=== PATIENT | female | born 1965 | race Caucasian/White ===

== ENCOUNTER 2022-11-11 14:43 | Outpatient (RCR) | payer MEDICAID, SELFPAY | END 2022-12-07 16:26 | disposition home or self-care (01) | LOC: PT 14:43 | PROVIDERS: PCP Family Medicine | DX: M54.2 Cervicalgia (principal) | CPT/HCPCS: 97010; 97012; 97014; 97110; 97140; 97162 ==

== ENCOUNTER 2023-01-03 16:00 | Outpatient (REF) | payer MEDICAID, SELFPAY ==
[2023-01-06 18:08] LABS: Age Gdln ACOG Testing Note (.); HPV Aptima Negative (Negative); IGP, Aptima HPV, rfx 16/18,45 Note (.)
== END 2023-01-03 16:01 | disposition home or self-care (01) ==
LOC: LAB 16:00
PROVIDERS: PCP Family Medicine; Visit Provider Obstetrics & Gynecology
DX: Z12.4 Encounter for screening for malignant neoplasm of cervix (principal)
CPT/HCPCS: G0145

== ENCOUNTER 2023-01-09 12:49 | Outpatient (OUT) | payer MEDICAID, SELFPAY ==
--- NOTE | 2023-01-09 13:02 | XR_ITS ---
[address] [address] Patient Name: EDINSON VILLEDA MRN: [id number] date: 1965 Sex: F Assigned Patient Location: [facility] Current Patient Location: LAB Accession/Order Number: [id number] Exam Date: 01/09/2023 13:06 Report Date: 01/09/2023 17:40 At the request of: ROSITA UMANZOR Procedure: XR DEXA axial skeleton EXAMINATION: XR DEXA axial skeleton, 01/09/2023 1:06 PM EDT HISTORY: Screening For Osteoporosis M81.0 COMPARISON: 2018 TECHNIQUE: Dual-energy X-ray absorptiometry (DEXA) bone density study performed for the axial skeleton. FINDINGS: Bone mineral density AP spine L1-L4 measures 1.153 g/sq cm. 3.4% reduction from the prior exam. T score -0.2. WHO classification: Normal. Lowest bone mineral density right femoral neck measures 0.934 g/sq cm. T score -0.7. WHO classification: Normal XR/XR DEXA axial skeleton IMPRESSION: Normal bone mineral density. Low fracture risk Electronically authenticated by: DAMARIS WOODSON Date: 01/09/2023 17:40
== END 2023-01-09 12:50 | disposition home or self-care (01) ==
LOC: RAD 12:49
PROVIDERS: PCP Family Medicine; Visit Provider Obstetrics & Gynecology
DX: M81.0 Age-related osteoporosis without current pathological fracture (principal)
CPT/HCPCS: 77080

== ENCOUNTER 2023-09-06 10:37 | Outpatient (OUT) | payer MEDICAID, SELFPAY ==
--- NOTE | 2023-09-06 10:43 | MM_ITS ---
Patient Name: EDINSON VILLEDA MR#: [id number] : 1965 Exam Date: 09/06/2023 Ordering Doctor: DR Justin Mcclendon . RADIOLOGY REPORT PROCEDURE: MM TOMOSYNTHESIS SCREENING BI COMPARISON: MG MAMM SCREEN 3D NEIL CAD, 07/13/2021. MG MAMM SCREEN 3D NEIL CAD, 07/20/2022. INDICATIONS: Screening Calculator Name NCI Breast Cancer Risk Assessment Tool 5 Year Breast Cancer Risk 1.10% Lifetime Breast Cancer Risk 7.10% Personal Breast Cancer No Personal Ovarian Cancer No Treatments None Family Cancers Grandmother-paternal with breast cancer at age ~50; Grandmother-paternal with bone cancer at age 80; Father with carcinoma cancer at age 50. LOCATION: [facility] BREAST COMPOSITION: The breasts are heterogeneously dense,which may obscure small masses. FINDINGS: DIAGNOSTIC CATEGORY 2--BENIGN FINDING. NO CHANGE FROM COMPARISON. Scattered benign-appearing nodules are present. Scattered benign-appearing calcifications are present. Scattered benign-appearing lymph nodes are present. RIGHT BREAST: No significant suspicious finding. LEFT BREAST: No significant suspicious finding. RECOMMENDATIONS: ROUTINE MAMMOGRAM AND CLINICAL EVALUATION IN 12 MONTHS. PLEASE NOTE: A NORMAL MAMMOGRAM DOES NOT EXCLUDE THE POSSIBILITY OF BREAST CANCER. A CLINICALLY SUSPICIOUS PALPABLE LUMP SHOULD BE BIOPSIED. Dictated by: Farhan Plummer MD on 09/06/2023 at 13:08 Approved by: Farhan Plummer MD on 09/06/2023 at 13:09
== END 2023-09-06 10:38 | disposition home or self-care (01) ==
LOC: MAMMO 10:38
PROVIDERS: PCP Family Medicine; Visit Provider Obstetrics & Gynecology
DX: Z12.31 Encounter for screening mammogram for malignant neoplasm of breast (principal); Z80.3 Family history of malignant neoplasm of breast; Z80.8 Family history of malignant neoplasm of other organs or systems
CPT/HCPCS: 77063; 77067

== ENCOUNTER 2023-09-25 12:30 | Outpatient (OUT) | payer MEDICAID, SELFPAY | END 2023-09-25 12:31 | disposition home or self-care (01) | LOC: SLEEP 09-26 09:01 | PROVIDERS: PCP Family Medicine; Visit Provider Family Medicine | DX: R40.0 Somnolence (principal); G47.33 Obstructive sleep apnea (adult) (pediatric) | CPT/HCPCS: 95806 ==

== ENCOUNTER 2023-10-09 19:50 | Outpatient (OUT) | payer MEDICAID, SELFPAY ==
--- OUTSIDE RECORDS SUMMARY | 2023-10-09 19:52 | XMS_ITS | CCD ---
Author Organization [facility] Care Team Providers Care Wrapper Layer Name Role Phone NOÉ ., DR BECKER Admitting Unavailable NOÉ ., DR BECKER Attending Unavailable CHARITY, DR BRANCH Primary Care Unavailable NOÉ ., DR BECKER Consulting Unavailable NOÉ ., DR BECKER Admitting Unavailable NOÉ ., DR BECKER Attending Unavailable CHARITY, DR BRANCH Primary Care Unavailable NOÉ ., DR BECKER Consulting Unavailable ZIEBER, DR ERIK Martinez Consulting Unavailable CHARITY, SARINA Ac Attending Unavailable Allergies Allergy Classification Reported Allergen(s) Allergy Type Date of Onset Reaction(s) Facility (1 source) Penicillins Drug allergy (disorder) 02-17-2014 [facility] Repository Problems Active Problems Problem Classification Problem Date Documented Da te Episodic/Chronic Other screening for suspected conditions (not mental disorders or infectious disease) (8 sources) Encounter for screening mammogram for malignant neoplasm of breast; Translations: [Encounter for screening for malignant neoplasm of cervix] Onset: 09-14-2021 Episodic Residual codes; unclassified (1 source) Family history of malignant neoplasm of breast; Translations: [FAMILY HX MALIG NEOPLASM OF BREAST] Onset: 07-25-2022 Episodic Residual codes; unclassified (1 source) Family history of malignant neoplasm of other organs or systems; Translations: [FAM HX MALIG NEOPLASM OTH ORGN/SYS] Onset: 07-25-2022 Episodic Past or Other Problems Problem Classification Problem Date Documented Date Episodic/Chronic Immunizations and screening for infectious disease (1 source) Encounter for screening for human papillomavirus (HPV); Translations: [ENC SCREENING HUMAN PAPILLOMAVIRUS] Onset: 09-17-2021 Episodic Results Test Name Value Interpretation Reference Range Facility MG MAMM SCREEN 3D NEIL CADon 07-20-2022 MG MAMM SCREEN 3D NEIL CAD Patient: EDINSON VILLEDA Exam Date: 07/20/2022 : 1965 Gender:F Ordering : DR ROSITA UMANZOR . Admission #: [id number] Family : Order #: [id number] CLICK HERE TO VIEW EXAM RADIOLOGY REPORT PROCEDURE: MAMMOGRAM SCREENING 3D BILATERAL CAD COMPARISON: MG MAMM SCREEN 3D NEIL CAD, 07/13/2021. MG MAMM SCREEN 3D NEIL CAD, 07/08/2020. MG MAMM SCREEN NEIL W CAD, 10/05/2018. DIGITIZED_MAMMO, 09/18/2006. INDICATIONS: Screening mammography Calculator Name NCI Breast Cancer Risk Assessment Tool 5 Year Breast Cancer Risk 1.10% Lifetime Breast Cancer Risk 7.20% Personal Breast Cancer No Personal Ovarian Cancer No Treatments None Family Cancers Grandmother-paternal with breast cancer at age 50; Grandmother-paternal with bone cancer at age 80; Father with carcinoma cancer at age 50. LOCATION: [facility] BREAST COMPOSITION: Heterogeneously dense,which may obscure small masses. FINDINGS: DIAGNOSTIC CATEGORY 2--BENIGN FINDING: RIGHT BREAST: No significant suspicious finding. Scattered benign-appearing lymph nodes are present. No significant change has occurred. LEFT BREAST: No significant suspicious finding. Scattered benign-appearing lymph nodes are present. No significant change has occurred. RECOMMENDATIONS: ROUTINE MAMMOGRAM AND CLINICAL EVALUATION IN 12 MONTHS. PLEASE NOTE: A NORMAL MAMMOGRAM DOES NOT EXCLUDE THE POSSIBILITY OF BREAST CANCER. A CLINICALLY SUSPICIOUS PALPABLE LUMP SHOULD BE BIOPSIED. Dictated by: Erik Urban M.D. on 07/20/2022 at 12:32 Approved by: Erik Urban M.D. on 07/20/2022 at 13:12 [facility] PAP ACOG PANEL 2: 30 to 65on 09-17-2021 . . Normal [facility] Comment on above: Result Comment: Perf ormed at: WB Performed By: #### [id number] #### [facility] [address] [address] [address] Jose Alejandro Jim Age Gdln ACOG Testing 30-65 Normal [facility] Comment on above: Performed By: #### [id number] #### [facility] [address] [address] [address] Jose Alejandro Jim DIAGNOSIS: Comment Normal [facility] Comment on above: Result Comment: NEGA TIVE FOR INTRAEPITHELIAL LESION OR MALIGNANCY. Performed at: WB Performed By: #### [id number] #### [facility] [address] [place] [address] Dr. Jose Alejandro Jim HPV Aptima Negative Normal Negative [facility] Comment on above: Result Comment: This nucleic acid amplification test detects fourteen high-risk HPV types (16,18,31,33,35,39,45,51,52,56,58,59,66,68) without differentiation. Performed at: =G Performed By: #### [id number] #### [facility] [address] [place] [address] Dr. Jose Alejandro Jim Methodology: Comment Normal [facility] Comment on above: Result Comment: This liquid based ThinPrep(R) pap test was screened with the use of an image guided system. Performed at: WB Performed By: #### [id number] #### [facility] [address] [place] [address] Dr. Jose Alejandro Jim Note: Comment Normal [facility] Comment on above: Result Comment: The Pap smear is a screening test designed to aid in the detection of premalignant and malignant conditions of the uterine cervix. It is not a diagnostic procedure and should not be used as the sole means of detecting cervical cancer. Both false-positive and false-negative reports do occur. . Performed at: WB Performed By: #### [id number] #### [facility] [address] [place] [address] Dr. Jose Alejandro Jim Performed by: Comment Normal [facility] Comment on above: Result Comment: Wen López, Bacteriology Teacher (ASCP) Performed at: WB Performed By: #### [id number] #### [facility] [address] [place] [address] Dr. Jose Alejandro Jim Specimen adequacy: Comment Normal [facility] Comment on above: Result Comment: Sati sfactory for evaluation. Endocervical and/or squamous metaplastic cells (endocervical component) are present. Performed at: WB Performed By: #### [id number] #### [facility] [address] [place] [address] Dr. Jose Alejandro Jim Complete Blood Count with Au to Diffon 03-31-2022 BASOABS 62 cells/uL Normal 0-200 [facility] Specialist Comment on above: Order Comment: [facility] performed at: [facility], [facility], [address] [place] [address], [address] [place] [address], [address] [place] [address], Animation Director: Breezy Kumar MD [facility] Date/Time: [facility] Results Received Date/Time: [facility] Reported Date/Time: Performed By: #### L IPD, TSH reflex FT4, VITD, CBCAD, CMP #### [facility] Default [address] [place] [address] Basophils/100 WBC (Bld) 0.7 % Normal [facility] Specialist Comment on above: Order Comment: [facility] performed at: [facility], [facility], [address] [place] [address], [address] [place] [address], [address] [place] [address], Animation Director: Breezy Kumar MD [facility] Date/Time: [facility] Results Received Date/Time: [facility] Reported Date/Time: Performed By: #### L IPD, TSH reflex FT4, VITD, CBCAD, CMP #### [facility] [address] [place] [address] EOSABS 211 cells/uL Normal 15-500 [facility] Specialist Comment on above: Order Comment: [facility] performed at: [facility], [address] [place] [address], [address] [place] [address], [address] [place] [address], Animation Director: Breezy Kumar MD [facility] Date/Time: [facility] Results Received Date/Time: [facility] Reported Date/Time: Performed By: #### L IPD, TSH reflex FT4, VITD, CBCAD, CMP #### [facility] [address] [place] [address] Eosinophils/100 WBC (Bld) 2.4 % Normal [facility] Specialist Comment on above: Order Comment: [facility] performed at: [facility], [address] [place] [address], [address] [place] [address], [phone], Animation Director: Breezy Kumar MD [facility] Date/Time: [facility] Results Received Date/Time: [facility] Reported Date/Time: Performed By: #### L IPD, TSH reflex FT4, VITD, CBCAD, CMP #### [facility] [address] [place] [address] Erythrocyte distribution width (RBC) [Ratio] 12.4 % Normal 11.0-15.0 [facility] Bo[facility] Off Worker Comment on above: Order Comment: [facility] performed at: [facility], [address] [place] [address], [address] [place] [address], [address] [place] [address], Animation Director: Breezy Kumar MD [facility] Date/Time: [facility] Results Received Date/Time: [facility] Reported Date/Time: Performed By: #### L IPD, TSH reflex FT4, VITD, CBCAD, CMP #### [facility] [address] [place] [address] Hematocrit (Bld) [Volume fraction] 48.8 % High 35.0-45.0 [facility] Bo[employer] Off Worker Comment on above: Order Comment: [facility] performed at: [facility], [address] [place] [address], [address] [place] [address], [phone], Animation Director: Breezy Kumar MD [facility] Date/Time: [facility] Results Received Date/Time: [facility] Reported Date/Time: Performed By: #### L IPD, TSH reflex FT4, VITD, CBCAD, CMP #### [facility] [address] [place] [address] Hemoglobin (Bld) [Mass/Vol] 16.8 g/dL High 11.7-15.5 [place] [facility] Worker Comment on above: Order Comment: [facility] performed at: [facility], [facility], [address] [place] [address], [address] [place] [address], [phone], Animation Director: Breezy Kumar MD [facility] Date/Time: [facility] Results Received Date/Time: [facility] Reported Date/Time: Performed By: #### L IPD, TSH reflex FT4, VITD, CBCAD, CMP #### [facility] [address] [place] [address] Lymphocytes (Bld) [#/Vol] 2.561 10*3/uL Normal 850-3900 [facility] Boil Off Worker Comment on above: Order Comment: [facility] performed at: [facility], [facility], [address] [place] [address], [address] [place] [address], [address] [place] [address], Animation Director: Breezy Kumar MD [facility] Date/Time: [facility] Results Received Date/Time: [facility] Reported Date/Time: Performed By: #### L IPD, TSH reflex FT4, VITD, CBCAD, CMP #### [facility] [address] [place] [address] Lymphocytes/100 WBC (Bld) 29.1 % Normal [facility] Bo[employer] Off Worker Comment on above: Order Comment: [facility] performed at: [facility], [facility], [address] [place] [address], [address] [place] [address], [place], [phone], Animation Director: Breezy Kumar MD [facility] Date/Time: [facility] Results Received Date/Time: [facility] Reported Date/Time: Performed By: #### L IPD, TSH reflex FT4, VITD, CBCAD, CMP #### [facility] [address] [place] [address] MCH (RBC) [Entitic mass] 31.2 pg Normal 27.0-33.0 [facility] Bo[employer] Off Worker Comment on above: Order Comment: [facility] performed at: [facility], [facility], [address] [place] [address], [address] [place] [address], [address] [place] [address], Animation Director: Breezy Kumar MD [facility] Date/Time: [facility] Results Received Date/Time: [facility] Reported Date/Time: Performed By: #### L IPD, TSH reflex FT4, VITD, CBCAD, CMP #### [facility] [address] [place] [address] MCHC (RBC) [Mass/Vol] 34.4 g/dL Normal 32.0-36.0 [facility] Specialist Comment on above: Order Comment: [facility] performed at: [facility], [facility], [address] [place] [address], [address] [place] [address], Animation Director: Breezy Kumar MD [facility] Date/Time: [facility] Results Received Date/Time: [facility] Reported Date/Time: Performed By: #### L IPD, TSH reflex FT4, VITD, CBCAD, CMP #### [facility] [address] [place] [address] MCV (RBC) [Entitic vol] 90.5 fL Normal 80.0-100.0 [facility] Specialist Comment on above: Order Comment: [facility] performed at: [facility], [facility], [address] [place] [address], [address] [place] [address], [address] [place] [address], Animation Director: Breezy Kumar MD [facility] Date/Time: [facility] Results Received Date/Time: [facility] Reported Date/Time: Performed By: #### L IPD, TSH reflex FT4, VITD, CBCAD, CMP #### [facility] [address] [place] [address] MONOABS 616 cells/uL Normal 200-950 [facility] Boil Off Worker Comment on above: Order Comment: [facility] performed at: [facility], [facility], [address] [place] [address], [address] [place] [address], [address] [place] [address], Animation Director: Breezy Kumar MD [facility] Date/Time: [facility] Results Received Date/Time: [facility] Reported Date/Time: Performed By: #### L IPD, TSH reflex FT4, VITD, CBCAD, CMP #### [facility] [address] [place] [address] Monocytes/100 WBC (Bld) 7.0 % Normal [facility] Bo[facility] Worker Comment on above: Order Comment: [facility] performed at: [facility], [facility], [address] [facility], [address] [place] [address], , Animation Director: Breezy Kumar MD [facility] Date/Time: [facility] Results Received Date/Time: [facility] Reported Date/Time: Performed By: #### L IPD, TSH reflex FT4, VITD, CBCAD, CMP #### [facility] [address] [place] [address] Neutrophils (Bld) [#/Vol] 5.35 10*3/uL Normal 9543-4559 [facility] Bo[facility] Worker Comment on above: Order Comment: [facility] performed at: [facility], [facility], [address] [place] [address], [address] [place] [address], [phone], Animation Director: Breezy Kumar MD [facility] Date/Time: [facility] Results Received Date/Time: [facility] Reported Date/Time: Performed By: #### L IPD, TSH reflex FT4, VITD, CBCAD, CMP #### [facility] [address] [place] [address] Neutrophils/100 WBC (Bld) 60.8 % Normal [facility] Bo[employer] Off Worker Comment on above: Order Comment: [facility] performed at: [facility], [facility], [address] [place] , [address] [place] [address], [phone], Animation Director: Breezy Kumar MD [facility] Date/Time: [id number] [facility] Received Date/Time: [facility] Reported Date/Time: Performed By: #### L IPD, TSH reflex FT4, VITD, CBCAD, CMP #### [facility] [address] [place] [address] Platelet mean volume (Bld) [Entitic vol] 10.7 fL Normal 7.5-12.5 [facility] Comment on above: Order Comment: [facility] performed at: [facility], [facility], [address] [place] [address], [address] [place] [address], [address] [place] [address], Animation Director: Breezy Kumar MD [facility] Date/Time: [facility] Results Received Date/Time: [facility] Reported Date/Time: Performed By: #### L IPD, TSH reflex FT4, VITD, CBCAD, CMP #### [facility] Default [address] [place] [address] Platelets (Bld) [#/Vol] 234 10*3/uL Normal 140-400 [facility] Boil Off Worker Comment on above: Order Comment: [facility] performed at: [facility], [facility], [address] [place] [address], [address] [place] [address], [address] [place] [address], Animation Director: Breezy Kumar MD [facility] Date/Time: [facility] Results Received Date/Time: [facility] Reported Date/Time: Performed By: #### L IPD, TSH reflex FT4, VITD, CBCAD, CMP #### [facility] Default [address] [place] [address] RBC (Bld) [#/Vol] 5.39 10*6/uL High 3.80-5.10 [facility] Specialist Comment on above: Order Comment: [facility] performed at: [facility], [facility], [address] [place] [address], [address] [place] [address], [address] [place] [address], Animation Director: Breezy Kumar MD [facility] Date/Time: [facility] Results Received Date/Time: [facility] Reported Date/Time: Performed By: #### L IPD, TSH reflex FT4, VITD, CBCAD, CMP #### [facility] Default [address] [place] [address] WBC (Bld) [#/Vol] 8.8 10*3/uL Normal 3.8-10.8 [facility] [place] [facility] Worker Comment on above: Order Comment: [facility] performed at: [facility], [facility], [address] [facility], [address] [place] [address], [address] [place] [address], Animation Director: Breezy Kumar MD [facility] Date/Time: [facility] Results Received Date/Time: [facility] Reported Date/Time: Performed By: #### L IPD, TSH reflex FT4, VITD, CBCAD, CMP #### [facility] [address] [place] [address] Comprehensive Metabolic Pane [facility] 07-08-2021 Albumin [Mass/Vol] 4.6 g/dL Normal 3.6-5.1 [facility] [place] [facility] Worker Comment on above: Order Comment: [facility] performed at: [facility], [facility], [address] [place] [address], [address] [place] [address], [address] [place] [address], Animation Director: Breezy Kumar MD [facility] Date/Time: [facility] Results Received Date/Time: [facility] Reported Date/Time: Performed By: #### L IPD, TSH reflex FT4, VITD, CBCAD, CMP #### [facility] Default [address] [place] [address] Albumin/Globulin [Mass ratio] 1.6 {ratio} Normal 1.0-2.5 [facility] Bo[facility] Off Worker Comment on above: Order Comment: [facility] performed at: [facility], [facility], [address] [place] [address], [address] [place] [address], [address] [place] [address], Animation Director: Breezy Kumar MD [facility] Date/Time: [facility] Results Received Date/Time: [facility] Reported Date/Time: Performed By: #### L IPD, TSH reflex FT4, VITD, CBCAD, CMP #### [facility] [address] [place] [address] ALP [Catalytic activity/Vol] 92 U/L Normal 37-153 [facility] Specialist Comment on above: Order Comment: [facility] performed at: [facility], [facility], [address] [place] [address], [address] [place] [address], [address] [place] [address], Animation Director: Breezy Kumar MD [facility] Date/Time: [facility] Results Received Date/Time: [facility] Reported Date/Time: Performed By: #### L IPD, TSH reflex FT4, VITD, CBCAD, CMP #### [facility] [address] [place] [address] ALT [Catalytic activity/Vol] 12 U/L Normal 6-29 [facility] Specialist Comment on above: Order Comment: [facility] performed at: [facility], [address] [place] [address], [address] [place] [address], [address] [place] [address], Animation Director: Breezy Kumar MD [facility] Date/Time: [facility] Results Received Date/Time: [facility] Reported Date/Time: Performed By: #### L IPD, TSH reflex FT4, VITD, CBCAD, CMP #### [facility] [address] [place] [address] Anion gap [Moles/Vol] 12 mmol/L Normal 12-20 [facility] Specialist Comment on above: Order Comment: [facility] performed at: [facility], [facility], [address] [place] [address], [address] [place] [address], [address] [place] [address], Animation Director: Breezy Kumar MD [facility] Date/Time: [facility] Results Received Date/Time: [facility] Reported Date/Time: Result Comment: Effe ctive 04/15/2019 reference range changed. Performed By: #### L IPD, TSH reflex FT4, VITD, CBCAD, CMP #### [facility] Default [address] [place] [address] AST [Catalytic activity/Vol] 14 U/L Normal 10-35 [facility] Comment on above: Order Comment: [facility] performed at: [facility], [facility], [address] [place] [address], [address] [place] [address], [address] [place] [address], Animation Director: Breezy Kumar MD [facility] Date/Time: [facility] Results Received Date/Time: [facility] Reported Date/Time: Performed By: #### L IPD, TSH reflex FT4, VITD, CBCAD, CMP #### [facility] Default [address] [place] [address] Bilirubin [Mass/Vol] 0.7 mg/dL Normal 0.2-1.2 [facility] Comment on above: Order Comment: [facility] performed at: [facility], [facility], [address] [place] [address], [address] [place] [address], [address] [place] [address], Animation Director: Breezy Kumar MD [facility] Date/Time: [facility] Results Received Date/Time: [facility] Reported Date/Time: Performed By: #### L IPD, TSH reflex FT4, VITD, CBCAD, CMP #### [facility] Default [address] [place] [address] BUN/CREA 14 NOT APPLICABLE Normal 6-22 [facility] Comment on above: Order Comment: [facility] performed at: [facility], [facility], [address] [place] [address], [address] [place] [address], [address] [place] [address], Animation Director: Breezy Kumar MD [facility] Date/Time: [facility] Results Received Date/Time: [facility] Reported Date/Time: Performed By: #### L IPD, TSH reflex FT4, VITD, CBCAD, CMP #### [facility] Default [address] [place] [address] Calcium [Mass/Vol] 10.1 mg/dL Normal 8.6-10.4 [facility] Comment on above: Order Comment: [facility] performed at: [facility], [facility], [address] [facility], [address] [place] [address], [address] [place] [address], Animation Director: Breezy Kumar MD [facility] Date/Time: [facility] Results Received Date/Time: [facility] Reported Date/Time: Performed By: #### L IPD, TSH reflex FT4, VITD, CBCAD, CMP #### [facility] Default [address] [place] [address] Chloride [Moles/Vol] 106 mmol/L Normal 98-110 [facility] Comment on above: Order Comment: [facility] performed at: [facility], [facility], [address] [facility], [address] [place] [address], [address] [place] [address], Animation Director: Breezy Kumar MD [facility] Date/Time: [facility] Results Received Date/Time: [facility] Reported Date/Time: Performed By: #### L IPD, TSH reflex FT4, VITD, CBCAD, CMP #### [facility] Default [address] [place] [address] CO2 [Moles/Vol] 28 mmol/L Normal 20-32 [facility] Comment on above: Order Comment: [facility] performed at: [facility], [facility], [address] [place] [address], [address] [place] [address], [address] [place] [address], Animation Director: Breezy Kumar MD [facility] Date/Time: [facility] Results Received Date/Time: [facility] Reported Date/Time: Performed By: #### L IPD, TSH reflex FT4, VITD, CBCAD, CMP #### [facility] Default [address] [place] [address] Creatinine [Mass/Vol] 0.83 mg/dL Normal 0.50-1.05 [facility] Specialist Comment on above: Order Comment: [facility] performed at: [facility], [facility], [address] [place] [address], [address] [place] [address], [address] [place] [address], Animation Director: Breezy Kumar MD [facility] Date/Time: [facility] Results Received Date/Time: [facility] Reported Date/Time: Result Comment: For patients >49 years of age, the reference limit for Creatinine is approximately 13% higher for people identified as -[place]. Performed By: #### L IPD, TSH reflex FT4, VITD, CBCAD, CMP #### [facility] Default [address] [place] [address] eGFRAA ([facility]) 92 mL/min/1.73m2 Normal > OR = 60 [facility] Specialist Comment on above: Order Comment: [facility] Testing performed at: [facility], [facility], [address] [place] [address], [address] [place] [address], [address] [place] [address], Animation Director: Breezy Kumar MD [facility] Collection Date/Time: [facility] Results Received Date/Time: [facility] Reported Date/Time: Performed By: #### L IPD, TSH reflex FT4, VITD, CBCAD, CMP #### [facility] Default [address] [place] [address] eGFRNAA ([facility]) 79 mL/min/1.73m2 Normal > OR = 60 [facility] Comment on above: Order Comment: [facility] Testing performed at: [facility], [facility], [address] [place] [address], [address] [place] [address], [address] [place] [address], Animation Director: Breezy Kumar MD [facility] Collection Date/Time: [facility] Results Received Date/Time: [facility] Reported Date/Time: Performed By: #### L IPD, TSH reflex FT4, VITD, CBCAD, CMP #### [facility] Default [address] [place] [address] Globulin (S) [Mass/Vol] 2.9 g/dL Normal 1.9-3.7 [facility] Comment on above: Order Comment: [facility] Testing performed at: [facility], [facility], [address] [place] [address], [address] [place] [address], [address] [place] [address], Animation Director: Breezy Kumar MD [facility] Collection Date/Time: [facility] Results Received Date/Time: [facility] Reported Date/Time: Performed By: #### L IPD, TSH reflex FT4, VITD, CBCAD, CMP #### [facility] [address] [place] [address] Glucose [Mass/Vol] 94 mg/dL Normal 65-99 [facility] Comment on above: Order Comment: [facility] Testing performed at: [facility], [facility], [address] [place] [address], [address] [place] [address], [address] [place] [address], Animation Director: Breezy Kumar MD [facility] Collection Date/Time: [facility] Results Received Date/Time: [facility] Reported Date/Time: Result Comment: Fasting reference interval Performed By: #### L IPD, TSH reflex FT4, VITD, CBCAD, CMP #### [facility] [address] [place] [address] Potassium [Moles/Vol] 5.0 mmol/L Normal 3.5-5.3 [facility] Comment on above: Order Comment: [facility] Testing performed at: [facility], [facility], [address] [place] [address], [address] [place] [address], [address] [place] [address], Animation Director: Breezy Kumar MD [facility] Collection Date/Time: [facility] Results Received Date/Time: [facility] Reported Date/Time: Performed By: #### L IPD, TSH reflex FT4, VITD, CBCAD, CMP #### [facility] [address] [place] [address] Protein [Mass/Vol] 7.5 g/dL Normal 6.1-8.1 Rodrick rn [place] [employer] Worker Comment on above: Order Comment: [facility] Testing performed at: [facility], [facility], [address] [place] [address], [address] [place] [address], [address] [place] [address], Animation Director: Breezy Kumar MD [facility] Collection Date/Time: [facility] Results Received Date/Time: [facility] Reported Date/Time: Performed By: #### L IPD, TSH reflex FT4, VITD, CBCAD, CMP #### [facility] [address] [place] [address] Sodium [Moles/Vol] 141 mmol/L Normal 135-146 Rodrick lipscomb [place] [employer] Worker Comment on above: Order Comment: [facility] performed at: [facility], [facility], [address] [place] [address], [address] [place] [address], [address] [place] [address], Animation Director: Breezy Kumar MD [facility] Collection Date/Time: [facility] Results Received Date/Time: [facility] Reported Date/Time: Performed By: #### L IPD, TSH reflex FT4, VITD, CBCAD, CMP #### [facility] [address] [place] [address] Urea nitrogen [Mass/Vol] 12 mg/dL Normal 7-25 [facility] Boil Off Worker Comment on above: Order Comment: [facility] Testing performed at: [facility], [facility], [address] [place] [address], [address] [place] [address], [address] [place] [address], Animation Director: Breeyz Kumar MD [facility] Collection Date/Time: [facility] Results Received Date/Time: [facility] Reported Date/Time: Performed By: #### L IPD, TSH reflex FT4, VITD, CBCAD, CMP #### [facility] [address] [place] [address] Lipid Panelon 07-08-2021 Cholesterol [Mass/Vol] 208 mg/dL High <200 [facility] Boil Off Worker Comment on above: Order Comment: [facility] performed at: [facility], [facility], [address] [place] [address], [address] [place] [address], [address] [place] [address], Animation Director: Breezy Kumar MD [facility] Collection Date/Time: [facility] Results Received Date/Time: [facility] Reported Date/Time: Performed By: #### L IPD, TSH reflex FT4, VITD, CBCAD, CMP #### [facility] [address] [place] [address] Cholesterol in HDL [Mass/Vol] 35 mg/dL Low > OR = 50 [facility] Boil Off Worker Comment on above: Order Comment: [facility] performed at: [facility], [facility], [address] [place] [address], [address] [place] [address], [address] [place] [address], Animation Director: Breezy Kumar MD [facility] Collection Date/Time: [facility] Results Received Date/Time: [facility] Reported Date/Time: Performed By: #### L IPD, TSH reflex FT4, VITD, CBCAD, CMP #### [facility] [address] [place] [address] Cholesterol in LDL [Mass/Vol] 140 mg/dL High [facility] Boil Off Worker Comment on above: Order Comment: [facility] Testing performed at: [facility], [address] [place] [address], [address] [place] [address], [address] [place] [address], Animation Director: Breezy Kumar MD [facility] Collection Date/Time: [facility] Results Received Date/Time: [facility] Reported Date/Time: Result Comment: Refe rence range: <100 Desirable range <100 mg/dL for primary prevention; <70 mg/dL for patients with CHD or diabetic patients with > or = 2 CHD risk factors. LDL-C is now calculated using the Francesco-Villalobos calculation, which is a validated novel method providing better accuracy than the Friedewald equation in the estimation of LDL-C. Francesco ESPINOZA et al. OVI. 2013;310(19): 2498-6692 (http://education.[employer]/faq/TMY842) Performed By: #### L IPD, TSH reflex FT4, VITD, CBCAD, CMP #### [facility] [address] [place] [address] NON HDL CHOLESTEROL 173 mg/dL (calc) High <130 [facility] Comment on above: Order Comment: [facility] Testing performed at: [facility], [facility], [address] [facility], [address] [place] [address], [phone], Animation Director: Breezy Kumar MD [facility] Collection Date/Time: [facility] Results Received Date/Time: [facility] Reported Date/Time: Result Comment: For patients with diabetes plus 1 major ASCVD risk factor, treating to a non-HDL-C goal of <100 mg/dL (LDL-C of <70 mg/dL) is considered a therapeutic option. Performed By: #### L IPD, TSH reflex FT4, VITD, CBCAD, CMP #### [facility] [address] [place] [address] Triglyceride [Mass/Vol] 190 mg/dL High <150 [facility] Specialist Comment on above: Order Comment: [facility] performed at: [facility], [facility], [address] [facility], [address] [place] [address], [phone], Animation Director: Breezy Kumar MD [facility] Collection Date/Time: [facility] Results Received Date/Time: [facility] Reported Date/Time: Performed By: #### L IPD, TSH reflex FT4, VITD, CBCAD, CMP #### [facility] [address] [place] [address] TSH w/ Reflex to Free T4on 0 07-08-2021 TSH W/REFLEX TO FT4 0.59 mIU/L Normal [facility] Comment on above: Order Comment: [facility] Testing performed at: [facility], [facility], [address], [address] [place] [address], [phone], Animation Director: Breezy Kumar MD [facility] Collection Date/Time: [facility] Results Received Date/Time: [facility] Reported Date/Time: Result Comment: Refe rence Range > or = 20 Years 0.40-4.50 Ranges First trimester 0.26-2.66 Second trimester 0.55-2.73 Third trimester 0.43-2.91 Performed By: #### L IPD, TSH reflex FT4, VITD, CBCAD, CMP #### [facility] Default [address] [place] [address] Vitamin D 25-OHon 07-08-2021 VIT D 25 OH 35 ng/mL Normal 30-100 [facility] Specialist Comment on above: Order Comment: [facility] performed at: [facility], [facility], [address], [address] [place] [address], [address] [place] [address], Animation Director: Breezy Kumar MD [facility] Collection Date/Time: [facility] Results Received Date/Time: [facility] Reported Date/Time: Result Comment: Ann min D Status 25-OH Vitamin D: Deficiency: <20 ng/mL Insufficiency: 20 - 29 ng/mL Optimal: > or = 30 ng/mL For 25-OH Vitamin D testing on patients on D2-supplementation and patients for whom quantitation of D2 and D3 fractions is required, the QuestAssureD(TM) 25-OH VIT D, (D2,D3), LC/MS/MS is recommended: order code 75242 (patients >2yrs). See Note 1 Note 1 For additional information, please refer to http://education.[employer].i[employer]ERE/faq/FTL293 (This link is being provided for informational/ educational purposes only.) Performed By: #### L IPD, TSH reflex FT4, VITD, CBCAD, CMP #### [facility] Default [address] [place] [address] Consultation Noteon 01-06-20 Consultation Note [id number] Normal [facility] Encounters Encounter Date Encounter Type Care Provider Facility Start: 08-28-2023 End: 08-28-2023 ambulatory SARINA NASH Not Available Start: 07-20-2022 End: 07-21-[address] ROSITA UMANZOR . Facility: Start: 09-14-2021 End: 09-14-[address] ROSITA UMANZOR . Facility: Payers Date Payer Category Payer Medicaid [id number] 1965 Unknown [id number] [id number] 1965 Unknown [id number] [id number] [id number] 1965 Unknown [id number] 1959 Unknown [id number] Clinical Note 08-10-2021 Note Date & Type Note Facility 08-10-2021 Note HISTORY: Right sided neck pain, numbness, tingling PROCEDURE: [employer] Sign[employer] HDXT 1.5. Sagittal T1, T2, STIR and axial T1 and T2 images through the cervical spine were performed without contrast administration. FINDINGS: Normal cervical vertebral body height and bone marrow signal intensity. No vertebral body edema. Mild inflammatory signal intensity near the facet joints at right C3/4 and C4/5. Unremarkable posterior fossa contents and spinal cord. C1/2 - C2/3: Normal. C3/4: Moderate to severe disc space loss. Mild posterior osteophyte formation occupies the anterior CSF space with no significant deformity of the spinal cord or significant spinal canal stenosis. Mild uncovertebral hypertrophy and facet arthropathy results in mild to moderate bilateral mid neural foraminal stenosis. Mild inflammatory signal within the posterior right facet joints. C4/5: Moderate to severe disc space loss. Mild posterior osteophyte formation occupies the anterior CSF space resulting in no significant cord deformity. Minimal canal stenosis (AP diameter 8 mm). Asymmetric uncovertebral hypertrophy is seen on the right with mild facet arthropathy. Moderate to severe bilateral mid neural foraminal stenosis. Mild inflammatory signal within the soft tissues posterior to the right facets. C5/6: Moderate to severe disc space loss. Broad base central disc osteophyte complex occupies the anterior CSF space with obliteration of the CSF surrounding the minimally deformed spinal cord (AP diameter of the spinal canal 5 mm). Uncovertebral and facet hypertrophy (right greater than left). Moderate left and severe right mid neural foraminal stenosis. C6/7: Minimal disc space loss. No disc herniation, spinal canal or neural foraminal stenosis. C7/T1 - T2/3: Normal. IMPRESSION: 1. Moderate to severe degrees of spinal canal (C5/6) and neural foraminal stenosis (right greater than left). 2. Mild inflammatory signal posterior to the right C3/4 and C4/5 facets. Report reported and signed by Galo Palacio on 08/10/2021 115[address] [facility] Boil Off Worker Summary Purpose Family History No Family History Records FoundNo Family History Records FoundNo Family History Records FoundNo Family History Records Found Advance Directives No Advanced Directives Records FoundNo Advanced Directives Records FoundNo Advanced Directives Records FoundNo Advanced Directives Records Found Additional Source Comments INFORMATION SOURCE (unrecogn ized section and content) DATE CREATED AUTHOR 01/10/2021 [facility] DATE CREATED AUTHOR AUTHOR'S ORGANIZ ATION 08/12/2021 [facility] dical Specialist DATE CREATED AUTHOR AUTHOR'S ORGANIZ ATION 07/25/2022 [facility] DATE CREATED AUTHOR AUTHOR'S ORGANIZ ATION 08/29/2023 [facility] dical Specialists [facility] FOR RECORDS PERTAINING TO PATIENTS WHO ARE OR HAVE BEEN ENROLLED IN A CHEMICAL DEPENDENCY/SUBSTANCEABUSE PROGRAM, SOME INFORMATION MAY BE OMITTED. This clinical summary was aggregated from multiple sources. Caution should be exercised in using it in the provision of clinical care. This summary normalizes information from multiple sources, and as a consequence, information in this document may materially change the coding, format and clinical context of patient data. In addition, data may be omitted in some cases. CLINICAL DECISIONS SHOULD BE BASED ON THE PRIMARY CLINICAL RECORDS. [employer] provides no warranty or guarantee of the accuracy or completeness of information in this document.
== END 2023-10-09 19:51 | disposition home or self-care (01) ==
LOC: SLEEP 19:50
PROVIDERS: PCP Family Medicine; Visit Provider Family Medicine
DX: G47.33 Obstructive sleep apnea (adult) (pediatric) (principal)
CPT/HCPCS: 95811

== ENCOUNTER 2024-09-05 06:41 | Outpatient (OUT) | payer MEDICAID, SELFPAY ==
--- OUTSIDE RECORDS SUMMARY | 2024-09-05 06:45 | XMS_ITS | Encounter Summary ---
Author Organization [facility] Address [address] [facility] [place] [address] Care Team Providers Care Apartment Leasing Manager Name Role Phone Scottie Issa MD Primary Care Provider Scottie Issa MD Unavailable Encounter Details Date Type Department Care Team (Late st Contact Info) Description 11/10/2022 Abstract [facility] [address] [facility] [address] [place] [address] Scottie Issa MD 112 [facility] [address] [place], [place] [id number] Social History Tobacco Use Types Packs/Day Years Used Date Smoking Tobacco: Every Day Cigarettes Alcohol Use Standard Drinks/Week Comments Yes 2 (1 standard drink = 0.6 oz pur e alcohol) Caffeine: coffee, soda Comments Unknown Sex and Gender Information Value Date Recorded Sex Assigned at Female 09/15/2022 9:40 AM EDT Legal Sex Female 6:35 PM EDT Gender Identity Female 09/15/2022 9:40 AM EDT Sexual Orientation Straight 09/15/2022 9: 40 AM EDT documented as of this encounter Plan of Treatment Not on file documented as of this encounter Visit Diagnoses Not on filedocumented in this encounter Care Teams Apartment Leasing Manager Relationship Specialty Start Date End Date Scottie Issa MD [address] [facility] [address] [place] [address] PCP - General 09/15/22 Scottie Issa MD 112 [facility] [address] [place] [id number] PCP - [facility] MULTIFOCAL BUTTON GENERATOR 07/10/23 documented as of this encounter
--- OUTSIDE RECORDS SUMMARY | 2024-09-05 06:45 | XMS_ITS | Encounter Summary ---
Author Organization [facility] Address [address] [place] [address] Care Team Providers Care Curing Oven Attendant Name Role Phone Scottie Nash MD Primary Care Provider [phone] Scottie Nash MD Unavailable Encounter Details Date Type Department Care Team (Late st Contact Info) Description 09/06/2023 Clinisync Result Encounter [facility] External Department Unsolicited Justin Mcclendon, DO [address] [place] [address] Social History Tobacco Use Types Packs/Day Years Used Date Smoking Tobacco: Some Days Cigarettes 0.3 29.4 Started: 04/18/1995 Passive Smoke Exposure: Yes Smokeless Tobacco: Never Alcohol Use Standard Drinks/Week Comments Yes 4 (1 standard drink = 0.6 oz pur e alcohol) Caffeine: coffee, soda Humiliation, Afraid, Rape, and Kick questionnair e Answer Date Recorded Within the last year, have y ou been afraid of your partner or ex-partner? No 11/22/2022 Within the last year, have y ou been humiliated or emotionally abused in other ways by your partner or ex-partner? No Within the last year, have y ou been kicked, hit, slapped, or otherwise physically hurt by your partner or ex-partner? No 11/22/2022 Within the last year, have y ou been raped or forced to have any kind of sexual activity by your partner or ex-partner? No 11/22/2022 Social Connection and Isolation Panel [NHANES] A nswer Date Recorded In a typical week, how many times do you talk on the phone with family, friends, or neighbors? Once a week 11/23/19 How often do you get togethe r with friends or relatives? Once a week 11/22/2022 How often do you attend chur ch or latter day services? Never 11/22/2022 Do you belong to any clubs o r organizations such as judaism groups, unions, fraternal or athletic groups, or school groups? No 11/22/2022 How often do you attend meet ings of the clubs or organizations you belong to? Never 11/22/2022 Are you , , di vorced, , never , or living with a partner? Living with partner 11/22/2022 AUDIT-C Answer Date Recorded Q1: How often do you have a drink containing alc ohol? Monthly or less 11/22/2022 Q2: How many drinks containi ng alcohol do you have on a typical day when you are drinking? 3 or 4 11/22/2022 Q3: How often do you have si x or more drinks on one occasion? Less than monthly 11/22/2022 Overall Financial Resource Strain (CARDIA) Answe r Date Recorded How hard is it for you to pa y for the very basics like food, housing, medical care, and heating? Not very hard 11/22/2022 [facility] Health - Occupational Stress Questionnaire Answer Date Recorded Do you feel stress - tense, restless, nervous, or anxious, or unable to sleep at night because your mind is troubled all the time - these days? Only a little 11/22/2022 Exercise Vital Sign Answer Date Recorde d On average, how many days pe r week do you engage in moderate to strenuous exercise (like a brisk walk)? 3 days 11/22/2022 On average, how many minutes do you engage in exercise at this level? 30 min 11/22/2022 Hunger Vital Sign Answer Date Recorded Within the past 12 months, y ou worried that your food would run out before you got the money to buy more. Never true 11/23/19 23 Within the past 12 months, t he food you bought just didn't last and you didn't have money to get more. Never true 11/22/2022 PRAPARE - Transportation Answer Date Re corded In the past 12 months, has l ack of transportation kept you from medical appointments or from getting medications? No 11/08 In the past 12 months, has l ack of transportation kept you from meetings, work, or from getting things needed for daily living? No 11/22/2022 Housing Stability Vital Sign Answer [place]am e Recorded In the last 12 months, was t here a time when you were not able to pay the mortgage or rent on time? No 11/22/2022 In the last 12 months, how many places have you lived? 1 11/22/2022 In the last 12 months, was t here a time when you did not have a steady place to sleep or slept in a [place] [facility] [place] (including now)? No 11/22/2022 Comments No Sex and Gender Information Value Date Recorded Sex Assigned at Female 09/15/2022 9:40 AM EDT Legal Sex Female 6:35 PM EDT Gender Identity Female 09/15/2022 9:40 AM EDT Sexual Orientation Straight 09/15/2022 9: 40 AM EDT documented as of this encounter Plan of Treatment Not on file documented as of this encounter Procedures Procedure Name Priority Date/Time Associated Diagnosis Comments MM TOMOSYNTHESIS SCREENING BI 09/06/2023 1:09 PM EDT documented in this encounter Results * MM TOMOSYNTHESIS SCREENING BI (09/06/2023 1:09 PM EDT) Anatomical Region Laterality Modality Other 09/06/2023 1:09 PM EDT Narrative 09/06/2023 1:10 [place] [address] Mammography Report Signed Patient: EDINSON VILLEDA MR#: [id number] : 1965 Acct:[id number] Age/Sex: 58 / F ADM Date: 09/06/23 Loc: MAMMO Attending Dr: Justin Mcclendon D.O. Ordering Physician: Justin Mcclendon D.O. Results: Date of Service: 09/06/23 Follow Up: Procedure(s): MM tomosynthesis screening BI Accession Number(s): [id number] cc: SCOTTIE NASH ; Justin Mcclendon D.O. Patient Name: EDINSON VILLEDA MR#: [id number] : 1965 Exam Date: 09/06/2023 Ordering Doctor: DR Justin Mcclendon . RADIOLOGY REPORT PROCEDURE: MM TOMOSYNTHESIS SCREENING BI COMPARISON: MG MAMM SCREEN 3D NEIL CAD, 07/13/2021. MG MAMM SCREEN 3D NEIL CAD, 07/20/2022. INDICATIONS: Screening Calculator Name NCI Breast Cancer Risk Assessment Tool 5 Year Breast Cancer Risk 1.10% Lifetime Breast Cancer Risk 7.10% Personal Breast Cancer No Personal Ovarian Cancer No Treatments None Family Cancers Grandmother-paternal with breast cancer at age 50; Grandmother-paternal with bone cancer at age 80; Father with carcinoma cancer at age 50. LOCATION: [facility] BREAST COMPOSITION: The breasts are heterogeneously dense,which may obscure small masses. FINDINGS: DIAGNOSTIC CATEGORY 2--BENIGN FINDING. NO CHANGE FROM COMPARISON. Scattered benign-appearing nodules are present. Scattered benign-appearing calcifications are present. Scattered benign-appearing lymph nodes are present. RIGHT BREAST: No significant suspicious finding. LEFT BREAST: No significant suspicious finding. RECOMMENDATIONS: ROUTINE MAMMOGRAM AND CLINICAL EVALUATION IN 12 MONTHS. PLEASE NOTE: A NORMAL MAMMOGRAM DOES NOT EXCLUDE THE POSSIBILITY OF BREAST CANCER. A CLINICALLY SUSPICIOUS PALPABLE LUMP SHOULD BE BIOPSIED. Dictated by: Farhan Plummer MD on 09/06/2023 at 13:08 Approved by: Farhan Plummer MD on 09/06/2023 at 13:09 Dictated By: Farhan Plummer M.D. Signed By: 09/06/23 1310 DD/ 1309 TD/TT: Upholstery Restorer: Procedure Note Radiology, Radiologist, - 09/06/2023 [place] [address] Mammography Report Signed Patient: EDINSON VILLEDA LMR#: [id number] : 1965Acct:[id number] Age/Sex: 58 / FADM Date: 09/06/23 Loc: MAMMO Attending Dr: Justin Mcclendon D.O. Ordering Physician: Justin Mcclendon D.O.Results: Date of Service: 09/06/23Follow Up: Procedure(s): MM tomosynthesis screening BI Accession Number(s): [id number] cc: SCOTTIE NASH ; Justin Mcclendon D.O. Patient Name: EDINSON VILLEDA MR#: [id number] : 1965 Exam Date: 09/06/2023 Ordering Doctor: DR Justin Mcclendon . RADIOLOGY REPORT PROCEDURE: MM TOMOSYNTHESIS SCREENING BI COMPARISON: MG MAMM SCREEN 3D NEIL CAD, 07/13/2021. MG MAMM SCREEN 3DBIL CAD, 07/20/2022. INDICATIONS: Screening Calculator Name NCI Breast Cancer Risk Assessment Tool 5 Year Breast Cancer Risk 1.10% Lifetime Breast Cancer Risk 7.10% Personal Breast Cancer No Personal Ovarian Cancer No Treatments None Family Cancers Grandmother-paternal with breast cancer at age 50; Grandmother-paternal with bone cancer at age 80; Father with carcinomacancer at age 50. LOCATION: [facility] BREAST COMPOSITION: The breasts are heterogeneously dense,which may obscure small masses. FINDINGS: DIAGNOSTIC CATEGORY 2--BENIGN FINDING. NO CHANGE FROM COMPARISON.Scattered benign-appearing nodules are present. Scattered benign-appearing calcifications are present. Scattered benign-appearing lymph nodes are present. RIGHT BREAST: No significant suspicious finding. LEFT BREAST: No significant suspicious finding. RECOMMENDATIONS: ROUTINE MAMMOGRAM AND CLINICAL EVALUATION IN 12 MONTHS. PLEASE NOTE: A NORMAL MAMMOGRAM DOES NOT EXCLUDE THE POSSIBILITY OFBREAST CANCER. A CLINICALLY SUSPICIOUS PALPABLE LUMP SHOULD BE BIOPSIED. Dictated by: Farhan Plummer MD on 09/06/2023 at 13:08 Approved by: Farhan Plummer MD on 09/06/2023 at 13:09 Dictated By: Farhan Plummer M.D. Signed By:09/06/23 1310 DD/ 1309 TD/TT: Upholstery Restorer: Justin Mcclendon DO [facility] Final Result documented in this encounter Visit Diagnoses Not on filedocumented in this encounter Care Teams Curing Oven Attendant Relationship Specialty Start Date End Date Scottie Nash MD [address] [facility] [address] [place] [address] PCP - General 09/15/22 Scottie Nash MD [address] [place] [address] [place] [address] PCP - [facility] [place] BUSINESS PLANNING DIRECTOR 07/10/23 documented as of this encounter
--- OUTSIDE RECORDS SUMMARY | 2024-09-05 06:45 | XMS_ITS | Encounter Summary ---
Author Organization [facility] Address [address] [facility] [place] [address] Care Team Providers Care Polysomnographic Technologist Name Role Phone Scottie Nash MD Primary Care Provider [phone] Scottie Nash MD Unavailable Encounter Details Date Type Department Care Team (Late st Contact Info) Description 01/09/2023 Clinisync Result Encounter [facility] External Department Unsolicited Provider, Generic External Data Social History Tobacco Use Types Packs/Day Years Used Date Smoking Tobacco: Every Day Cigarettes Smokeless Tobacco: Never Alcohol Use Standard Drinks/Week Comments Yes 2 [...] friends, or neighbors? Once a week 11/23/19 23 How often do you get togethe r with friends or relatives? Once a week 11/22/2022 How often do you attend chur ch or sikh services? Never 11/22/2022 Do you belong to any clubs o r organizations such as orthodoxy groups, unions, fraternal or athletic groups, or [...] care, and heating? Not very hard 11/22/2022 [facility] - Occupational Stress Questionnaire Answer Date [...] place to sleep or slept in a jail (including now)? No 11/22/2022 Comments No Sex and Gender Information Value Date Recorded Sex Assigned at Female 09/15/2022 9:40 AM EDT Legal Sex Female 6:35 PM EDT Gender Identity Female 09/15/2022 9:40 AM EDT Sexual Orientation Straight 09/15/2022 9: 40 AM EDT COVID-19 Exposure Response Date Recorded In the last 10 days, have yo u been in contact with someone who was confirmed or suspected to have Coronavirus/COVID-19? No / Unsure 01/02/2023 1:37 PM EDT documented as of this encounter Plan of Treatment Not on file documented as of this encounter Procedures Procedure Name Priority Date/Time Associated Diagnosis Comments XR DEXA AXIAL SKELETON 01/09/2023 5:40 PM EDT documented in this encounter Results * XR DEXA AXIAL SKELETON (01/09/2023 5:40 PM EDT) Anatomical Region Laterality Modality Other 01/09/2023 5:40 PM EDT Narrative 01/09/2023 5:40 [place] [address] XRay Report Signed Patient: EDINSON VILLEDA MR#: [id number] : 1965 Acct:[id number] Age/Sex: 57 / F ADM Date: 01/09/23 Loc: RAD Attending Dr: Justin Mcclendon D.O. Ordering Physician: Justin Mcclendon D.O. Date of Service: 01/09/23 Procedure(s): XR DEXA axial skeleton Accession Number(s): [id number] cc: SCOTTIE NASH ; Justin Mcclendon D.O. The [address] [address] Patient Name: EDINSON VILLEDA MRN: [id number] date: 1965 Sex: F Assigned Patient Location: RAD Current Patient Location: LAB Accession/Order Number: [id number] Exam Date: 01/09/2023 13:06 Report Date: 01/09/2023 17:40 At the request of: JUSTIN MCCLENDON Procedure: XR DEXA axial skeleton EXAMINATION: XR DEXA axial skeleton, 01/09/2023 1:06 PM EDT HISTORY: Screening For Osteoporosis M81.0 COMPARISON: 2020, 2018 TECHNIQUE: Dual-energy X-ray absorptiometry (DEXA) bone density study performed for the axial skeleton. FINDINGS: Bone mineral density AP spine L1-L4 measures 1.153 g/sq cm. 3.4% reduction from the prior exam. T score -0.2. WHO classification: Normal. Lowest bone mineral density right femoral neck measures 0.934 g/sq cm. T score -0.7. WHO classification: Normal XR/XR DEXA axial skeleton IMPRESSION: Normal bone mineral density. Low fracture risk Electronically authenticated by: DAMARIS WOODSON Date: 01/09/2023 17:40 Dictated By: Damaris Woodson M.D. Signed By: 01/09/231741 DD/ 39 TD/TT: Crib Attendant: Procedure Note Radiology, Radiologist, MD - 01/09/[address] [address] XRay Report Signed Patient: EDINSON VILLEDA LMR#: [id number] : 1965Acct:[id number] Age/Sex: 57 / FADM Date: 01/09/23 Loc: RAD Attending Dr: Justin Mcclendon D.O. Ordering Physician: Justin Mcclendon D.O. Date of Service: 01/09/23 Procedure(s): XR DEXA axial skeleton Accession Number(s): [id number] cc: SCOTTIE NASH ; Justin Mcclendon D.O. The [place] [id number] Patient Name: EDINSON VILLEDA MRN: [id number] date: 1965 Sex: F Assigned Patient Location: [facility] Current Patient Location: LAB Accession/Order Number: [id number] Exam Date: 01/09/2023 13:06 Report Date: 01/09/2023 17:40 At the request of: JUSTIN MCCLENDON Procedure: XR DEXA axial skeleton EXAMINATION: XR DEXA axial skeleton, 01/09/2023 1:06 PM EDT HISTORY: Screening For Osteoporosis M81.0 COMPARISON: 2018 TECHNIQUE: Dual-energy X-ray absorptiometry (DEXA) bone density study performed for the axial skeleton. FINDINGS: Bone mineral density AP spine L1-L4 measures 1.153 g/sq cm. 3.4% reduction from the prior exam. T score -0.2. WHO classification: Normal. Lowest bone mineral density right femoral neck measures 0.934 g/sq cm. Tscore -0.7. WHO classification: Normal XR/XR DEXA axial skeleton IMPRESSION: Normal bone mineral density. Low fracture risk Electronically authenticated by: DAMARIS WOODSON Date: 01/09/2023 17:40 Dictated By: Damaris Woodson M.D. Signed By:01/09/231741 DD/ 39 TD/TT: Crib Attendant: Generic External Data Provider [facility] Final Result documented in this encounter Visit Diagnoses Not on filedocumented in this encounter Care Teams Polysomnographic Technologist Relationship Specialty Start Date End Date Scottie Nash MD [address] [facility] [address] [place] [address] PCP - General 09/15/22 Scottie Nash MD [address] [facility] [address] [place] [address] PCP - [facility] [place] MOTOR PATROL OPERATOR 07/10/23 documented as of this encounter
--- OUTSIDE RECORDS SUMMARY | 2024-09-05 06:45 | XMS_ITS | Encounter Summary ---
Author Organization [facility] Address [address] [place] [address] Care Team Providers Care Web Marketing Assistant Name Role Phone Scottie Issa MD Primary Care Provider [phone] Scottie Issa MD Unavailable Encounter Details Date Type Department Care Team (Late st Contact Info) Description 01/10/2023 Orders Only [facility] [address] [place] [address] [place] [id number] A, Unknown Practice [address] [place] [address] Social History Tobacco Use Types Packs/Day Years [...] often do you attend chur ch or shinto services? Never 11/22/2022 Do you belong to any clubs o r organizations such as adventist groups, unions, fraternal or athletic groups, or [...] care, and heating? Not very hard 11/22/2022 [facility] - Occupational Stress [...] place to sleep or slept in a correction (including now)? No 11/22/2022 Comments No Sex [...] Date/Time Associated Diagnosis Comments XR DEXA AXIAL SKELETON* Routine 01/09/2023 10:39 AM EDT XR DEXA AXIAL SKELETON* Routine 01/09/2023 10:32 AM EDT documented in this encounter Results * XR DEXA AXIAL SKELETON* (01/09/2023 10:39 AM EDT) Anatomical Region Laterality Modality Radiographic Kirsten ging us Unknown Practice A IMG XR PROCEDURES Final Resul t * XR DEXA AXIAL SKELETON* (01/09/2023 10:32 AM EDT) Anatomical Region Laterality Modality Radiographic Kirsten ging us Unknown Practice A IMG XR PROCEDURES Final Resul t documented in this encounter Visit Diagnoses Not on filedocumented in this encounter Care Teams Web Marketing Assistant Relationship Specialty Start Date End Date Scottie Issa MD [address] [facility] [address] [place] [address] PCP - General 09/15/22 Scottie Issa MD [address] [facility] [address] [place] [address] PCP - [facility] [place] CLINICAL PARTNER 07/10/23 documented as of this encounter
--- OUTSIDE RECORDS SUMMARY | 2024-09-05 06:45 | XMS_ITS | CCD ---
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 Name Role Phone NOÉ ., DR BECKER Admitting Unavailable NOÉ ., DR BECKER Attending Unavailable CHARITY, DR BRANCH Primary Care Unavailable NOÉ ., DR BECKER Consulting Unavailable NOÉ ., DR BECKER Admitting Unavailable NOÉ ., DR BECKER Attending Unavailable CHARITY, DR BRANCH Primary Care Unavailable NOÉ ., DR BECKER Consulting Unavailable ZIEBER, DR ERIK Martinez Consulting Unavailable Scottie Nash MD Primary Care Provider Scottie Nash MD Unavailable SONDRA BARRIOS Attending Unavailable SCOTTIE NASH Attending Unavailable TAMI TROY Attending Unavailable SCOTTIE NASH Attending Unavailable TAMI TROY Attending Unavailable Allergies Allergy Classification Reported Allergen(s) Allergy Type Date of Onset Reaction(s) Facility (1 source) Penicillins Drug allergy (disorder) 02-17-2014 [facility] Repository (7 sources) Penicillin G Drug Allergy 10-24-2022 [facility] Medications Current Medications Medication Drug Class(es) Dates Sig (Normalized) Sig (Original) ALPRAZolam 0.5 mg oral tablet (11 sources) Benzodiazepine Start: 06-12-2024 take 1 tablet by mouth once ALPRAZolam (Xanax) 0.5 MG tablet Indications: Adjustment disorder with depressed mood (CMS/HCC) Take 1 tablet (0.5 mg) by mouth every 12 (twelve) hours if needed for anxiety 60 tablet 06/12/2024 Active Start: 06-12-2024 take 1 tablet by mouth once AL PRAZolam (Xanax) 0.5 MG tablet Indications: Adjustment disorder with depressed mood (CMS/HCC) Take 1 tablet (0.5 mg) by mouth every 12 (twelve) hours if needed for anxiety 60 tablet 06/12/2024 Active Start: 08-28-2023 End: 06-12-2024 take 1 tablet by mouth once ALPRAZolam (Xanax) 0.5 MG tablet Indications: Adjustment disorder with depressed mood (CMS/HCC) Take 1 tablet (0.5 mg) by mouth every 12 (twelve) hours if needed for anxiety 60 tablet 02/27/2024 06/12/2024 Discontinued (Reorder) atorvastatin 20 mg oral tablet (7 sources) HMG-CoA Reductase Inhibitor Start: 04-12-2024 take 1 tablet by mouth once daily in the morning atorvastatin (Lipitor) 20 MG tablet Indications: Hypertriglyceridemia (CMS/HCC) TAKE ONE TABLET BY MOUTH ONCE DAILY IN THE MORNING 100 tablet 3 04/12/2024 Active Start: 02-20-2023 take 1 tablet by zain th in the morning atorvastatin (Lipitor) 20 MG tablet Indications: Hypertriglyceridemia (CMS/HCC) Take 1 tablet (20 mg) by mouth in the morning. 100 tablet 3 02/20/2023 Active busPIRone hydrochloride 10 mg oral tablet (9 sources) Start: 06-12-2024 take 1 tablet by mouth twice daily as needed for anxiety busPIRone (Buspar) 10 MG tablet Indications: Grief reaction (CMS/HCC) Take 1 tablet (10 mg) by mouth 2 (two) times a day as needed (Anxiety) 60 tablet 2 06/12/2024 Active Start: 06-12-2024 take 1 tablet by zain th twice daily as needed for anxiety busPIRone (Buspar) 10 MG tablet Indications: Grief reaction (CMS/HCC) Take 1 tablet (10 mg) by mouth 2 (two) times a day as needed (Anxiety) 60 tablet 2 06/12/2024 Active Start: 03-28-2024 End: 06-12-2024 take 1 tablet by mouth twice daily as needed for anxiety busPIRone (Buspar) 10 MG tablet Indications: Grief reaction (CMS/HCC) Take 1 tablet (10 mg) by mouth 2 (two) times a day as needed (Anxiety) 60 tablet 2 03/28/2024 06/12/2024 Discontinued (Reorder) cholecalciferol 0.025 mg oral tablet (7 sources) Vitamin D Start: 03-04-2024 cholecalcifero l (Vitamin D3) 25 MCG (1000 UT) tablet Indications: Vitamin D deficiency Take 1 tablet daily 100 tablet 03/04/2024 Active Start: 11-16-2023 take 1 tablet by zain th once daily cholecalciferol (Vitamin D3) 25 MCG (1000 UT) tablet Indications: Vitamin D deficiency Take 1 tablet (25 mcg) by mouth 1 (one) time each day at the same time 90 tablet 11/16/2023 Active cyclobenzaprine hydrochloride 10 mg oral tablet (7 sources) Muscle Relaxant Start: 08-28-2023 take 1 tablet by mouth every eight hours for muscle spasms cyclobenzaprine (Flexeril) 10 MG tablet Indications: Right hip pain Take 1 tablet (10 mg) by mouth every 8 (eight) hours if needed for muscle spasms 90 tablet 3 08/28/2023 Active docosahexaenoic acid 120 mg / eicosapentaenoic acid 180 mg oral capsule (7 sources) Start: 03-18-2024 take 2 capsules by mouth twice daily at bedtime omega-3 (Fish Oil) 1000 MG capsule Indications: Polyp of colon, unspecified part of colon, unspecified type TAKE TWO CAPSULES BY MOUTH TWICE A DAY ( IN THE MORNING AND BEFORE BEDTIME ) 120 capsule 7 03/18/2024 Active Start: 01-16-2024 take 2 capsules by m outh twice daily at bedtime omega-3 (Fish Oil) 1000 MG capsule TAKE TWO CAPSULES BY MOUTH TWICE A DAY ( IN THE MORNING AND BEFORE BEDTIME ) 01/16/2024 Active ibuprofen 800 mg oral tablet (7 sources) Nonsteroidal Anti-inflammatory Drug Start: 08-28-2023 take 1 tablet by mouth every eight hours ibuprofen (IBU) 800 MG tablet Indications: Chronic neck pain Take 1 tablet (800 mg) by mouth every 8 (eight) hours 300 tablet 08/28/2023 Active Multiple Vitamins-Mineral s (Multivitamin Women 50+) tablet (7 sources) Start: 06-03-2024 take 1 tablet by mouth once daily Multiple Vitamins-Minerals (Multivitamin Women 50+) tablet Indications: Fatigue, unspecified type TAKE ONE TABLET BY MOUTH ONCE DAILY DIRECTED FOR 30 DAYS 30 tablet 9 06/03/2024 Active Start: 05-22-2023 take 1 tablet by zain th once daily Multiple Vitamins-Minerals (Multivitamin Women 50+) tablet Indications: Fatigue, unspecified type TAKE ONE TABLET BY MOUTH ONCE DAILY DIRECTED FOR 30 DAYS 30 tablet 10 05/22/2023 Active [place]-3 Fatty Acids (Fish Oil) 1000 MG capsule delayed-release (2 sources) Start: 01-18-2023 End: 02-27-2024 take 2 capsules by mouth in the morning [place]-3 Fatty Acids (Fish Oil) 1000 MG capsule delayed-release Indications: Hypertriglyceridemia (CMS/HCC) Take 2 capsules by mouth in the morning and 2 capsules before bedtime. 120 capsule 11 01/18/2023 02/27/2024 Discontinued (Other) traZODone hydrochloride 50 mg oral tablet (7 sources) Serotonin Reuptake Inhibitor Start: 06-12-2024 take 0.5-1 tablets by mouth at bedtime traZODone (Desyrel) 50 MG tablet Indications: Trouble in sleeping Take 0.5-1 tablets (25-50 mg) by mouth at bedtime 30 tablet 2 06/12/2024 Active Start: 06-12-2024 take 0.5-1 tablets b y mouth at bedtime traZODone (Desyrel) 50 MG tablet Indications: Trouble in sleeping Take 0.5-1 tablets (25-50 mg) by mouth at bedtime 30 tablet 2 06/12/2024 Active Start: 03-28-2024 End: 06-12-2024 take 0.5-1 tablets by mouth at bedtime traZODone (Desyrel) 50 MG tablet Indications: Trouble in sleeping Take 0.5-1 tablets (25-50 mg) by mouth at bedtime 30 tablet 2 03/28/2024 06/12/2024 Discontinued (Reorder) Problems Active Problems Problem Classification Problem Date Documented Date Episodic/Chronic Adjustment disorders (15 sources) Adjustment disorder with depressed mood; Translations: [Adjustment disorder with depressed mood] Onset: 10-24-2022 02-27-2024 Chronic Anxiety disorders (9 sources) Anxiety; Translations: [Anxiety disorder, unspecified] Onset: 11-04-2021 02-27-2024 Chronic Cataract (7 sources) Incipient senile cataract; Translations: [Other age-related incipient cataract, bilateral] Onset: 10-24-2022 10-24-2022 Chronic Deficiency and other anemia (7 sources) Hemoglobinopathy; Translations: [Other hemoglobinopathies] Onset: 10-24-2022 10-24-2022 Chronic Diseases of white blood cells (7 sources) Leukocytosis; Translations: [Elevated white blood cell count, unspecified] Onset: 10-24-2022 10-24-2022 Chronic Disorders of lipid metabolism (9 sources) Hypertriglyceridemia; Translations: [Pure hyperglyceridemia] Onset: 10-24-2022 10-24-2022 Chronic Essential hypertension (9 sources) Benign essential hypertension; Translations: [Essential (primary) hypertension] Onset: 08-28-2023 02-27-2024 Chronic Malaise and fatigue (9 sources) Fatigue; Translations: [Other fatigue] Onset: 11-29-2022 11-29-2022 Episodic Neoplasms of unspecified nature or uncertain behavior (11 sources) Polycythemia vera (clinical); Translations: [Polycythemia vera] Onset: 10-24-2022 02-27-2024 Chronic Nutritional deficiencies (9 sources) Vitamin D deficiency; Translations: [Vitamin D deficiency, unspecified] Onset: 10-24-2022 10-24-2022 Chronic Other inflammatory condition of skin (7 sources) Rosacea; Translations: [Rosacea, unspecified] Onset: 10-24-2022 10-24-2022 Chronic Other nutritional; endocrine; and metabolic disorders (7 sources) Hemochromatosis; Translations: [Hemochromatosis, unspecified] Onset: 10-24-2022 10-24-2022 Chronic Other nutritional; endocrine; and metabolic disorders (7 sources) Cholesterol level - finding; Translations: [Lipoprotein deficiency] Onset: 10-24-2022 10-24-2022 Chronic Other nutritional; endocrine; and metabolic disorders (7 sources) Lipoprotein deficiency disorder; Translations: [Lipoprotein deficiency] Onset: 01-20-2016 11-29-2022 Chronic Other nutritional; endocrine; and metabolic disorders (2 sources) Hereditary hemochromatosis; Translations: [Hereditary hemochromatosis] 06-12-2024 Chronic Other screening for suspected conditions (not mental disorders or infectious disease) (10 sources) Encounter for screening mammogram for malignant neoplasm of breast; Translations: [Encounter for screening for malignant neoplasm of cervix] Onset: 09-14-2021 Episodic Peripheral and visceral atherosclerosis (9 sources) Atherosclerosis of aorta; Translations: [Atherosclerosis of aorta] Onset: 02-27-2024 02-27-2024 Chronic Residual codes; unclassified (9 sources) Obstructive sleep apnea syndrome; Translations: [Obstructive sleep apnea (adult) (pediatric)] Onset: 02-27-2024 02-27-2024 Chronic Residual codes; unclassified (1 source) Family history of malignant neoplasm of breast; Translations: [FAMILY HX MALIG NEOPLASM OF BREAST] Onset: 07-25-2022 Episodic Residual codes; unclassified (1 source) Family history of malignant neoplasm of other organs or systems; Translations: [FAM HX MALIG NEOPLASM OTH ORGN/SYS] Onset: 07-25-2022 Episodic Residual codes; unclassified (4 sources) Insomnia; Translations: [Sleep disorder, unspecified] 03-28-2024 Episodic Spondylosis; intervertebral disc disorders; other back problems (14 sources) Cervical spondylosis; Translations: [Spondylosis without myelopathy or radiculopathy, cervical region] Onset: 10-24-2022 10-24-2022 Chronic Substance-related disorders (9 sources) Cigarette smoker ; Translations: [Nicotine dependence, cigarettes, uncomplicated] Onset: 10-24-2022 02-27-2024 Chronic Thyroid disorders (9 sources) Acquired hypothyroidism; Translations: [Hypothyroidism, unspecified] Onset: 10-24-2022 10-24-2022 Chronic Past or Other Problems Problem Classification Problem Date Documented Date Episodic/Chronic Coma; stupor; and brain damage (7 sources) Daytime somnolence; Translations: [Somnolence] Onset: 11-29-2022 11-29-2022 Episodic Immunizations and screening for infectious disease (1 source) Encounter for screening for human papillomavirus (HPV); Translations: [ENC SCREENING HUMAN PAPILLOMAVIRUS] Onset: 09-17-2021 Episodic Other and unspecified benign neoplasm (7 sources) Polyp of colon; Translations: [Polyp of colon] Onset: 10-24-2022 10-24-2022 Episodic Other and unspecified benign neoplasm (7 sources) Benign neoplasm of colon; Translations: [Benign neoplasm of colon, unspecified] Onset: 02-18-2016 11-29-2022 Episodic Other non-traumatic joint disorders (7 sources) Hip pain; Translations: [Pain in right hip] Onset: 11-29-2022 3 Episodic Residual codes; unclassified (7 sources) Tobacco use and exposure - finding; Translations: [Tobacco use] Onset: 11-04-2021 Resolved: 11-21-2023 11-21-2023 Episodic Spondylosis; intervertebral disc disorders; other back problems (7 sources) Chronic neck pain; Translations: [Cervicalgia] Onset: 11-04-2021 11-29-2022 Episodic Results Test Name Value Interpretation Reference Range Facility MG MAMM SCREEN 3D NEIL CADon 07-20-2022 MG MAMM SCREEN 3D NEIL CAD Patient: ANA CUENCA Exam Date: 07/20/2022 : 1965 Gender:F Ordering : DR ROSITA UMANZOR . Admission #: [id number] Family : Order #: [id number] CLICK HERE TO VIEW EXAM RADIOLOGY REPORT [...] carcinoma cancer at age 51. LOCATION: [facility] BREAST COMPOSITION: Heterogeneously dense,which may obscure [...] Erik Urban M.D. on 07/20/2022 at 13:12 Normal [facility] PAP ACOG PANEL 2: 30 to 65on 09-17-2021 . . Normal [facility] Comment on above: Result Comment: Perf ormed at: WB Performed By: #### [id number] #### [facility] [address] [place] [address] Dr. Jose Alejandro Jim Age Gdln ACOG Testing 30-65 [facility] Comment on above: Performed By: #### [id number] #### [facility] [address] [address] [address] Jose Alejandro Jim DIAGNOSIS: Comment [facility] Comment on above: Result Comment: NEGA TIVE FOR INTRAEPITHELIAL LESION OR MALIGNANCY. Performed at: WB Performed By: #### [id number] #### [facility] [address] [place] [address] Dr. Jose Alejandro Jim HPV Aptima Negative Normal [facility] Comment on above: Result Comment: This nucleic acid amplification test detects fourteen high-risk HPV types (16,18,31,33,35,39,45,51,52,56,58,59,66,68) without differentiation. Performed at: =G Performed By: #### [id number] #### [facility] [address] [place] [address] Dr. Jose Alejandro Jim Methodology: Comment [facility] Comment on above: Result Comment: This liquid based ThinPrep(R) pap test was screened with the use of an image guided system. Performed at: WB Performed By: #### [id number] #### [facility] [address] [place] [address] Dr. Jose Alejandro Jim Note: Comment [facility] Comment on above: Result Comment: The Pap smear is a screening test designed to aid in the detection of premalignant and malignant conditions of the uterine cervix. It is not a diagnostic procedure and should not be used as the sole means of detecting cervical cancer. Both false-positive and false-negative reports do occur. . Performed at: WB Performed By: #### [id number] #### [facility] [address] [place] [address] Dr. Jose Alejandro Jim Performed by: Comment Normal [facility] Comment on above: Result Comment: Wen López, Redrawer (ASCP) Performed at: WB Performed By: #### [id number] #### [facility] [address] [place] [address] Dr. Jose Alejandro Jim Specimen adequacy: Comment Normal [facility] Comment on above: Result Comment: Sati sfactory for evaluation. Endocervical and/or squamous metaplastic cells (endocervical component) are present. Performed at: WB Performed By: #### [id number] #### [facility] [address] [place], [place] [address] Dr. Jose Alejandro Jim Complete Blood Count with Au to Diffon 07-08-2021 BASOABS 62 cells/uL Normal 0-200 [facility] Comment on above: Order Comment: [facility] performed at: [facility], [address] [place] [address], [address] [place] [address], [address] [place] [address], Job Estimator: Breezy Kumar MD [facility] Date/Time: [facility] Results Received Date/Time: [facility] Reported Date/Time: Performed By: #### L IPD, TSH reflex FT4, VITD, CBCAD, CMP #### [facility] Default [address] [place] [address] Basophils/100 WBC (Bld) 0.7 % Normal [facility] Comment on above: Order Comment: [facility] performed at: [facility], [address] [place] [address], [address] [place] [address], [address] [place] [address], Job Estimator: Breezy Kumar MD [facility] Date/Time: [facility] Results Received Date/Time: [facility] Reported Date/Time: Performed By: #### L IPD, TSH reflex FT4, VITD, CBCAD, CMP #### [facility] Default [address] [place] [address] EOSABS 211 cells/uL Normal 15-500 [facility] Specialist Comment on above: Order Comment: [facility] performed at: [facility], [address] [place] [address], [address] [place] [address], [address] [place] [address], Job Estimator: Breezy Kumar MD [facility] Date/Time: [facility] Results Received Date/Time: [facility] Reported Date/Time: Performed By: #### L IPD, TSH reflex FT4, VITD, CBCAD, CMP #### [facility] Default [address] [place] [address] Eosinophils/100 WBC (Bld) 2.4 % Normal [facility] Wheel Worker Comment on above: Order Comment: [facility] performed at: [facility], [employer] [facility], [address] [place] [address], [address] [place] [address], Job Estimator: Breezy Kumar MD [facility] Date/Time: [facility] Results Received Date/Time: [facility] Reported Date/Time: Performed By: #### L IPD, TSH reflex FT4, VITD, CBCAD, CMP #### [facility] [address] [place] [address] Erythrocyte distribution width (RBC) [Ratio] 12.4 % Normal 11.0-15.0 [facility] Wheel Worker Comment on above: Order Comment: [facility] performed at: [employer], [employer] [facility], [address] [place] [address], [address] [place] [address], Job Estimator: Breezy Kumar MD [facility] Date/Time: [facility] Results Received Date/Time: [facility] Reported Date/Time: Performed By: #### L IPD, TSH reflex FT4, VITD, CBCAD, CMP #### [facility] [address] [place] [address] Hematocrit (Bld) [Volume fraction] 48.8 % High 35.0-45.0 [facility] Wheel Worker Comment on above: Order Comment: [facility] performed at: [employer], [employer] [facility], [address] [place] [address], [address] [place] [address], Job Estimator: Breezy Kumar MD [facility] Date/Time: [facility] Results Received Date/Time: [facility] Reported Date/Time: Performed By: #### L IPD, TSH reflex FT4, VITD, CBCAD, CMP #### [facility] Default [address] [place] [address] Hemoglobin (Bld) [Mass/Vol] 16.8 g/dL High 11.7-15.5 [facility] Wheel Worker Comment on above: Order Comment: [facility] performed at: [employer], [employer] [facility], [address] [place] [address], [address] [place] [address], [address] [place] [address], Job Estimator: Breezy Kumar MD [facility] Date/Time: [facility] Results Received Date/Time: [facility] Reported Date/Time: Performed By: #### L IPD, TSH reflex FT4, VITD, CBCAD, CMP #### [facility] [address] [place] [address] Lymphocytes (Bld) [#/Vol] 2.561 10*3/uL Normal 850-3900 [facility] Wheel Worker Comment on above: Order Comment: [facility] performed at: [employer], [employer] [facility], [address] [place] [address], [address] [place] [address], [address] [place] [address], Job Estimator: Breezy Kumar MD [facility] Date/Time: [facility] Results Received Date/Time: [facility] Reported Date/Time: Performed By: #### L IPD, TSH reflex FT4, VITD, CBCAD, CMP #### [facility] [address] [place] [address] Lymphocytes/100 WBC (Bld) 29.1 % Normal [facility] Wheel Worker Comment on above: Order Comment: [facility] performed at: [employer], [employer] [facility], [address] [facility], [address] [place] [address], [phone], Job Estimator: Breezy Kmuar MD [facility] Date/Time: [facility] Results Received Date/Time: [facility] Reported Date/Time: Performed By: #### L IPD, TSH reflex FT4, VITD, CBCAD, CMP #### [facility] [address] [place] [address] MCH (RBC) [Entitic mass] 31.2 pg Normal 27.0-33.0 [facility] Wheel Worker Comment on above: Order Comment: [facility] performed at: [employer], [employer] [facility], [address] [place] [address], [address] [place] [address], [address] [place] [address], Job Estimator: Breezy Kumar MD [facility] Date/Time: [facility] Results Received Date/Time: [facility] Reported Date/Time: Performed By: #### L IPD, TSH reflex FT4, VITD, CBCAD, CMP #### [facility] Default [address] [place] [address] MCHC (RBC) [Mass/Vol] 34.4 g/dL Normal 32.0-36.0 [facility] Wheel Worker Comment on above: Order Comment: [facility] performed at: [employer], [employer] [facility], [address] [place] [address], [address] [place] [address], [address] [place] [address], Job Estimator: Breezy Kumar MD [facility] Date/Time: [facility] Results Received Date/Time: [facility] Reported Date/Time: Performed By: #### L IPD, TSH reflex FT4, VITD, CBCAD, CMP #### [facility] [address] [place] [address] MCV (RBC) [Entitic vol] 90.5 fL Normal 80.0-100.0 [facility] Wheel Worker Comment on above: Order Comment: [facility] performed at: [place], [employer] [facility], [address] [place] [address], [address] [place] [address], [phone], Job Estimator: Breezy Kumar MD [facility] Date/Time: [facility] Results Received Date/Time: [facility] Reported Date/Time: Performed By: #### L IPD, TSH reflex FT4, VITD, CBCAD, CMP #### [facility] [address] [place] [address] MONOABS 616 cells/uL Normal 200-950 [facility] Comment on above: Order Comment: [facility] performed at: [employer], [employer] [facility], [address] [facility], [address] [place] [address], [address] [place] [address], Job Estimator: Breezy Kumar MD [facility] Date/Time: [facility] Results Received Date/Time: [facility] Reported Date/Time: Performed By: #### L IPD, TSH reflex FT4, VITD, CBCAD, CMP #### [facility] [address] [place] [address] Monocytes/100 WBC (Bld) 7.0 % Normal [facility] Comment on above: Order Comment: [facility] performed at: [facility], [address] [place] [address], [address] [place] [address], [address] [place] [address], Job Estimator: Breezy Kumar MD [facility] Date/Time: [facility] Results Received Date/Time: [facility] Reported Date/Time: Performed By: #### L IPD, TSH reflex FT4, VITD, CBCAD, CMP #### [facility] Default [address] [place] [address] Neutrophils (Bld) [#/Vol] 5.35 10*3/uL Normal 6877-8479 [facility] Special[facility] Comment on above: Order Comment: [facility] performed at: [facility], [address] [facility], [address] [place] [address], [address] [place] [address], Job Estimator: Breezy Kumar MD [facility] Date/Time: [facility] Received Date/Time: [facility] Reported Date/Time: Performed By: #### L IPD, TSH reflex FT4, VITD, CBCAD, CMP #### [facility] Default [address] [place] [address] Neutrophils/100 WBC (Bld) 60.8 % Normal [facility] Wheel Worker Comment on above: Order Comment: [facility] performed at: [employer], [employer] [facility], [address] [facility], [address] [place] [address], [phone], Job Estimator: Breezy Kumar MD [facility] Date/Time: [facility] Results Received Date/Time: [facility] Reported Date/Time: Performed By: #### L IPD, TSH reflex FT4, VITD, CBCAD, CMP #### [facility] [address] [place] [address] Platelet mean volume (Bld) [Entitic vol] 10.7 fL Normal 7.5-12.5 [facility] Wheel Worker Comment on above: Order Comment: [facility] performed at: [employer], [employer] [facility], [address] [facility], [address] [place] [address], [phone], Job Estimator: Breezy Kumar MD [facility] Collection Date/Time: [facility] Results Received Date/Time: [facility] Reported Date/Time: Performed By: #### L IPD, TSH reflex FT4, VITD, CBCAD, CMP #### [facility] Default [address] [place] [address] Platelets (Bld) [#/Vol] 234 10*3/uL Normal 140-400 [facility] Wheel Worker Comment on above: Order Comment: [facility] Testing performed at: [employer], [employer] [facility], [address] [facility], [address] [place] [address], [phone], Job Estimator: Breezy Kumar MD [facility] Collection Date/Time: [facility] Results Received Date/Time: [facility] Reported Date/Time: Performed By: #### L IPD, TSH reflex FT4, VITD, CBCAD, CMP #### [facility] Default [address] [place] [address] RBC (Bld) [#/Vol] 5.39 10*6/uL High 3.80-5.10 Mandeep herrera [place] Wheel Worker Comment on above: Order Comment: [facility] Testing performed at: [employer], [employer] [facility], [address] [facility], [address] [place] [address], [address] [place] [address], Job Estimator: Breezy Kumar MD [facility] Collection Date/Time: [facility] Results Received Date/Time: [facility] Reported Date/Time: Performed By: #### L IPD, TSH reflex FT4, VITD, CBCAD, CMP #### [facility] Default [address] [place] [address] WBC (Bld) [#/Vol] 8.8 10*3/uL Normal 3.8-10.8 Rodrick lipscomb [place] Wheel Worker Comment on above: Order Comment: [facility] Testing performed at: [employer], [employer] [facility], [address] [facility], [address] [place] [address], [address] [place] [address], Job Estimator: Breezy Kumar MD [facility] Collection Date/Time: [facility] Results Received Date/Time: [facility] Reported Date/Time: Performed By: #### L IPD, TSH reflex FT4, VITD, CBCAD, CMP #### [facility] Default [address] [place] [address] Comprehensive Metabolic Pane [facility] 07-08-2021 Albumin [Mass/Vol] 4.6 g/dL Normal 3.6-5.1 Rodrick lipscomb [place] Wheel Worker Comment on above: Order Comment: [facility] Testing performed at: [employer], [employer] [facility], [address] [facility], [address] [place] [address], [address] [place] [address], Job Estimator: Breezy Kumar MD [facility] Collection Date/Time: [facility] Results Received Date/Time: [facility] Reported Date/Time: Performed By: #### L IPD, TSH reflex FT4, VITD, CBCAD, CMP #### [facility] Default [address] [place] [address] Albumin/Globulin [Mass ratio] 1.6 {ratio} Normal 1.0-2.5 [facility] Specialist Comment on above: Order Comment: [facility] Testing performed at: [employer], [employer] [facility], [address] [place] [address], [address] [place] [address], [address] [place] [address], Job Estimator: Breezy Kumar MD [facility] Collection Date/Time: [facility] Results Received Date/Time: [facility] Reported Date/Time: Performed By: #### L IPD, TSH reflex FT4, VITD, CBCAD, CMP #### [facility] Default [address] [place] [address] ALP [Catalytic activity/Vol] 92 U/L Normal 37-153 [facility] Specialist Comment on above: Order Comment: [facility] Testing performed at: [employer], [employer] [facility], [address] [place] [address], [address] [place] [address], [address] [place] [address], Job Estimator: Breezy Kumar MD [facility] Collection Date/Time: [facility] Results Received Date/Time: [facility] Reported Date/Time: Performed By: #### L IPD, TSH reflex FT4, VITD, CBCAD, CMP #### [facility] Default [address] [place] [address] ALT [Catalytic activity/Vol] 12 U/L Normal 6-29 [facility] Specialist Comment on above: Order Comment: [facility] Testing performed at: [employer], [employer] [facility], [address] [place] [address], [address] [place] [address], [address] [place] [address], Job Estimator: Breezy Kumar MD [facility] Collection Date/Time: [facility] Results Received Date/Time: [facility] Reported Date/Time: Performed By: #### L IPD, TSH reflex FT4, VITD, CBCAD, CMP #### [facility] Default [address] [place] [address] Anion gap [Moles/Vol] 12 mmol/L Normal 12-20 [facility] Wheel Worker Comment on above: Order Comment: [facility] Testing performed at: [employer], [employer] [facility], [address] , [address] [place] [address], [phone], Job Estimator: Breezy Kumar MD [facility] Collection Date/Time: [facility] Results Received Date/Time: [facility] Reported Date/Time: Result Comment: Effe ctive 04/15/2019 reference range changed. Performed By: #### L IPD, TSH reflex FT4, VITD, CBCAD, CMP #### [facility] Default [address] [place] [address] AST [Catalytic activity/Vol] 14 U/L Normal 10-35 [facility] Wheel Worker Comment on above: Order Comment: [facility] Testing performed at: [employer], [employer] [facility], [address] [facility], [address] [place] [address], [phone], Job Estimator: Breezy Kumar MD [facility] Collection Date/Time: [facility] Results Received Date/Time: [facility] Reported Date/Time: Performed By: #### L IPD, TSH reflex FT4, VITD, CBCAD, CMP #### [facility] Default [address] [place] [address] Bilirubin [Mass/Vol] 0.7 mg/dL Normal 0.2-1.2 [facility] Wheel Worker Comment on above: Order Comment: [facility] Testing performed at: [employer], [employer] [facility], [address] [facility], [address] [place] [address], [phone], Job Estimator: Breezy Kumar MD [facility] Collection Date/Time: [facility] Results Received Date/Time: [facility] Reported Date/Time: Performed By: #### L IPD, TSH reflex FT4, VITD, CBCAD, CMP #### [facility] Default [address] [place] [address] BUN/CREA 14 NOT APPLICABLE Normal 6-22 [facility] Comment on above: Order Comment: [facility] Testing performed at: [employer], [employer] [facility], [address] [place] [address], [address] [place] [address], [address] [place] [address], Job Estimator: Breezy Kumar MD [facility] Collection Date/Time: [facility] Results Received Date/Time: [facility] Reported Date/Time: Performed By: #### L IPD, TSH reflex FT4, VITD, CBCAD, CMP #### [facility] Default [address] [place] [address] Calcium [Mass/Vol] 10.1 mg/dL Normal 8.6-10.4 [facility] Specialist Comment on above: Order Comment: [facility] Testing performed at: [employer], [employer] [facility], [address] [place] [address], [address] [place] [address], [address] [place] [address], Job Estimator: Breezy Kumar MD [facility] Collection Date/Time: [facility] Results Received Date/Time: [facility] Reported Date/Time: Performed By: #### L IPD, TSH reflex FT4, VITD, CBCAD, CMP #### [facility] Default [address] [place] [address] Chloride [Moles/Vol] 106 mmol/L Normal 98-110 [facility] Wheel Worker Comment on above: Order Comment: [facility] Testing performed at: [employer], [employer] [facility], [address] [place] [address], [address] [place] [address], [address] [place] [address], Job Estimator: Breezy Kumar MD [facility] Collection Date/Time: [facility] Results Received Date/Time: [facility] Reported Date/Time: Performed By: #### L IPD, TSH reflex FT4, VITD, CBCAD, CMP #### [facility] Default [address] [place] [address] CO2 [Moles/Vol] 28 mmol/L Normal 20-32 [facility] Specialist Comment on above: Order Comment: [facility] Testing performed at: [employer], [employer] [facility], [address] [facility], [address] [place] [address], [phone], Job Estimator: Breezy Kumar MD [facility] Collection Date/Time: [facility] Results Received Date/Time: [facility] Reported Date/Time: Performed By: #### L IPD, TSH reflex FT4, VITD, CBCAD, CMP #### [facility] Default [address] [place] [address] Creatinine [Mass/Vol] 0.83 mg/dL Normal 0.50-1.05 [facility] Specialist Comment on above: Order Comment: [facility] Testing performed at: [employer], [employer] [facility], [address] [facility], [address] [place] [address], [phone], Job Estimator: Breezy Kumar MD [facility] Collection Date/Time: [facility] Results Received Date/Time: [facility] Reported Date/Time: Result Comment: For patients >49 years of age, the reference limit for Creatinine is approximately 13% higher for people identified as -Citizen Of [place]. Performed By: #### L IPD, TSH reflex FT4, VITD, CBCAD, CMP #### [facility] Default [address] [place] [address] eGFRAA (Quest) 92 mL/min/1.73m2 Normal > OR = 60 [facility] Comment on above: Order Comment: [facility] Testing performed at: [employer], [employer] [facility], [address] [facility], [address] [place] [address], [phone], Job Estimator: Breezy Kumar MD [facility] Collection Date/Time: [facility] Results Received Date/Time: [facility] Reported Date/Time: Performed By: #### L IPD, TSH reflex FT4, VITD, CBCAD, CMP #### [facility] Default [address] [place] [address] eGFRNAA (Quest) 79 mL/min/1.73m2 Normal > OR = 60 [facility] Specialist Comment on above: Order Comment: [facility] Testing performed at: [employer], [employer] [facility], [address] [place] [address], [address] [place] [address], [address] [place] [address], Job Estimator: Breezy Kumar MD [facility] Collection Date/Time: [facility] Results Received Date/Time: [facility] Reported Date/Time: Performed By: #### L IPD, TSH reflex FT4, VITD, CBCAD, CMP #### [facility] Default [address] [place] [address] Globulin (S) [Mass/Vol] 2.9 g/dL Normal 1.9-3.7 [facility] Wheel Worker Comment on above: Order Comment: [facility] Testing performed at: [employer], [employer] [facility], [address] [place] [address], [address] [place] [address], [address] [place] [address], Job Estimator: Breezy Kumar MD [facility] Collection Date/Time: [facility] Results Received Date/Time: [facility] Reported Date/Time: Performed By: #### L IPD, TSH reflex FT4, VITD, CBCAD, CMP #### [facility] Default [address] [place] [address] Glucose [Mass/Vol] 94 mg/dL Normal 65-99 [facility] Specialist Comment on above: Order Comment: [facility] Testing performed at: [employer], [employer] [facility], [address] [place] [address], [address] [place] [address], [address] [place] [address], Job Estimator: Breezy Kumar MD [facility] Collection Date/Time: [facility] Results Received Date/Time: [facility] Reported Date/Time: Result Comment: Fasting reference interval Performed By: #### L IPD, TSH reflex FT4, VITD, CBCAD, CMP #### [facility] Default [address] [place] [address] Potassium [Moles/Vol] 5.0 mmol/L Normal 3.5-5.3 [facility] Wheel Worker Comment on above: Order Comment: [facility] Testing performed at: [employer], [employer] [facility], [address] [place] [address], [address] [place] [address], [phone], Job Estimator: Breezy Kumar MD [facility] Collection Date/Time: [facility] Results Received Date/Time: [facility] Reported Date/Time: Performed By: #### L IPD, TSH reflex FT4, VITD, CBCAD, CMP #### [facility] Default [address] [place] [address] Protein [Mass/Vol] 7.5 g/dL Normal 6.1-8.1 Rodrick [facility] Wheel Worker Comment on above: Order Comment: [facility] Testing performed at: [employer], [employer] [facility], [address] [place] [address], [address] [place] [address], [phone], Job Estimator: Breezy Kumar MD [facility] Collection Date/Time: [facility] Results Received Date/Time: [facility] Reported Date/Time: Performed By: #### L IPD, TSH reflex FT4, VITD, CBCAD, CMP #### [facility] Default [address] [place] [address] Sodium [Moles/Vol] 141 mmol/L Normal 135-146 Rodrick [facility] Wheel Worker Comment on above: Order Comment: [facility] Testing performed at: [employer] [facility], [address] [place] [address], [address] [place] [address], [phone], Job Estimator: Breezy Kumar MD [facility] Collection Date/Time: [facility] Results Received Date/Time: [facility] Reported Date/Time: Performed By: #### L IPD, TSH reflex FT4, VITD, CBCAD, CMP #### [facility] Default [address] [place] [address] Urea nitrogen [Mass/Vol] 12 mg/dL Normal 7-25 [facility] Wheel Worker Comment on above: Order Comment: [facility] Testing performed at: [employer], [employer] [facility], [address] [place] [address], [address] [place] [address], [address] [place] [address], Job Estimator: Breezy Kumar MD [facility] Collection Date/Time: [facility] Results Received Date/Time: [facility] Reported Date/Time: Performed By: #### L IPD, TSH reflex FT4, VITD, CBCAD, CMP #### [facility] Default [address] [place] [address] Lipid Panelon 07-08-2021 Cholesterol [Mass/Vol] 208 mg/dL High <200 [place] Wheel Worker Comment on above: Order Comment: [facility] Testing performed at: [employer], [employer] [facility], [address] [place] [address], [address] [place] [address], [address] [place] [address], Job Estimator: Breezy Kumar MD [facility] Collection Date/Time: [facility] Results Received Date/Time: [facility] Reported Date/Time: Performed By: #### L IPD, TSH reflex FT4, VITD, CBCAD, CMP #### [facility] Default [address] [place] [address] Cholesterol in HDL [Mass/Vol] 35 mg/dL Low > OR = 50 [place] Wheel Worker Comment on above: Order Comment: [facility] Testing performed at: [employer] [facility], [address] [place] [address], [address] [place] [address], [phone], Job Estimator: Breezy Kumar MD [facility] Collection Date/Time: [facility] Results Received Date/Time: [facility] Reported Date/Time: Performed By: #### L IPD, TSH reflex FT4, VITD, CBCAD, CMP #### [facility] Default [address] [place] [address] Cholesterol in LDL [Mass/Vol] 140 mg/dL High [place] Wheel Worker Comment on above: Order Comment: [facility] Testing performed at: [employer], [employer] [facility], [address] [facility], [address] [place] [address], [phone], Job Estimator: Breezy Kumar MD [facility] Collection Date/Time: [facility] Results Received Date/Time: [facility] Reported Date/Time: Result Comment: Refe rence range: <100 Desirable range <100 mg/dL for primary prevention; <70 mg/dL for patients with CHD or diabetic patients with > or = 2 CHD risk factors. LDL-C is now calculated using the Ke calculation, which is a validated novel method providing better accuracy than the Friedewald equation in the estimation of LDL-C. Francesco SS et al. OVI. 2013;310(19): 2297-8862 (http://education.Sw[employer]bucks/faq/MUR085) Performed By: #### L IPD, TSH reflex FT4, VITD, CBCAD, CMP #### [facility] Default [address] [place] [address] NON HDL CHOLESTEROL 173 mg/dL (calc) High <130 [facility] Wheel Worker Comment on above: Order Comment: [facility] Testing performed at: [employer], [employer] [facility], [address] [facility], [address] [place] [address], [address] [place] [address], Job Estimator: Breezy Kumar MD [facility] Collection Date/Time: [facility] Results Received Date/Time: [facility] Reported Date/Time: Result Comment: For patients with diabetes plus 1 major ASCVD risk factor, treating to a non-HDL-C goal of <100 mg/dL (LDL-C of <70 mg/dL) is considered a therapeutic option. Performed By: #### L IPD, TSH reflex FT4, VITD, CBCAD, CMP #### [facility] Default [address] [place] [address] Triglyceride [Mass/Vol] 190 mg/dL High <150 [facility] Wheel Worker Comment on above: Order Comment: [facility] Testing performed at: [employer], [employer] [facility], [address] , [address] [place] [address], [phone], Job Estimator: Breezy Kumar MD [facility] Collection Date/Time: [facility] Results Received Date/Time: [facility] Reported Date/Time: Performed By: #### L IPD, TSH reflex FT4, VITD, CBCAD, CMP #### [facility] Default [address] [place] [address] TSH w/ Reflex to Free T4on 0 07-08-2021 TSH W/REFLEX TO FT4 0.59 mIU/L Normal [facility] Comment on above: Order Comment: [facility] Testing performed at: [employer], [employer] [facility], [address] [place] [address], [address] [place] [address], [phone], Job Estimator: Breezy Kumar MD [facility] Collection Date/Time: [facility] Results Received Date/Time: [facility] Reported Date/Time: Result Comment: Refe rence Range > or = 20 Years 0.40-4.50 Ranges First trimester 0.26-2.66 Second trimester 0.55-2.73 Third trimester 0.43-2.91 Performed By: #### L IPD, TSH reflex FT4, VITD, CBCAD, CMP #### [facility] Default [address] [place] [address] Vitamin D 25-OHon 07-08-2021 VIT D 25 OH 35 ng/mL Normal 30-100 [facility] Comment on above: Order Comment: [facility] Testing performed at: [employer] [facility], [address] [place] [address], [address] [place] [address], [phone], Job Estimator: Breezy Kumar MD [facility] Collection Date/Time: [facility] [...] D, (D2,D3), LC/MS/MS is recommended: order code 74810 (patients >2yrs). See Note 1 Note 1 For additional information, please refer to http://education.Swagbucks/faq/NTZ387 (This link is being provided for informational/ educational purposes only.) Performed By: #### L IPD, TSH reflex FT4, VITD, CBCAD, CMP #### [facility] Default [address] [place] [address] Consultation Noteon 01-06-20 21 Consultation Note [id number] Normal [facility] Vital Signs Date Time Vital Sign Value Performing Clinician Alissa ortega 06-12-2024 08:34-0500 Body height 175.3 cm Sondra Barrios BUSINESS PROJECT MANAGER Work Phone: [facility] 06-12-2024 08:34-0500 Body mass index (BMI) [Ratio] 26.43 kg/m2 Sondra Barrios BUSINESS PROJECT MANAGER Work Phone: [facility] 06-12-2024 08:34-0500 Body weight 81.19 kg Sondra Barrios BUSINESS PROJECT MANAGER Work Phone: [facility] 06-12-2024 08:34-0500 Diastolic blood pressure 72 mm[Hg] Sondra Barrios BUSINESS PROJECT MANAGER Work Phone: [facility] 06-12-2024 08:34-0500 Heart rate 73 /min Sondra Barrios BUSINESS PROJECT MANAGER Work Phone: [facility] 06-12-2024 08:34-0500 Respiratory rate 17 /min Sondra Barrios BUSINESS PROJECT MANAGER Work Phone: [facility] 06-12-2024 08:34-0500 SaO2% (BldA) [Mass fraction] 96 % Sondra Barrios BUSINESS PROJECT MANAGER Work Phone: [facility] 06-12-2024 08:34-0500 Systolic blood pressure 118 mm[Hg] Sondra Barrios BUSINESS PROJECT MANAGER Work Phone: [facility] 03-28-2024 08:05-0500 Body height 175.3 cm Tami Hemmer PA Work Phone: [facility] 03-28-2024 08:05-0500 Body mass index (BMI) [Ratio] 25.84 kg/m2 Tami Hemmer PA Work Phone: [facility] 03-28-2024 08:05-0500 Body weight 79.38 kg Tami Hemmer PA Work Phone: [facility] 03-28-2024 08:05-0500 Diastolic blood pressure 78 mm[Hg] Tami Hemmer PA Work Phone: [facility] 03-28-2024 08:05-0500 Heart rate 88 /min Tami Hemmer PA Work Phone: [facility] 03-28-2024 08:05-0500 SaO2% (BldA) [Mass fraction] 95 % Tami Hemmer PA Work Phone: [facility] 03-28-2024 08:05-0500 Systolic blood pressure 108 mm[Hg] Tami Hemmer PA Work Phone: [facility] 02-27-2024 08:53-0500 Body height 175.3 cm Scottie Nash MD Work Phone: [facility] 02-27-2024 08:53-0500 Body mass index (BMI) [Ratio] 25.55 kg/m2 Scottie Nash MD Work Phone: [facility] 02-27-2024 08:53-0500 Body weight 78.47 kg Scottie Nash MD Work Phone: [facility] 02-27-2024 08:53-0500 Diastolic blood pressure 78 mm[Hg] Scottie Nash MD Work Phone: [facility] 02-27-2024 08:53-0500 Heart rate 87 /min Scottie Nash MD Work Phone: [facility] 02-27-2024 08:53-0500 SaO2% (BldA) [Mass fraction] 97 % Scottie Nash MD Work Phone: [facility] 02-27-2024 08:53-0500 Systolic blood pressure 114 mm[Hg] Scottie Nash MD Work Phone: [facility] Encounters Encounter Date Encounter Type Care Provider Facility Start: 06-12-2024 End: 06-12-2024 Bamboo flowsheet Sondra Barrios BUSINESS PROJECT MANAGER Work Phone: [facility] Start: 06-12-2024 End: 06-12-2024 Bamboo flowsheet Sondra Barrios BUSINESS PROJECT MANAGER Work Phone: [facility] Start: 06-12-2024 End: 06-12-2024 Office outpatient visit 25 minutes Sondra Barrios BUSINESS PROJECT MANAGER Work Phone: [facility] Comment on above: Acquired hypothyroid ism (CMS/HCC) (Primary Dx); Trouble in sleeping; Grief reaction (CMS/HCC); Hereditary hemochromatosis (CMS/HCC); Polycythemia vera (CMS/HCC); Other fatigue; Hypertriglyceridemia (CMS/HCC); Vitamin D deficiency; Adjustment disorder with depressed mood (CMS/HCC); Encounter for screening mammogram for malignant neoplasm of breast Start: 06-12-2024 End: 06-12-2024 ambulatory SONDRA BARRIOS Not Available Start: 03-28-2024 End: 03-28-2024 Office outpatient visit 15 minutes Tami Troy PA Work Phone: [facility] Comment on above: Trouble in sleeping (Primary Dx); Grief reaction (CMS/HCC) Start: 03-28-2024 End: 03-28-2024 ambulatory TAMI TROY Not Available Start: 02-27-2024 End: 02-27-2024 Office outpatient visit 25 minutes Scottie Nash MD Work Phone: [facility] Comment on above: Benign essential hyp ertension (CMS/HCC) (Primary Dx); Adjustment disorder with depressed mood (CMS/HCC); Atherosclerosis of aorta (CMS/HCC); Polycythemia vera (CMS/HCC); Cigarette smoker; Anxiety; Obstructive sleep apnea syndrome Start: 02-27-2024 End: 02-27-2024 ambulatory SCOTTIE Osorio CHARITY Not Available Start: 11-21-2023 End: 11-21-2023 ambulatory TAMI TROY Not Available Start: 08-28-2023 End: 11-21-2023 Patient encounter status Scottie Nash MD Work Phone: [facility] Start: 08-28-2023 End: 08-28-2023 ambulatory SCOTTIE NASH Not Available Start: 07-20-2022 End: 07-21-[address] ROSITA UMANZOR . Facility: Start: 09-14-2021 End: 09-14-[address] ROSITA UMANZOR . Facility: Procedures Date Procedure Procedure Detail Performing Clinician Start: 09-06-2023 Mammography Scottie Nash MD Work Phone: Start: 10-24-2022 Laboratory test resu lt abnormal Abnormal laboratory test Scottie Nash MD Work Phone: Start: 01-29-2016 Colonoscopy Scottie Nash MD Work Phone: Plan of Treatment Date Care Activity Detail Author Start: 01-28-2026 Screening for malignant neoplasm of colon [facility] Start: 09-05-2024 End: 08-12-2025 MG Breast - bilateral Screening Bilateral screening mammogram Imaging Routine Encounter for screening mammogram for malignant neoplasm of breast Expected: 09/05/2024, Expires: 08/12/2025 [facility] Comment on above: Expected: 09/05/2024, Expires: Start: 09-05-2024 Screening for malignant neoplasm of breast Mammogram [facility] Start: 08-29-2024 End: 06-12-2025 25-hydroxyvitamin D3 [Mass/volume] in Serum or Plasma Vitamin D 25 hydroxy Lab Routine Vitamin D deficiency Expected: 08/29/2024 (Approximate), Expires: 06/12/2025 [facility] Work Phone: Comment on above: Expected: 08/29/2024 (Approximate), Expi res: 06/12/2025 Start: 08-29-2024 End: 06-12-2025 CBC panel - Blood by Automated count CBC Lab Routine Hereditary hemochromatosis (CMS/HCC) Polycythemia vera (CMS/HCC) Expected: 08/29/2024 (Approximate), Expires: 06/12/2025 [facility] Comment on above: Expected: 08/29/2024 (Approximate), Expi res: 06/12/2025 Start: 08-29-2024 End: 06-12-2025 Comprehensive metabolic 2000 panel - Serum or Plasma Comprehensive metabolic panel Lab Routine Acquired hypothyroidism (CMS/HCC) Other fatigue Expected: 08/29/2024 (Approximate), Expires: 06/12/2025 [facility] Comment on above: Expected: 08/29/2024 (Approximate), Expi res: 06/12/2025 Start: 08-29-2024 End: 06-12-2025 Lipid 1996 panel - Serum or Plasma Lipid panel Lab Routine Hypertriglyceridemia (CMS/HCC) Expected: 08/29/2024 (Approximate), Expires: 06/12/2025 [facility] Comment on above: Expected: 08/29/2024 (Approximate), Expi res: 06/12/2025 Start: 08-29-2024 End: 06-12-2025 TSH W/REFLEX TO FT4 TSH W/REFLEX TO FT4 Lab Routine Acquired hypothyroidism (CMS/HCC) Expected: 08/29/2024 (Approximate), Expires: 06/12/2025 [facility] Comment on above: Expected: 08/29/2024 (Approximate), Expi res: 06/12/2025 Start: 06-12-2024 End: 06-12-2024 Patient encounter procedure 06/12/2024 8:30 AM EST Office Visit [facility] [address] [facility] [address] [place] [address] Sondra Barrios NP [address] [facility] [address] [place] [address] Arrived [facility] Comment on above: Arrived Start: 04-23-2024 Influenza vaccination Influenza Vaccine (#1) [facility] Comment on above: Postponed from 12/10/2023 (Patient Refus ed) Start: 12-10-2023 Influenza vaccination Influenza Vaccine (#1) [facility] Start: 01-18-1996 Screening for malignant neoplasm of cervix [facility] Start: 1987 Screening for malignant neoplasm of cervix Pap Smear [facility] Start: 1966 Screening for malignant neoplasm of colon [facility] Payers Date Payer Category Payer Medicaid [facility] [id number] 2022 Medicaid [id number] 1966 Unknown [id number] 1966 Unknown [id number] 1966 Unknown [id number] 1966 Unknown [id number] 1966 Unknown [id number] 1966 Unknown [id number] 1966 Unknown [id number] 1959 Unknown [id number] Social History Date Type Detail Facility Start: 04-18-1995 Tobacco smoking stat [facility] Occasional tobacco smoker [facility] Start: 04-18-1995 History of tobacco use Cigarette Smo ker [facility] Start: 02-20-2024 End: 02-27-2024 Cigarettes smoked current (pack per day) - Reported 0.3 [facility] History of tobacco use Passive smoker [facility] Start: 02-27-2024 Tobacco use and exposure Smokeless t obacco non-user [facility] Start: 02-27-2024 End: 06-12-2024 Alcoholic beverage intake Current drinker of alcohol (finding) [facility] Start: 11-22-2022 End: 02-20-2024 [id number] Health Literacy [facility] How often do you nee d to have someone help you when you read instructions, pamphlets, or other written material from your doctor or pharmacy [SILS] Never [facility] Within the last year , have you been afraid of your partner or ex-partner? No [facility] Are you now , , , , never or living with a partner? Living with partner [facility] How often to you hav e a drink containing alcohol? 2-4 times a month [facility] How many standard dr inks containing alcohol do you have on a typical day? 1 or 2 [facility] How often do you hav e 6 or more drinks on 1 occasion? Never [facility] How hard is it for y ou to pay for the very basics like food, housing, medical care, and heating Not very hard [facility] Do you feel stress - tense, restless, nervous, or anxious, or unable to sleep at night because your mind is troubled all the time - these days [OSQ] To some extent [facility] (I/We) worried wheth er (my/our) food would run out before (I/we) got money to buy more. Never true [facility] Start: 09-21-2022 Alcohol Comment Caffeine: coffee, so da [facility] Start: 1965 Sex assigned at Female [facility] Start: 09-15-2022 Gender identity Identifies as female gender (finding) [facility] Start: 09-15-2022 Sexual orientation Heterosexual (steve baez) [facility] History of Present illness Narrative 06-12-2024 Sondra Barrios, BUSINESS PROJECT MANAGER - 06/12/2024 8:30 AM EST Note Date & Type Note Facility 06-12-2024 History of Presen t illness Narrative Images from the original note were not included. Subjective Patient ID: ANA Cuenca is a 59 y.o. female who presents for a F/U for depression. Ana presents today for a F/U for depression. She states she is sleeping better most days. Depression Visit Type: follow-up Patient presents with the following symptoms: excessive worry and insomnia. Frequency of symptoms: occasionally Severity: mild Sleep per night: 5 hours Sleep quality: good Nighttime awakenings: one to two Compliance with medications: 76-100% Insomnia This is a chronic problem. The current episode started more than 1 month ago. The problem occurs intermittently (sleeping about 5 hours). The problem has been gradually improving. Associated symptoms include myalgias. The symptoms are aggravated by stress (when the grandchildren are over). Treatments tried: trazodone, buspar and xanax. The treatment provided significant relief. Anxiety Presents for follow-up visit. Symptoms include excessive worry and insomnia. Symptoms occur occasionally. The most recent episode lasted 1 day. The severity of symptoms is mild. The patient sleeps 5 hours per night. The quality of sleep is good. Nighttime awakenings: one to two. Compliance with medications is 76-100%. Current Outpatient Medications on File Prior to Visit Medication Sig Dispense Refill ALPRAZolam (Xanax) 0.5 MG tablet Take 1 tablet (0.5 mg) by mouth every 12 (twelve) hours if needed for anxiety 60 tablet 0 atorvastatin (Lipitor) 20 MG tablet TAKE ONE TABLET BY MOUTH ONCE DAILY IN THE MORNING 100 tablet 3 busPIRone (Buspar) 10 MG tablet Take 1 tablet (10 mg) by mouth 2 (two) times a day as needed (Anxiety) 60 tablet 2 cholecalciferol (Vitamin D3) 25 MCG (1000 UT) tablet Take 1 tablet daily 100 tablet 0 cyclobenzaprine (Flexeril) 10 MG tablet Take 1 tablet (10 mg) by mouth every 8 (eight) hours if needed for muscle spasms 90 tablet 3 ibuprofen (IBU) 800 MG tablet Take 1 tablet (800 mg) by mouth every 8 (eight) hours 300 tablet 0 Multiple Vitamins-Minerals (Multivitamin Women 50+) tablet TAKE ONE TABLET BY MOUTH ONCE DAILY DIRECTED FOR 30 DAYS 30 tablet 9 omega-3 (Fish Oil) 1000 MG capsule TAKE TWO CAPSULES BY MOUTH TWICE A DAY ( IN THE MORNING AND BEFORE BEDTIME ) 120 capsule 7 traZODone (Desyrel) 50 MG tablet Take 0.5-1 tablets (25-50 mg) by mouth at bedtime 30 tablet 2 No current facility-administered medications on file prior to visit. I have reviewed and reconciled the history and medication list with the patient today. Allergies Allergen Reactions Penicillin G Other Reaction(s): HIVES Social History Tobacco Use Smoking status: Some Days Current packs/day: 0.25 Average packs/day: 0.3 packs/day for 29.2 years (7.3 ttl pk-yrs) Types: Cigarettes Start date: 04/18/1995 Passive exposure: Yes Smokeless tobacco: Never Vaping Use Vaping status: Unknown Substance Use Topics Alcohol use: Yes Alcohol/week: 4.0 - 8.0 standard drinks of alcohol Types: 2 Cans of beer, 2 - 6 Standard drinks or equivalent per week Comment: Caffeine: coffee, soda Drug use: Never Family History Problem Relation Name Age of Onset Cancer Mother Cancer Father Dad Cancer Maternal Grandmother Sheyla Cancer Paternal Grandmother Camelia breast Past Medical History: Diagnosis Date Anxiety Cataract 2016 History of bone density study 11/30/2020 Normal - low fracture risk History of CT scan 12/31/2020 Borderline dilated appendix is seen with mild wall enhancement/wall thickening. Past Surgical History: Procedure Laterality Date CATARACT EXTRACTION Right 11/23/[address] Delgado COLONOSCOPY 01/29/2016 Polyps ENDOMETRIAL ABLATION 2014 FRACTURE SURGERY 2017 ORIF ANKLE FRACTURE Right 07/20/2016 Dr. Wood [facility] SPINE SURGERY 2021 TUBAL LIGATION Bilateral 1992 Visit Vitals LMP (LMP Unknown) OB Status Postmenopausal Smoking Status Some Days Review of Systems Musculoskeletal: Positive for myalgias. Psychiatric/Behavioral: Positive for depression. The patient has insomnia. Objective Physical Exam Vitals reviewed. Constitutional: Appearance: Normal appearance. HENT: Head: Normocephalic. Nose: Congestion present. Cardiovascular: Rate and Rhythm: Normal rate and regular rhythm. Heart sounds: Normal heart sounds. Pulmonary: Effort: Pulmonary effort is normal. Breath sounds: Normal breath sounds. Skin: General: Skin is warm and dry. Neurological: General: No focal deficit present. Mental Status: She is alert and oriented to person, place, and time. Psychiatric: Mood and Affect: Mood normal. Behavior: Behavior normal. Thought Content: Thought content normal. Judgment: Judgment normal. Assessment/Plan Diagnoses and all orders for this visit: Acquired hypothyroidism (CMS/HCC) - Comprehensive metabolic panel; Future - TSH W/REFLEX TO FT4; Future This is a chronic medical condition that is stable since last assessment. No changes in treatment are suggested at this time. Pt is due for lab in August. Lab slip completed and given to pt. Trouble in sleeping - traZODone (Desyrel) 50 MG tablet; Take 0.5-1 tablets (25-50 mg) by mouth at bedtime The Trazodone has been effective in the management of her sleep. Continue current dose. Grief reaction (CMS/HCC) - busPIRone (Buspar) 10 MG tablet; Take 1 tablet (10 mg) by mouth 2 (two) times a day as needed (Anxiety) The Buspar has been effective in the management of her anxiety. Continue current dose. Hereditary hemochromatosis (CMS/HCC) - CBC; Future Await lab Polycythemia vera (CMS/HCC) - CBC; Future Await lab Other fatigue - Comprehensive metabolic panel; Future Await lab Hypertriglyceridemia (CMS/HCC) - Lipid panel; Future Await lab Vitamin D deficiency - Vitamin D 25 hydroxy; Future Await lab Adjustment disorder with depressed mood (CMS/HCC) - ALPRAZolam (Xanax) 0.5 MG tablet; Take 1 tablet (0.5 mg) by mouth every 12 (twelve) hours if needed for anxiety Medication as directed. Verbalizes understanding of the need to be seen in the ER for suicidal/homicidal ideation, excessive stress, elevated blood pressure or palpitations. Pt offers understanding of treatment plan. I discussed the side effects of the medications described and to seek medical care if they arise. Discussed stress mgmt strategies, social support and importance of healthy diet, exercise and regular sleep habits. Advised on relaxation methods to decrease anxiety and depression. Encounter for screening mammogram for malignant neoplasm of breast - Bilateral screening mammogram; Future Await results of mammogram No follow-ups on file. documented in this encounter [facility] History of Present illness Narrative 03-28-2024 HARRY Ruiz - 03/28/2024 8:00 AM EST Note Date & Type Note Facility 03-28-2024 History of Presen t illness Narrative Images from the original note were not included. Subjective Patient ID: ANA Cuenca is a 59 y.o. female who presents for Depression. Pt mother passed on the 17 of February she is not coping as well as she would like, depressed, mood swings, pt is only getting 5 hours of sleep. She had known something was wrong with her mom for at least a year, but she 9 days after the diagnosis, brain tumor, was confirmed. So at the end it happened very quickly. Pt was with her when she passed. Her mother's birthday and Thanksgiving were really hard. Her fiance of 9 years, 2 kids, and grand kids are good support system for her. Pt is taking xanax and she is getting very vivid dreams , she is only taking one pill a day. Keeping busy helps, but states she is having trouble getting motivated to get things done. Depression Visit Type: initial Onset of symptoms: 1 to 6 months ago Progression since onset: gradually worsening Patient presents with the following symptoms: depressed mood, fatigue, irritability and obsessions. Patient is not experiencing: palpitations and shortness of breath. Frequency of symptoms: constantly Severity: interfering with daily activities Aggravated by: family issues Sleep quality: poor Current Outpatient Medications on File Prior to Visit Medication Sig Dispense Refill ALPRAZolam (Xanax) 0.5 MG tablet Take 1 tablet (0.5 mg) by mouth every 12 (twelve) hours if needed for anxiety 60 tablet 0 atorvastatin (Lipitor) 20 MG tablet Take 1 tablet (20 mg) by mouth in the morning. 100 tablet 3 cholecalciferol (Vitamin D3) 25 MCG (1000 UT) tablet Take 1 tablet daily 100 tablet 0 cyclobenzaprine (Flexeril) 10 MG tablet Take 1 tablet (10 mg) by mouth every 8 (eight) hours if needed for muscle spasms 90 tablet 3 ibuprofen (IBU) 800 MG tablet Take 1 tablet (800 mg) by mouth every 8 (eight) hours 300 tablet 0 Multiple Vitamins-Minerals (Multivitamin Women 50+) tablet TAKE ONE TABLET BY MOUTH ONCE DAILY DIRECTED FOR 30 DAYS 30 tablet 10 omega-3 (Fish Oil) 1000 MG capsule TAKE TWO CAPSULES BY MOUTH TWICE A DAY ( IN THE MORNING AND BEFORE BEDTIME ) 120 capsule 7 No current facility-administered medications on file prior to visit. I have reviewed and reconciled the history and medication list with the patient today. Allergies Allergen Reactions Penicillin G Other Reaction(s): HIVES Social History Tobacco Use Smoking status: Some Days Current packs/day: 0.25 Average packs/day: 0.3 packs/day for 28.9 years (7.2 ttl pk-yrs) Types: Cigarettes Start date: 04/18/1995 Passive exposure: Yes Smokeless tobacco: Never Substance Use Topics Alcohol use: Yes Alcohol/week: 4.0 - 8.0 standard drinks of alcohol Types: 2 Cans of beer, 2 - 6 Standard drinks or equivalent per week Comment: Caffeine: coffee, soda Drug use: Never Family History Problem Relation Name Age of Onset Cancer Mother Cancer Father Dad Cancer Maternal Grandmother Sheyla Cancer Paternal Grandmother Camelia breast Past Medical History: Diagnosis Date Anxiety Cataract 2016 History of bone density study 11/30/2020 Normal - low fracture risk History of CT scan 12/31/2020 Borderline dilated appendix is seen with mild wall enhancement/wall thickening. Past Surgical History: Procedure Laterality Date CATARACT EXTRACTION Right 11/23/[address] Delgado COLONOSCOPY 01/29/2016 Polyps ENDOMETRIAL ABLATION 2014 FRACTURE SURGERY 2017 ORIF ANKLE FRACTURE Right 07/20/2016 Dr. Wood [facility] SPINE SURGERY 2021 TUBAL LIGATION Bilateral 1992 Visit Vitals BP 108/78 Pulse 88 Ht 5' 9 Wt 175 lb LMP (LMP Unknown) SpO2 95% BMI 25.84 kg/m OB Status Postmenopausal Smoking Status Some Days BSA 1.97 m Review of Systems Constitutional: Positive for fatigue and irritability. Negative for chills and fever. Respiratory: Negative for cough, shortness of breath and wheezing. Cardiovascular: Negative for chest pain, palpitations and leg swelling. Gastrointestinal: Negative for abdominal pain, constipation, diarrhea, nausea and vomiting. Skin: Negative for rash. Psychiatric/Behavioral: Positive for agitation, depression, dysphoric mood and sleep disturbance. Mood Swings Objective Physical Exam Constitutional: General: She is not in acute distress. Appearance: Normal appearance. She is well-developed. HENT: Head: Normocephalic and atraumatic. Eyes: General: No scleral icterus. Conjunctiva/sclera: Conjunctivae normal. Cardiovascular: Rate and Rhythm: Normal rate and regular rhythm. Heart sounds: Normal heart sounds. No murmur heard. Pulmonary: Effort: Pulmonary effort is normal. No respiratory distress. Breath sounds: Normal breath sounds. No wheezing, rhonchi or rales. Skin: General: Skin is warm and dry. Neurological: General: No focal deficit present. Mental Status: She is alert and oriented to person, place, and time. Psychiatric: Attention and Perception: Attention normal. Mood and Affect: Mood is anxious and depressed. Affect is tearful. Speech: Speech normal. Behavior: Behavior normal. Thought Content: Thought content normal. Cognition and Memory: Cognition normal. Judgment: Judgment normal. Assessment/Plan Diagnoses and all orders for this visit: Trouble in sleeping - traZODone (Desyrel) 50 MG tablet; Take 0.5-1 tablets (25-50 mg) by mouth at bedtime Provided pt with prescription for Trazodone to take before bed. Discussed this class of medication with the patient. Explained potential benefits and potential risks of this class of medication. Pt is agreeable to starting Trazodone at this time. Any worsening of symptoms the patient is to stop the medication immediately and contact our office. ER if concerns. Grief reaction (CMS/HCC) - busPIRone (Buspar) 10 MG tablet; Take 1 tablet (10 mg) by mouth twice a day as needed for anxiety Patient cannot take Xanax routinely without s/e. Will keep that on as an as needed medication. Start Buspar as prescribed above. Advised pt she can take it up to twice a day as needed. Active listening provided. Advised grief can come in waves as she adjusts to the new norm of life without her mother. Encouraged her to grieve at her own pace. Can refer to counseling if needed. Follow up in about 3 months (around 06/26/2024) for Wellness, Medication Follow Up. documented in this encounter [facility] History of Present illness Narrative 02-27-2024 Scottie Nash MD - 02/27/2024 9:19 AM Momo Nash MD - 02/27/2024 9:18 AM Momo Nash MD - 02/27/2024 9:17 AM Momo Nash MD - 02/27/2024 9:17 AM EST Note Date & Type Note Facility 02-27-2024 History of Presen t illness Narrative Associated Problem(s): Obstructive sleep apnea syndrome Patient is compliant with CPAP usage and perceives benefit from treatment. Treatment has been effective in controlling the patient's symptoms of Sleep Apnea. Will continue to monitor with routine follow up appointments. Associated Problem(s): Anxiety Patient's Medicine is effective at controlling symptoms at current dose and frequency. PDMP reviewed with no evidence of overuse and abuse D/W patient to avoid use of benzodiazepines when consuming alcohol Advised against operating heavy machinery and driving long distances while on medicines. Associated Problem(s): Polycythemia vera (CMS/HCC) Recommend blood donation Associated Problem(s): Atherosclerosis of aorta (CMS/HCC) Reduce tobacco Associated Problem(s): Cigarette smoker Discussed smoking cessation with the patient. Encouraged patient to try to cut back gradually and soon quit smoking. Discussed ways to quit smoking including gum, patches, medication, and gradually reducing the number of cigarettes smoked daily. 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 Patient voiced understanding. Benefits of cessation, both health and financial, were reviewed. Associated Problem(s): Benign essential hypertension (CMS/HCC) Our specific goals, for your hypertension, is to keep your blood pressure less than 140/90, and the importance of weight control. We made recommendations on how to control your blood pressure, and minimize your risk of these copmplications. We also discussed your current barriers to a healthy living and importance of healthy diet and exercise. Prior to your visit today we have reviewed your chart and formed a plan to assist with providing you the best possible care. We reviewed the possible complications of hypertension including, stroke, heart failure and kidney impairment. In addition, we discussed your medications, the importance of taking them as prescribed. DASH diet handouts Images from the original note were not included. Subjective Patient ID: ANA Cuenca is a 59 y.o. female who presents for Hypertension. Pt mother recently , mother passed from brain tumor ,lesions in brain Hypertension This is a chronic problem. The current episode started more than 1 year ago. The problem has been gradually improving since onset. The problem is controlled. Pertinent negatives include no chest pain or neck pain. There are no associated agents to hypertension. Risk factors for coronary artery disease include dyslipidemia. Past treatments include nothing. The current treatment provides mild improvement. There are no compliance problems. Current Outpatient Medications on File Prior to Visit Medication Sig Dispense Refill omega-3 (Fish Oil) 1000 MG capsule TAKE TWO CAPSULES BY MOUTH TWICE A DAY ( IN THE MORNING AND BEFORE BEDTIME ) atorvastatin (Lipitor) 20 MG tablet Take 1 tablet (20 mg) by mouth in the morning. 100 tablet 3 cholecalciferol (Vitamin D3) 25 MCG (1000 UT) tablet Take 1 tablet (25 mcg) by mouth 1 (one) time each day at the same time 90 tablet 0 cyclobenzaprine (Flexeril) 10 MG tablet Take 1 tablet (10 mg) by mouth every 8 (eight) hours if needed for muscle spasms 90 tablet 3 ibuprofen (IBU) 800 MG tablet Take 1 tablet (800 mg) by mouth every 8 (eight) hours 300 tablet 0 Multiple Vitamins-Minerals (Multivitamin Women 50+) tablet TAKE ONE TABLET BY MOUTH ONCE DAILY DIRECTED FOR 30 DAYS 30 tablet 10 [DISCONTINUED] ALPRAZolam (Xanax) 0.5 MG tablet Take 1 tablet (0.5 mg) by mouth every 12 (twelve) hours if needed for anxiety 60 tablet 0 [DISCONTINUED] [place]-3 Fatty Acids (Fish Oil) 1000 MG capsule delayed-release Take 2 capsules by mouth in the morning and 2 capsules before bedtime. 120 capsule 11 No current facility-administered medications on file prior to visit. I have reviewed and reconciled the history and medication list with the patient today. Allergies Allergen Reactions Penicillin G Other Reaction(s): HIVES Social History Tobacco Use Smoking status: Some Days Current packs/day: 0.25 Average packs/day: 0.3 packs/day for 28.9 years (7.2 ttl pk-yrs) Types: Cigarettes Start date: 04/18/1995 Passive exposure: Yes Smokeless tobacco: Never Substance Use Topics Alcohol use: Yes Alcohol/week: 4.0 - 8.0 standard drinks of alcohol Types: 2 Cans of beer, 2 - 6 Standard drinks or equivalent per week Comment: Caffeine: coffee, soda Drug use: Never Family History Problem Relation Name Age of Onset Cancer Mother Cancer Father Dad Cancer Maternal Grandmother Sheyla Cancer Paternal Grandmother Camelia breast Past Medical History: Diagnosis Date Anxiety Cataract 2016 History of bone density study 11/30/2020 Normal - low fracture risk History of CT scan 12/31/2020 Borderline dilated appendix is seen with mild wall enhancement/wall thickening. Past Surgical History: Procedure Laterality Date CATARACT EXTRACTION Right 11/23/[address] Delgado COLONOSCOPY 01/29/2016 Polyps ENDOMETRIAL ABLATION 2014 FRACTURE SURGERY 2017 ORIF ANKLE FRACTURE Right 07/20/2016 Dr. Wood [facility] SPINE SURGERY 2021 TUBAL LIGATION Bilateral 1992 Visit Vitals BP 114/78 Pulse 87 Ht 5' 9 Wt 173 lb LMP (LMP Unknown) SpO2 97% BMI 25.55 kg/m OB Status Postmenopausal Smoking Status Some Days BSA 1.96 m Review of Systems Constitutional: Negative for chills and fever. HENT: Negative for ear pain. Respiratory: Negative for chest tightness. Cardiovascular: Negative for chest pain. Gastrointestinal: Negative for abdominal pain and blood in stool. Genitourinary: Negative for dysuria and enuresis. Musculoskeletal: Negative for neck pain. Objective Physical Exam Assessment/Plan Problem List Items Addressed This Visit Adjustment disorder with depressed mood (CMS/HCC) Relevant Medications ALPRAZolam (Xanax) 0.5 MG tablet Polycythemia vera (CMS/HCC) Recommend blood donation Cigarette smoker Discussed smoking cessation with the patient. Encouraged patient to try to cut back gradually and soon quit smoking. Discussed ways to quit smoking including gum, patches, medication, and gradually reducing the number of cigarettes smoked daily. Discussed potential health risks of detention smoking. Patient voiced understanding. Benefits of cessation, both health and financial, were reviewed. Anxiety Patient's Medicine is effective at controlling symptoms at current dose and frequency. PDMP reviewed with no evidence of overuse and abuse D/W patient to avoid use of benzodiazepines when consuming alcohol Advised against operating heavy machinery and driving long distances while on medicines. Benign essential hypertension (CMS/HCC) - Primary Our specific goals, for your hypertension, is to keep your blood pressure less than 140/90, and the importance of weight control. We made recommendations on how to control your blood pressure, and minimize your risk of these copmplications. We also discussed your current barriers to a healthy living and importance of healthy diet and exercise. Prior to your visit today we have reviewed your chart and formed a plan to assist with providing you the best possible care. We reviewed the possible complications of hypertension including, stroke, heart failure and kidney impairment. In addition, we discussed your medications, the importance of taking them as prescribed. DASH diet handouts Atherosclerosis of aorta (CMS/HCC) Reduce tobacco Obstructive sleep apnea syndrome Patient is compliant with CPAP usage and perceives benefit from treatment. Treatment has been effective in controlling the patient's symptoms of Sleep Apnea. Will continue to monitor with routine follow up appointments. Follow up in about 4 months (around 06/26/2024) for Anxiety Meds F/U. documented in this encounter [facility] Clinical Note 08-10-2021 Note Date & Type Note Facility 08-10-2021 Note HISTORY: Right sided neck pain, numbness, tingling PROCEDURE: angelMD Signa HDXT 1.5. 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 Note Date & Type Note Facility Evaluation note Diagnosis Fatigue, unspecified type- Primary Somnolence, daytime Right hip pain Pain in joint, pelvic region and thigh Polycythemia vera (CMS/HCC) Encounter for well adult exam without abnormal findings- Primary Abnormal glucose tolerance test Impaired glucose tolerance test Benign essential hypertension (CMS/HCC) Essential hypertension, benign Annual physical exam Routine general medical examination at a health care facility Vitamin D deficiency Acquired hypothyroidism (CMS/HCC) Unspecified hypothyroidism Hypertriglyceridemia (CMS/HCC) Pure hyperglyceridemia Lipoprotein deficiency disorder (CMS/HCC) Lipoprotein deficiencies Adjustment disorder with depressed mood (CMS/HCC) Adjustment disorder with depressed mood Right hip pain Pain in joint, pelvic region and thigh Chronic neck pain Cervicalgia Encounter for screening mammogram for malignant neoplasm of breast Cigarette smoker Tobacco use disorder Somnolence, daytime Benign essential hypertension (CMS/HCC)- Primary Essential hypertension, benign Adjustment disorder with depressed mood (CMS/HCC) Adjustment disorder with depressed mood Atherosclerosis of aorta (CMS/HCC) Atherosclerosis of aorta Polycythemia vera (CMS/HCC) Cigarette smoker Tobacco use disorder Anxiety Anxiety state, unspecified Obstructive sleep apnea syndrome Obstructive sleep apnea (adult) (pediatric) documented in this encounter [facility] Evaluation note Note Date & Type Note Facility Evaluation note Diagnosis Fatigue, unspecified type- Primary Somnolence, daytime Right hip pain Pain in joint, pelvic region and thigh Polycythemia vera (CMS/HCC) Encounter for well adult exam without abnormal findings- Primary Abnormal glucose tolerance test Impaired glucose tolerance test Benign essential hypertension (CMS/HCC) Essential hypertension, benign Annual physical exam Routine general medical examination at a health care facility Vitamin D deficiency Acquired hypothyroidism (CMS/HCC) Unspecified hypothyroidism Hypertriglyceridemia (CMS/HCC) Pure hyperglyceridemia Lipoprotein deficiency disorder (CMS/HCC) Lipoprotein deficiencies Adjustment disorder with depressed mood (CMS/HCC) Adjustment disorder with depressed mood Right hip pain Pain in joint, pelvic region and thigh Chronic neck pain Cervicalgia Encounter for screening mammogram for malignant neoplasm of breast Cigarette smoker Tobacco use disorder Somnolence, daytime Benign essential hypertension (CMS/HCC)- Primary Essential hypertension, benign Adjustment disorder with depressed mood (CMS/HCC) Adjustment disorder with depressed mood Atherosclerosis of aorta (CMS/HCC) Atherosclerosis of aorta Polycythemia vera (CMS/HCC) Cigarette smoker Tobacco use disorder Anxiety Anxiety state, unspecified Obstructive sleep apnea syndrome Obstructive sleep apnea (adult) (pediatric) Trouble in sleeping- Primary Unspecified sleep disturbance Grief reaction (CMS/HCC) Adjustment disorder with depressed mood documented in this encounter [facility] Evaluation note Note Date & Type Note Facility Evaluation note Diagnosis Fatigue, unspecified type- Primary Somnolence, daytime Right hip pain Pain in joint, pelvic region and thigh Polycythemia vera (CMS/HCC) Encounter for well adult exam without abnormal findings- Primary Abnormal glucose tolerance test Impaired glucose tolerance test Benign essential hypertension (CMS/HCC) Essential hypertension, benign Annual physical exam Routine general medical examination at a health care facility Vitamin D deficiency Acquired hypothyroidism (CMS/HCC) Unspecified hypothyroidism Hypertriglyceridemia (CMS/HCC) Pure hyperglyceridemia Lipoprotein deficiency disorder (CMS/HCC) Lipoprotein deficiencies Adjustment disorder with depressed mood (CMS/HCC) Adjustment disorder with depressed mood Right hip pain Pain in joint, pelvic region and thigh Chronic neck pain Cervicalgia Encounter for screening mammogram for malignant neoplasm of breast Cigarette smoker Tobacco use disorder Somnolence, daytime Benign essential hypertension (CMS/HCC)- Primary Essential hypertension, benign Adjustment disorder with depressed mood (CMS/HCC) Adjustment disorder with depressed mood Atherosclerosis of aorta (CMS/HCC) Atherosclerosis of aorta Polycythemia vera (CMS/HCC) Cigarette smoker Tobacco use disorder Anxiety Anxiety state, unspecified Obstructive sleep apnea syndrome Obstructive sleep apnea (adult) (pediatric) Acquired hypothyroidism (CMS/HCC)- Primary Unspecified hypothyroidism Trouble in sleeping Unspecified sleep disturbance Grief reaction (CMS/HCC) Adjustment disorder with depressed mood Hereditary hemochromatosis (CMS/HCC) Hereditary hemochromatosis Polycythemia vera (CMS/HCC) Other fatigue Hypertriglyceridemia (CMS/HCC) Pure hyperglyceridemia Vitamin D deficiency Adjustment disorder with depressed mood (CMS/HCC) Adjustment disorder with depressed mood Encounter for screening mammogram for malignant neoplasm of breast documented in this encounter [facility] Summary Purpose Family History No Family History Records FoundNo Family History Records FoundNo Family History Records FoundNo Family History Records Found Advance Directives No Advanced Directives Records FoundNo Advanced Directives Records FoundNo Advanced Directives Records FoundNo Advanced Directives Records Found Additional Source Comments INFORMATION SOURCE (unrecogn ized section and content) DATE CREATED AUTHOR [facility]/10/2021 [facility] DATE CREATED AUTHOR AUTHOR'S ORGANIZ ATION 08/12/2021 [facility] Me dical Specialist DATE CREATED AUTHOR AUTHOR'S ORGANIZ ATION 07/25/2022 [facility] DATE CREATED AUTHOR AUTHOR'S ORGANIZ ATION 06/14/2024 [facility] dical Specialists EPIC Reason for Visit (unrecogniz ed section and content) Reason Comments Hypertension Reason Comments Depression Care Teams (unrecognized sec tion and content) Abrasive Wheel Molder Relationship Specialty Start Date End Date Scottie Nash MD [address] [facility] [address] [place] [address] PCP - General 09/15/22 Scottie Nash MD [address] [facility] [address] [place] [address] PCP - [facility] 07/10/23 Abrasive Wheel Molder Relationship Specialty Start Date End Date Scottie Nash MD [address] [facility] [address] [place] [address] PCP - General 09/15/22 Scottie Nash MD [address] [facility] [address] [place] [address] PCP - [facility] 07/10/23 Abrasive Wheel Molder Relationship Specialty Start Date End Date Scottie Nash MD [address] [facility] [address] [place] [address] PCP - General 09/15/22 Scottie Nash MD [address] [facility] [address] [place] [address] PCP - [facility] 07/10/23 Abrasive Wheel Molder Relationship Specialty Start Date End Date Scottie Nash MD [address] [facility] [address] [place] [address] PCP - General 09/15/22 Scottie Nash MD [address] [facility] [address] [place] [address] PCP - [facility] 07/10/23 FOR RECORDS PERTAINING TO PATIENTS WHO ARE [...] BE BASED ON THE PRIMARY CLINICAL RECORDS. [facility] [employer] [facility]. provides no warranty or guarantee of the accuracy or completeness of information in this document.
--- OUTSIDE RECORDS SUMMARY | 2024-09-05 06:45 | XMS_ITS | Clinical Summary ---
Author Organization [facility] Address [address] [place] [address] Care Team Providers Care Eyelet Punch Operator Name Role Phone Scottie Nash MD Primary Care Provider [phone] Scottie Nash MD Unavailable Allergies Active Allergy Reactions Criticality Noted Date Comments Penicillin G 10/24/2022 Other Reaction(s): HIVES Medications cyclobenzaprine (Flexeril) 10 MG tabletIndication s:Right hip pain Take 1 tablet (10 mg) by mouth every 8 (eight) hours if needed for muscle spasms 90 tablet 3 4 Active ibuprofen (IBU) 800 MG tabletIndication s:Chronic neck pain Take 1 tablet (800 mg) by mouth every 8 (eight) hours 300 tablet 4 Active omega-3 (Fish Oil) 1000 MG capsuleIndicatio ns:Polyp of colon, unspecified part of colon, unspecified type TAKE TWO CAPSULES BY MOUTH TWICE A DAY ( IN THE MORNING AND BEFORE BEDTIME ) 120 capsule 7 4 Active atorvastatin (Lipitor) 20 MG tabletIndication s:Hypertriglycer idemia (CMS/HCC) TAKE ONE TABLET BY MOUTH ONCE DAILY IN THE MORNING 100 tablet 3 5 Active Multiple Vitamins-Mineral s (Multivitamin Women 50+) tabletIndication s:Fatigue, unspecified type TAKE ONE TABLET BY MOUTH ONCE DAILY DIRECTED FOR 30 DAYS 30 tablet 9 5 Active traZODone (Desyrel) 50 MG tabletIndication s:Trouble in sleeping Take 0.5-1 tablets (25-50 mg) by mouth at bedtime 30 tablet 2 5 Active busPIRone (Buspar) 10 MG tabletIndication s:Grief reaction Take 1 tablet (10 mg) by mouth 2 (two) times a day as needed (Anxiety) 60 tablet 2 5 Active ALPRAZolam (Xanax) 0.5 MG tabletIndication s:Adjustment disorder with depressed mood (CMS/HCC) Take 1 tablet (0.5 mg) by mouth every 12 (twelve) hours if needed for anxiety 60 tablet 5 Active cholecalciferol (Vitamin D3) 25 MCG (1000 UT) tabletIndication s:Vitamin D deficiency TAKE ONE TABLET BY MOUTH DAILY 100 tablet 5 Active Active Problems Problem Noted Date Diagnosed Date Atherosclerosis of aorta 02/27/2024 Assessment & Plan (02/27/2024 9:17 AM EST): Reduce tobacco Obstructive sleep apnea syndrome 02/27/2024 Assessment & Plan (02/27/2024 9:19 AM EST): Patient is compliant with CPAP usage and perceives benefit from treatment. Treatment has been effective in controlling the patient's symptoms of Sleep Apnea. Will continue to monitor with routine follow up appointments. Benign essential hypertension 08/28/2023 Assessment & Plan (02/27/2024 9:11 AM EST): Our specific goals, for your hypertension, is [...] taking them as prescribed. DASH diet handouts Assessment & Plan (08/28/2023 9:08 AM EDT): Our specific goals, for your hypertension, is [...] taking them as prescribed. DASH diet handouts Fatigue 11/29/2022 Assessment & Plan (11/29/2022 11:49 AM EDT): Will needs sleep study Roslyn D/W patient Sleep Apnea and CPAP Somnolence, daytime 11/29/2022 Assessment & Plan (08/28/2023 9:22 AM EDT): Will continue to monitor with routine follow up appointments. Sleep Apnea test recommended to rule out sleep apnea. If positive consider CPAP Right hip pain 11/29/2022 Assessment & Plan (11/29/2022 11:54 AM EDT): Lunge stretches Abnormal laboratory test 10/24/2022 Acquired hypothyroidism 10/24/2022 Adjustment disorder with depressed mood 10/25/19 Assessment & Plan (08/28/2023 9:09 AM EDT): Patient's Medicine is effective at controlling symptoms at current dose and frequency. PDMP reviewed with no evidence of overuse and abuse D/W patient to avoid use of benzodiazepines when consuming alcohol Advised against operating heavy machinery and driving long distances while on medicines. 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 Encouraged patient to try to cut back gradually and soon quit smoking. Discussed ways to quit smoking including gum, patches, medication, and gradually reducing the number of cigarettes smoked daily. 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 Patient voiced understanding. Benefits of cessation, both health and financial, were reviewed. Assessment & Plan (08/28/2023 9:16 AM EDT): Discussed smoking cessation with the patient. Encouraged patient to try to cut back gradually and soon quit smoking. Discussed ways to quit smoking including gum, patches, medication, and gradually reducing the number of cigarettes smoked daily. 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 Patient voiced understanding. Benefits of cessation, both health and financial, were reviewed. Vitamin D deficiency 10/24/2022 Anxiety 11/04/2021 Assessment & Plan (02/27/2024 9:18 AM EST): Patient's Medicine is effective at controlling symptoms at current dose and frequency. PDMP reviewed with no evidence of overuse and abuse D/W patient to avoid use of benzodiazepines when consuming alcohol Advised against operating heavy machinery and driving long distances while on medicines. Chronic neck pain 11/04/2021 Benign neoplasm of colon 02/18/2016 Lipoprotein deficiency disorder 01/20/2016 Resolved Problems Problem Noted Date Diagnosed Date Resolved Date Encounter for well adult exa m without abnormal findings 08/28/2023 11/21/2023 Assessment & Plan (08/28/2023 9:09 AM EDT): Modest Alcohol consumption No Tobacco Seat Belt use Exercise Regularly No Text Drive Social Accountability Tobacco use 11/04/2021 11/21/2023 Encounters Date Type Department Care Team Description 06/13/2024 Refill [facility] [address] [facility] [address] [place] [address] Scottie Nash MD Vitamin D deficiency 06/12/2024 8:30 AM EST Office Visit [facility] [address] [facility] [address] [place] [address] Aimee Barrios NP Acquired hypothyroidism (CMS/HCC) (Primary Dx); Trouble in sleeping; Grief reaction (CMS/HCC) ; Hereditary hemochromatosis (CMS/HCC) ; Polycythemia vera (CMS/HCC) ; Other fatigue; Hypertriglyceridemia (CMS/HCC) ; Vitamin D deficiency; Adjustment disorder with depressed mood (CMS/HCC) ; Encounter for screening mammogram for malignant neoplasm of breast 06/12/2024 Bamboo flowsheet [facility] [address] [facility] [address] [place] [address] Aimee Barrios NP 06/12/2024 Travel 06/11/2024 Travel from Last 3 Months Family History Medical History Relation Name Comments Cancer Father Dad Cancer Maternal Grandmother Sheyla Cancer Mother Cancer Paternal Grandmother Camleia breast Relation Name Status Comments Father Dad Maternal Grandmother Sheyla Mother Paternal Grandmother Camelia Social History Tobacco Use Types Packs/Day Years Used Date Smoking Tobacco: Some Days Cigarettes 0.3 29.4 Started: 04/18/1995 Passive Smoke Exposure: Yes Smokeless Tobacco: Never Tobacco Cessation:Ready to Q uit: No; Counseling Given: Yes Alcohol Use Standard Drinks/Week Comments Yes 4 (1 standard drink = 0.6 oz pur e alcohol) Caffeine: coffee, soda B1300 Health Literacy Answer Date Recor ded How often do you need to hav e someone help you when you read instructions, pamphlets, or other written material from your doctor or pharmacy? Never 02/20/2024 Humiliation, Afraid, Rape, and Kick questionnair e [...] or ex-partner? No 11/22/2022 Social Connection and Isolat ion Panel [NHANES] Answer Date Recorded In a typical week, how many times do you talk on the phone with family, friends, or neighbors? More than three times a week 02/20/2024 How often do you get togethe r with friends or relatives? Once a week 02/20/2024 How often do you attend chur or shinto services? Never 02/20/2024 Do you belong to any clubs o r organizations such as christian groups, unions, fraternal or athletic groups, or school groups? No 02/20/2024 How often do you attend meet ings of the clubs or organizations you belong to? Patient declined 02/20/2024 Are you , , di vorced, , never , or living with a partner? Living with partner 02/20/2024 AUDIT-C Answer Date Recorded Q1: How often do you have a drink containing alc ohol? 2-4 times a month 02/20/2024 Q2: How many drinks containi ng alcohol do you have on a typical day when you are drinking? 1 or 2 02/20/2024 Q3: How often do you have si x or more drinks on one occasion? Never 02/20/2024 Overall Financial Resource Strain (CARDIA) Answe r Date Recorded How hard is it for you to pa y for the very basics like food, housing, medical care, and heating? Not very hard 02/20/2024 PHQ-2 Answer Date Recorded Patient Health Questionnaire-2 Score 0 06/12/2024 [facility] - Occupational Stress Questionnaire Answer Date Recorded Do you feel stress - tense, restless, nervous, or anxious, or unable to sleep at night because your mind is troubled all the time - these days? To some extent 02/20/2024 Exercise Vital Sign Answer Date Recorde d On average, how many days pe r week do you engage in moderate to strenuous exercise (like a brisk walk)? 2 days 02/20/2024 On average, how many minutes do you engage in exercise at this level? 30 min 02/20/2024 Hunger Vital Sign Answer Date Recorded Within the past 12 months, y ou worried that your food would run out before you got the money to buy more. Never true 02/20/20 24 Within the past 12 months, t he food you bought just didn't last and you didn't have money to get more. Never true 02/20/2024 PRAPARE - Transportation Answer Date Re corded In the past 12 months, has l ack of transportation kept you from medical appointments or from getting medications? No 02/08 In the past 12 months, has l ack of transportation kept you from meetings, work, or from getting things needed for daily living? No 02/20/2024 Housing Stability Vital Sign Answer Willam e [...] place to sleep or slept in a chcf (including now)? No 11/22/2022 Housing Stability Vital Sign Answer Willam e Recorded In the last 12 months, was t here a time when you were not able to pay the mortgage or rent on time? No 02/20/2024 In the past 12 months, how m any times have you moved where you were living? 0 02/20/2024 At any time in the past 12 m [facility], were you homeless or living in a chcf (including now)? No 02/20/2024 Comments No Sex and Gender Information Value Date Recorded Sex Assigned at Female 09/15/2022 9:40 AM EDT Legal Sex Female 6:35 PM EDT Gender Identity Female 09/15/2022 9:40 AM EDT Sexual Orientation Straight 09/15/2022 9: 40 AM EDT Last Filed Vital Signs Vital Sign Reading Time Taken Comments Blood Pressure 118/72 06/12/2024 8:34 AM EST Pulse 73 06/12/2024 8:34 AM EST Temperature - - Respiratory Rate 17 06/12/2024 8:34 AM EST Oxygen Saturation 96% 06/12/2024 8:34 AM EST Inhaled Oxygen Concentration - - Weight 81.2 kg (179 lb) 06/12/2024 8:34 AM EST Height 175.3 cm (5' 9 ) 06/12/2024 8:34 AM EST Body Mass Index 26.43 06/12/2024 8:34 AM EST Plan of Treatment Health Maintenance Due Date Last Done Comments CT Colonography 1966 FIT-DNA 1966 FIT 1966 FOBT 1966 Sigmoidoscopy 1966 Pap Smear 1987 Cervical Cancer Screening 01/18/1996 HPV/Cotest 01/18/1996 Mammogram 09/05/2024 09/06/2023, 07/09, 07/13/2021, Additional history exists Influenza Vaccine (Season Ended) 2024 Colonoscopy 01/28/2026 01/29/2016 Colorectal Cancer Screening 01/28/2026 Procedures Procedure Name Priority Date/Time Associated Diagnosis Comments MM TOMOSYNTHESIS SCREENING BI 09/06/2023 1:09 PM EDT COLONOSCOPY Routine 01/29/2016 12:00 PM EDT from Last 3 Months or Most Recently Relevant to Health Maintenance Results * MM TOMOSYNTHESIS SCREENING BI (09/06/2023 1:09 PM EDT) Anatomical Region Laterality Modality Other 09/06/2023 1:09 PM EDT Narrative 09/06/2023 1:10 [place] [address] Mammography Report Signed Patient: ANA VILLEDA MR#: [id number] : 1965 Acct:[id number] Age/Sex: 58 / F ADM Date: 09/06/23 Loc: MAMMO Attending Dr: Justin Mcclendon D.O. Ordering Physician: Justin Mcclendon D.O. Results: Date of Service: 09/06/23 Follow Up: Procedure(s): MM tomosynthesis screening BI Accession Number(s): [id number] cc: SCOTTIE NASH ; Justin Mcclendon D.O. Patient Name: ANA VILLEDA MR#: [id number] : 1965 Exam Date: 09/06/2023 Ordering Doctor: [...] carcinoma cancer at age 51. LOCATION: [facility] BREAST COMPOSITION: The breasts are heterogeneously [...] Signed By: 09/06/23 1310 DD/ 1309 TD/TT: Containers Sales Representative: Procedure Note Radiology, Radiologist, MD - 09/06/2023 [place] [address] Mammography Report Signed Patient: ANA VILLEDA LMR#: [id number] : 1965Acct:[id number] Age/Sex: 58 / FADM Date: 09/06/23 Loc: MAMMO Attending Dr: Justin Mcclendon D.O. Ordering Physician: Justin Mcclendon D.O.Results: Date of Service: 09/06/23Follow Up: Procedure(s): MM tomosynthesis screening BI Accession Number(s): [id number] cc: SCOTTIE NASH ; Justin Mcclendon D.O. Patient Name: ANA VILLEDA MR#: [id number] : 1965 Exam Date: 09/06/2023 Ordering Doctor: [...] with carcinomacancer at age 51. LOCATION: [facility] BREAST COMPOSITION: The breasts are heterogeneously [...] M.D. Signed By:09/06/23 1310 DD/ 1309 TD/TT: Containers Sales Representative: us Justin Mcclendon DO [facility] Final Result * Colonoscopy (01/29/2016 12:00 PM EDT) Anatomical Region Laterality Modality Endoscopy 01/29/2016 12:0 0 PM EDT Narrative 02/18/2016 12:00 PM EST PERFORMED AT [facility] LOCATION:[id number] diverticulosis, polyps Procedure Note CONVERSION, GENERIC - 08/25/2022 PERFORMED AT [facility] LOCATION:[id number] diverticulosis, polyps Scottie Nash MD ENDOSCOPY PROCEDURE ORDERABLES F inal Result from Last 3 Months or Most Recently Relevant to Health Maintenance Insurance [employer] [place] Care Teams Eyelet Punch Operator Relationship Specialty Start Date End Date Scottie Nash MD [address] [facility] [address] [place] [address] PCP - General 09/15/22 Scottie Nash MD [address] [facility] [address] [place] [address] PCP - [facility] DIRECTOR [facility] 07/10/23
--- OUTSIDE RECORDS SUMMARY | 2024-09-05 06:45 | XMS_ITS | Encounter Summary ---
Author Organization [facility] Address [address] [place] [address] Care Team Providers Care Computator Name Role Phone Scottie Issa MD Primary Care Provider [phone] Scottie Issa MD Unavailable Encounter Details Date Type Department Care Team (Late st Contact Info) Description 08/30/2023 Abstract [facility] 112 [facility] [address] [place] [id number] Scottie Issa MD 112 [facility] 110 [place] [address] Social History Tobacco Use Types Packs/Day Years [...] 11/22/2022 How often do you attend chur or latter-day services? Never 11/22/2022 Do you belong to any clubs o r organizations such as mosque groups, unions, fraternal or athletic groups, or [...] care, and heating? Not very hard 11/22/2022 [facility] - [...] place to sleep or slept in a residential (including now)? No 11/22/2022 Comments No Sex [...] on filedocumented in this encounter Care Teams Computator Relationship Specialty Start Date End Date Scottie Issa MD [address] [facility] [address] [place] [address] PCP - General 09/15/22 Scottie Issa MD [address] [facility] [address] [place] [address] PCP - [facility] FINANCIAL REPRESENTATIVE 07/10/23 documented as of this encounter
--- OUTSIDE RECORDS SUMMARY | 2024-09-05 06:45 | XMS_ITS | Clinical Summary ---
Author Organization [facility] Address [id number] [address] [place] [address] Care Team Providers Care Stranding Machine Operator Name Role Phone Scottie Issa MD Primary Care Provider [phone] Allergies Active Allergy Reactions Criticality Noted Date Comments Penicillins Hives Low 09/12/2016 As a child, history of pt's mom having an allergy to PCN. Medications ALPRAZolam (XANAX) 0.5 mg tablet 7 Active atorvastatin (LIPITOR) 20 mg tablet Take 20 mg by mouth in the morning. Active cholecalciferol , vitamin D3, (VITAMIN D3 ORAL) Take 2,000 Units by mouth 2 (two) times a day. Active sennosides-docu sate sodium (SENOKOT-S) 8.6-50 mgIndications:C ervical stenosis of spinal canal Take 2 tablets by mouth in the morning and 2 tablets before bedtime. 2 Active Additional Information Patient not taking.Reported on 11/09/2022 tiZANidine (ZANAFLEX) 4 mg tablet Take 1 tablet (4 mg total) by mouth every 8 (eight) hours as needed for muscle spasms for up to 60 doses. 60 tablet 2 Active Additional Information Patient not taking.Reported on 11/09/2022 methylPREDNISol one (MEDROL, SHEILA,) 4 mg tablet follow package directions 21 tablet 2 Active Additional Information Patient not taking.Reported on 11/09/2022 multivit-min/fe rrous fumarate (MULTI VITAMIN ORAL) Take by mouth. Activ e omega 7-wgg-kbi-fish oil (Fish OiL) 300-1,000 mg capsule Take by mouth. Activ e methylPREDNISol one (MEDROL, SHEILA,) 4 mg tablet follow package directions 21 tablet 3 Active Active Problems Problem Noted Date Diagnosed Date Stenosis, cervical spine 11/04/2021 Tobacco use 11/04/2021 Anxiety 11/04/2021 Chronic neck pain 11/04/2021 Hyperlipidemia 11/04/2021 Cervical stenosis of spinal canal 11/04/2021 Family History Medical History Relation Name Comments Cancer Father Cancer Paternal Grandmother BREAST Anesthesia problems Neg Hx Relation Name Status Comments Father Mother Alive Paternal Grandmother Social History Tobacco Use Types Packs/Day Years Used Date Smoking Tobacco: Every Day Cigarettes 0.5 20 Smokeless Tobacco: Never Tobacco Cessation:Ready to Q uit: No; Counseling Given: Yes Comments:pt last cigarette last night 11/03/21 Alcohol Use Standard Drinks/Week Comments Yes 0 (1 standard drink = 0.6 oz pur e alcohol) occasional Childcare Answer Date Recorded Childcare Unknown 09/19/2018 Employment Answer Date Recorded Employment Unknown 09/19/2018 Purpose - Life Answer Date Recorded Purpose and direction in life Unknown Comments No Sex and Gender Information Value Date Recorded Sex Assigned at Not on file Legal Sex Female 12:02 PM EDT Gender Identity Not on file Sexual Orientation Not on file Last Filed Vital Signs Vital Sign Reading Time Taken Comments Blood Pressure 124/70 11/05/2021 5:25 AM EDT Pulse 103 11/05/2021 5:25 AM EDT Temperature 36.8 C (98.2 F) 11/05/2021 5:25 AM EDT Respiratory Rate 18 11/05/2021 5:25 AM EDT Oxygen Saturation 96% 11/05/2021 5:25 AM EDT Inhaled Oxygen Concentration - - Weight 78.9 kg (174 lb) 12/09/2021 9:26 AM EDT Height 175.3 cm (5' 9 ) 12/09/2021 9:26 AM EDT Body Mass Index 25.7 12/09/2021 9:26 AM EDT Plan of Treatment Health Maintenance Due Date Last Done Comments Depression Screening 1978 DTaP,Tdap and Td Vaccines (1 - Tdap) 1985 Pap Smear 1987 Zoster (Shingles) Vaccine (1 of 2) 01/18/2016 Adult BMI Screening 12/09/2022 12/09/2021 Tobacco Screening 11/10/2023 11/09/2022 COVID-19 Vaccine ( season) 2023 Influenza Vaccine 12/09/2024 Medical Devices Implanted Type Area Global Regulatory Lead Device Identifier Shelf Expiration Date Model / Serial / Lot Graft Bn 1cc Tito Adv Primagen Rpl [id number] - [id number] - [id number] Implanted:Qty : 1 on 11/04/2021 by Jamel Mccartney MD at [facility] Graft N/A: Neck Santana Spine 05/29/2026 [id number] / [id number] / Plate Bn 35mm 2 Lvl Zevo Spne Crv Ant Ti - [id number] - [id number] Implanted:Qty : 1 on 11/04/2021 by Jamel Mccartney MD at [facility] Orthopedic Implant N/A: Neck [employer] [id number] / [id number] / Screw Bn 13mm 3.5mm Va Slf Drl Spne Crv Ant Ti Zevo - [id number] - [id number] Implanted:Qty : 4 on 11/04/2021 by Jamel Mccartney MD at [facility] Screw N/A: Neck [employer] Sofamor [place] [id number] / [id number] / Screw Bn 15mm 3.5mm Va Slf Drl Spne Crv Ant Ti Zevo - [id number] - [id number] Implanted:Qty : 2 on 11/04/2021 by Jamel Mccartney MD at [facility] Screw N/A: Neck [employer] Sofamor [employer] [id number] / [id number] / Spacer Implanted:Qty : 1 on 11/04/2021 by Jamel Mccartney MD at [facility] N/A: Neck [employer] 09/12/2025 [id number] / [id number] / [id number] Cage Implanted:Qty : 1 on 11/04/2021 by Jamel Mccartney MD at [facility] N/A: Neck [employer] 04/22/2029 [id number] / [id number] / 14 Insurance [facility] MEDICAID Advance Directives * Full Code (Latest Code Status on File) Date Activated Date Inactivated Comments 11/04/2021 4:20 PM 11/05/2021 10:51 AM Care Teams Stranding Machine Operator Relationship Specialty Start Date [place] [address] PCP - General Family Medicine 11/09/22
--- OUTSIDE RECORDS SUMMARY | 2024-09-05 06:45 | XMS_ITS | Encounter Summary ---
Author Organization [facility] Address [address] [place] [address] Care Team Providers Care Supervisor Drying And Winding Name Role Phone Scottie Issa MD Primary Care Provider [phone] Scottie Issa MD Unavailable Encounter Details Date Type Department Care Team (Late st Contact Info) Description 10/05/2023 Abstract [facility] 112 [facility] 110 [place] [phone] Scottie Issa MD 112 [facility] 110 [place] [address] Social History Tobacco Use Types [...] How often do you attend chur or amish services? Never 11/22/2022 Do you belong to any clubs o r organizations such as muslim groups, unions, fraternal or athletic groups, or [...] care, and heating? Not very hard 11/22/2022 [facility] - Occupational Stress [...] place to sleep or slept in a fpc (including now)? No 11/22/2022 Comments No Sex [...] on filedocumented in this encounter Care Teams Supervisor Drying And Winding Relationship Specialty Start Date End Date Scottie Issa MD [address] [facility] [address] [place] [address] PCP - General 09/15/22 Scottie Issa MD [address] [place] [address] PCP - [facility] TRAFFIC CHECKER 07/10/23 documented as of this encounter
--- OUTSIDE RECORDS SUMMARY | 2024-09-05 06:45 | XMS_ITS | Patient Health Record ---
[facility] Address [address] [place] [address] Care Team Providers Care Senior Qa Engineer Name Role Phone Dr. Galo Avery Primary Care Provider [phone] Reason For Referral No Information Medications Medication SIG (Take, Route, Fr equency, Duration) Notes Start Date End Date Status Ibuprofen 800 MG 1 tablet with food o r milk as needed Orally Three times a day 01/18/2021 Active Ibuprofen 800 MG 1 tablet with food o r milk as needed Orally Three times a day 02/12/2021 Active Encounters Encounter Location Date Provider Diagnosis [facility] [address] [place] [address] 2024 Galo Avery Encounter for dental examination and cleaning with abnormal findings Z01.21 ; Other dental procedure status Z98.818 and Disturbances in tooth eruption K00.6 Assessments Encounter Date Diagnosis (ICD Code) Assessment Notes Treatment Notes Treatment Clinical Notes Section Notes 2024 Encounter for dental examination and cleaning with abnormal findings (ICD-10 - Z01.21) 2024 Other dental procedure status (ICD-10 - Z98.818) 2024 Disturbances in tooth eruption (ICD-10 - K00.6) Plan Of Treatment No Information Insurance Providers Payer Name Payer Address Payer Phone Subscriber Number Group Number Insured Name Patient Relationship to Insured Coverage Start Date Coverage End Date z[employer] T ADVANTAGE -termed 22 [address] [place] [address] [id number] EDINSON VILLEDA Self - patient is the insured zMEDICAID [facility] after [employer] -termed 22 [address] [place] [address] [id number] EDINSON VILLEDA Self - patient is the insured 1 zDENTAL DQ [employer] -termed 22 [address] [place] [address] [id number] EDINSON VILLEDA Self - patient is the insured 1 3 zDental MEDICAID [facility] after [employer] -termed 22 [address] [place] [address] [id number] EDINSON VILLEDA Self - patient is the insured 1 3 [facility] [place] DQ [address] [place] [address] [id number] EDINSON VILLEDA Self - patient is the insured 3 [employer] [place] [employer] [address] [place] [address] [id number] EDINSON VILLEDA Self - patient is the insured 3
[2024-09-05 07:17] LABS: Basophils Percent Auto 0.5 % (0.2-2.0); Eosinophils Absolute Auto 0.3 10^3/uL (0.0-0.7); Eosinophils Percent Auto 3.4 % (0.9-7.0); Hematocrit 45.7 % (36.0-48.0); Hemoglobin 15.3 g/dL (12.0-16.0); Immature Granulocytes Abs Auto 0.02 10^3/uL (0.00-0.03); Immature Granulocytes Pct Auto 0.3 % (0.0-0.5); Lymphocytes Absolute Auto 2.1 10^3/uL (1.2-3.8); Lymphocytes Percent Auto 27.1 % (20.5-60.0); Mean Corpuscular HGB Conc 33.5 g/dL (29.9-35.2); Mean Corpuscular Hemoglobin 31.5 pg (26.7-34.0); Mean Corpuscular Volume 94.2 fL (81.0-99.0); Monocytes Absolute Auto 0.5 10^3/uL (0.3-0.8); Monocytes Percent Auto 6.6 % (1.7-12.0); Neutrophils Absolute Auto 4.8 10^3/uL (1.4-6.5); Neutrophils Percent Auto 62.1 % (43.0-75.0); Platelet Count 181 10^3/uL (150-450); Red Blood Count 4.85 10^6/uL (4.20-5.40); Red Cell Distribution Width 13.2 % (11.0-15.0); White Blood Count 7.7 10^3/uL (4.0-11.0)
[2024-09-05 07:36] LABS: Alanine Aminotransferase 25 U/L (14-59); Albumin Globulin Ratio 1.1; Albumin Level 3.7 g/dL (3.4-5.0); Alkaline Phosphatase 122 U/L (46-116); Anion Gap 14.1; Aspartate Amino Transferase 16 U/L (15-37); BUN Creatinine Ratio 14.9; Bilirubin Total 0.4 mg/dL (0.2-1.0); Calcium 9.3 mg/dL (8.5-10.1); Carbon Dioxide 28.5 mmol/L (21.0-32.0); Chloride 106 mmol/L (98-107); Chol HDL Ratio 2.7; Cholesterol 107 mg/dL (<=200); Estimated GFR (African America >60 (>=60 mL/min/1.73m^2); Estimated GFR (Non-African Ame 56 (>=60 mL/min/1.73m^2); Globulin 3.5 g/dL; Glucose 98 mg/dL (74-106); HDL Cholesterol 39 mg/dL (40-60); Potassium 4.6 mmol/L (3.5-5.1); Sodium 144 mmol/L (136-145); TSH W/ REFLEX FT4 1.079 uIU/mL (0.358-3.740); Total Protein 7.2 g/dL (6.4-8.2); Triglycerides 76 mg/dL (<=150); VLDL CHOLESTEROL 15.2 mg/dL
== END 2024-09-05 06:42 | disposition home or self-care (01) ==
LOC: LAB 06:43
PROVIDERS: PCP Family Medicine; Visit Provider Nurse Practitioner Family
DX: E03.9 Hypothyroidism, unspecified (principal); E83.110 Hereditary hemochromatosis; D45 Polycythemia vera; R53.83 Other fatigue; E78.1 Pure hyperglyceridemia
CPT/HCPCS: 36415; 80053; 80061; 82306; 84443; 85025

== ENCOUNTER 2024-09-11 08:15 | Outpatient (OUT) | payer MEDICAID, SELFPAY ==
--- NOTE | 2024-09-11 08:17 | MM_ITS ---
Patient Name: EDINSON VILLEDA MR#: [id number] : 1965 Exam Date: 09/11/2024 Ordering Doctor: DR SARINA NASH M.D. RADIOLOGY REPORT PROCEDURE: MM TOMOSYNTHESIS SCREENING BI COMPARISON: MM TOMOSYNTHESIS SCREENING BI, 09/06/2023. MG MAMM SCREEN 3D NEIL CAD, 07/20/2022. MG MAMM SCREEN 3D NEIL CAD, 07/13/2021. MG MAMM NEIL SCRN W CAD DIG, 06/06/2013. INDICATIONS: Screening Calculator Name NCI Breast Cancer Risk Assessment Tool 5 Year Breast Cancer Risk 1.20% Lifetime Breast Cancer Risk 6.90% Personal Breast Cancer No Personal Ovarian Cancer No Treatments None Family Cancers Grandmother-paternal with breast cancer at age ~50; Grandmother-paternal with bone cancer at age 80; Father with carcinoma cancer at age 50. LOCATION: [facility] BREAST COMPOSITION: The breasts are heterogeneously dense,which may obscure small masses. FINDINGS: RIGHT BREAST: No significant suspicious finding. Focal asymmetries are present. Benign-appearing lymph nodes are noted along chest wall . LEFT BREAST: No significant suspicious finding. Focal asymmetries are redemonstrated. These are unchanged. DIAGNOSTIC CATEGORY 2--BENIGN FINDING: RECOMMENDATIONS: ROUTINE MAMMOGRAM AND CLINICAL EVALUATION IN 12 MONTHS. PLEASE NOTE: A NORMAL MAMMOGRAM DOES NOT EXCLUDE THE POSSIBILITY OF BREAST CANCER. A CLINICALLY SUSPICIOUS PALPABLE LUMP SHOULD BE BIOPSIED. Dictated by: Ranulfo Sanchez MD on 09/11/2024 at 12:57 Approved by: Ranulfo Sanchez MD on 09/11/2024 at 13:02
--- OUTSIDE RECORDS SUMMARY | 2024-09-11 08:31 | XMS_ITS | CCD ---
Author Organization [facility] Care Team Providers Care Case Management Social Worker Name Role Phone NOÉ ., DR BECKER [...] source) Penicillins Drug allergy (disorder) 02-17-2014 [facility] Rep[facility] (8 sources) Penicillin G Drug Allergy 10-24-2022 [facility] Medications Current Medications Medication Drug Class(es) Dates Sig (Normalized) Sig (Original) ALPRAZolam 0.5 mg oral tablet (12 sources) Benzodiazepine Start: 06-12-2024 take 1 tablet [...] Discontinued (Reorder) atorvastatin 20 mg oral tablet (8 sources) HMG-CoA Reductase Inhibitor Start: 04-12-2024 take [...] Active busPIRone hydrochloride 10 mg oral tablet (10 sources) Start: 06-12-2024 take 1 tablet by mouth twice daily as needed for anxiety busPIRone (Buspar) 10 MG tablet Indications: Grief reaction Take 1 tablet (10 mg) by [...] Discontinued (Reorder) cholecalciferol 0.025 mg oral tablet (8 sources) Vitamin D Start: 06-13-2024 take 1 tablet by mouth once daily cholecalciferol (Vitamin D3) 25 MCG (1000 UT) tablet Indications: Vitamin D deficiency TAKE ONE TABLET BY MOUTH DAILY 100 tablet 06/13/2024 Active Start: 03-04-2024 cholecalcifero l (Vitamin D3) 25 MCG (1000 UT) tablet Indications: Vitamin D deficiency Take 1 tablet daily 100 tablet 03/04/2024 Active Start: 11-16-2023 take 1 tablet by zain once daily cholecalciferol (Vitamin D3) 25 MCG (1000 UT) tablet Indications: Vitamin D deficiency Take 1 tablet (25 mcg) by mouth 1 (one) time each day at the same time 90 tablet 11/16/2023 Active cyclobenzaprine hydrochloride 10 mg oral tablet (8 sources) Muscle Relaxant Start: 08-28-2023 take 1 tablet by mouth every eight hours for muscle spasms cyclobenzaprine (Flexeril) 10 MG tablet Indications: Right hip pain Take 1 tablet (10 mg) by mouth every 8 (eight) hours if needed for muscle spasms 90 tablet 3 08/28/2023 Active docosahexaenoic acid 120 mg / eicosapentaenoic acid 180 mg oral capsule (8 sources) Start: 03-18-2024 take 2 capsules by [...] 01/16/2024 Active ibuprofen 800 mg oral tablet (8 sources) Nonsteroidal Anti-inflammatory Drug Start: 08-28-2023 take 1 tablet by mouth every eight hours ibuprofen (IBU) 800 MG tablet Indications: Chronic neck pain Take 1 tablet (800 mg) by mouth every 8 (eight) hours 300 tablet 08/28/2023 Active Multiple Vitamins-Mineral s (Multivitamin Women 50+) tablet (8 sources) Start: 06-03-2024 take 1 tablet by [...] 30 DAYS 30 tablet 10 05/22/2023 Active [place]-3 Fatty Acids (Fish Oil) 1000 MG capsule delayed-release (2 sources) Start: 01-18-2023 End: 02-27-2024 take 2 capsules by mouth in the morning [place]-3 Fatty Acids (Fish Oil) 1000 MG capsule delayed-release Indications: Hypertriglyceridemia (CMS/HCC) Take 2 capsules by mouth in the morning and 2 capsules before bedtime. 120 capsule 11 01/18/2023 02/27/2024 Discontinued (Other) traZODone hydrochloride 50 mg oral tablet (8 sources) Serotonin Reuptake Inhibitor Start: 06-12-2024 take [...] Problem Date Documented Date Episodic/Chronic Adjustment disorders (16 sources) Adjustment disorder with depressed mood; Translations: [Adjustment disorder with depressed mood] Onset: 10-24-2022 02-27-2024 Chronic Anxiety disorders (10 sources) Anxiety; Translations: [Anxiety disorder, unspecified] Onset: 11-04-2021 02-27-2024 Chronic Cataract (8 sources) Incipient senile cataract; Translations: [Other age-related incipient cataract, bilateral] Onset: 10-24-2022 10-24-2022 Chronic Deficiency and other anemia (8 sources) Hemoglobinopathy; Translations: [Other hemoglobinopathies] Onset: 10-24-2022 10-24-2022 Chronic Diseases of white blood cells (8 sources) Leukocytosis; Translations: [Elevated white blood cell count, unspecified] Onset: 10-24-2022 10-24-2022 Chronic Disorders of lipid metabolism (10 sources) Hypertriglyceridemia; Translations: [Pure hyperglyceridemia] Onset: 10-24-2022 10-24-2022 Chronic Essential hypertension (10 sources) Benign essential hypertension; Translations: [Essential (primary) hypertension] Onset: 08-28-2023 02-27-2024 Chronic Neoplasms of unspecified nature or uncertain behavior (12 sources) Polycythemia vera (clinical); Translations: [Polycythemia vera] Onset: 10-24-2022 02-27-2024 Chronic Nutritional deficiencies (10 sources) Vitamin D deficiency; Translations: [Vitamin D deficiency, unspecified] Onset: 10-24-2022 10-24-2022 Chronic Other inflammatory condition of skin (8 sources) Rosacea; Translations: [Rosacea, unspecified] Onset: 10-24-2022 10-24-2022 Chronic Other nutritional; endocrine; and metabolic disorders (8 sources) Hemochromatosis; Translations: [Hemochromatosis, unspecified] Onset: 10-24-2022 10-24-2022 Chronic Other nutritional; endocrine; and metabolic disorders (8 sources) Cholesterol level - finding; Translations: [Lipoprotein deficiency] Onset: 10-24-2022 10-24-2022 Chronic Other nutritional; endocrine; and metabolic disorders (8 sources) Lipoprotein deficiency disorder; Translations: [Lipoprotein deficiency] Onset: 01-20-2016 11-29-2022 Chronic Other nutritional; endocrine; and metabolic disorders (2 sources) Hereditary hemochromatosis; Translations: [Hereditary hemochromatosis] 06-12-2024 Chronic Other screening for suspected conditions (not mental disorders or infectious disease) (10 sources) Encounter for screening mammogram for malignant neoplasm of breast; Translations: [Encounter for screening for malignant neoplasm of cervix] Onset: 06-07-2022 Episodic Peripheral and visceral atherosclerosis (10 sources) Atherosclerosis of aorta; Translations: [Atherosclerosis of aorta] Onset: 02-27-2024 02-27-2024 Chronic Residual codes; unclassified (10 sources) Obstructive sleep apnea syndrome; Translations: [Obstructive [...] Spondylosis; intervertebral disc disorders; other back problems (16 sources) Cervical spondylosis; Translations: [Spondylosis without myelopathy or radiculopathy, cervical region] Onset: 10-24-2022 10-24-2022 Chronic Substance-related disorders (10 sources) Cigarette smoker ; Translations: [Nicotine dependence, cigarettes, uncomplicated] Onset: 10-24-2022 02-27-2024 Chronic Thyroid disorders (10 sources) Acquired hypothyroidism; Translations: [Hypothyroidism, unspecified] Onset: 10-24-2022 10-24-2022 Chronic Past or Other Problems Problem Classification Problem Date Documented Date Episodic/Chronic Coma; stupor; and brain damage (8 sources) Daytime somnolence; Translations: [Somnolence] Onset: 11-29-2022 11-29-2022 Episodic Immunizations and screening for infectious disease (1 source) Encounter for screening for human papillomavirus (HPV); Translations: [ENC SCREENING HUMAN PAPILLOMAVIRUS] Onset: 09-17-2021 Episodic Malaise and fatigue (10 sources) Fatigue; Translations: [Other fatigue] Onset: 11-29-2022 11-29-2022 Episodic Other and unspecified benign neoplasm (8 sources) Polyp of colon; Translations: [Polyp of colon] Onset: 10-24-2022 10-24-2022 Episodic Other and unspecified benign neoplasm (8 sources) Benign neoplasm of colon; Translations: [Benign neoplasm of colon, unspecified] Onset: 02-18-2016 11-29-2022 Episodic Other non-traumatic joint disorders (8 sources) Hip pain; Translations: [Pain in right hip] Onset: 11-29-2022 11-29-2022 Episodic Residual codes; unclassified (8 sources) Tobacco use and exposure - finding; Translations: [Tobacco use] Onset: 11-04-2021 Resolved: 11-21-2023 11-21-2023 Episodic Spondylosis; intervertebral disc disorders; other back problems (8 sources) Chronic neck pain; Translations: [Cervicalgia] Onset: 11-04-2021 11-29-2022 Episodic Results Test Name Value Interpretation Reference Range Facility ALL CBC WITH AUTO DIFFon BASOPHILS ABSOLUTE AUTO 0 [facility] Basophils/100 WBC (Bld) 0.5 % 0.2 - 2.0 % [facility] Eosinophils/100 WBC (Bld) 3.4 % 0.9 - 7.0 % [facility] Erythrocyte distribution width (RBC) [Ratio] 13.2 % 11.0 - 15.0 % [facility] Hematocrit (Bld) [Volume fraction] 45.7 % 36.0 - 48.0 % [facility] Hem[facility] (Bld) [Mass/Vol] 15.3 g/dL 12.0 - 16.0 g/dL [facility] IMMATURE GRANULOCYTES ABS AUTO 0.02 [facility] Immature granulocytes/100 WBC (Bld) 0.3 % 0.0 - 0.5 % [facility] LYMPHOCYTES ABSOLUTE AUTO 2.1 [facility] Lymphocytes/100 WBC (Bld) 27.1 % 20.5 - 60.0 % [facility] MCH (RBC) [Entitic mass] 31.5 pg 26.7 - 34.0 pg [facility] MCHC (RBC) [Mass/Vol] 33.5 g/dL 29.9 - 35.2 g/dL [facility] MCV (RBC) [Entitic vol] 94.2 fL 81.0 - 99.0 fL [facility] MONOCYTES ABSOLUTE AUTO 0.5 [facility] Monocytes/100 WBC (Bld) 6.6 % 1.7 - 12.0 % [facility] NEUTROPHILS ABSOLUTE AUTO 4.8 [facility] Neutrophils/100 WBC (Bld) 62.1 % 43.0 - 75.0 % [facility] Platelet mean volume (Bld) [Entitic vol] 10 fL 9.5 - 13.5 fL [facility] EO # 0.3 [facility] PLT 181 [facility] RBC 4.85 [facility] WBC 7.7 [facility] MG MAMM SCREEN 3D NEIL CADon 07-20-2022 MG MAMM SCREEN 3D NEIL CAD Patient: ANA CUENCA Exam Date: 07/20/2022 : 1965 Gender:F Ordering : DR ROSITA UMANZOR . Admission #: [id number] Family : Order #: [id number] CLICK HERE TO VIEW EXAM RADIOLOGY REPORT [...] carcinoma cancer at age 51. LOCATION: [facility] BREAST COMPOSITION: Heterogeneously dense,which may obscure [...] Urban M.D. on 07/20/2022 at 13:12 Normal [facility] PAP ACOG PANEL 2: 30 to 65on 09-17-2021 . . Normal [facility] Comment on above: Result Comment: Perf ormed at: WB Performed By: #### [id number] #### [facility] [address] [address] [address] Jose Alejandro Jim Age Gdln ACOG Testing 30-65 Normal [facility] Comment on above: Performed By: #### [id number] #### [facility] [address] [address] [address] Jose Alejandro Jim DIAGNOSIS: Comment Normal [facility] Comment on above: Result Comment: NEGA TIVE FOR INTRAEPITHELIAL LESION OR MALIGNANCY. Performed at: WB Performed By: #### [id number] #### [facility] [address] [place] [address] Dr. Jose Alejandro Jim HPV Aptima Negative Normal Negative [facility] Comment on above: Result Comment: This nucleic acid amplification test detects fourteen high-risk HPV types (16,18,31,33,35,39,45,51,52,56,58,59,66,68) without differentiation. Performed at: =G Performed By: #### [id number] #### [facility] [address] [place] [address] Dr. Jose Alejandro Jim Methodology: Comment [facility] Comment on above: Result Comment: This liquid based ThinPrep(R) pap test was screened with the use of an image guided system. Performed at: WB Performed By: #### [id number] #### [facility] [address] [place] [address] Dr. Jose Alejandro Jim Note: Comment Normal [facility] Comment on above: Result Comment: The Pap smear is a screening test designed to aid in the detection of premalignant and malignant conditions of the uterine cervix. It is not a diagnostic procedure and should not be used as the sole means of detecting cervical cancer. Both false-positive and false-negative reports do occur. . Performed at: WB Performed By: #### [id number] #### [facility] [address] [place] [address] Dr. Jose Alejandro Jim Performed by: Comment Normal [facility] Comment on above: Result Comment: Wen López, Group Counselor (ASCP) Performed at: WB Performed By: #### [id number] #### [facility] [address] [place], [place] [address] Dr. Jose Alejandro Jim Specimen adequacy: Comment Normal The [facility] Comment on above: Result Comment: Sati sfactory for evaluation. Endocervical and/or squamous metaplastic cells (endocervical component) are present. Performed at: WB Performed By: #### [id number] #### [facility] [address] [place], [place] [address] Dr. Jose Alejandro Jim Complete Blood Count with Au to Diffon 07-08-2021 BASOABS 62 cells/uL Normal 0-200 [facility] [employer] Comment on above: Order Comment: [facility] Testing performed at: [employer], [employer] [facility], [address] [place] [address], [address] [place] [address], [address] [place] [address], [employer] Founder: Breezy Kumar MD [facility] Collection Date/Time: [facility] Results Received Date/Time: [facility] Reported Date/Time: Performed By: #### L IPD, TSH reflex FT4, VITD, CBCAD, CMP #### [facility] Default [address] [place] [address] Basophils/100 WBC (Bld) 0.7 % Normal [facility] Specialist Comment on above: Order Comment: [facility] performed at: [employer], [employer] [facility], [address] [place] [address], [address] [place] [address], [address] [place] [address], [employer] Founder: Breezy Kumar MD [facility] Date/Time: [facility] Results Received Date/Time: [facility] Reported Date/Time: Performed By: #### L IPD, TSH reflex FT4, VITD, CBCAD, CMP #### [facility] Default [address] [place] [address] EOSABS 211 cells/uL Normal 15-500 [facility] [employer] Comment on above: Order Comment: [facility] performed at: [employer], [employer] [facility], [address] [place] [address], [address] [place] [address], [address] [place] [address], [employer] Founder: Breezy Kumar MD [facility] Date/Time: [facility] Results Received Date/Time: [facility] Reported Date/Time: Performed By: #### L IPD, TSH reflex FT4, VITD, CBCAD, CMP #### [facility] Default [address] [place] [address] Eosinophils/100 WBC (Bld) 2.4 % Normal [facility] [employer] Comment on above: Order Comment: [facility] performed at: [employer], [employer] [facility], [address] [place] [address], [address] [place] [address], , [employer] Founder: Breezy Kumar MD [facility] Date/Time: [facility] Results Received Date/Time: [facility] Reported Date/Time: Performed By: #### L IPD, TSH reflex FT4, VITD, CBCAD, CMP #### [facility] Default [address] [place] [address] Erythrocyte distribution width (RBC) [Ratio] 12.4 % Normal 11.0-15.0 [facility] [employer] Comment on above: Order Comment: [facility] performed at: [employer], [employer] [facility], [address] [place] [address], [address] [place] [address], [id number], [employer] Founder: Breezy Kumar MD [facility] Date/Time: [facility] Results Received Date/Time: [facility] Reported Date/Time: Performed By: #### L IPD, TSH reflex FT4, VITD, CBCAD, CMP #### [facility] Default [address] [place] [address] Hematocrit (Bld) [Volume fraction] 48.8 % High 35.0-45.0 [facility] [employer] Comment on above: Order Comment: [facility] performed at: [employer], [employer] [facility], [address] [place] [address], [address] [place] [address], [id number], [employer] Founder: Breezy Kumar MD [facility] Date/Time: [facility] Results Received Date/Time: [facility] Reported Date/Time: Performed By: #### L IPD, TSH reflex FT4, VITD, CBCAD, CMP #### [facility] Default [address] [place] [address] Hemoglobin (Bld) [Mass/Vol] 16.8 g/dL High 11.7-15.5 [facility] [employer] Comment on above: Order Comment: [facility] performed at: [employer], [employer] [facility], [address] [place] [address], [address] [place] [address], [address] [place] [address], [employer] Founder: Breezy Kumar MD [facility] Date/Time: [facility] Results Received Date/Time: [facility] Reported Date/Time: Performed By: #### L IPD, TSH reflex FT4, VITD, CBCAD, CMP #### [facility] Default [address] [place] [address] Lymphocytes (Bld) [#/Vol] 2.561 10*3/uL Normal 850-3900 [facility] [employer] Comment on above: Order Comment: [facility] performed at: [employer] [facility], [address] [place] [address], [address] [place] [address], [employer] Founder: Breezy Kumar MD [facility] Date/Time: [facility] Results Received Date/Time: [facility] Reported Date/Time: Performed By: #### L IPD, TSH reflex FT4, VITD, CBCAD, CMP #### [facility] Default [address] [place] [address] Lymphocytes/100 WBC (Bld) 29.1 % Normal [facility] [employer] Comment on above: Order Comment: [facility] performed at: [employer] [facility], [address] [place] [address], [address] [place] [address], [address] [place] [address], [employer] Founder: Breezy Kumar MD [facility] Date/Time: [facility] Results Received Date/Time: [facility] Reported Date/Time: Performed By: #### L IPD, TSH reflex FT4, VITD, CBCAD, CMP #### [facility] Default [address] [place] [address] MCH (RBC) [Entitic mass] 31.2 pg Normal 27.0-33.0 [facility] [employer] Comment on above: Order Comment: [facility] performed at: [employer], [employer] [facility], [address] [place] [address], [address] [place] [address], [address] [place] [address], [employer] Founder: Breezy Kumar MD [facility] Date/Time: [facility] Results Received Date/Time: [facility] Reported Date/Time: Performed By: #### L IPD, TSH reflex FT4, VITD, CBCAD, CMP #### [facility] Default [address] [place] [address] MCHC (RBC) [Mass/Vol] 34.4 g/dL Normal 32.0-36.0 [facility] [employer] Comment on above: Order Comment: [facility] performed at: [employer], [employer] [facility], [address] [place] [address], [address] [place] [address], [employer] Founder: Breezy Kumar MD [facility] Date/Time: [facility] Results Received Date/Time: [facility] Reported Date/Time: Performed By: #### L IPD, TSH reflex FT4, VITD, CBCAD, CMP #### [facility] Default [address] [place] [address] MCV (RBC) [Entitic vol] 90.5 fL Normal 80.0-100.0 [facility] [employer] Comment on above: Order Comment: [facility] performed at: [employer], [employer] [facility], [address] [place] [address], [address] [place] [address], [address] [place] [address], [employer] Founder: Breezy Kumar MD [facility] Date/Time: [facility] Results Received Date/Time: [facility] Reported Date/Time: Performed By: #### L IPD, TSH reflex FT4, VITD, CBCAD, CMP #### [facility] Default [address] [place] [address] MONOABS 616 cells/uL Normal 200-950 [facility] Comment on above: Order Comment: [facility] performed at: [employer], [employer] [facility], [address] [facility], [address] [place] [address], [address] [place] [address], [employer] Founder: Breezy Kumar MD [facility] Date/Time: [facility] Results Received Date/Time: [facility] Reported Date/Time: Performed By: #### L IPD, TSH reflex FT4, VITD, CBCAD, CMP #### [facility] Default [address] [place] [address] Monocytes/100 WBC (Bld) 7.0 % Normal [facility] Comment on above: Order Comment: [facility] performed at: [employer], [employer] [facility], [address] [facility], [address] [place] [address], [address] [place] [address], [employer] Founder: Breezy Kumar MD [facility] Date/Time: [facility] Results Received Date/Time: [facility] Reported Date/Time: Performed By: #### L IPD, TSH reflex FT4, VITD, CBCAD, CMP #### [facility] Default [address] [place] [address] Neutrophils (Bld) [#/Vol] 5.35 10*3/uL Normal 0893-9531 [facility] Comment on above: Order Comment: [facility] performed at: [employer], [employer] [facility], [address] [facility], [address] [place] [address], [address] [place] [address], [employer] Founder: Breezy Kumar MD [facility] Date/Time: [facility] Results Received Date/Time: [facility] Reported Date/Time: Performed By: #### L IPD, TSH reflex FT4, VITD, CBCAD, CMP #### [facility] Default [address] [place] [address] Neutrophils/100 WBC (Bld) 60.8 % Normal [facility] [employer] Comment on above: Order Comment: [facility] performed at: [employer], [employer] [facility], [address] [place] [address], [address] [place] [address], [address] [place] [address], [employer] Founder: Breezy Kumar MD [facility] Date/Time: [facility] Results Received Date/Time: [facility] Reported Date/Time: Performed By: #### L IPD, TSH reflex FT4, VITD, CBCAD, CMP #### [facility] Default [address] [place] [address] Platelet mean volume (Bld) [Entitic vol] 10.7 fL Normal 7.5-12.5 [facility] [employer] Comment on above: Order Comment: [facility] performed at: [employer], [employer] [facility], [address] [place] [address], [address] [place] [address], [address] [place] [address], [employer] Founder: Breezy Kumar MD [facility] Date/Time: [facility] Results Received Date/Time: [facility] Reported Date/Time: Performed By: #### L IPD, TSH reflex FT4, VITD, CBCAD, CMP #### [facility] Default [address] [place] [address] Platelets (Bld) [#/Vol] 234 10*3/uL Normal 140-400 [facility] [employer] Comment on above: Order Comment: [facility] performed at: [employer], [employer] [facility], [address] [place] [address], [address] [place] [address], [address] [place] [address], [employer] Founder: Breezy Kumar MD [facility] Date/Time: [facility] Results Received Date/Time: [facility] Reported Date/Time: Performed By: #### L IPD, TSH reflex FT4, VITD, CBCAD, CMP #### [facility] Default [address] [place] [address] RBC (Bld) [#/Vol] 5.39 10*6/uL High 3.80-5.10 Mandeep herrera [facility] [employer] Comment on above: Order Comment: [facility] performed at: [employer], [employer] [facility], [address] [facility], [address] [place] [address], [address] [place] [address], [employer] Founder: Breezy Kumar MD [facility] Date/Time: [facility] Results Received Date/Time: [facility] Reported Date/Time: Performed By: #### L IPD, TSH reflex FT4, VITD, CBCAD, CMP #### [facility] Default [address] [place] [address] WBC (Bld) [#/Vol] 8.8 10*3/uL Normal 3.8-10.8 Rodrick lipscomb [employer] Comment on above: Order Comment: [facility] performed at: [employer], [employer] [facility], [address] [facility], [address] [place] [address], [address] [place] [address], [employer] Founder: Breezy Kumar MD [facility] Date/Time: [facility] Results Received Date/Time: [facility] Reported Date/Time: Performed By: #### L IPD, TSH reflex FT4, VITD, CBCAD, CMP #### [facility] Default [address] [place] [address] [facility] 07-08-2021 Albumin [Mass/Vol] 4.6 g/dL Normal 3.6-5.1 Rodrick lipscomb Hart [employer]er Comment on above: Order Comment: [facility] Testing performed at: [employer] [facility], [address] [place] [address], [address] [place] [address], [address] [place] [address], [employer] Founder: Breezy Kumar MD [facility] Collection Date/Time: [facility] Results Received Date/Time: [facility] Reported Date/Time: Performed By: #### L IPD, TSH reflex FT4, VITD, CBCAD, CMP #### [facility] Default [address] [place] [address] Albumin/Globulin [Mass ratio] 1.6 {ratio} Normal 1.0-2.5 [facility] Specialist Comment on above: Order Comment: [facility] Testing performed at: [employer], [employer] [facility], [address] [place] [address], [address] [place] [address], [address] [place] [address], [employer] Founder: Breezy Kumar MD [facility] Collection Date/Time: [facility] Results Received Date/Time: [facility] Reported Date/Time: Performed By: #### L IPD, TSH reflex FT4, VITD, CBCAD, CMP #### [facility] Default [address] [place] [address] ALP [Catalytic activity/Vol] 92 U/L Normal 37-153 [facility] Specialist Comment on above: Order Comment: [facility] Testing performed at: [employer], [employer] [facility], [address] [place] [address], [address] [place] [address], [address] [place] [address], [employer] Founder: Breezy Kumar MD [facility] Collection Date/Time: [facility] Results Received Date/Time: [facility] Reported Date/Time: Performed By: #### L IPD, TSH reflex FT4, VITD, CBCAD, CMP #### [facility] Default [address] [place] [address] ALT [Catalytic activity/Vol] 12 U/L Normal 6-29 [facility] Hand [employer] As[employer]er Comment on above: Order Comment: [facility] Testing performed at: [employer], [employer] [facility], [address] [place] [address], [address] [place] [address], [address] [place] [address], [employer] Founder: Breezy Kumar MD [facility] Collection Date/Time: [facility] Results Received Date/Time: [facility] Reported Date/Time: Performed By: #### L IPD, TSH reflex FT4, VITD, CBCAD, CMP #### [facility] [address] [place] [address] Anion gap [Moles/Vol] 12 mmol/L Normal 12-20 [facility] Hand [employer] As[employer]er Comment on above: Order Comment: [facility] Testing performed at: [employer], [employer] [facility], [address] [place] [address], [address] [place] [address], [address] [place] [address], [employer] Founder: Breezy Kumar MD [facility] Collection Date/Time: [facility] Results Received Date/Time: [facility] Reported Date/Time: Result Comment: Effe ctive 04/15/2019 reference range changed. Performed By: #### L IPD, TSH reflex FT4, VITD, CBCAD, CMP #### [facility] Default [address] [place] [address] AST [Catalytic activity/Vol] 14 U/L Normal 10-35 [facility] Specialist Comment on above: Order Comment: [facility] Testing performed at: [employer], [employer] [facility], [address] [place] [address], [address] [place] [address], [address] [place] [address], [employer] Founder: Breezy Kumar MD [facility] Collection Date/Time: [facility] Results Received Date/Time: [facility] Reported Date/Time: Performed By: #### L IPD, TSH reflex FT4, VITD, CBCAD, CMP #### [facility] Default [address] [place] [address] Bilirubin [Mass/Vol] 0.7 mg/dL Normal 0.2-1.2 [facility] Hand [employer] As[employer]er Comment on above: Order Comment: [facility] Testing performed at: [employer], [employer] [facility], [address] [place] [address], [address] [place] [address], [phone], [employer] F[employer]: Breezy Kumar MD [facility] Collection Date/Time: [facility] Results Received Date/Time: [facility] Reported Date/Time: Performed By: #### L IPD, TSH reflex FT4, VITD, CBCAD, CMP #### [facility] Default [address] [place] [address] BUN/CREA 14 NOT APPLICABLE Normal 6-22 [facility] Specialist Comment on above: Order Comment: [facility] Testing performed at: [employer], [employer] [facility], [address] [place] [address], [address] [place] [address], [phone], [employer] Founder: Breezy Kumar MD [facility] Collection Date/Time: [facility] Results Received Date/Time: [facility] Reported Date/Time: Performed By: #### L IPD, TSH reflex FT4, VITD, CBCAD, CMP #### [facility] Default [address] [place] [address] Calcium [Mass/Vol] 10.1 mg/dL Normal 8.6-10.4 Rodrick [facility] [employer] As[employer]er Comment on above: Order Comment: [facility] Testing performed at: [employer] [facility], [address] [facility], [address] [place] [address], [phone], [employer] Founder: Breezy Kumar MD [facility] Collection Date/Time: [facility] Results Received Date/Time: [facility] Reported Date/Time: Performed By: #### L IPD, TSH reflex FT4, VITD, CBCAD, CMP #### [facility] Default [address] [place] [address] Chloride [Moles/Vol] 106 mmol/L Normal 98-110 [facility] Hand [employer] As[employer]er Comment on above: Order Comment: [facility] Testing performed at: [employer] [facility], [address] [facility], [address] [place] [address], [phone], [employer] Founder: Breezy Kumar MD [facility] Collection Date/Time: [facility] Results Received Date/Time: [facility] Reported Date/Time: Performed By: #### L IPD, TSH reflex FT4, VITD, CBCAD, CMP #### [facility] Default [address] [place] [address] CO2 [Moles/Vol] 28 mmol/L Normal 20-32 [facility] Hand [employer] As[employer]er Comment on above: Order Comment: [facility] Testing performed at: [employer] [facility], [address] [place] [address], [address] [place] [address], [address] [place] [address], [employer] Founder: Breezy Kumar MD [facility] Collection Date/Time: [facility] Results Received Date/Time: [facility] Reported Date/Time: Performed By: #### L IPD, TSH reflex FT4, VITD, CBCAD, CMP #### [facility] Default [address] [place] [address] Creatinine [Mass/Vol] 0.83 mg/dL Normal 0.50-1.05 [facility] Specialist Comment on above: Order Comment: [facility] Testing performed at: [employer] [facility], [address] [place] [address], [address] [place] [address], [address] [place] [address], [employer] Founder: Breezy Kumar MD [facility] Collection Date/Time: [facility] Results Received Date/Time: [facility] Reported Date/Time: Result Comment: For patients >49 years of age, the reference limit for Creatinine is approximately 13% higher for people identified as -Cambodian. Performed By: #### L IPD, TSH reflex FT4, VITD, CBCAD, CMP #### [facility] Default [address] [place] [address] eGFRAA (Quest) 92 mL/min/1.73m2 Normal > OR = [address] [facility] Specialist Comment on above: Order Comment: [facility] Testing performed at: [employer] [facility], [address] [place] [address], [address] [place] [address], [address] [place] [address], [employer] Founder: Breezy Kumar MD [facility] Collection Date/Time: [facility] Results Received Date/Time: [facility] Reported Date/Time: Performed By: #### L IPD, TSH reflex FT4, VITD, CBCAD, CMP #### [facility] Default [address] [place] [address] eGFRNAA (Quest) 79 mL/min/1.73m2 Normal > OR = 60 Nor thern [employer]er Comment on above: Order Comment: [facility] Testing performed at: [employer] [facility], [address] [place] [address], [address] [place] [address], [phone], [employer] Founder: Breezy Kumar MD [facility] Collection Date/Time: [facility] Results Received Date/Time: [facility] Reported Date/Time: Performed By: #### L IPD, TSH reflex FT4, VITD, CBCAD, CMP #### [facility] Default [address] [place] [address] Globulin (S) [Mass/Vol] 2.9 g/dL Normal 1.9-3.7 [facility] Specialist Comment on above: Order Comment: [facility] Testing performed at: [employer], [employer] [facility], [address] [place] [address], [address] [place] [address], [phone], [employer] Founder: Breezy Kumar MD [facility] Collection Date/Time: [facility] Results Received Date/Time: [facility] Reported Date/Time: Performed By: #### L IPD, TSH reflex FT4, VITD, CBCAD, CMP #### [facility] Default [address] [place] [address] Glucose [Mass/Vol] 94 mg/dL Normal 65-99 [facility] Comment on above: Order Comment: [facility] Testing performed at: [employer] [facility], [address] [place] [address], [address] [place] [address], [phone], [employer] Founder: Breezy Kumar MD [facility] Collection Date/Time: [facility] Results Received Date/Time: [facility] Reported Date/Time: Result Comment: Fasting reference interval Performed By: #### L IPD, TSH reflex FT4, VITD, CBCAD, CMP #### [facility] Default [address] [place] [address] Potassium [Moles/Vol] 5.0 mmol/L Normal 3.5-5.3 [facility] Hand [employer] As[employer]er Comment on above: Order Comment: [facility] Testing performed at: [employer] [facility], [address] [place] [address], [address] [place] [address], [address] [place] [address], [employer] Founder: Breezy Kumar MD [facility] Collection Date/Time: [facility] Results Received Date/Time: [facility] Reported Date/Time: Performed By: #### L IPD, TSH reflex FT4, VITD, CBCAD, CMP #### [facility] Default [address] [place] [address] Protein [Mass/Vol] 7.5 g/dL Normal 6.1-8.1 Rodrick rn [employer] Comment on above: Order Comment: [facility] Testing performed at: [employer] [facility], [address] [place] [address], [address] [place] [address], [address] [place] [address], [employer] Founder: Breezy Kumar MD [facility] Collection Date/Time: [facility] Results Received Date/Time: [facility] Reported Date/Time: Performed By: #### L IPD, TSH reflex FT4, VITD, CBCAD, CMP #### [facility] Default [address] [place] [address] Sodium [Moles/Vol] 141 mmol/L Normal 135-146 Rodrick rn [employer] Comment on above: Order Comment: [facility] Testing performed at: [employer] [facility], [address] [place] [address], [address] [place] [address], [address] [place] [address], [employer] Founder: Breezy Kumar MD [facility] Collection Date/Time: [facility] Results Received Date/Time: [facility] Reported Date/Time: Performed By: #### L IPD, TSH reflex FT4, VITD, CBCAD, CMP #### [facility] Default [address] [place] [address] Urea nitrogen [Mass/Vol] 12 mg/dL Normal 7-25 [facility] Hand [employer] Assembler Comment on above: Order Comment: [facility] Testing performed at: [employer], [employer] [facility], [address] [place] [address], [address] [place] [address], [address] [place] [address], [employer] Founder: Breezy Kumar MD [facility] Collection Date/Time: [facility] Results Received Date/Time: [facility] Reported Date/Time: Performed By: #### L IPD, TSH reflex FT4, VITD, CBCAD, CMP #### [facility] Default [address] [place] [address] Lipid Panelon 07-08-2021 Cholesterol [Mass/Vol] 208 mg/dL High <200 [employer] Comment on above: Order Comment: [facility] Testing performed at: [employer], [employer] [facility], [address] [place] [address], [address] [place] [address], [employer] Founder: Breezy Kumar MD [facility] Collection Date/Time: [facility] Results Received Date/Time: [facility] Reported Date/Time: Performed By: #### L IPD, TSH reflex FT4, VITD, CBCAD, CMP #### [facility] Default [address] [place] [address] Cholesterol in HDL [Mass/Vol] 35 mg/dL Low > OR = 50 [employer] Comment on above: Order Comment: [facility] Testing performed at: [employer], [employer] [facility], [address] [place] [address], [address] [place] [address], [address] [place] [address], [employer] Founder: Breezy Kumar MD [facility] Collection Date/Time: [facility] Results Received Date/Time: [facility] Reported Date/Time: Performed By: #### L IPD, TSH reflex FT4, VITD, CBCAD, CMP #### [facility] Default [address] [place] [address] Cholesterol in LDL [Mass/Vol] 140 mg/dL High [employer] Comment on above: Order Comment: [facility] Testing performed at: [employer] [facility], [address] [place] [address], [address] [place] [address], [address] [place] [address], [employer] Founder: Breezy Kumar MD [facility] Collection Date/Time: Quest [...] LDL-C. Francesco ESPINOZA et al. OVI. 2013;310(19): 7914-3272 (http://education.Nutzvieh24.Easiest Credit Card To Get Approved For/faq/YKR556) Performed By: #### L IPD, TSH reflex FT4, VITD, CBCAD, CMP #### [facility] Default [address] [place] [address] NON HDL CHOLESTEROL 173 mg/dL (calc) High <130 [facility] Hand [employer] Assembler Comment on above: Order Comment: [facility] Testing performed at: [employer], [employer] [facility], [address] [place] [address], [address] [place] [address], [phone], [employer] Founder: Breezy Kumar MD [facility] Collection Date/Time: [facility] Results Received Date/Time: [facility] Reported Date/Time: Result Comment: For patients with diabetes plus 1 major ASCVD risk factor, treating to a non-HDL-C goal of <100 mg/dL (LDL-C of <70 mg/dL) is considered a therapeutic option. Performed By: #### L IPD, TSH reflex FT4, VITD, CBCAD, CMP #### [facility] Default [address] [place] [address] Triglyceride [Mass/Vol] 190 mg/dL High <150 [facility] Hand [employer] As[employer]er Comment on above: Order Comment: [facility] Testing performed at: [employer] [facility], [address] [facility], [address] [place] [address], [phone], [employer] Founder: Breezy Kumar MD [facility] Collection Date/Time: [facility] Results Received Date/Time: [facility] Reported Date/Time: Performed By: #### L IPD, TSH reflex FT4, VITD, CBCAD, CMP #### [facility] Default [address] [place] [address] TSH w/ Reflex to Free T4on 0 07-08-2021 TSH W/REFLEX TO FT4 0.59 mIU/L Normal [facility] Comment on above: Order Comment: [facility] Testing performed at: [employer] [facility], [address] [place] [address], [address] [place] [address], [phone], [employer] Founder: Breezy Kumar MD Quest Collection Date/Time: [facility] Results Received Date/Time: [facility] Reported Date/Time: Result Comment: Refe rence Range > or = 20 Years 0.40-4.50 Ranges First trimester 0.26-2.66 Second trimester 0.55-2.73 Third trimester 0.43-2.91 Performed By: #### L IPD, TSH reflex FT4, VITD, CBCAD, CMP #### [facility] Default [address] [place] [address] Vitamin D 25-OHon 07-08-2021 VIT D 25 OH 35 ng/mL Normal 30-100 [facility] Comment on above: Order Comment: [facility] Testing performed at: [employer] [facility], [address] [place] [address], [address] [place] [address], [phone], [employer] Founder: Breezy Kumar MD [facility] Collection Date/Time: [id number] [facility] Results Received Date/Time: [facility] Reported Date/Time: Result Comment: Ann min D Status 25-OH Vitamin D: Deficiency: <20 ng/mL Insufficiency: 20 - 29 ng/mL Optimal: > or = 30 ng/mL For 25-OH Vitamin D testing on patients on D2-supplementation and patients for whom quantitation of D2 and D3 fractions is required, the QuestAssureD(TM) 25-OH VIT D, (D2,D3), LC/MS/MS is recommended: order code 50858 (patients >2yrs). See Note 1 Note 1 For additional information, please refer to http://education.Ameri-tech 3D/faq/ETS761 (This link is being provided for informational/ educational purposes only.) Performed By: #### L IPD, TSH reflex FT4, VITD, CBCAD, CMP #### [facility] Default [address] [place] [address] Consultation Noteon 01-06-20 Consultation Note [id number] Normal [facility] Vital Signs Date Time Vital Sign Value Performing Clinician Alissa ortega 06-12-2024 08:34-0500 Body height 175.3 cm Sondra Barrios CHILDREN'S COUNSELOR Work Phone: [facility] 06-12-2024 08:34-0500 Body mass index (BMI) [Ratio] 26.43 kg/m2 Sondra Barrios CHILDREN'S COUNSELOR Work Phone: [facility] 06-12-2024 08:34-0500 Body weight 81.19 kg Sondra Barrios CHILDREN'S COUNSELOR Work Phone: [facility] 06-12-2024 08:34-0500 Diastolic blood pressure 72 mm[Hg] Sondra Barrios CHILDREN'S COUNSELOR Work Phone: [facility] 06-12-2024 08:34-0500 Heart rate 73 /min Sondra Barrios CHILDREN'S COUNSELOR Work Phone: [facility] 06-12-2024 08:34-0500 Respiratory rate 17 /min Sondra Barrios CHILDREN'S COUNSELOR Work Phone: [facility] 06-12-2024 08:34-0500 SaO2% (BldA) [Mass fraction] 96 % Sondra Barrios CHILDREN'S COUNSELOR Work Phone: [facility] 06-12-2024 08:34-0500 Systolic blood pressure 118 mm[Hg] Sondra Barrios CHILDREN'S COUNSELOR Work Phone: [facility] 03-28-2024 08:05-0500 Body height 175.3 cm Tami Hemmer PA Work Phone: [facility] 03-28-2024 08:05-0500 Body mass index (BMI) [Ratio] 25.84 kg/m2 Tami Swansonmer PA Work Phone: [facility] 03-28-2024 08:05-0500 Body weight 79.38 kg Tami Swansonmer PA Work Phone: [facility] 03-28-2024 08:05-0500 Diastolic blood pressure 78 mm[Hg] Tami Swansonmer PA Work Phone: [facility] 03-28-2024 08:05-0500 Heart rate 88 /min Tami Hemmer PA Work Phone: [facility] 03-28-2024 08:05-0500 SaO2% (BldA) [Mass fraction] 95 % Tami Hemmer PA Work Phone: [facility] 03-28-2024 08:05-0500 Systolic blood pressure 108 mm[Hg] Tami Swansonmer PA Work Phone: [facility] 02-27-2024 08:53-0500 Body height 175.3 cm Scottie Nash MD Work Phone: [facility] 02-27-2024 08:53-0500 Body mass index (BMI) [Ratio] 25.55 kg/m2 Scottie Nash MD Work Phone: [facility] 02-27-2024 08:53-0500 Body weight 78.47 kg Scottie Nash MD Work Phone: [facility] 02-27-2024 08:53-0500 Diastolic blood pressure 78 mm[Hg] Scottie Nash MD Work Phone: [facility] 02-27-2024 08:53-0500 Heart rate 87 /min Scottie Nash MD Work Phone: [facility] 02-27-2024 08:53-0500 SaO2% (BldA) [Mass fraction] 97 % Scottie Nash MD Work Phone: [facility] 11-19-2024 08:53-0500 Systolic blood pressure 114 mm[Hg] Scottie Nash MD Work Phone: [facility] Encounters Encounter Date Encounter Type Care Provider Facility Start: 09-05-2024 End: 09-05-2024 Clinisync Result Encounter Sondra Barrios CHILDREN'S COUNSELOR Work Phone: [facility] Unsolicited Start: 09-05-2024 End: 09-05-2024 [employer]inis[employer] Result Encounter Sondra Barrios CHILDREN'S COUNSELOR Work Phone: [facility] Unsolicited Start: 06-12-2024 End: 06-12-2024 Bamboo flowsheet Sondra Barrios CHILDREN'S COUNSELOR Work Phone: [facility] Start: 06-12-2024 End: 06-12-2024 Bamboo flowsheet Sondra Barrios CHILDREN'S COUNSELOR Work Phone: [facility] Start: 06-12-2024 End: 06-12-2024 Office outpatient visit 25 minutes Sondra Barrios CHILDREN'S COUNSELOR Work Phone: [facility] Comment on [...] syndrome Start: 02-27-2024 End: 02-27-2024 ambulatory SCOTTIE NASH Not Available Start: 11-21-2023 End: 11-21-2023 ambulatory TAMI TROY Not Available Start: 08-28-2023 End: 11-21-2023 Patient encounter status Scottie Nash MD Work Phone: [facility] Start: 08-28-2023 End: 08-28-2023 ambulatory SCOTTIE NASH Not Available Start: 07-20-2022 End: 07-21-[address] ROSITA UMANZOR . Facility: Start: 09-14-2021 End: 09-14-[address] ROSITA UMANZOR . Facility: Procedures Date Procedure Procedure Detail Performing Clinician Start: 09-05-2024 ALL CBC WITH AUTO DIFF Sondra Barrios NP Work Phone: Start: 09-06-2023 Mammography Scottie Nash MD Work Phone: Start: 10-24-2022 Laboratory test resu lt abnormal Abnormal laboratory test Scottie Nash MD Work Phone: Start: 01-29-2016 Colonoscopy Scottie Nash MD Work Phone: Plan of Treatment Date Care Activity Detail Author Start: 01-28-2026 Screening for malignant neoplasm of colon [facility] Start: 12-09-2024 Influenza vaccination Influenza Vaccine (Season Ended) [facility] Start: 09-05-2024 End: 08-12-2025 MG Breast - bilateral Screening Bilateral screening mammogram Imaging Routine Encounter for screening mammogram for malignant neoplasm of breast Expected: 09/05/2024, Expires: 08/12/2025 [facility] Comment on above: Expected: 09/05/2024, Expires: Start: 09-05-2024 Screening for malignant neoplasm of breast Mammogram [facility] Start: 08-29-2024 End: 06-12-2025 25-hydroxyvitamin D3 [Mass/volume] in Serum or Plasma Vitamin D 25 hydroxy Lab Routine Vitamin D deficiency Expected: 08/29/2024 (Approximate), Expires: 06/12/2025 [facility] Work Phone: Comment on above: Expected: 08/29/2024 (Approximate), Expi res: 06/12/2025 Start: 08-29-2024 End: 06-12-2025 CBC panel - Blood by Automated count CBC Lab Routine Hereditary hemochromatosis (CMS/HCC) Polycythemia vera (CMS/HCC) Expected: 08/29/2024 (Approximate), Expires: 06/12/2025 [facility] Comment on above: Expected: 08/29/2024 (Approximate), Expi res: 06/12/2025 Start: 08-29-2024 End: 06-12-2025 Comprehensive metabolic 2000 panel - Serum or Plasma Comprehensive metabolic panel Lab Routine Acquired hypothyroidism (CMS/HCC) Other fatigue Expected: 08/29/2024 (Approximate), Expires: 06/12/2025 [facility] Comment on above: Expected: 08/29/2024 (Approximate), Expi res: 06/12/2025 Start: 08-29-2024 End: 06-12-2025 Lipid 1996 panel - Serum or Plasma Lipid panel Lab Routine Hypertriglyceridemia (CMS/HCC) Expected: 08/29/2024 (Approximate), Expires: 06/12/2025 [facility] Comment on above: Expected: 08/29/2024 (Approximate), Expi res: 06/12/2025 Start: 08-29-2024 End: 06-12-2025 TSH W/REFLEX TO FT4 TSH W/REFLEX TO FT4 Lab Routine Acquired hypothyroidism (CMS/HCC) Expected: 08/29/2024 (Approximate), Expires: 06/12/2025 [facility] Comment on above: Expected: 08/29/2024 (Approximate), Expi res: 06/12/2025 Start: 06-12-2024 End: 06-12-2024 Patient encounter procedure 06/12/2024 8:30 AM EST Office Visit [facility] [address] [place] [id number] [place], Sondra M, CHILDREN'S COUNSELOR [address] [address] Arrived [facility] Comment on above: Arrived Start: 04-23-2024 Influenza vaccination Influenza Vaccine (#1) [facility] Comment on above: Postponed from 12/10/2023 (Patient Refus ed) Start: 12-10-2023 Influenza vaccination Influenza Vaccine (#1) [facility] Start: 01-18-1996 Screening for malignant neoplasm of cervix [facility] Start: 1987 Screening for malignant neoplasm of cervix Pap Smear [facility] Start: 1966 Screening for malignant neoplasm of colon [facility] Payers Date Payer Category Payer Medicaid [employer] [place] [place] [id number] 2022 Medicaid [id number] 1966 Unknown [id number] 1966 Unknown [id number] 1966 Unknown [id number] 1966 Unknown [id number] 1966 Unknown [id number] 1966 Unknown [id number] 1966 Unknown [id number] 1959 Unknown [id number] Social History Date Type Detail Facility Start: 04-18-1995 Tobacco smoking stat [facility] Occasional tobacco smoker [facility] Start: 04-18-1995 History of tobacco use Cigarette Smo ker [facility] Start: 02-20-2024 End: 02-27-2024 Cigarettes smoked [...] Start: 09-15-2022 Sexual orientation Heterosexual (steve baez) [facility] History of Present illness Narrative 06-12-2024 Sondra Barrios NP - 06/12/2024 8:30 AM EST Note Date [...] Past Medical History: Diagnosis Date Anxiety Cataract 2017 History of bone density study 11/30/2020 Normal - low fracture risk History of CT scan 12/31/2020 Borderline dilated appendix is seen with mild wall enhancement/wall thickening. Past Surgical History: Procedure Laterality Date CATARACT EXTRACTION Right 11/23/[address] Delgado COLONOSCOPY 01/29/2016 Polyps ENDOMETRIAL ABLATION 2014 FRACTURE SURGERY 2017 ORIF ANKLE FRACTURE Right 07/20/[address] [facility] SURGERY 2021 TUBAL LIGATION Bilateral 1993 Visit Vitals LMP (LMP Unknown) OB Status [...] - CBC; Future Await lab Polycythemia vera ([facility]) - CBC; Future Await lab Other fatigue - Comprehensive metabolic panel; Future Await lab Hypertriglyceridemia ([facility]) - Lipid panel; Future Await lab Vitamin D deficiency - Vitamin D 25 hydroxy; Future Await lab Adjustment disorder with depressed mood ([facility]) - ALPRAZolam (Xanax) 0.5 MG tablet; Take [...] ORIF ANKLE FRACTURE Right 07/20/[address] [facility] SPINE SURGERY 2021 TUBAL LIGATION Bilateral 1993 Visit Vitals BP 108/78 Pulse 88 Ht [...] smoked daily. Discussed potential health risks of fci smoking. Patient voiced understanding. Benefits of cessation, [...] needed for anxiety 60 tablet 0 [DISCONTINUED] [place]-3 Fatty Acids (Fish Oil) 1000 MG capsule [...] ORIF ANKLE FRACTURE Right 07/20/[address] [facility] SPINE SURGERY 2021 TUBAL LIGATION Bilateral 1993 Visit Vitals BP 114/78 Pulse 87 Ht [...] This Visit Adjustment disorder with depressed mood ([facility]) Relevant Medications ALPRAZolam (Xanax) 0.5 MG tablet Polycythemia vera ([facility]) Recommend blood donation Cigarette smoker Discussed smoking cessation with the patient. Encouraged patient to try to cut back gradually and soon quit smoking. Discussed ways to quit smoking including gum, patches, medication, and gradually reducing the number of cigarettes smoked daily. Discussed potential health risks of terminal block assembler smoking. Patient voiced understanding. Benefits of cessation, both health and financial, were reviewed. Anxiety Patient's Medicine is effective at controlling symptoms at current dose and frequency. PDMP reviewed with no evidence of overuse and abuse D/W patient to avoid use of benzodiazepines when consuming alcohol Advised against operating heavy machinery and driving long distances while on medicines. Benign essential hypertension ([facility]) - Primary Our specific goals, for your [...] prescribed. DASH diet handouts Atherosclerosis of aorta ([facility]) Reduce tobacco Obstructive sleep apnea syndrome Patient is compliant with CPAP usage and perceives benefit from treatment. Treatment has been effective in controlling the patient's symptoms of Sleep Apnea. Will continue to monitor with routine follow up appointments. Follow up in about 4 months (around 06/26/2024) for Anxiety Meds F/U. documented in this encounter [facility] Clinical Note 08-10-2021 Note Date & Type Note Facility 08-10-2021 Note HISTORY: Right sided neck pain, numbness, tingling PROCEDURE: [employer] HDXT 1.5. Sagittal T1, T2, STIR [...] signed by Galo Palacio on 08/10/2021 [address] [facility] [employer] Assembler Evaluation note Note Date & Type Note [...] with depressed mood documented in this encounter [facility] Evaluation note Note Date & [...] section and content) DATE CREATED AUTHOR 01/10/2021 [facility] DATE CREATED AUTHOR AUTHOR'S ORGANIZ ATION 08/12/2021 [facility] DATE CREATED AUTHOR AUTHOR'S ORGANIZ ATION 07/25/2022 [facility] DATE CREATED AUTHOR AUTHOR'S ORGANIZ ATION 06/14/2024 [facility] EPIC Reason for Visit (unrecogniz ed section and content) Reason Comments Hypertension Reason Comments Depression Care Teams (unrecognized sec tion and content) Case Management Social Worker Relationship Specialty Start Date End Date Scottie Nash MD [address] [facility] [address] [place] [address] PCP - General 09/15/22 Scottie Nash MD [address] [facility] [address] [place] [address] PCP - [facility] [place] [facility] 07/10/23 Case Management Social Worker Relationship Specialty Start Date End Date Scottie Nash MD [address] [place] [address] [place] [address] PCP - General 09/15/22 Scottie Nash MD [address] [place] [address] [place] [address] PCP - [facility] [place] [facility] 07/10/23 Case Management Social Worker Relationship Specialty Start Date End Date Scottie Nash MD [address] [place] [address] PCP - General 09/15/22 Scottie Nash MD [address] [place] [address] PCP - [facility] [place] [facility] 07/10/23 Case Management Social Worker Relationship Specialty Start Date End Date Scottie Nash MD [address] [place] [address] PCP - General 09/15/22 Scottie Nash MD [address] [place] [address] PCP - [facility] [place] [facility] 07/10/23 Case Management Social Worker Relationship Specialty Start Date End Date Scottie Nash MD [address] [place] [address] PCP - General 09/15/22 Scottie Nash MD [address] [place] [address] PCP - [facility] 07/10/23 FOR RECORDS PERTAINING TO [...] BE BASED ON THE PRIMARY CLINICAL RECORDS. [facility]. provides no warranty or guarantee of the accuracy or completeness of information in this document.
== END 2024-09-11 08:16 | disposition home or self-care (01) ==
LOC: MAMMO 08:15
PROVIDERS: PCP Family Medicine; Visit Provider Family Medicine
DX: Z12.31 Encounter for screening mammogram for malignant neoplasm of breast (principal); Z80.3 Family history of malignant neoplasm of breast; Z80.8 Family history of malignant neoplasm of other organs or systems
CPT/HCPCS: 77063; 77067

== ENCOUNTER 2024-09-14 16:07 | Emergency (ER) | payer MEDICAID, SELFPAY ==
--- OUTSIDE RECORDS SUMMARY | 2024-09-14 16:13 | XMS_ITS | CCD ---
Author Organization [facility] Care Team Providers Care Nurse College Name Role Phone NOÉ ., DR BECKER Admitting Unavailable NOÉ ., DR BECKER Attending Unavailable CHARITY, DR BRANCH Primary Care Unavailable NOÉ ., DR BECKER Consulting Unavailable NOÉ ., DR BECKER Admitting Unavailable NOÉ ., DR BECKER Attending Unavailable CHARITY, DR BRANCH Primary Care Unavailable NOÉ ., DR BECKER Consulting Unavailable ZIEBER, DR ERIK Martinez Consulting Unavailable Scottie Nash MD Primary Care Provider [phone] Scottie Nash MD Unavailable SONDRA BARRIOS Attending Unavailable SCOTTIE NASH Attending Unavailable TAMI TROY Attending Unavailable SCOTTIE NASH Attending Unavailable TAMI TROY Attending Unavailable Allergies Allergy Classification Reported Allergen(s) Allergy Type Date of Onset Reaction(s) Facility (1 source) Penicillins Drug allergy (disorder) 02-17-2014 [facility] Repository (8 sources) Penicillin G Drug Allergy [...] 30 DAYS 30 tablet 10 05/22/2023 Active Independence-3 Fatty Acids (Fish Oil) 1000 MG capsule delayed-release (2 sources) Start: 01-18-2023 End: 02-27-2024 take 2 capsules by mouth in the morning Independence-3 Fatty Acids (Fish Oil) 1000 MG capsule [...] WITH AUTO DIFFon BASOPHILS ABSOLUTE AUTO 0 [facility] Basophils/100 WBC (Bld) 0.5 % 0.2 - 2.0 % [facility] Eosinophils/100 WBC (Bld) 3.4 % 0.9 - 7.0 % [facility] Erythrocyte distribution width (RBC) [Ratio] 13.2 % 11.0 - 15.0 % [facility] Hematocrit (Bld) [Volume fraction] 45.7 % 36.0 - 48.0 % [facility] (Bld) [Mass/Vol] 15.3 g/dL 12.0 - 16.0 g/dL [facility] IMMATURE GRANULOCYTES ABS AUTO 0.02 [facility] Immature granulocytes/100 WBC (Bld) 0.3 % 0.0 - 0.5 % [facility] LYMPHOCYTES ABSOLUTE AUTO 2.1 [facility] Lymphocytes/100 WBC (Bld) 27.1 % 20.5 - 60.0 % [facility] MCH (RBC) [Entitic mass] 31.5 pg 26.7 - 34.0 pg [facility] MCHC (RBC) [Mass/Vol] 33.5 g/dL 29.9 - 35.2 g/dL [facility] MCV (RBC) [Entitic vol] 94.2 fL 81.0 - 99.0 fL [facility] MONOCYTES ABSOLUTE AUTO 0.5 [facility] Monocytes/100 WBC (Bld) 6.6 % 1.7 - 12.0 % [facility] NEUTROPHILS ABSOLUTE AUTO 4.8 [facility] Neutrophils/100 WBC (Bld) 62.1 % 43.0 - 75.0 % [facility] Platelet mean volume (Bld) [Entitic vol] 10 fL 9.5 - 13.5 fL [facility] EO # 0.3 [facility] PLT 181 [facility] RBC 4.85 [facility] WBC 7.7 [facility] MG MAMM SCREEN 3D NEIL CADon 07-20-2022 MG MAMM SCREEN 3D NEIL CAD Patient: ANA CUENCA Exam Date: 07/20/2022 : 1965 Gender:F Ordering : DR ROSITA UMANZOR . Admission #: [id number] Family : Order #: [id number] CLICK HERE TO VIEW EXAM RADIOLOGY REPORT [...] carcinoma cancer at age 51. LOCATION: [facility] BREAST COMPOSITION: Heterogeneously dense,which may obscure small [...] Urban M.D. on 07/20/2022 at 13:12 Normal [facility] PAP ACOG PANEL 2: 30 to 65on 09-17-2021 . . Normal [facility] Comment on above: Result Comment: Perf ormed at: WB Performed By: #### [id number] #### [facility] [address] [address] [address] Jose Alejandro Jim Age Gdln ACOG Testing 30-65 Normal [facility] Comment on above: Performed By: #### [id number] #### [facility] [address] [address] [address] Jose Alejandro Jim DIAGNOSIS: Comment Normal [facility] Comment on above: Result Comment: NEGA TIVE FOR INTRAEPITHELIAL LESION OR MALIGNANCY. Performed at: WB Performed By: #### [id number] #### [facility] [address] [place] [address] Dr. Jose Alejandro Jim HPV Aptima Negative Normal Negative [facility] Comment on above: Result Comment: This nucleic acid amplification test detects fourteen high-risk HPV types (16,18,31,33,35,39,45,51,52,56,58,59,66,68) without differentiation. Performed at: =G Performed By: #### [id number] #### [facility] [address] [place] [address] Dr. Jose Alejandro Jim Methodology: Comment [facility] Comment on above: Result Comment: This liquid based ThinPrep(R) pap test was screened with the use of an image guided system. Performed at: WB Performed By: #### [id number] #### [facility] [address] [place] [address] Dr. Jose Alejandro Jim Note: Comment Normal [facility] Comment on above: Result Comment: The Pap smear is a screening test designed to aid in the detection of premalignant and malignant conditions of the uterine cervix. It is not a diagnostic procedure and should not be used as the sole means of detecting cervical cancer. Both false-positive and false-negative reports do occur. . Performed at: WB Performed By: #### [id number] #### [facility] [address] [place] [address] Dr. Jose Alejandro Jim Performed by: Comment Normal [facility] Comment on above: Result Comment: Wen López, Transfer Specialist (ASCP) Performed at: WB Performed By: #### [id number] #### [facility] [address] [place], [place] [address] Dr. Jose Alejandro Jim Specimen adequacy: Comment Normal [facility] Comment on above: Result Comment: Sati sfactory for evaluation. Endocervical and/or squamous metaplastic cells (endocervical component) are present. Performed at: WB Performed By: #### [id number] #### [facility] [address] [place], [place] [address] Dr. Jose Alejandro Jim Complete Blood Count with Au to Diffon 07-08-2021 BASOABS 62 cells/uL Normal 0-[address] [facility] [address] Manager Comment on above: Order Comment: [facility] performed at: [employer] [facility], [address] [place] [address], [address] [place] [address], [address] [place] [address], Fixed Income Analyst: Breezy Kumar MD [facility] Collection Date/Time: [facility] Results Received Date/Time: [facility] Reported Date/Time: Performed By: #### L IPD, TSH reflex FT4, VITD, CBCAD, CMP #### [facility] Default [address] [place] [address] Basophils/100 WBC (Bld) 0.7 % Normal [facility] Specialist Comment on above: Order Comment: [facility] performed at: [employer], [employer] [facility], [address] [place] [address], [address] [place] [address], [address] [place] [address], Fixed Income Analyst: Breezy Kumar MD [facility] Date/Time: [facility] Results Received Date/Time: [facility] Reported Date/Time: Performed By: #### L IPD, TSH reflex FT4, VITD, CBCAD, CMP #### [facility] Default [address] [place] [address] EOSABS 211 cells/uL Normal 15-[address] [facility] [address] Manager Comment on above: Order Comment: [facility] performed at: [employer], [employer] [facility], [address] [place] [address], [address] [place] [address], [address] [place] [address], Fixed Income Analyst: Breezy Kumar MD [facility] Date/Time: [facility] Results Received Date/Time: [facility] Reported Date/Time: Performed By: #### L IPD, TSH reflex FT4, VITD, CBCAD, CMP #### [facility] [address] [place] [address] Eosinophils/100 WBC (Bld) 2.4 % Normal [facility] Manager Comment on above: Order Comment: [facility] performed at: [employer], [employer] [facility], [address] [place] [address], [address] [place] [address], , Fixed Income Analyst: Breezy Kumar MD [facility] Date/Time: [facility] Results Received Date/Time: [facility] Reported Date/Time: Performed By: #### L IPD, TSH reflex FT4, VITD, CBCAD, CMP #### [facility] [address] [place] [address] Erythrocyte distribution width (RBC) [Ratio] 12.4 % Normal 11.0-15.[address] [facility] [address] [facility] Comment on above: Order Comment: [facility] performed at: [employer], [employer] [facility], [address] [place] [address], [address] [place] [address], [phone], Fixed Income Analyst: Breezy Kumar MD [facility] Date/Time: [facility] Results Received Date/Time: [facility] Reported Date/Time: Performed By: #### L IPD, TSH reflex FT4, VITD, CBCAD, CMP #### [facility] [address] [place] [address] Hematocrit (Bld) [Volume fraction] 48.8 % High 35.0-45.[address] [facility] [address] Manager Comment on above: Order Comment: [facility] performed at: [employer], [employer] [facility], [address] [place] [address], [address] [place] [address], [phone], Fixed Income Analyst: Breezy Kumar MD [facility] Date/Time: [facility] Results Received Date/Time: [facility] Reported Date/Time: Performed By: #### L IPD, TSH reflex FT4, VITD, CBCAD, CMP #### [facility] [address] [place] [address] Hemoglobin (Bld) [Mass/Vol] 16.8 g/dL High 11.7-15.[address] [facility] [address] [facility] Comment on above: Order Comment: [facility] performed at: [employer], [employer] [facility], [address] [place] [address], [address] [place] [address], [address] [place] [address], Fixed Income Analyst: Breezy Kumar MD [facility] Date/Time: [facility] Results Received Date/Time: [facility] Reported Date/Time: Performed By: #### L IPD, TSH reflex FT4, VITD, CBCAD, CMP #### [facility] [address] [place] [address] Lymphocytes (Bld) [#/Vol] 2.561 10*3/uL Normal 850-[address] [facility] [address] Manager Comment on above: Order Comment: [facility] performed at: [employer] [facility], [address] [place] [address], [address] [place] [address], Fixed Income Analyst: Breezy Kumar MD [facility] Date/Time: [facility] Results Received Date/Time: [facility] Reported Date/Time: Performed By: #### L IPD, TSH reflex FT4, VITD, CBCAD, CMP #### [facility] [address] [place] [address] Lymphocytes/100 WBC (Bld) 29.1 % Normal [facility] Manager Comment on above: Order Comment: [facility] performed at: [employer] [facility], [address] [place] [address], [address] [place] [address], [address] [place] [address], Fixed Income Analyst: Breezy Kumar MD [facility] Date/Time: [facility] Results Received Date/Time: [facility] Reported Date/Time: Performed By: #### L IPD, TSH reflex FT4, VITD, CBCAD, CMP #### [facility] [address] [place] [address] MCH (RBC) [Entitic mass] 31.2 pg Normal 27.0-33.[address] [facility] [address] [facility] Comment on above: Order Comment: [facility] performed at: [employer], [employer] [facility], [address] [place] [address], [address] [place] [address], [address] [place] [address], Fixed Income Analyst: Breezy Kumar MD [facility] Date/Time: [facility] Results Received Date/Time: [facility] Reported Date/Time: Performed By: #### L IPD, TSH reflex FT4, VITD, CBCAD, CMP #### [facility] [address] [place] [address] MCHC (RBC) [Mass/Vol] 34.4 g/dL Normal 32.0-36.[address] [facility] [address] Manager Comment on above: Order Comment: [facility] performed at: [employer], [employer] [facility], [address] [place] [address], [address] [place] [address], Fixed Income Analyst: Breezy Kumar MD [facility] Date/Time: [facility] Results Received Date/Time: [facility] Reported Date/Time: Performed By: #### L IPD, TSH reflex FT4, VITD, CBCAD, CMP #### [facility] [address] [place] [address] MCV (RBC) [Entitic vol] 90.5 fL Normal 80.0-100.[address] [facility] [address] [facility] Comment on above: Order Comment: [facility] performed at: [employer], [employer] [facility], [address] [place] [address], [address] [place] [address], [address] [place] [address], Fixed Income Analyst: Breezy Kumar MD [facility] Date/Time: [facility] Results Received Date/Time: [facility] Reported Date/Time: Performed By: #### L IPD, TSH reflex FT4, VITD, CBCAD, CMP #### [facility] [address] [place] [address] MONOABS 616 cells/uL Normal 200-950 [facility] Comment on above: Order Comment: [facility] performed at: [employer] [facility], [address] [facility], [address] [place] [address], [address] [place] [address], Fixed Income Analyst: Breezy Kumar MD [facility] Date/Time: [facility] Results Received Date/Time: [facility] Reported Date/Time: Performed By: #### L IPD, TSH reflex FT4, VITD, CBCAD, CMP #### [facility] [address] [place] [address] Monocytes/100 WBC (Bld) 7.0 % Normal [facility] Comment on above: Order Comment: [facility] performed at: [employer], [employer] [facility], [address] [facility], [address] [place] [address], [address] [place] [address], Fixed Income Analyst: Breezy Kumar MD [facility] Date/Time: [facility] Results Received Date/Time: [facility] Reported Date/Time: Performed By: #### L IPD, TSH reflex FT4, VITD, CBCAD, CMP #### [facility] [address] [place] [address] Neutrophils (Bld) [#/Vol] 5.35 10*3/uL Normal 4266-3227 [facility] Comment on above: Order Comment: [facility] performed at: [employer], [employer] [facility], [address] [facility], [address] [place] [address], [address] [place] [address], Fixed Income Analyst: Breezy Kumar MD [facility] Date/Time: [facility] Results Received Date/Time: [facility] Reported Date/Time: Performed By: #### L IPD, TSH reflex FT4, VITD, CBCAD, CMP #### [facility] Default [address] [place] [address] Neutrophils/100 WBC (Bld) 60.8 % Normal [facility] Manager Comment on above: Order Comment: [facility] performed at: [employer], [employer] [facility], [address] [place] [address], [address] [place] [address], [address] [place] [address], Fixed Income Analyst: Breezy Kumar MD [facility] Date/Time: [facility] Results Received Date/Time: [facility] Reported Date/Time: Performed By: #### L IPD, TSH reflex FT4, VITD, CBCAD, CMP #### [facility] Default [address] [place] [address] Platelet mean volume (Bld) [Entitic vol] 10.7 fL Normal 7.5-12.[address] [facility] [address] [facility] Comment on above: Order Comment: [facility] performed at: [employer], [employer] [facility], [address] [place] [address], [address] [place] [address], [address] [place] [address], Fixed Income Analyst: Breezy Kumar MD [facility] Date/Time: [facility] Results Received Date/Time: [facility] Reported Date/Time: Performed By: #### L IPD, TSH reflex FT4, VITD, CBCAD, CMP #### [facility] Default [address] [place] [address] Platelets (Bld) [#/Vol] 234 10*3/uL Normal 140-[address] [facility] [address] Manager Comment on above: Order Comment: [facility] performed at: [employer], [employer] [facility], [address] [place] [address], [address] [place] [address], [address] [place] [address], Fixed Income Analyst: Breezy Kumar MD [facility] Date/Time: [facility] Results Received Date/Time: [facility] Reported Date/Time: Performed By: #### L IPD, TSH reflex FT4, VITD, CBCAD, CMP #### [facility] Default [address] [place] [address] RBC (Bld) [#/Vol] 5.39 10*6/uL High 3.80-5.10 [address] [place] [address] Manager Comment on above: Order Comment: [facility] performed at: [employer], [employer] [facility], [address] [facility], [address] [place] [address], [address] [place] [address], Fixed [employer] Analyst: Breezy Kumar MD [facility] Date/Time: [facility] Results Received Date/Time: [facility] Reported Date/Time: Performed By: #### L IPD, TSH reflex FT4, VITD, CBCAD, CMP #### [facility] Default [address] [place] [address] WBC (Bld) [#/Vol] 8.8 10*3/uL Normal 3.8-10.[address] [place] [address] Manager Comment on above: Order Comment: [facility] performed at: [employer], [employer] [facility], [address] [facility], [address] [place] [address], [address] [place] [address], Fixed Income Analyst: Breezy Kumar MD [facility] Date/Time: [facility] Results Received Date/Time: [facility] Reported Date/Time: Performed By: #### L IPD, TSH reflex FT4, VITD, CBCAD, CMP #### [facility] Default [address] [place] [address] Comprehensive Metabolic Pane [facility] 07-08-2021 Albumin [Mass/Vol] 4.6 g/dL Normal 3.6-5.[address] [place] [address] Manager Comment on above: Order Comment: [facility] performed at: [employer], [employer] [facility], [address] [place] [address], [address] [place] [address], [address] [place] [address], Fixed Income Analyst: Breezy Kumar MD [facility] Date/Time: [facility] Results Received Date/Time: [facility] Reported Date/Time: Performed By: #### L IPD, TSH reflex FT4, VITD, CBCAD, CMP #### [facility] Default [address] [place] [address] Albumin/Globulin [Mass ratio] 1.6 {ratio} Normal 1.0-2.5 [facility] Specialist Comment on above: Order Comment: [facility] performed at: [employer], [employer] [facility], [address] [place] [address], [address] [place] [address], [address] [place] [address], Fixed Income Analyst: Breezy Kumar MD [facility] Date/Time: [facility] Results Received Date/Time: [facility] Reported Date/Time: Performed By: #### L IPD, TSH reflex FT4, VITD, CBCAD, CMP #### [facility] Default [address] [place] [address] ALP [Catalytic activity/Vol] 92 U/L Normal 37-153 [facility] Specialist Comment on above: Order Comment: [facility] performed at: [employer], [employer] [facility], [address] [place] [address], [address] [place] [address], [address] [place] [address], Fixed Income Analyst: Breezy Kumar MD [facility] Date/Time: [facility] Results Received Date/Time: [facility] Reported Date/Time: Performed By: #### L IPD, TSH reflex FT4, VITD, CBCAD, CMP #### [facility] Default [address] [place] [address] ALT [Catalytic activity/Vol] 12 U/L Normal 6-[address] [facility] [address] Manager Comment on above: Order Comment: [facility] performed at: [employer], [employer] [facility], [address] [place] [address], [address] [place] [address], [address] [place] [address], Fixed Income Analyst: Breezy Kumar MD [facility] Date/Time: [facility] Results Received Date/Time: [facility] Reported Date/Time: Performed By: #### L IPD, TSH reflex FT4, VITD, CBCAD, CMP #### [facility] Default [address] [place] [address] Anion gap [Moles/Vol] 12 mmol/L Normal 12-[address] [facility] [address] Manager Comment on above: Order Comment: [facility] performed at: [employer], [employer] [facility], [address] [place] [address], [address] [place] [address], [address] [place] [address], Fixed Income Analyst: Breezy Kumar MD [facility] Date/Time: [facility] Results Received Date/Time: [facility] Reported Date/Time: Result Comment: Effe ctive 04/15/2019 reference range changed. Performed By: #### L IPD, TSH reflex FT4, VITD, CBCAD, CMP #### [facility] Default [address] [place] [address] AST [Catalytic activity/Vol] 14 U/L Normal 10-35 [facility] Specialist Comment on above: Order Comment: [facility] performed at: [employer], [employer] [facility], [address] [place] [address], [address] [place] [address], [address] [place] [address], Fixed Income Analyst: Breezy Kumar MD [facility] Date/Time: [facility] Results Received Date/Time: [facility] Reported Date/Time: Performed By: #### L IPD, TSH reflex FT4, VITD, CBCAD, CMP #### [facility] Default [address] [place] [address] Bilirubin [Mass/Vol] 0.7 mg/dL Normal 0.2-1.[address] [facility] [address] Comment on above: Order Comment: [facility] performed at: [employer], [employer] [facility], [address] [place] [address], [address] [place] [address], [phone], Fixed Income Analyst: Breezy Kumar MD [facility] Date/Time: [facility] Results Received Date/Time: [facility] Reported Date/Time: Performed By: #### L IPD, TSH reflex FT4, VITD, CBCAD, CMP #### [facility] Default [address] [address] BUN/CREA 14 NOT APPLICABLE Normal 6-[address] [facility] Specialist Comment on above: Order Comment: [facility] performed at: [employer], [employer] [facility], [address] [place] [address], [address] [place] [address], [phone], Fixed Income Analyst: Breezy Kumar MD [facility] Date/Time: [facility] Results Received Date/Time: [facility] Reported Date/Time: Performed By: #### L IPD, TSH reflex FT4, VITD, CBCAD, CMP #### [facility] Default [address] [place] [address] Calcium [Mass/Vol] 10.1 mg/dL Normal 8.6-10.[address] [facility] [address] Manager Comment on above: Order Comment: [facility] performed at: [employer] [facility], [address] [facility], [address] [place] [address], [phone], Fixed [employer] Analyst: Breezy Kumar MD [facility] Date/Time: [facility] Results Received Date/Time: [facility] Reported Date/Time: Performed By: #### L IPD, TSH reflex FT4, VITD, CBCAD, CMP #### [facility] Default [address] [place] [address] Chloride [Moles/Vol] 106 mmol/L Normal 98-[address] [facility] [address] Manager Comment on above: Order Comment: [facility] performed at: [employer] [facility], [address] [facility], [address] [place] [address], [phone], [employer] Analyst: Breezy Kumar MD [facility] Date/Time: [facility] Results Received Date/Time: [facility] Reported Date/Time: Performed By: #### L IPD, TSH reflex FT4, VITD, CBCAD, CMP #### [facility] Default [address] [place] [address] CO2 [Moles/Vol] 28 mmol/L Normal 20-[address] [facility] [address] Manager Comment on above: Order Comment: [facility] performed at: [employer] [facility], [address] [place] [address], [address] [place] [address], [address] [place] [address], [employer] Analyst: Breezy Kumar MD [facility] Date/Time: [facility] Results Received Date/Time: [facility] Reported Date/Time: Performed By: #### L IPD, TSH reflex FT4, VITD, CBCAD, CMP #### [facility] Default [address] [place] [address] Creatinine [Mass/Vol] 0.83 mg/dL Normal 0.50-1.05 [facility] Specialist Comment on above: Order Comment: [facility] Testing performed at: [employer] [facility], [address] [place] [address], [address] [place] [address], [address] [place] [address], Fixed Income Analyst: Breezy Kumar MD [facility] Collection Date/Time: [facility] Results Received Date/Time: [facility] Reported Date/Time: Result Comment: For patients >49 years of age, the reference limit for Creatinine is approximately 13% higher for people identified as -Kenyan. Performed By: #### L IPD, TSH reflex FT4, VITD, CBCAD, CMP #### [facility] Default [address] [place] [address] eGFRAA (Quest) 92 mL/min/1.73m2 Normal > OR = 60 [facility] Specialist Comment on above: Order Comment: [facility] Testing performed at: [employer] [facility], [address] [place] [address], [address] [place] [address], [address] [place] [address], Fixed Income Analyst: Breezy Kumar MD [facility] Collection Date/Time: [facility] Results Received Date/Time: [facility] Reported Date/Time: Performed By: #### L IPD, TSH reflex FT4, VITD, CBCAD, CMP #### [facility] [address] [place] [address] eGFRNAA ([facility]) 79 mL/min/1.73m2 Normal > OR = [address] Manager Comment on above: Order Comment: [facility] Testing performed at: [employer] [facility], [address] [place] [address], [address] [place] [address], [phone], Fixed Income Analyst: Breezy Kumar MD [facility] Collection Date/Time: [facility] Results Received Date/Time: [facility] Reported Date/Time: Performed By: #### L IPD, TSH reflex FT4, VITD, CBCAD, CMP #### [facility] [address] [place] [address] Globulin (S) [Mass/Vol] 2.9 g/dL Normal 1.9-3.7 [facility] Specialist Comment on above: Order Comment: [facility] Testing performed at: [employer] [facility], [address] [place] [address], [address] [place] [address], [phone], Fixed Income Analyst: Breezy Kumar MD [facility] Collection Date/Time: [facility] Results Received Date/Time: [facility] Reported Date/Time: Performed By: #### L IPD, TSH reflex FT4, VITD, CBCAD, CMP #### [facility] [address] [place] [address] Glucose [Mass/Vol] 94 mg/dL Normal 65-99 [facility] Comment on above: Order Comment: [facility] Testing performed at: [employer] [facility], [address] [place] [address], [address] [place] [address], [phone], Fixed Income Analyst: Breezy Kumar MD [facility] Collection Date/Time: [facility] Results Received Date/Time: [facility] Reported Date/Time: Result Comment: Fasting reference interval Performed By: #### L IPD, TSH reflex FT4, VITD, CBCAD, CMP #### [facility] Default [address] [place] [address] Potassium [Moles/Vol] 5.0 mmol/L Normal 3.5-5.[address] [facility] [address] Manager Comment on above: Order Comment: [facility] Testing performed at: [employer] [facility], [address] [place] [address], [address] [place] [address], [address] [place] [address], Fixed Income Analyst: Breezy Kumar MD [facility] Collection Date/Time: [facility] Results Received Date/Time: [facility] Reported Date/Time: Performed By: #### L IPD, TSH reflex FT4, VITD, CBCAD, CMP #### [facility] [address] [place] [address] Protein [Mass/Vol] 7.5 g/dL Normal 6.1-8.[address] Manager Comment on above: Order Comment: [facility] Testing performed at: [employer] [facility], [address] [place] [address], [address] [place] [address], [address] [place] [address], Fixed Income Analyst: Breezy Kumar MD [facility] Collection Date/Time: [facility] Results Received Date/Time: [facility] Reported Date/Time: Performed By: #### L IPD, TSH reflex FT4, VITD, CBCAD, CMP #### [facility] [address] [place] [address] Sodium [Moles/Vol] 141 mmol/L Normal 135-[address] Manager Comment on above: Order Comment: [facility] Testing performed at: [employer] [facility], [address] [place] [address], [address] [place] [address], [address] [place] [address], Fixed Income Analyst: Breezy Kumar MD [facility] Collection Date/Time: [facility] Results Received Date/Time: [facility] Reported Date/Time: Performed By: #### L IPD, TSH reflex FT4, VITD, CBCAD, CMP #### [facility] [address] [place] [address] Urea nitrogen [Mass/Vol] 12 mg/dL Normal 7-[address] [facility] [address] Manager Comment on above: Order Comment: [facility] Testing performed at: [employer] [facility], [address] [place] [address], [address] [place] [address], [address] [place] [address], Fixed Income Analyst: Breezy Kumar MD [facility] Collection Date/Time: [facility] Results Received Date/Time: [facility] Reported Date/Time: Performed By: #### L IPD, TSH reflex FT4, VITD, CBCAD, CMP #### [facility] [address] [place] [address] Lipid Panelon 07-08-2021 Cholesterol [Mass/Vol] 208 mg/dL High <[address] Manager Comment on above: Order Comment: [facility] Testing performed at: [employer] [facility], [address] [place] [address], [address] [place] [address], Fixed Income Analyst: Breezy Kumar MD [facility] Collection Date/Time: [facility] Results Received Date/Time: [facility] Reported Date/Time: Performed By: #### L IPD, TSH reflex FT4, VITD, CBCAD, CMP #### [facility] [address] [place] [address] Cholesterol in HDL [Mass/Vol] 35 mg/dL Low > OR = [address] Manager Comment on above: Order Comment: [facility] Testing performed at: [employer] [facility], [address] [place] [address], [address] [place] [address], [address] [place] [address], Fixed Income Analyst: Breezy Kumar MD [facility] Collection Date/Time: [facility] Results Received Date/Time: [facility] Reported Date/Time: Performed By: #### L IPD, TSH reflex FT4, VITD, CBCAD, CMP #### [facility] [address] [place] [address] Cholesterol in LDL [Mass/Vol] 140 mg/dL High [address] Manager Comment on above: Order Comment: [facility] Testing performed at: [employer] [facility], [address] [place] [address], [address] [place] [address], [address] [place] [address], Fixed Income Analyst: Breezy Kumar MD [facility] Collection Date/Time: [facility] [...] LDL-C. Francesco ESPINOZA et al. OVI. 2013;310(19): 2351-4358 (http://education.[email or web address]/faq/HBI482) Performed By: #### L IPD, TSH reflex FT4, VITD, CBCAD, CMP #### [facility] [address] [place] [address] NON HDL CHOLESTEROL 173 mg/dL (calc) High <[address] [facility] [address] Manager Comment on above: Order Comment: [facility] Testing performed at: [employer] [facility], [address] [place] [address], [address] [place] [address], [phone], Fixed Income Analyst: Breezy Kumar MD [facility] Collection Date/Time: [facility] Results Received Date/Time: [facility] Reported Date/Time: Result Comment: For patients with diabetes plus 1 major ASCVD risk factor, treating to a non-HDL-C goal of <100 mg/dL (LDL-C of <70 mg/dL) is considered a therapeutic option. Performed By: #### L IPD, TSH reflex FT4, VITD, CBCAD, CMP #### [facility] [address] [place] [address] Triglyceride [Mass/Vol] 190 mg/dL High <[address] [facility] [address] Manager Comment on above: Order Comment: [facility] Testing performed at: [employer] [facility], [address] [facility], [address] [place] [address], [phone], Fixed Income Analyst: Breezy Kumar MD [facility] Collection Date/Time: [facility] Results Received Date/Time: [facility] Reported Date/Time: Performed By: #### L IPD, TSH reflex FT4, VITD, CBCAD, CMP #### [facility] [address] [place] [address] TSH w/ Reflex to Free T4on 0 07-08-2021 TSH W/REFLEX TO FT4 0.59 mIU/L Normal [facility] Comment on above: Order Comment: [facility] Testing performed at: [employer] [facility], [address] [place] [address], [address] [place] [address], [phone], Fixed Income Analyst: Breezy Kumar MD [facility] Collection Date/Time: [facility] Results Received Date/Time: [facility] Reported Date/Time: Result Comment: Refe rence Range > or = 20 Years 0.40-4.50 Ranges First trimester 0.26-2.66 Second trimester 0.55-2.73 Third trimester 0.43-2.91 Performed By: #### L IPD, TSH reflex FT4, VITD, CBCAD, CMP #### [facility] Default [address] [place] [address] Vitamin D 25-OHon 07-08-2021 VIT D 25 OH 35 ng/mL Normal 30-100 [facility] Comment on above: Order Comment: [facility] Testing performed at: [employer] [facility], [address] [place] [address], [address] [place] [address], [phone], Fixed Income Analyst: Breezy Kumar MD [facility] Collection Date/Time: [id number] [facility] Results Received Date/Time: [facility] Reported Date/Time: Result Comment: Ann min D Status 25-OH Vitamin D: Deficiency: <20 ng/mL Insufficiency: 20 - 29 ng/mL Optimal: > or = 30 ng/mL For 25-OH Vitamin D testing on patients on D2-supplementation and patients for whom quantitation of D2 and D3 fractions is required, the QuestAssureD(TM) 25-OH VIT D, (D2,D3), LC/MS/MS is recommended: order code 45341 (patients >2yrs). See Note 1 Note 1 For additional information, please refer to http://education.[employer]/faq/RRS088 (This link is being provided for informational/ educational purposes only.) Performed By: #### L IPD, TSH reflex FT4, VITD, CBCAD, CMP #### [facility] Default [address] [place] [address] Consultation Noteon 01-06-20 Consultation Note [id number] Normal [facility] Vital Signs Date Time Vital Sign Value Performing Clinician Alissa ortega 06-12-2024 08:34-0500 Body height 175.3 cm Sondra Barrios AGRICULTURAL EDUCATION TEACHER Work Phone: [facility] 06-12-2024 08:34-0500 Body mass index (BMI) [Ratio] 26.43 kg/m2 Sondra Barrios AGRICULTURAL EDUCATION TEACHER Work Phone: [facility] 06-12-2024 08:34-0500 Body weight 81.19 kg Sondra Barrios AGRICULTURAL EDUCATION TEACHER Work Phone: [facility] 06-12-2024 08:34-0500 Diastolic blood pressure 72 mm[Hg] Sondar Barrios AGRICULTURAL EDUCATION TEACHER Work Phone: [facility] 06-12-2024 08:34-0500 Heart rate 73 /min Sondra Barrios AGRICULTURAL EDUCATION TEACHER Work Phone: [facility] 06-12-2024 08:34-0500 Respiratory rate 17 /min Sondra Barrios AGRICULTURAL EDUCATION TEACHER Work Phone: [facility] 06-12-2024 08:34-0500 SaO2% (BldA) [Mass fraction] 96 % Sondra Barrios AGRICULTURAL EDUCATION TEACHER Work Phone: [facility] 06-12-2024 08:34-0500 Systolic blood pressure 118 mm[Hg] Sondra Barrios AGRICULTURAL EDUCATION TEACHER Work Phone: [facility] 03-28-2024 08:05-0500 Body height 175.3 cm Tami Hemmer PA Work Phone: [facility] 03-28-2024 08:05-0500 Body mass index (BMI) [Ratio] 25.84 kg/m2 Tami Swansonmer PA Work Phone: [facility] 03-28-2024 08:05-0500 Body weight 79.38 kg Tami Swansonmer PA Work Phone: [facility] 03-28-2024 08:05-0500 Diastolic blood pressure 78 mm[Hg] Tami Swansonmer PA Work Phone: [facility] 03-28-2024 08:05-0500 Heart rate 88 /min Tami Hemmer PA Work Phone: [facility] 03-28-2024 08:05-0500 SaO2% (BldA) [Mass fraction] 95 % Tami Hemmer PA Work Phone: [facility] 03-28-2024 08:05-0500 Systolic blood pressure 108 mm[Hg] Tami Swansonmer PA Work Phone: [facility] 02-27-2024 08:53-0500 Body height 175.3 cm Scottie Nash MD Work Phone: [facility] 02-27-2024 08:53-0500 Body mass index (BMI) [Ratio] 25.55 kg/m2 Scottie Nash MD Work Phone: [facility] 02-27-2024 08:53-0500 Body weight 78.47 kg Scottie Nash MD Work Phone: [facility] 02-27-2024 08:53-0500 Diastolic blood pressure 78 mm[Hg] Scottie Nash MD Work Phone: [facility] 02-27-2024 08:53-0500 Heart rate 87 /min Scottie Nash MD Work Phone: [facility] 02-27-2024 08:53-0500 SaO2% (BldA) [Mass fraction] 97 % Scottie Nash MD Work Phone: [facility] 11-19-2024 08:53-0500 Systolic blood pressure 114 mm[Hg] Scottie Nash MD Work Phone: [facility] Encounters Encounter Date Encounter Type Care Provider Facility Start: 09-05-2024 End: 09-05-2024 Clinisync Result Encounter Sondra Barrios AGRICULTURAL EDUCATION TEACHER Work Phone: [facility] Unsolicited Start: 09-05-2024 End: 09-05-2024 Clinisync Result Encounter Sondra Barrios AGRICULTURAL EDUCATION TEACHER Work Phone: [facility] Unsolicited Start: 06-12-2024 End: 06-12-2024 Bamboo flowsheet Sondra Barrios AGRICULTURAL EDUCATION TEACHER Work Phone: [facility] Start: 06-12-2024 End: 06-12-2024 Bamboo flowsheet Sondra Barrios AGRICULTURAL EDUCATION TEACHER Work Phone: [facility] Start: 06-12-2024 End: 06-12-2024 Office outpatient visit 25 minutes Sondra Barrios AGRICULTURAL EDUCATION TEACHER Work Phone: [facility] Comment on [...] encounter status Scottie Nash MD Work Phone: [facility] Start: 08-28-2023 End: 08-28-2023 ambulatory SCOTTIE [...] 01-28-2026 Screening for malignant neoplasm of colon [facility] Start: 12-09-2024 Influenza vaccination Influenza Vaccine (Season Ended) [facility] Start: 09-05-2024 End: 08-12-2025 MG Breast - bilateral Screening Bilateral screening mammogram Imaging Routine Encounter for screening mammogram for malignant neoplasm of breast Expected: 09/05/2024, Expires: 08/12/2025 [facility] Comment on above: Expected: 09/05/2024, Expires: Start: 09-05-2024 Screening for malignant neoplasm of breast Mammogram [facility] Start: 08-29-2024 End: 06-12-2025 25-hydroxyvitamin D3 [Mass/volume] in Serum or Plasma Vitamin D 25 hydroxy Lab Routine Vitamin D deficiency Expected: 08/29/2024 (Approximate), Expires: 06/12/2025 [facility] Work Phone: Comment on above: Expected: 08/29/2024 (Approximate), Expi res: 06/12/2025 Start: 08-29-2024 End: 06-12-2025 CBC panel - Blood by Automated count CBC Lab Routine Hereditary hemochromatosis (CMS/HCC) Polycythemia vera (CMS/HCC) Expected: 08/29/2024 (Approximate), Expires: 06/12/2025 [facility] Comment on above: Expected: 08/29/2024 (Approximate), Expi res: 06/12/2025 Start: 08-29-2024 End: 06-12-2025 Comprehensive metabolic 2000 panel - Serum or Plasma Comprehensive metabolic panel Lab Routine Acquired hypothyroidism (CMS/HCC) Other fatigue Expected: 08/29/2024 (Approximate), Expires: 06/12/2025 [facility] Comment on above: Expected: 08/29/2024 (Approximate), Expi res: 06/12/2025 Start: 08-29-2024 End: 06-12-2025 Lipid 1996 panel - Serum or Plasma Lipid panel Lab Routine Hypertriglyceridemia (CMS/HCC) Expected: 08/29/2024 (Approximate), Expires: 06/12/2025 [facility] Comment on above: Expected: 08/29/2024 (Approximate), Expi res: 06/12/2025 Start: 08-29-2024 End: 06-12-2025 TSH W/REFLEX TO FT4 TSH W/REFLEX TO FT4 Lab Routine Acquired hypothyroidism (CMS/HCC) Expected: 08/29/2024 (Approximate), Expires: 06/12/2025 [facility] Comment on above: Expected: 08/29/2024 (Approximate), Expi res: 06/12/2025 Start: 06-12-2024 End: 06-12-2024 Patient encounter procedure 06/12/2024 8:30 AM EST Office Visit [facility] [address] [place] [id number] [place], Sondra M, AGRICULTURAL EDUCATION TEACHER [address] [address] Arrived [facility] Comment on above: Arrived Start: 04-23-2024 Influenza vaccination Influenza Vaccine (#1) [facility] Comment on above: Postponed from 12/10/2023 (Patient Refus ed) Start: 12-10-2023 Influenza vaccination Influenza Vaccine (#1) [facility] Start: 01-18-1996 Screening for malignant neoplasm of cervix [facility] Start: 1987 Screening for malignant neoplasm of cervix Pap Smear [facility] Start: 1966 Screening for malignant neoplasm of colon [facility] Payers Date Payer Category Payer Medicaid [employer] [place] [id number] 2022 Medicaid [id number] 1966 Unknown [id number] 1966 Unknown [id number] 1966 Unknown [id number] 1966 Unknown [id number] 1966 Unknown [id number] 1966 Unknown [id number] 1966 Unknown [id number] 1959 Unknown [id number] Social History Date Type Detail Facility Start: 04-18-1995 Tobacco smoking stat [facility] Occasional tobacco smoker [facility] Start: 04-18-1995 [...] Start: 09-15-2022 Sexual orientation Heterosexual (steve baez) [facility] History of Present illness Narrative [...] ORIF ANKLE FRACTURE Right 07/20/2016 Dr. Wood [facility] SPINE SURGERY 2021 TUBAL LIGATION Bilateral 1993 [...] - CBC; Future Await lab Polycythemia vera ([facility]/HCC) - CBC; Future Await lab Other fatigue - Comprehensive metabolic panel; Future Await lab Hypertriglyceridemia ([facility]/HCC) - Lipid panel; Future Await lab Vitamin D deficiency - Vitamin D 25 hydroxy; Future Await lab Adjustment disorder with depressed mood ([facility]/HCC) - ALPRAZolam (Xanax) 0.5 MG tablet; Take [...] ORIF ANKLE FRACTURE Right 07/20/2016 Dr. Wood [facility] SPINE SURGERY 2021 TUBAL LIGATION Bilateral 1993 [...] smoked daily. Discussed potential health risks of chcf smoking. Patient voiced understanding. Benefits of cessation, [...] needed for anxiety 60 tablet 0 [DISCONTINUED] Independence-3 Fatty Acids (Fish Oil) 1000 MG capsule [...] ORIF ANKLE FRACTURE Right 07/20/2016 Dr. Wood [facility] SPINE SURGERY 2021 TUBAL LIGATION Bilateral 1993 [...] This Visit Adjustment disorder with depressed mood ([facility]/HCC) Relevant Medications ALPRAZolam (Xanax) 0.5 MG tablet Polycythemia vera ([facility]) Recommend blood donation Cigarette smoker Discussed smoking cessation with the patient. Encouraged patient to try to cut back gradually and soon quit smoking. Discussed ways to quit smoking including gum, patches, medication, and gradually reducing the number of cigarettes smoked daily. Discussed potential health risks of bed bug exterminator smoking. Patient voiced understanding. Benefits of cessation, both health and financial, were reviewed. Anxiety Patient's Medicine is effective at controlling symptoms at current dose and frequency. PDMP reviewed with no evidence of overuse and abuse D/W patient to avoid use of benzodiazepines when consuming alcohol Advised against operating heavy machinery and driving long distances while on medicines. Benign essential hypertension ([facility]) - Primary Our specific goals, [...] prescribed. DASH diet handouts Atherosclerosis of aorta ([facility]) Reduce tobacco Obstructive sleep apnea syndrome Patient is compliant with CPAP usage and perceives benefit from treatment. Treatment has been effective in controlling the patient's symptoms of Sleep Apnea. Will continue to monitor with routine follow up appointments. Follow up in about 4 months (around 06/26/2024) for Anxiety Meds F/U. documented in this encounter [facility] Clinical Note 08-10-2021 Note Date & Type Note Facility 08-10-2021 Note HISTORY: Right sided neck pain, numbness, tingling PROCEDURE: PharmMD Signa HDXT 1.5. Sagittal T1, T2, STIR [...] signed by Galo Palacio on 08/10/[address] [facility] [address] Manager Evaluation note Note Date & Type Note [...] with depressed mood documented in this encounter [facility] Healthcare Evaluation note Note Date & [...] and content) DATE CREATED AUTHOR [facility]10[facility]2021 [facility] DATE CREATED AUTHOR AUTHOR'S ORGANIZ ATION 08/12/2021 [facility] dical Specialist DATE CREATED AUTHOR AUTHOR'S ORGANIZ ATION 07/25/2022 [facility] DATE CREATED AUTHOR AUTHOR'S ORGANIZ ATION 06/14/2024 [facility] dical Specialists EPIC Reason for Visit (unrecogniz ed section and content) Reason Comments Hypertension Reason Comments Depression Care Teams (unrecognized sec tion and content) Nurse College Relationship Specialty Start Date End Date Scottie Nash MD [address] [facility] [address] [place] [address] PCP - General 09/15/22 Scottie Nash MD [address] [facility] [address] [place] [address] PCP - [facility] 07/10/23 Nurse College Relationship Specialty Start Date End Date Scottie Nash MD [address] [place] [address] PCP - General 09/15/22 Scottie Nash MD [address] [place] [address] PCP - [facility] [employer] [facility] 07/10/23 Nurse College Relationship Specialty Start Date End Date Scottie Nash MD [address] [place] [address] PCP - General 09/15/22 Scottie Nash MD [address] [place] [address] PCP - [facility] [employer] [facility] 07/10/23 Nurse College Relationship Specialty Start Date End Date Scottie Nash MD [address] [place] [address] PCP - General 09/15/22 Scottie Nash MD [address] [place] [address] PCP - [facility] [facility] 07/10/23 Nurse College Relationship Specialty Start Date End Date Scottie Nash MD [address] [place] [address] PCP - General 09/15/22 Scottie Nash MD [address] [place] [address] PCP - [facility] 07/10/23 FOR RECORDS PERTAINING TO PATIENTS [...] BE BASED ON THE PRIMARY CLINICAL RECORDS. [facility] [employer] [facility]. provides no warranty or guarantee of the accuracy or completeness of information in this document.
[2024-09-14 16:14] VITALS: BP 128/80; PULSE 65; TEMP 36.8; O2SAT 96; BMI 25.1
--- NOTE | 2024-09-14 16:31 | ED.GENADUL1 ---
HPI HPI - General Adult General Chief complaint: Wound/Laceration Stated complaint: CUT ON R MIDDLE FINGER Time Seen by Provider: 09/14/24 16:09 Source: patient Mode of arrival: walk-in Limitations: no limitations History of Present Illness HPI narrative: The patient is a 59-year-old female who presents to the emergency department today for evaluation concerns for a laceration to her finger. She endorses she was using a mandolin for cutting when she sliced the tip of her middle finger off. She reports became concerned with the bleeding so presented to the ER. She reports the date of her last tetanus to be around 2015. She is nondiabetic. Related Data Home Medications ?Medication ?Instructions ?Recorded ?Confirmed alprazolam 0.5 mg tablet 0.5 mg PO BID 09/14/24 09/14/24 atorvastatin 20 mg tablet 20 mg PO DAILY 09/14/24 09/14/24 buspirone 10 mg tablet 10 mg PO BID 09/14/24 09/14/24 cholecalciferol (vitamin D3) 25 25 mcg PO DAILY 09/14/24 09/14/24 mcg (1,000 unit) tablet [id number]-klrz-slcg 8 mg-folic 400 1 tab PO DAILY 09/14/24 09/14/24 mcg-K 50 mcg-lutein 300 mcg tablet (Multivitamin Women 50 Plus) omega-3 300 mg-dha 120 mg-epa 180 1 cap PO DAILY 09/14/24 09/14/24 mg-fish oil 1,000 mg capsule trazodone 50 mg tablet 25 mg PO BEDTIME 09/14/24 09/14/24 Allergies Allergy/AdvReac Type Severity Reaction Status Date / Time Penicillins AdvReac Mild Hives Verified 09/14/24 16:12 Opioid HPI Opioid Management Most Recent Opioid Data: Last Pain Scale 8 Today, 16:25 Review of Systems ROS Status of ROS 10 or more systems reviewed and unremarkable except as noted in history and below PFSH PFSH Social History Little interest or pleasure in doing things: not at all Feeling down, depressed, or hopeless: not at all Exam Narrative Exam Narrative: Constituational: Awake/ alert, no apparent distress, well hydrated HENMT: normocephalic, external ears normal, moist oral mucous membranes and oropharynx normal Eyes: EOMI and conjunctivae normal Neck: ROM intact Chest: inspection of chest normal Respiratory: Normal respiratory effort MSK: +approx 1cm avulsion of distal phalanx of third digit along the palmar aspect of the R hand, nail is intact, gross/fine motor movement tach to all digits of R hand, +NVI Skin: + Fingertip avulsion as above Neuro: no focal deficits Psych: mental status grossly normal Constitutional Vital Signs, click to edit/add: Last Vital Signs Temp 98.2 F 09/14/24 16:14 Pulse 65 09/14/24 16:14 Resp 18 09/14/24 16:14 BP 128/80 09/14/24 16:14 Pulse Ox 96 09/14/24 16:14 O2 Del Method Room Air 09/14/24 16:14 Course Vital Signs Vital signs: Vital Signs Temperature 98.2 F 09/14/24 16:14 Pulse Rate 65 09/14/24 16:14 Respiratory Rate 18 09/14/24 16:14 Blood Pressure 128/80 09/14/24 16:14 Pulse Oximetry 96 09/14/24 16:14 Oxygen Delivery Method Room Air 09/14/24 16:14 Temperature 98.2 F 09/14/24 16:14 Pulse Rate 65 09/14/24 16:14 Respiratory Rate 18 09/14/24 16:14 Blood Pressure 128/80 09/14/24 16:14 Pulse Oximetry 96 09/14/24 16:14 Oxygen Delivery Method Room Air 09/14/24 16:14 Medical Decision Making [facility] Narrative Medical decision making narrative: The patient is a well-appearing 59-year-old male who presented to the emergency department today for evaluation concerns for a laceration to her finger 2/2 using a cutting tool in the kitchen. Initial examination patient with overall superficial avulsion of the distal phalanx of the third digit of the right hand. No concerning neurovascular motor findings on exam. Nailbed is intact. No evidence of wound infection present. Wound care provided and was irrigated profusely. Surgicel and pressure dressing applied in the emergency department. Tetanus additionally updated. Discussed this with the patient including recommendations for supportive care. Advised on follow-up with patient's primary care provider for reevaluation as needed. Discussed signs and symptoms of any worsening condition and when to consider reevaluation by the emergency department. Patient verbalized an understanding of this is agreeable plan be discharged home. Medical Records Medical records reviewed: Yes I reviewed the patient's medical records Discharge Plan Discharge Chief Complaint: Wound/Laceration Clinical Impression: Avulsion of finger tip Patient Disposition: Home, Self-Care Prescriptions / Home Meds: No Action alprazolam 0.5 mg tablet 0.5 mg PO BID atorvastatin 20 mg tablet 20 mg PO DAILY buspirone 10 mg tablet 10 mg PO BID cholecalciferol (vitamin D3) 25 mcg (1,000 unit) tablet 25 mcg PO DAILY Multivitamin Women 50 Plus 8 mg iron-400 mcg-50 mcg tablet 1 tab PO DAILY omega 2-nra-iju-fish oil 300 mg (120 mg- 180mg)-1,000 mg capsule 1 cap PO DAILY trazodone 50 mg tablet 25 mg PO BEDTIME Print Language: Austrian Instructions: Wound Infection (DC), Skin Avulsion (ED) Additional Instructions: Keep dressing in place for the next 24 to 48 hours. Okay to wash your hands. May apply Vaseline or triple antibiotic ointment and a bandage after removing the dressing placed in the ER today. Monitor for any signs and symptoms of infection as discussed. Your tetanus was additionally updated today. May return to the ER with any concerns at any time. Referrals: SARINA NASH [Primary Care Provider, Family Practice] - 1 week
[2024-09-14] MEDS: ADACEL DIPH,PERTUSS(ACELL),TET VAC/PF 0.5 ML ADULT SYRINGE IM (16:38)
== END 2024-09-14 16:42 | disposition home or self-care (01) ==
PROVIDERS: Emergency Provider Emergency Medicine; PCP Family Medicine
DX: S61.202A Unspecified open wound of right middle finger without damage to nail, initial encounter (principal); W27.4XXA Contact with kitchen utensil, initial encounter; Z23 Encounter for immunization
CPT/HCPCS: 90471; 90715; 99283

== ENCOUNTER 2024-12-23 10:27 | Outpatient (OUT) | payer MEDICAID, SELFPAY ==
--- OUTSIDE RECORDS SUMMARY | 2024-12-23 10:31 | XMS_ITS | Patient Health Record ---
[facility] Address [address] [place] [address] Care Team Providers Care Multicultural Internship Name Role Phone Dr. Galo Avery Primary Care Provider Reason For Referral No Information Medications Medication SIG (Take, Route, Fr equency, Duration) Notes Start Date End Date Status Ibuprofen 800 MG 1 tablet with food o r milk as needed Orally Three times a day 01/18/2021 Active Ibuprofen 800 MG 1 tablet with food o r milk as needed Orally Three times a day 02/12/2021 Active Encounters Encounter Location Date Provider Diagnosis [facility] [address] [place] [address] 2024 Galo Avery Encounter for dental examination [...] ADVANTAGE -termed [address] [place] [address] [id number] EDINSON VILLEDA Self - patient is the insured zMEDICAID [facility] after [place] -termed [address] [place] [address] [id number] EDINSON VILLEDA Self - patient is the insured 1 zDENTAL DQ [place] -termed 22 [address] [place] [address] [id number] EDINSON VILLEDA Self - patient is the insured 1 3 zDental MEDICAID [facility] after [place]AMOUNT -termed [address] [place] [address] [id number] EDINSON VILLEDA Self - patient is the insured 1 3 Dental [place] DQ Terminate d [address] [place] [address] [id number] EDINSON VILLEDA Self - patient is the insured 3 Dental Wrap [facility] [place] BCBS Termed 4 [address] [place] [address] [id number] EDINSON VILLEDA Self - patient is the insured 3
--- OUTSIDE RECORDS SUMMARY | 2024-12-23 10:31 | XMS_ITS | Encounter Summary ---
Author Organization [facility] Address [address] [place] [address] Care Team Providers Care Drum Tester Name Role Phone Scottie Issa MD Primary Care Provider [phone] Scottie Issa MD Unavailable Encounter Details Date Type Department Care Team (Late st Contact Info) Description 11/10/2022 Abstract [facility] [place] [facility] 112 [facility] 110 [place] [address] Scottie Issa MD 112 [facility] 110 [place] [address] Social History Tobacco Use Types Packs/Day Years [...] on filedocumented in this encounter Care Teams Drum Tester Relationship Specialty Start Date End Date Scottie Issa MD [address] [facility] 110 [place] [address] PCP - General 09/15/22 Scottie Issa MD 112 [facility] 110 [place] [address] PCP - [facility] [place] TIMBER ESTIMATOR 07/10/23 documented as of this encounter
--- OUTSIDE RECORDS SUMMARY | 2024-12-23 10:31 | XMS_ITS | Encounter Summary ---
Author Organization [facility] Address [address] [place] [address] Care Team Providers Care Character Impersonator Name Role Phone Scottie Issa MD Primary Care Provider [phone] Scottie Issa MD Unavailable Encounter Details Date Type Department Care Team (Late st Contact Info) Description 11/10/2022 Abstract [facility] [place] [facility] 112 [facility] 110 [place] [address] Scottie Issa MD 112 [facility] [address] [place] [address] Social History Tobacco Use Types Packs/Day Years [...] on filedocumented in this encounter Care Teams Character Impersonator Relationship Specialty Start Date End Date Scottie Issa MD 112 [facility] 110 [place] [address] PCP - General 09/15/22 Scottie Issa MD 112 [facility] [address] [place] [address] PCP - [facility] MOLD CHECKER 07/10/23 documented as of this encounter
--- OUTSIDE RECORDS SUMMARY | 2024-12-23 10:32 | XMS_ITS | Encounter Summary ---
Author Organization [facility] Address [address] [place] [address] Care Team Providers Care Plan Nurse Name Role Phone Scottie Issa MD Primary Care Provider [phone] Scottie Issa MD Unavailable Encounter Details Date Type Department Care Team (Late st Contact Info) Description 10/05/2023 Abstract [facility] [place] [facility] 112 [facility] [address] [place] [id number] Scottie Issa MD [address] [facility] 110 [place], [place] [id number] Social History Tobacco Use Types Packs/Day Years Used Date Smoking Tobacco: Some Days Cigarettes 0.3 29.7 Started: 04/18/1995 Passive Smoke Exposure: Yes Smokeless [...] often do you attend chur ch or moravian services? Never 11/22/2022 Do you belong to any clubs o r organizations such as jain groups, unions, fraternal or athletic groups, or [...] care, and heating? Not very hard 11/22/2022 [facility] - Occup[facility] [...] place to sleep or slept in a group home (including now)? No 11/22/2022 Comments No Sex [...] on filedocumented in this encounter Care Teams Plan Nurse Relationship Specialty Start Date End Date Scottie Issa MD [address] [facility] [address] [place] [address] PCP - General 09/15/22 Scottie Issa MD [address] [facility] [address] [place] [address] PCP - [facility] SSN/SSBN ASSISTANT NAVIGATOR 07/10/23 documented as of this encounter
--- OUTSIDE RECORDS SUMMARY | 2024-12-23 10:32 | XMS_ITS | Clinical Summary ---
Author Organization [facility] Address [address] [place] [address] Care Team Providers Care Data Processing Consultant Name Role Phone Scottie Nash MD Primary Care Provider [phone] Scottie Nahs MD Unavailable Allergies Active Allergy Reactions Criticality Noted Date Comments Penicillin G 10/24/2022 Other Reaction(s): HIVES Medications atorvastatin (Lipitor) 20 MG tabletIndicatio ns:Hypertriglyc eridemia TAKE ONE TABLET BY MOUTH ONCE DAILY IN THE MORNING 100 tablet 3 04/12/19 25 Active Multiple Vitamins-Minera ls (Multivitamin Women 50+) tabletIndicatio ns:Fatigue, unspecified type TAKE ONE TABLET BY MOUTH ONCE DAILY DIRECTED FOR 30 DAYS 30 tablet 9 06/03/19 25 Active ALPRAZolam (Xanax) 0.5 MG tabletIndicatio ns:Adjustment disorder with depressed mood Take 1 tablet (0.5 mg) by mouth every 12 (twelve) hours if needed for anxiety 60 tablet 06/13/19 25 Active cholecalciferol (Vitamin D3) 25 MCG (1000 UT) tabletIndicatio ns:Vitamin D deficiency Take 1 tablet (25 mcg) by mouth Daily 100 tablet 09/24/19 25 Active traZODone (Desyrel) 50 MG tabletIndicatio ns:Trouble in sleeping TAKE 1/2 TO 1 TABLET BY MOUTH AT BEDTIME 30 tablet 2 10/31/19 25 Active ibuprofen (IBU) 800 MG tabletIndicatio ns:Chronic neck pain Take 1 tablet (800 mg) by mouth every 8 (eight) hours 300 tablet 12/05/19 25 Active cyclobenzaprine (Flexeril) 10 MG tabletIndicatio ns:Right hip pain Take 1 tablet (10 mg) by mouth every 8 (eight) hours if needed for muscle spasms 90 tablet 3 12/05/19 25 Active omega-3 (Fish Oil) 1000 MG capsuleIndicati ons:Polyp of colon, unspecified part of colon, unspecified type TAKE TWO CAPSULES BY MOUTH TWICE A DAY ( IN THE MORNING AND BEFORE BEDTIME ) 120 capsule 7 12/11/19 25 Active busPIRone (Buspar) 10 MG tabletIndicatio ns:Grief reaction TAKE 1 TABLET (10 MG) BY MOUTH 2 (TWO) TIMES A DAY NEEDED (ANXIETY) 60 tablet 12/11/19 25 Active cyclobenzaprine (Flexeril) 10 MG tabletIndicatio ns:Right hip pain Take 1 tablet (10 mg) by mouth every 8 (eight) hours if needed for muscle spasms 90 tablet 3 08/28/19 24 025 Discontinued(Re order) ibuprofen (IBU) 800 MG tabletIndicatio ns:Chronic neck pain Take 1 tablet (800 mg) by mouth every 8 (eight) hours 300 tablet 08/28/19 24 025 Discontinued(Re order) omega-3 (Fish Oil) 1000 MG capsuleIndicati ons:Polyp of colon, unspecified part of colon, unspecified type TAKE TWO CAPSULES BY MOUTH TWICE A DAY ( IN THE MORNING AND BEFORE BEDTIME ) 120 capsule 7 03/18/20 24 025 Discontinued busPIRone (Buspar) 10 MG tabletIndicatio ns:Grief reaction TAKE 1 TABLET (10 MG) BY MOUTH 2 (TWO) TIMES A DAY NEEDED (ANXIETY) 60 tablet 10/31/19 25 025 Discontinued predniSONE (Deltasone) 10 MG tabletIndicatio ns:Lumbar radiculopathy, acute,Pain of right thigh Take 4 tablets (40 mg) by mouth Daily for 4 days, THEN 3 tablets (30 mg) Daily for 4 days, THEN 2 tablets (20 mg) Daily for 4 days, THEN 1 tablet (10 mg) Daily for 4 days. 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 Discussed potential health risks of ocean transportation intermediary smoking. Patient voiced understanding. Benefits of cessation, both health and financial, were reviewed. Assessment & Plan (08/28/2023 9:16 AM EDT): Discussed smoking cessation with the patient. Encouraged patient to try to cut back gradually and soon quit smoking. Discussed ways to quit smoking including gum, patches, medication, and gradually reducing the number of cigarettes smoked daily. Discussed potential health risks of ocean transportation intermediary smoking. Patient voiced understanding. Benefits of cessation, [...] Date Resolved Date Encounter for well adult jovanna cuellar without abnormal findings 08/28/2023 11/21/2023 Assessment & Plan (08/28/2023 9:09 AM EDT): Modest Alcohol consumption No Tobacco Seat Belt use Exercise Regularly No Text Drive Social Accountability Tobacco use 11/04/2021 11/21/2023 Encounters Date Type Department Care Team Description 12/20/2024 [facility] [address] [place] [phone] Aimee Barrios NP Pain of right thigh 12/20/2024 Telephone [facility] [address] [place] [address] Aimee Barrios NP 12/20/2024 [facility] [address] [place] [address] Aimee Barrios NP Chronic neck pain; Pain of right thigh; Right hip pain; Lumbar radiculopathy, acute 12/10/2024 [facility]ill [facility] [address] [place] [phone] Scottie Nash MD Grief reaction 12/10/2024 Refill [facility] [address] [place] [address] Scottie Nash MD Polyp of colon, unspecified part of colon, unspecified type 12/04/2024 9:00 AM EDT Office Visit [facility] [address] [place] [address] Aimee Barrios NP Lumbar radiculopathy, acute (Primary Dx); Chronic neck pain; Pain of right thigh; Right hip pain 12/04/2024 Bamboo flowsheet [facility] [address] [place] [address] Aimee Barrios NP 12/04/2024 Travel 12/02/2024 Travel 10/30/2024 Refill [facility] [address] [place] [address] Aimee Barrios NP Grief reaction ; Trouble in sleeping 10/23/2024 Abstract [facility] [place] [facility] [address] [place] [address] Scottie Nash MD 10/02/2024 Refill [facility] [place] [facility] [address] [place] [address] Aimee Barrios, ARPAN Grief reaction 10/01/2024 11:45 AM EDT Ancillary Procedure [facility] [address] [place] [address] Fall, initial encounter; Rib pain on right side 10/01/2024 11:35 AM EDT Office Visit [facility] [address] [place] [address] Jojo Krishna, ARPAN Fall, initial encounter (Primary Dx); Rib pain on right side; Contusion of rib on right side, initial encounter 10/01/2024 Telephone [facility] [address] [place] [address] Jojo Krishna NP 10/01/2024 Travel 09/23/2024 Refill [facility] [place] [facility] [address] [facility] [address] [place] [address] Kym Arroyo LPN Vitamin D deficiency from Last 3 Months Immunizations Immunization Administration Dates Next Due Tdap 09/14/2024 Family History Medical History Relation Name Comments Cancer Father Dad Cancer Maternal Grandmother Sheyla Cancer Mother Cancer Paternal Grandmother Camelia breast Relation Name Status Comments Father Dad Maternal Grandmother Sheyla Mother Paternal Grandmother Camelia Social History Tobacco Use Types Packs/Day Years Used Date Smoking Tobacco: Some Days Cigarettes 0.3 29.7 Started: 04/18/1995 Passive Smoke Exposure: Yes Smokeless Tobacco: Never Tobacco Cessation:Ready to Q uit: Not Asked; Counseling Given: Yes Alcohol Use Standard Drinks/Week [...] 02/20/2024 How often do you attend chur ch or jehovah's witness services? Never 02/20/2024 Do you belong to any clubs o r organizations such as anabaptism groups, unions, fraternal or athletic groups, or [...] Date Recorded Patient Health Questionnaire-2 Score 0 12/04/2024 [facility] - Occupational Stress Questionnaire Answer Date Recorded [...] place to sleep or slept in a long-term (including now)? No 11/22/2022 Housing Stability Vital Sign Answer Willam e Recorded In the last 12 months, was t here a time when you were not able to pay the mortgage or rent on time? No 02/20/2024 In the past 12 months, how m any times have you moved where you were living? 0 02/20/2024 At any time in the past 12 m [facility], were you homeless or living in a long-term (including now)? No 02/20/2024 Comments No Sex and Gender Information Value Date Recorded Sex Assigned at Female 09/15/2022 9:40 AM EDT Legal Sex Female 6:35 PM EDT Gender Identity Female 09/15/2022 9:40 AM EDT Sexual Orientation Straight 09/15/2022 9: 40 AM EDT Last Filed Vital Signs Vital Sign Reading Time Taken Comments Blood Pressure 116/76 12/04/2024 8:52 AM EDT Pulse 88 12/04/2024 8:52 AM EDT Temperature 36.4 C (97.6 F) 10/01/2024 11:36 AM EDT Respiratory Rate 16 12/04/2024 8:52 AM EDT Oxygen Saturation 97% 12/04/2024 8:52 AM EDT Inhaled Oxygen Concentration - - Weight 83.5 kg (184 lb) 12/04/2024 8:52 AM EDT Height 175.3 cm (5' 9 ) 12/04/2024 8:52 AM EDT Body Mass Index 27.17 12/04/2024 8:52 AM EDT Plan of Treatment Health Maintenance Due Date Last Done Comments CT Colonography 1966 FIT-DNA 1966 FIT 1966 FOBT 1966 Sigmoidoscopy 1966 Pap Smear 1987 Cervical Cancer Screening 01/18/1996 HPV/Cotest 01/18/1996 Influenza Vaccine (#1) 2024 Mammogram 09/11/2025 09/11/2024, 05/2 12/2023, 07/20/2022, Additional history exists Colonoscopy 01/28/2026 01/29/2016 Colorectal Cancer Screening 01/28/2026 Procedures Procedure Name Priority Date/Time Associated Diagnosis Comments XR RIBS 2 VIEWS RIGHT WITH CHEST ANTEROPOSTERIOR STAT 10/01/2024 12:00 PM EDT Fall, initial encounter Rib pain on right side MM TOMOSYNTHESIS SCREENING BI 09/11/2024 1:03 PM EDT COLONOSCOPY Routine 01/29/2016 12:00 PM EDT from Last 3 Months or Most Recently Relevant to Health Maintenance Results * XR ribs 2 views right w chest anteroposterior (10/01/2024 12:00 PM EDT) Anatomical Region Laterality Modality Rib, Abdomen Right Radiographic Kirsten ging 10/01/2024 12:2 6 PM EDT Narrative 10/01/2024 12:26 PM EDT TITLE OF EXAM: XR RIBS 2 VIEWS RIGHT WITH CHEST ANTEROPOSTERIOR REASON FOR EXAM: Right sided mid to lower lateral rib pain, post fall TECHNIQUE: 5 radiographs of the chest and ribs. COMPARISON: None FINDINGS: No appreciable/displaced rib fracture. Normal lung expansion. No diffuse or focal pulmonary abnormality. No significant effusion or pneumothorax. The cardiomediastinal silhouette is normal. No upper abdominal abnormality. IMPRESSION: No appreciable/displaced rib fracture. No acute cardiopulmonary abnormality. DICTATED ON: 10/01/2024 10:15 AM This report has been electronically signed and approved by the interpreting radiologist. Procedure Note Abdon Duarte MD - 10/01/2024 TITLE OF EXAM: XR RIBS 2 VIEWS RIGHT WITH CHEST ANTEROPOSTERIOR REASON FOR EXAM: Right sided mid to lower lateral rib pain, post fall TECHNIQUE: 5 radiographs of the chest and ribs. COMPARISON: None FINDINGS: No appreciable/displaced rib fracture. Normal lung expansion. No diffuse or focal pulmonary abnormality. Nosignificant effusion or pneumothorax. The cardiomediastinal silhouette isnormal. No upper abdominal abnormality. IMPRESSION: No appreciable/displaced rib fracture. No acute cardiopulmonaryabnormality. DICTATED ON: 10/01/2024 10:15 AM This report has been electronically signed and approved by theinterpreting radiologist. Jojo Krishna NP IMG XR PROCEDURES Final Resu lt * MM TOMOSYNTHESIS SCREENING BI (09/11/2024 1:03 PM EDT) Anatomical Region Laterality Modality Other 09/11/2024 1:03 PM EDT Narrative 09/11/2024 1:03 [place] [address] Mammography Report Signed Patient: ANA VILLEDA MR#: [id number] : 1965 Acct:[id number] Age/Sex: 59 / F ADM Date: 09/11/24 Loc: MAMMO Attending Dr: SCOTTIE NASH Ordering Physician: SCOTTIE NASH Results: Date of Service: 09/11/24 Follow Up: Procedure(s): MM tomosynthesis screening BI Accession Number(s): [id number] cc: SCOTTIE NASH Patient Name: ANA VILLEDA MR#: [id number] : 1965 Exam Date: 09/11/2024 Ordering Doctor: DR SCOTTIE NASH M.D. RADIOLOGY REPORT PROCEDURE: MM TOMOSYNTHESIS SCREENING BI COMPARISON: MM TOMOSYNTHESIS SCREENING BI, 09/06/2023. MG MAMM SCREEN 3D NEIL CAD, 07/20/2022. MG MAMM SCREEN 3D NEIL CAD, 07/13/2021. MG MAMM NEIL SCRN W CAD DIG, 06/06/2013. INDICATIONS: Screening Calculator Name NCI Breast Cancer Risk Assessment Tool 5 Year Breast Cancer Risk 1.20% Lifetime Breast Cancer Risk 6.90% Personal Breast Cancer No Personal Ovarian Cancer No Treatments None Family Cancers Grandmother-paternal with breast cancer at age 50; Grandmother-paternal with bone cancer at age 80; Father with carcinoma cancer at age 50. LOCATION: [facility] BREAST COMPOSITION: The breasts are heterogeneously dense,which may obscure small masses. FINDINGS: RIGHT BREAST: No significant suspicious finding. Focal asymmetries are present. Benign-appearing lymph nodes are noted along chest wall . LEFT BREAST: No significant suspicious finding. Focal asymmetries are redemonstrated. These are unchanged. DIAGNOSTIC CATEGORY 2--BENIGN FINDING: RECOMMENDATIONS: ROUTINE MAMMOGRAM AND CLINICAL EVALUATION IN 12 MONTHS. PLEASE NOTE: A NORMAL MAMMOGRAM DOES NOT EXCLUDE THE POSSIBILITY OF BREAST CANCER. A CLINICALLY SUSPICIOUS PALPABLE LUMP SHOULD BE BIOPSIED. Dictated by: Ranulfo Sanchez MD on 09/11/2024 at 12:57 Approved by: Ranulfo Sanchez MD on 09/11/2024 at 13:02 Dictated By: Ranulfo Sanchez M.D. Signed By: 09/11/24 1303 DD/ 1303 TD/TT: Dentistry Professor: Procedure Note Radiology, Radiologist, MD - 09/11/2024 [place] [address] Mammography Report Signed Patient: ANA VILLEDA LMR#: [id number] : 1965Acct:[id number] Age/Sex: 59 / FADM Date: 09/11/24 Loc: MAMMO Attending Dr: SCOTTIE NASH Ordering Physician: SCOTTIE NASHResults: Date of Service: 09/11/24Follow Up: Procedure(s): MM tomosynthesis screening BI Accession Number(s): [id number] cc: SCOTTIE NASH Patient Name: ANA VILLEDA MR#: [id number] : 1965 Exam Date: 09/11/2024 Ordering Doctor: DR SCOTTIE NASH M.D. RADIOLOGY REPORT PROCEDURE: MM TOMOSYNTHESIS SCREENING BI COMPARISON: MM TOMOSYNTHESIS SCREENING BI, 09/06/2023. MG MAMM [id number] NEIL CAD, 07/20/2022. MG MAMM SCREEN 3D NEIL CAD, 07/13/2021. MG MAMM BILSCRN W CAD DIG, 06/06/2013. INDICATIONS: Screening Calculator Name NCI Breast Cancer Risk Assessment Tool 5 Year Breast Cancer Risk 1.20% Lifetime Breast Cancer Risk 6.90% Personal Breast Cancer No Personal Ovarian Cancer No Treatments None Family Cancers Grandmother-paternal with breast cancer at age 50; Grandmother-paternal with bone cancer at age 80; Father with carcinomacancer at age 50. LOCATION: [facility] BREAST COMPOSITION: The breasts are heterogeneously dense,which may obscure small masses. FINDINGS: RIGHT BREAST: No significant suspicious finding. Focal asymmetries are present. Benign-appearing lymph nodes are noted along chest wall . LEFT BREAST: No significant suspicious finding. Focal asymmetries are redemonstrated. These are unchanged. DIAGNOSTIC CATEGORY 2--BENIGN FINDING: RECOMMENDATIONS: ROUTINE MAMMOGRAM AND CLINICAL EVALUATION IN 12 MONTHS. PLEASE NOTE: A NORMAL MAMMOGRAM DOES NOT EXCLUDE THE POSSIBILITY OFBREAST CANCER. A CLINICALLY SUSPICIOUS PALPABLE LUMP SHOULD BE BIOPSIED. Dictated by: Ranulfo Sanchez MD on 09/11/2024 at 12:57 Approved by: Ranulfo Sanchez MD on 09/11/2024 at 13:02 Dictated By: Ranulfo Sanchez M.D. Signed By:09/11/24 1303 DD/ 1303 TD/TT: Dentistry Professor: Scottie Nash MD [facility] Final Result * Colonoscopy (01/29/2016 12:00 PM EDT) Anatomical Region Laterality Modality Endoscopy 01/29/2016 12:0 0 PM EDT Narrative 02/18/2016 12:00 PM EST PERFORMED AT [facility] LOCATION:[id number] diverticulosis, polyps Procedure Note CONVERSION, GENERIC - 08/25/2022 PERFORMED AT [facility] LOCATION:[id number] diverticulosis, polyps Scottie Nash MD ENDOSCOPY PROCEDURE ORDERABLES F inal Result from Last 3 Months or Most Recently Relevant to Health Maintenance Insurance [employer] [place]ICA[place] Care Teams Data Processing Consultant Relationship Specialty Start Date End Date Scottie Nash MD [address] [facility] [address] [place] [address] PCP - General 09/15/22 Scottie Nash MD [address] [facility] [address] [place] [address] PCP - [facility] ADJUNCT MATHEMATICS INSTRUCTOR 07/10/23
--- OUTSIDE RECORDS SUMMARY | 2024-12-23 10:32 | XMS_ITS | Encounter Summary ---
Author Organization [facility] Address [address] [place] [address] Care Team Providers Care General Science Teacher Name Role Phone Scottie Nash MD Primary Care Provider [phone] Scottie Nash MD Unavailable Encounter Details Date Type Department Care Team (Late st Contact Info) Description 09/06/2023 Clinisync Result Encounter [facility] External Department Unsolicited Justin Mcclendon, DO [address] [place] [address] Social History Tobacco Use Types Packs/Day Years [...] often do you attend chur ch or hindu services? Never 11/22/2022 Do you belong to any clubs o r organizations such as sikh groups, unions, fraternal or athletic groups, or [...] care, and heating? Not very hard 11/22/2022 [facility] - Occupational Stress Questionnaire Answer Date [...] in a long-term (including now)? No 11/22/2022 Comments No Sex [...] EDT Narrative 09/06/2023 1:10 [place] [address] Mammography Report Signed Patient: EDINSON VILLEDA MR#: [id number] : 1965 Acct:[id number] Age/Sex: 58 / F ADM Date: 09/06/23 Loc: MAMMO Attending Dr: Justin Mcclendon D.O. Ordering Physician: Justin Mcclendon D.O. Results: Date of Service: 09/06/23 Follow Up: Procedure(s): MM tomosynthesis screening BI Accession Number(s): [id number] cc: SCOTTIE NASH ; Justin Mcclendon D.O. Patient Name: EDINSON VILLEDA MR#: [id number] : 1965 Exam Date: 09/06/2023 Ordering Doctor: [...] carcinoma cancer at age 51. LOCATION: [facility] [place] BREAST COMPOSITION: The breasts are heterogeneously dense,which [...] Signed By: 09/06/23 1310 DD/ 1309 TD/TT: Restrictive Preparation Operator: Procedure Note Radiology, Radiologist, - 09/06/2023 [place] [address] Mammography Report Signed Patient: EDINSON VILLEDA LMR#: [id number] : 1965Acct:[id number] Age/Sex: 58 / FADM Date: 09/06/23 Loc: MAMMO Attending Dr: Justin Mcclendon D.O. Ordering Physician: Justin Mcclendon D.O.Results: Date of Service: 09/06/23Follow Up: Procedure(s): MM tomosynthesis screening BI Accession Number(s): [id number] cc: SCOTTIE NASH ; Justin Mcclendon D.O. Patient Name: EDINSON VILLEDA MR#: [id number] : 1965 Exam Date: 09/06/2023 Ordering Doctor: [...] with carcinomacancer at age 51. LOCATION: [facility] BREAST COMPOSITION: The breasts are heterogeneously dense,which [...] M.D. Signed By:09/06/23 1310 DD/ 1309 TD/TT: Restrictive Preparation Operator: Justin Mcclendon DO [facility] Final Result documented in this encounter Visit Diagnoses Not on filedocumented in this encounter Care Teams General Science Teacher Relationship Specialty Start Date End Date Scottie Nash MD [address] [place] [address] PCP - General 09/15/22 Scottie Nash MD [address] [facility] [address] [place] [address] PCP - [facility] ENDOSCOPE TECHNICIAN 07/10/23 documented as of this encounter
--- OUTSIDE RECORDS SUMMARY | 2024-12-23 10:32 | XMS_ITS | Encounter Summary ---
Author Organization [facility] Address [address] [facility] [place] [address] Care Team Providers Care Foreign Broadcast Specialist Name Role Phone Scottie Issa MD Primary Care Provider [phone] Scottie Issa MD Unavailable Reason for Referral * Rehabilitation - Outpatient (Routine) - Authorized Specialty Diagnoses / Procedures Referred By Ayla barrios Referred To Contact Physical Therapy Diagnoses Chronic neck pain Pain of right thigh Right hip pain Lumbar radiculopathy, acute Procedures NC OFFICE/OUTPATIENT NEW HIGH MDM 60 MINUTES Aimee Barrios NP [address] [facility] [address] [place] [address] Phone: tel: fax: [facility] [address] [facility], [address] fax: Referral ID Status Reason Start Date Expiration Date Visits Requested Visits Authorized [id number] Authorized Specialty Services Required 12/20/2024 06/18/2025 1 1 Encounter Details Date Type Department Care Team (Late st Contact Info) Description 12/20/2024 Orders Only [facility] [place] [facility] [address] [place] [address] Aimee Barrios SALES PERFORMANCE ANALYST [address] [place] [address] Chronic neck pain; Pain of right thigh; Right hip pain; Lumbar radiculopathy, acute Social History Tobacco Use Types Packs/Day Years [...] How often do you attend chur or christianity services? Never 02/20/2024 Do you belong to any clubs o r organizations such as voodoo groups, unions, fraternal or athletic groups, or [...] Recorded Patient Health Questionnaire-2 Score 0 12/04/2024 [facility] - Occupational Stress [...] a group home (including now)? No 11/22/2022 Housing Stability Vital Sign Answer Willam e Recorded In the last 12 months, was t here a time when you were not able to pay the mortgage or rent on time? No 02/20/2024 In the past 12 months, how m any times have you moved where you were living? 0 02/20/2024 At any time in the past 12 m [facility], were you homeless or living in a group home (including now)? No 02/20/2024 Comments No Sex and Gender Information Value Date Recorded Sex Assigned at Female 09/15/2022 9:40 AM EDT Legal Sex Female 6:35 PM EDT Gender Identity Female 09/15/2022 9:40 AM EDT Sexual Orientation Straight 09/15/2022 9: 40 AM EDT documented as of this encounter Plan of Treatment Scheduled Referrals Name Type Priority Associated Diagnoses Order Schedule Ambulatory referral to Physical Therapy Outpatient Referral Routine Chronic neck pain Pain of right thigh Right hip pain Lumbar radiculopathy, acute Expected: 12/20/2024 (Approximate), Expires: 06/19/2025 documented as of this encounter Visit Diagnoses Diagnosis Chronic neck pain Cervicalgia Pain of right thigh Right hip pain Pain in joint, pelvic region and thigh Lumbar radiculopathy, acute documented in this encounter Care Teams Foreign Broadcast Specialist Relationship Specialty Start Date End Date Scottie Issa MD [address] [facility] [address] [place] [address] PCP - General 09/15/22 Scottie Issa MD [address] [facility] [address] [place] [address] PCP - [facility] SAWDUST DRIER 07/10/23 documented as of this encounter
--- OUTSIDE RECORDS SUMMARY | 2024-12-23 10:32 | XMS_ITS | Encounter Summary ---
Author Organization [facility] Address [address] [place] [address] Care Team Providers Care Sports Team Manager Name Role Phone Scottie Issa MD Primary Care Provider [phone] Scottie Issa MD Unavailable Encounter Details Date Type Department Care Team (Late st Contact Info) Description 10/23/2024 Abstract [facility] [place] [facility] 112 [facility] 110 [place] [address] Scottie Issa MD 112 [facility] 110 [place], [place] [id number] Social History Tobacco Use Types Packs/Day Years [...] How often do you attend chur or mu-ism services? Never 02/20/2024 Do you belong to [...] Recorded Patient Health Questionnaire-2 Score 0 06/12/2024 [facility] [place] of Occupat ional Health - Occupational Stress [...] place to sleep or slept in a alf (including now)? No 11/22/2022 Housing Stability Vital Sign Answer Willam e Recorded In the last 12 months, was t here a time when you were not able to pay the mortgage or rent on time? No 02/20/2024 In the past 12 months, how m any times have you moved where you were living? 0 02/20/2024 At any time in the past 12 m [facility], were you homeless or living in a alf (including now)? No 02/20/2024 Comments No Sex [...] on filedocumented in this encounter Care Teams Sports Team Manager Relationship Specialty Start Date End Date Scottie Issa MD [address] [facility] 110 [place] [address] PCP - General 09/15/22 Scottie Issa MD 112 [facility] 110 [place] [address] PCP - [facility] [place] SOFT SUGAR CUTTER 07/10/23 documented as of this encounter
--- OUTSIDE RECORDS SUMMARY | 2024-12-23 10:32 | XMS_ITS | Clinical Summary ---
Author Organization [employer] Address [id number] [address] [place] [address] Care Team Providers Care Director Skills Name Role Phone Scottie Issa MD Primary Care Provider [phone] Allergies Active Allergy Reactions Criticality Noted Date [...] ORAL) Take by mouth. Activ e omega 7-ygq-juz-fish oil (Fish OiL) 300-1,000 mg capsule Take [...] Date Last Done Comments Depression Screening 1978 Tobacco Screening 1978 Adult BMI Screening 01/18/1984 DTaP,Tdap and Td Vaccines (1 - Tdap) 1985 Pap Smear 1987 Zoster (Shingles) Vaccine (1 of 2) 01/18/2016 COVID-19 Vaccine (2 - season) 2024 Influenza Vaccine 12/09/2024 Medical Devices Implanted Type Area Conditioning Yard Supervisor Device Identifier Shelf Expiration Date Model / Serial / Lot Graft Bn 1cc Tito Adv Primagen Rpl [id number] - [id number] - [id number] Implanted:Qty : 1 on 11/04/2021 by Jamel Mccartney MD at [facility] Graft N/A: Neck Santana Spine 05/29/2026 [id number] / [id number] / Plate Bn 35mm 2 Lvl Zevo Spne Crv Ant Ti - [id number] - [id number] Implanted:Qty : 1 on 11/04/2021 by Jamel Mccartney MD at [facility] Orthopedic Implant N/A: Neck [employer] [id number] / [id number] / Screw Bn 13mm 3.5mm Va Slf Drl Spne Crv Ant Ti Zevo - [id number] - [id number] Implanted:Qty : 4 on 11/04/2021 by Jamel Mccartney MD at [facility] Screw N/A: Neck [employer] Sofamor Dane[place] [id number] / [id number] / Screw Bn 15mm 3.5mm Va Slf Drl Spne Crv Ant Ti Zevo - [id number] - [id number] Implanted:Qty : 2 on 11/04/2021 by Jamel Mccartney MD at [facility] Screw N/A: Neck [employer] Sofamor Dane[employer] [id number] / [id number] / Spacer Implanted:Qty : 1 on 11/04/2021 by Jamel Mccartney MD at [facility] N/A: Neck [employer] 09/12/2025 [id number] / [id number] / [id number] Cage Implanted:Qty : 1 on 11/04/2021 by Jamel Mccartney MD at [facility] N/A: Neck [employer] NEUR[employer] 04/22/2029 [id number] / [id number] / [id number] Insurance [facility] MEDICAID Advance Directives * Full Code (Latest Code Status on File) Date Activated Date Inactivated Comments 11/04/2021 4:20 PM 11/05/2021 10:51 AM Care Teams Director Skills Relationship Specialty Start Date End Date Scottie Issa MD [facility] [place] [address] PCP - General Family Medicine 11/09/22
--- OUTSIDE RECORDS SUMMARY | 2024-12-23 10:32 | XMS_ITS | Encounter Summary ---
Author Organization [facility] Address [address] [place] [address] Care Team Providers Care Merchandiser Seasonal Name Role Phone Scottie Issa MD Primary Care Provider Scottie Issa MD Unavailable Reason for Visit * Reason Comments Med Refill Encounter Details Date Type Department Care Team (Late st Contact Info) Description 12/10/2024 Refill [facility] [place] [facility] 112 [facility] 110 [place] [phone] Scottie Issa MD 112 [facility] 110 [place], [place] [phone] Grief reaction Social History Tobacco Use Types Packs/Day Years [...] How often do you attend chur or lutheran services? Never 02/20/2024 Do you belong to any clubs o r organizations such as anglican groups, unions, fraternal or athletic groups, or [...] Recorded Patient Health Questionnaire-2 Score 0 12/04/2024 [facility] [place] of Occupat ional Health - Occupational Stress [...] health care facility (including now)? No 11/22/2022 Housing Stability Vital Sign Answer Willam e Recorded In the last 12 months, was t here a time when you were not able to pay the mortgage or rent on time? No 02/20/2024 In the past 12 months, how m any times have you moved where you were living? 0 02/20/2024 At any time in the past 12 m [facility], were you homeless or living in a [place] health care facility (including now)? No 02/20/2024 Comments No Sex and Gender Information Value Date Recorded Sex Assigned at Female 09/15/2022 9:40 AM EDT Legal Sex Female 6:35 PM EDT Gender Identity Female 09/15/2022 9:40 AM EDT Sexual Orientation Straight 09/15/2022 9: 40 AM EDT documented as of this encounter Plan of Treatment Not on file documented as of this encounter Visit Diagnoses Diagnosis Grief reaction Adjustment disorder with depressed mood documented in this encounter Care Teams Merchandiser Seasonal Relationship Specialty Start Date End Date Scottie Issa MD 112 [place] [facility] 110 [place] [address] PCP - General 09/15/22 Scottie Issa MD 112 [place] [facility] 110 [place] [address] PCP - [facility] BILLET HEADER 07/10/23 documented as of this encounter
--- OUTSIDE RECORDS SUMMARY | 2024-12-23 10:32 | XMS_ITS | Encounter Summary ---
Author Organization [facility] Address [address] [place] [address] Care Team Providers Care Local Tanker Truck Driver Name Role Phone Scottie Issa MD Primary Care Provider [phone] Scottie Issa MD Unavailable Encounter Details Date Type Department Care Team (Late Contact Info) Description 12/20/2024 Telephone [facility] [place] [facility] 112 [facility] 110 [place] [address] Aimee Barrios, HYDRAULIC CONTROLS TECHNICIAN 112 [facility] 110 [place], [place] [phone] Social History Tobacco Use Types Packs/Day Years [...] How often do you attend chur or denominational services? Never 02/20/2024 Do you belong to any clubs o r organizations such as confucianism groups, unions, fraternal or athletic groups, or [...] Recorded Patient Health Questionnaire-2 Score 0 12/04/2024 [facility] [place] of Occupat ional Health - Occupational Stress [...] place to sleep or slept in a senior living (including now)? No 11/22/2022 Housing Stability Vital [...] in the past 12 m [facility], were you homeless or living in a senior living (including now)? No 02/20/2024 Comments No Sex and Gender Information Value Date Recorded Sex Assigned at Female 09/15/2022 9:40 AM EDT Legal Sex Female 6:35 PM EDT Gender Identity Female 09/15/2022 9:40 AM EDT Sexual Orientation Straight 09/15/2022 9: 40 AM EDT documented as of this encounter Miscellaneous Notes * Telephone Encounter - ARELI GEE - 12/20/2024 10:46 AM EDT Error documented in this encounter Plan of Treatment Not on file documented as of this encounter Visit Diagnoses Not on filedocumented in this encounter Care Teams Local Tanker Truck Driver Relationship Specialty Start Date End Date Scottie Issa MD 112 [facility] 110 [place] [address] PCP - General 09/15/22 Scottie Issa MD 112 [place] [facility] 110 [place] [address] PCP - [facility] SENIOR CYTOTECHNOLOGIST 07/10/23 documented as of this encounter
--- OUTSIDE RECORDS SUMMARY | 2024-12-23 10:32 | XMS_ITS | Encounter Summary ---
Author Organization [facility] Address [address] [place] [address] Care Team Providers Care Security Compliance Specialist Name Role Phone Scottie Issa MD Primary Care Provider Scottie Issa MD Unavailable Encounter Details Date Type Department Care Team (Late st Contact Info) Description 08/30/2023 Abstract [facility] [place] [facility] 112 [facility] 110 [place] [address] Scottie Issa MD 112 [facility] 110 [place], [place] [phone] Social History Tobacco Use Types Packs/Day Years [...] often do you attend chur ch or hinduism services? Never 11/22/2022 Do you belong to any clubs o r organizations such as hindu groups, unions, fraternal or athletic groups, or [...] care, and heating? Not very hard 11/22/2022 [facility] of Occupat ional Health - Occupational Stress [...] place to sleep or slept in a intermediate (including now)? No 11/22/2022 Comments No Sex [...] on filedocumented in this encounter Care Teams Security Compliance Specialist Relationship Specialty Start Date End Date Scottie Issa MD [address] [facility] 110 [place] [address] PCP - General 09/15/22 Scottie Issa MD [address] [place] [address] [place] [address] PCP - [facility] FOOD PREPARATION SUPERVISOR 07/10/23 documented as of this encounter
--- OUTSIDE RECORDS SUMMARY | 2024-12-23 10:32 | XMS_ITS | Encounter Summary ---
Author Organization [facility] Address [address] [place] [address] Care Team Providers Care Media Specialist Name Role Phone Scottie Issa MD Primary Care Provider [phone] Scottie Issa MD Unavailable Encounter Details Date Type Department Care Team (Late st Contact Info) Description 01/10/2023 Orders Only [facility] [place] [facility] [address] [place] 110 [place] [phone] A, Unknown Practice [address] [place] [phone] Social History Tobacco Use Types Packs/Day Years [...] often do you attend chur ch or rastafarian services? Never 11/22/2022 Do you belong to any clubs o r organizations such as restorationist groups, unions, fraternal or athletic groups, or [...] care, and heating? Not very hard 11/22/2022 [facility] [place] of Occupat ional Health - Occupational Stress [...] a senior living (including now)? No 11/22/2022 Comments No Sex [...] on filedocumented in this encounter Care Teams Media Specialist Relationship Specialty Start Date End Date Scottie Issa MD 112 [facility] 110 [place] [address] PCP - General 09/15/22 Scottie Issa MD 112 [facility] 110 [place] [address] PCP - [facility] POT BUILDER 07/10/23 documented as of this encounter
--- OUTSIDE RECORDS SUMMARY | 2024-12-23 10:32 | XMS_ITS | Encounter Summary ---
Author Organization [facility] Address [address] [place] [address] Care Team Providers Care Toll Test Worker Name Role Phone Scottie Issa MD Primary Care Provider [phone] Scottie Issa MD Unavailable Encounter Details Date Type Department Care Team (Late st Contact Info) Description 12/20/2024 Orders Only [facility] [place] [facility] 112 [facility] 110 [place] [address] Aimee Barrios, CARBURETOR MECHANIC 112 [place] [facility] 110 [place], [place] [phone] Pain of right thigh Social History Tobacco Use Types Packs/Day Years [...] any clubs o r organizations such as moravian groups, unions, fraternal or athletic groups, or [...] Recorded Patient Health Questionnaire-2 Score 0 12/04/2024 [facility] [place] of Occupat ional Health - Occupational Stress [...] any time in the past 12 m [facility], were you homeless or living in a alf (including now)? No 02/20/2024 Comments No Sex and Gender Information Value Date Recorded Sex Assigned at Female 09/15/2022 9:40 AM EDT Legal Sex Female 6:35 PM EDT Gender Identity Female 09/15/2022 9:40 AM EDT Sexual Orientation Straight 09/15/2022 9: 40 AM EDT documented as of this encounter Plan of Treatment Scheduled Orders Name Type Priority Associated Diagnoses Orde r Schedule XR lumbar spine 2 or 3 views Imaging Routine Pain of right thigh Expected: 12/20/2024, Expires: 12/20/2025 documented as of this encounter Visit Diagnoses Diagnosis Pain of right thigh documented in this encounter Care Teams Toll Test Worker Relationship Specialty Start Date End Date Scottie Issa MD [address] [address] PCP - General 09/15/22 Scottie Issa MD [address] [address] PCP - [facility] MEDICAL DIRECTOR/HEAD TEAM PHYSICIAN 07/10/23 documented as of this encounter
--- OUTSIDE RECORDS SUMMARY | 2024-12-23 10:32 | XMS_ITS | Encounter Summary ---
Author Organization [facility] Address [address] [place] [address] Care Team Providers Care Supercharge Repair Supervisor Name Role Phone Scottie Issa MD Primary Care Provider [phone] Scottie Issa MD Unavailable Reason for Visit * Reason Comments Med Refill Encounter Details Date Type Department Care Team (Late st Contact Info) Description 12/10/2024 Refill [facility] [place] [facility] [address] [facility] [facility] 110 [place] [phone] Scottie Issa MD 112 [facility] 110 [place], [place] [phone] Polyp of colon, unspecified part of colon, unspecified type Social History Tobacco Use Types Packs/Day Years [...] How often do you attend chur or taoism services? Never 02/20/2024 Do you belong to any clubs o r organizations such as yarsanism groups, unions, fraternal or athletic groups, or [...] Recorded Patient Health Questionnaire-2 Score 0 12/04/2024 [facility] of Occupat ional Health - Occupational Stress [...] place to sleep or slept in a snf (including now)? No 11/22/2022 Housing Stability Vital Sign Answer Wilalm e Recorded In the last 12 months, was t here a time when you were not able to pay the mortgage or rent on time? No 02/20/2024 In the past 12 months, how m any times have you moved where you were living? 0 02/20/2024 At any time in the past 12 m [facility], were you homeless or living in a snf (including now)? No 02/20/2024 Comments No Sex and Gender Information Value Date Recorded Sex Assigned at Female 09/15/2022 9:40 AM EDT Legal Sex Female 6:35 PM EDT Gender Identity Female 09/15/2022 9:40 AM EDT Sexual Orientation Straight 09/15/2022 9: 40 AM EDT documented as of this encounter Plan of Treatment Not on file documented as of this encounter Visit Diagnoses Diagnosis Polyp of colon, unspecified part of colon, unspecified type documented in this encounter Care Teams Supercharge Repair Supervisor Relationship Specialty Start Date End Date Scottie Issa MD 112 [facility] 110 [place] [address] PCP - General 09/15/22 Scottie Issa MD [address] [address] PCP - [facility] EXERCISE INSTRUCTOR 07/10/23 documented as of this encounter
--- OUTSIDE RECORDS SUMMARY | 2024-12-23 10:32 | XMS_ITS | Encounter Summary ---
Author Organization [facility] Address [address] [place] [address] Care Team Providers Care Pizza Driver Name Role Phone Scottie Nash MD Primary Care Provider [phone] Scottie Nash MD Unavailable Encounter Details Date [...] often do you attend chur ch or orthodox services? Never 11/22/2022 Do you belong to any clubs o r organizations such as spiritism groups, unions, fraternal or athletic groups, or [...] care, and heating? Not very hard 11/22/2022 [facility] [place] of Occupat ional Health - Occupational Stress [...] place to sleep or slept in a care home (including now)? No 11/22/2022 Comments No [...] EDT Narrative 01/09/2023 5:40 [place] [address] XRay Report Signed Patient: EDINSON VILLEDA MR#: [id number] : 1965 Acct:[id number] Age/Sex: 57 / F ADM Date: 01/09/23 Loc: RAD Attending Dr: Justin Mcclendon D.O. Ordering Physician: Justin Mcclendon D.O. Date of Service: 01/09/23 Procedure(s): XR DEXA axial skeleton Accession Number(s): [id number] cc: SCOTTIE NASH ; Justin Mcclendon D.O. The [address] [address] Patient Name: EDINSON VILLEDA MRN: [id number] date: 1965 Sex: F Assigned Patient Location: RAD Current Patient Location: LAB Accession/Order Number: [id number] Exam Date: 01/09/2023 13:06 Report Date: 01/09/2023 [...] M.D. Signed By: 01/09/231741 DD/ 39 TD/TT: Laborer Cement Gun Placing: Procedure Note Radiology, Radiologist, MD - 01/09/[address] [address] XRay Report Signed Patient: EDINSON VILLEDA LMR#: [id number] : 1965Acct:[id number] Age/Sex: 57 / FADM Date: 01/09/23 Loc: RAD Attending Dr: Justin Mcclendon D.O. Ordering Physician: Justin Mcclendon D.O. Date of Service: 01/09/23 Procedure(s): XR DEXA axial skeleton Accession Number(s): [id number] cc: SCOTTIE NASH ; Justin Mcclendon D.O. The [place] [id number] Patient Name: EDINSON VILLEDA MRN: [id number] date: 1965 Sex: F Assigned Patient Location: [facility] Current Patient Location: LAB Accession/Order Number: [id number] Exam Date: 01/09/2023 13:06 Report Date: 01/09/2023 [...] Woodson M.D. Signed By:01/09/231741 DD/ 39 TD/TT: Laborer Cement Gun Placing: Generic External Data Provider [facility] Final Result documented in this encounter Visit Diagnoses Not on filedocumented in this encounter Care Teams Pizza Driver Relationship Specialty Start Date End Date Scottie Nash MD [address] [facility] 110 [place] [address] PCP - General 09/15/22 Scottie Nash MD [address] [facility] 110 [place] [address] PCP - [facility] [place] MANAGER BUSINESS DEVELOPMENT HOSPICE 07/10/23 documented as of this encounter
--- NOTE | 2024-12-23 10:34 | XR_ITS ---
The [place] [id number] Patient Name: EDINSON VILLEDA MRN: [id number] date: 1965 Sex: F Assigned Patient Location: [facility] Current Patient Location: [facility] Accession/Order Number: [id number] Exam Date: 12/23/2024 10:38 Report Date: 12/23/2024 11:11 At the request of: SONDRA RHODES Procedure: XR lumbar spine 2-3V LUMBAR SPINE - 2 views COMPARISON: CT 12/31/2020 CLINICAL DATA: Right back pain radiating to the thigh over the past month. No injury. AP and lateral views were obtained. Subtle dextroscoliotic curvature is noted. There is minimal retrolisthesis of L1 on L2, L2 on L3 and L3 on L4. There is minor chronic wedge deformity involving the inferior endplate of L1 and superior endplate of T12. No acute fractures are identified. There is disc space narrowing at the lumbosacral junction. Mild endplate spurring is visualized throughout. There are Schmorl's nodes at L1-2. Facet hypertrophy is seen. The SI joints show show mild sclerosis. No paraspinal soft tissue abnormalities are identified. XR/XR lumbar spine 2-3V IMPRESSION: DEGENERATIVE CHANGES. NO ACUTE BONY FINDINGS. Impression dictated by: Tami Parra M.D. 12/23/2024 11:11 AM Dictation Location: [place] [address] Electronically authenticated by: [id number] Y Date: 12/23/2024 11:11
--- OUTSIDE RECORDS SUMMARY | 2024-12-23 10:45 | XMS_ITS | CCD ---
Author Organization [facility] Care Team Providers Care Surgical Aides Teacher Name Role Phone NOÉ ., DR BECKER [...] Nash MD Unavailable SONDRA BARRIOS Attending Unavailable JOJO VALERIO Attending Unavailable SCOTTIE NASH Attending Unavailable TAMI TROY Attending Unavailable JOJO VALERIO Referring Unavailable SONDRA BARRIOS Attending Unavailable Allergies Allergy Classification Reported Allergen(s) Allergy Type Date of Onset Reaction(s) Facility (1 source) Penicillins Drug allergy (disorder) 02-17-2014 [facility] Repository (15 sources) Penicillin G Drug Allergy 10-24-2022 [facility] Medications Current Medications Medication Drug Class(es) Dates Sig (Normalized) Sig (Original) ALPRAZolam 0.5 mg oral tablet (19 sources) Benzodiazepine Start: 4 End: 5 take 1 tablet by mouth once ALPRAZolam (Xanax) 0.5 MG tablet Indications: Adjustment disorder with depressed mood Take 1 tablet (0.5 mg) by mouth every 12 (twelve) hours if needed for anxiety 60 tablet 06/12/2024 Active atorvastatin 20 mg oral tablet (15 sources) HMG-CoA Reductase Inhibitor Start: 5 take 1 tablet by mouth once daily in the morning atorvastatin (Lipitor) 20 MG tablet Indications: Hypertriglyceridemia TAKE ONE TABLET BY MOUTH ONCE DAILY IN THE MORNING 100 tablet 3 04/12/2024 Active Start: 02-20-2023 take 1 tablet by zain th in the morning atorvastatin (Lipitor) 20 MG tablet Indications: Hypertriglyceridemia (CMS/HCC) Take 1 tablet (20 mg) by mouth in the morning. 100 tablet 3 02/20/2023 Active busPIRone hydrochloride 10 mg oral tablet (16 sources) Start: 10-30-2024 take 1 tablet by mouth twice daily as needed for anxiety busPIRone (Buspar) 10 MG tablet Indications: Grief reaction TAKE 1 TABLET (10 MG) BY MOUTH 2 (TWO) TIMES A DAY NEEDED (ANXIETY) 60 tablet 10/30/2024 Active Start: 03-28-2024 End: 10-02-2024 take 1 tablet by mouth twice daily as needed for anxiety busPIRone (Buspar) 10 MG tablet Indications: Grief reaction Take 1 tablet (10 mg) by mouth 2 (two) times a day as needed (Anxiety) 60 tablet 2 06/12/2024 10/02/2024 Discontinued cholecalciferol 0.025 mg oral tablet (15 sources) Vitamin D Start: 09-23-2024 take 1 tablet by mouth once daily cholecalciferol (Vitamin D3) 25 MCG (1000 UT) tablet Indications: Vitamin D deficiency Take 1 tablet (25 mcg) by mouth Daily 100 tablet 09/23/2024 Active Start: 06-13-2024 take 1 tablet by zain th once [...] Active cyclobenzaprine hydrochloride 10 mg oral tablet (17 sources) Muscle Relaxant Start: 12-04-2024 take 1 tablet by mouth every eight hours for muscle spasms cyclobenzaprine (Flexeril) 10 MG tablet Indications: Right hip pain Take 1 tablet (10 mg) by mouth every 8 (eight) hours if needed for muscle spasms 90 tablet 3 12/04/2024 Active Start: 12-04-2024 take 1 tablet by zain th every eight hours for muscle spasms cyclobenzaprine (Flexeril) 10 MG tablet Indications: Right hip pain Take 1 tablet (10 mg) by mouth every 8 (eight) hours if needed for muscle spasms 90 tablet 3 12/04/2024 Active Start: 08-28-2023 End: 12-04-2024 take 1 tablet by mouth every eight hours for muscle spasms cyclobenzaprine (Flexeril) 10 MG tablet Indications: Right hip pain Take 1 tablet (10 mg) by mouth every 8 (eight) hours if needed for muscle spasms 90 tablet 3 08/28/2023 12/04/2024 Discontinued (Reorder) docosahexaenoic acid 120 mg / eicosapentaenoic acid 180 mg oral capsule (15 sources) Start: 03-18-2024 take 2 capsules by [...] 01/16/2024 Active ibuprofen 800 mg oral tablet (17 sources) Nonsteroidal Anti-inflammatory Drug Start: 12-04-2024 take 1 tablet by mouth every eight hours ibuprofen (IBU) 800 MG tablet Indications: Chronic neck pain Take 1 tablet (800 mg) by mouth every 8 (eight) hours 300 tablet 12/04/2024 Active Start: 12-04-2024 take 1 tablet by zain th every eight hours ibuprofen (IBU) 800 MG tablet Indications: Chronic neck pain Take 1 tablet (800 mg) by mouth every 8 (eight) hours 300 tablet 12/04/2024 Active Start: 08-28-2023 End: 12-04-2024 take 1 tablet by mouth every eight hours ibuprofen (IBU) 800 MG tablet Indications: Chronic neck pain Take 1 tablet (800 mg) by mouth every 8 (eight) hours 300 tablet 08/28/2023 12/04/2024 Discontinued (Reorder) Multiple Vitamins-Minerals (Multivitamin Women 50+) tablet (15 sources) Start: 06-03-2024 take 1 tablet by [...] 30 DAYS 30 tablet 10 05/22/2023 Active [place]kon[place]-3 Fatty Acids (Fish Oil) 1000 MG capsule delayed-release (2 sources) Start: 01-18-2023 End: 02-27-2024 take 2 capsules by mouth in the morning [place]-3 Fatty Acids (Fish Oil) 1000 MG capsule delayed-release Indications: Hypertriglyceridemia (CMS/HCC) Take 2 capsules by mouth in the morning and 2 capsules before bedtime. 120 capsule 11 01/18/2023 02/27/2024 Discontinued (Other) predniSONE 10 mg oral tablet (2 sources) Start: 12-04-2024 End: 12-20-2024 take 4 tablets by mouth once daily, then take 3 tablets by mouth once daily, then take 2 tablets by mouth once daily, then take 1 tablet by mouth once daily predniSONE (Deltasone) 10 MG tablet Indications: Lumbar radiculopathy, acute , Pain of right thigh Take 4 tablets (40 mg) by mouth Daily for 4 days, THEN 3 tablets (30 mg) Daily for 4 days, THEN 2 tablets (20 mg) Daily for 4 days, THEN 1 tablet (10 mg) Daily for 4 days. 40 tablet 12/04/2024 12/20/2024 Active traZODone hydrochloride 50 mg oral tablet (15 sources) Serotonin Reuptake Inhibitor Start: 10-30-2024 take 0.5-1 tablets by mouth at bedtime traZODone (Desyrel) 50 MG tablet Indications: Trouble in sleeping TAKE 1/2 TO 1 TABLET BY MOUTH AT BEDTIME 30 tablet 2 10/30/2024 Active Start: 03-28-2024 End: 06-12-2024 take 0.5-1 tablets by mouth at bedtime traZODone (Desyrel) 50 MG tablet Indications: Trouble in sleeping Take 0.5-1 tablets (25-50 mg) by mouth at bedtime 30 tablet 2 06/12/2024 Active Completed/Discontinued Medications Medication Drug Class(es) Dates Sig (Normalized) Sig (Original) 2 ml ketorolac tromethamine 30 mg/ml cartridge (4 sources) Nonsteroidal Anti-inflammatory Drug, Cyclooxygenase Inhibitor Start: 10-01-2024 End: 10-01-2024 60 mg, Intramuscular, Once, On Mon10/01/24 at 1200, For 1 dose, Max daily dose: 120 mg. Max duration: 5 days total Start: 10-01-2024 End: 10-01-2024 ketorolac (Toradol) injectio n 60 mg Start: 10-01-2024 End: 10-01-2024 60 mg, Intramuscular, Once, On Mon10/01/24 at 1200, For 1 dose, Max daily dose: 120 mg. Max duration: 5 days total Start: 10-01-2024 End: 10-01-2024 ketorolac (Toradol) injectio n 60 mg Problems Active Problems Problem Classification Problem Date Documented Date Episodic/Chronic Adjustment disorders (20 sources) Adjustment disorder with depressed mood; Translations: [Adjustment disorder with depressed mood] Onset: 10-24-2022 02-27-2024 Chronic Anxiety disorders (17 sources) Anxiety; Translations: [Anxiety disorder, unspecified] Onset: 11-04-2021 02-27-2024 Chronic Cataract (15 sources) Incipient senile cataract; Translations: [Other age-related incipient cataract, bilateral] Onset: 10-24-2022 10-24-2022 Chronic Deficiency and other anemia (15 sources) Hemoglobinopathy; Translations: [Other hemoglobinopathies] Onset: 10-24-2022 10-24-2022 Chronic Diseases of white blood cells (15 sources) Leukocytosis; Translations: [Elevated white blood cell count, unspecified] Onset: 10-24-2022 10-24-2022 Chronic Disorders of lipid metabolism (17 sources) Hypertriglyceridemia; Translations: [Pure hyperglyceridemia] Onset: 10-24-2022 3 Chronic E Codes: Fall (2 sources) Fall; Translations: [Unspecified fall, initial encounter] 10-01-2024 Episodic Essential hypertension (17 sources) Benign essential hypertension; Translations: [Essential (primary) hypertension] Onset: 08-28-2023 02-27-2024 Chronic Neoplasms of unspecified nature or uncertain behavior (19 sources) Polycythemia vera (clinical); Translations: [Polycythemia vera] Onset: 10-24-2022 02-27-2024 Chronic Nutritional deficiencies (17 sources) Vitamin D deficiency; Translations: [Vitamin D deficiency, unspecified] Onset: 10-24-2022 10-24-2022 Chronic Other connective tissue disease (4 sources) Pain of right thigh; Translations: [Pain in right thigh] 12-04-2024 Episodic Other inflammatory condition of skin (15 sources) Rosacea; Translations: [Rosacea, unspecified] Onset: 10-24-2022 10-24-2022 Chronic Other lower respiratory disease (2 sources) Rib pain; Translations: [Pleurodynia] 10-01-2024 Episodic Other non-traumatic joint disorders (17 sources) Hip pain; Translations: [Pain in right hip] Onset: 11-29-2022 11-29-2022 Episodic Other nutritional; endocrine; and metabolic disorders (15 sources) Hemochromatosis; Translations: [Hemochromatosis, unspecified] Onset: 10-24-2022 10-24-2022 Chronic Other nutritional; endocrine; and metabolic disorders (15 sources) Cholesterol level - finding; Translations: [Lipoprotein deficiency] Onset: 10-24-2022 10-24-2022 Chronic Other nutritional; endocrine; and metabolic disorders (15 sources) Lipoprotein deficiency disorder; Translations: [Lipoprotein deficiency] [...] Onset: 09-14-2021 Episodic Peripheral and visceral atherosclerosis (17 sources) Atherosclerosis of aorta; Translations: [Atherosclerosis of aorta] Onset: 02-27-2024 02-27-2024 Chronic Residual codes; unclassified (17 sources) Obstructive sleep apnea syndrome; Translations: [Obstructive [...] Spondylosis; intervertebral disc disorders; other back problems (20 sources) Cervical spondylosis; Translations: [Spondylosis without myelopathy or radiculopathy, cervical region] Onset: 10-24-2022 10-24-2022 Chronic Spondylosis; intervertebral disc disorders; other back problems (20 sources) Chronic neck pain; Translations: [Cervicalgia] Onset: 11-04-2021 11-29-2022 Episodic Substance-related disorders (17 sources) Cigarette smoker ; Translations: [Nicotine dependence, cigarettes, uncomplicated] Onset: 10-24-2022 02-27-2024 Chronic Superficial injury; contusion (2 sources) Contusion of right front wall of thorax, initial encounter; Translations: [Contusion of chest wall] 10-01-2024 Episodic Thyroid disorders (17 sources) Acquired hypothyroidism; Translations: [Hypothyroidism, unspecified] Onset: 10-24-2022 10-24-2022 Chronic Past or Other Problems Problem Classification Problem Date Documented Date Episodic/Chronic Coma; stupor; and brain damage (15 sources) Daytime somnolence; Translations: [Somnolence] Onset: 11-29-2022 11-29-2022 Episodic Immunizations and screening for infectious disease (1 source) Encounter for screening for human papillomavirus (HPV); Translations: [ENC SCREENING HUMAN PAPILLOMAVIRUS] Onset: 09-17-2021 Episodic Malaise and fatigue (17 sources) Fatigue; Translations: [Other fatigue] Onset: 11-29-2022 11-29-2022 Episodic Other and unspecified benign neoplasm (15 sources) Polyp of colon; Translations: [Polyp of colon] Onset: 10-24-2022 10-24-2022 Episodic Other and unspecified benign neoplasm (15 sources) Benign neoplasm of colon; Translations: [Benign neoplasm of colon, unspecified] Onset: 02-18-2016 11-29-2022 Episodic Residual codes; unclassified (15 sources) Tobacco use and exposure - finding; Translations: [Tobacco use] Onset: 11-04-2021 Resolved: 11-21-2023 11-21-2023 Episodic Results Test Name Value Interpretation Reference Range Facility XR RIBS 2 VIEWS RIGHT WITH C HEST ANTEROPOSTERIORon 10-01-2024 XR RIBS 2 VIEWS RIGHT WITH CHEST ANTEROPOSTERIOR TITLE OF EXAM: XR RIBS 2 VIEWS [...] signed and approved by the interpreting radiologist. Normal Not Available XR Ribs Views and Chest PAon 10-01-2024 TITLE OF EXAM: XR RIBS 2 VIEWS [...] signed and approved by the interpreting radiologist. IMAGING Abdon Duarte MD - 10/01/2024 TITLE OF [...] signed and approved by the interpreting radiologist. [facility] Radiology Study observation (narrative) [facility] XR Ribs Views and Chest PAOr dered By: Abdon Duarte on 10-01-2024 [facility] [employer] Work Phone: MM TOMOSYNTHESIS SCREENING B Ion 09-11-2024 [place] [address] Mammography Report Signed Patient: ANA CUENCA MR#: [id number] : 1965 Acct:[id number] Age/Sex: 59 / F ADM Date: 09/11/24 Loc: MAMMO Attending Dr: SCOTTIE NASH Ordering Physician: SCOTTIE NASH Results: Date of Service: 09/11/24 Follow Up: Procedure(s): MM tomosynthesis screening BI Accession Number(s): [id number] cc: SCOTTIE NASH Patient Name: ANA CUENCA MR#: [id number] : 1965 Exam Date: 09/11/2024 Ordering Doctor: [...] carcinoma cancer at age 51. LOCATION: [facility] BREAST COMPOSITION: The breasts are heterogeneously [...] Signed By: 09/11/24 1303 DD/ 1303 TD/TT: Recordings Librarian: [facility] Radiology, Radiologist, MD - 09/11/2024 [place] [address] Mammography Report Signed Patient: ANA CUENCA MR#: [id number] : 1965 Acct:[id number] Age/Sex: 59 / F ADM Date: 09/11/24 Loc: MAMMO Attending Dr: SCOTTIE NASH Ordering Physician: SCOTTIE NASH Results: Date of Service: 09/11/24 Follow Up: Procedure(s): MM tomosynthesis screening BI Accession Number(s): [id number] cc: SCOTTIE NASH Patient Name: ANA CUENCA MR#: [id number] : 1965 Exam Date: 09/11/2024 Ordering Doctor: [...] carcinoma cancer at age 51. LOCATION: [facility] BREAST COMPOSITION: The breasts are heterogeneously [...] Signed By: 09/11/24 1303 DD/ 1303 TD/TT: Recordings Librarian: [facility] Radiology Study observation (narrative) [facility] MM TOMOSYNTHESIS SCREENING B IOrdered By: Radiologist Radiology on 09-11-2024 [facility] Work Phone: ALL CBC WITH AUTO DIFFon BASOPHILS ABSOLUTE AUTO 0 [facility] Basophils/100 WBC (Bld) 0.5 % 0.2 - 2.0 % [facility] Eosinophils/100 WBC (Bld) 3.4 % 0.9 - 7.0 % [facility] Erythrocyte distribution width (RBC) [Ratio] 13.2 % 11.0 - 15.0 % [facility] Hematocrit (Bld) [Volume fraction] 45.7 % 36.0 - 48.0 % [facility] Hemoglobin (Bld) [Mass/Vol] 15.3 g/dL 12.0 - 16.0 g/dL [facility] IMMATURE GRANULOCYTES ABS AUTO 0.02 [facility] Immature granulocytes/100 WBC (Bld) 0.3 % 0.0 - 0.5 % [facility] LYMPHOCYTES ABSOLUTE AUTO 2.1 [facility] Lymphocytes/100 WBC (Bld) 27.1 % 20.5 - 60.0 % [facility] MCH (RBC) [Entitic mass] 31.5 pg 26.7 - 34.0 pg [facility] MCHC (RBC) [Mass/Vol] 33.5 g/dL 29.9 - 35.2 g/dL [facility] MCV (RBC) [Entitic vol] 94.2 fL 81.0 - 99.0 fL [facility] MONOCYTES ABSOLUTE AUTO 0.5 [facility] Monocytes/100 WBC (Bld) 6.6 % 1.7 - 12.0 % [facility] NEUTROPHILS ABSOLUTE AUTO 4.8 [facility] Neutrophils/100 WBC (Bld) 62.1 % 43.0 - 75.0 % [facility] Platelet mean volume (Bld) [Entitic vol] 10 fL 9.5 - 13.5 fL [facility] TBH EO # 0.3 [facility] PLT 181 [facility] TB RBC 4.85 [facility] TB WBC 7.7 [facility] MG MAMM SCREEN 3D NEIL CADon 07-20-2022 MG MAMM SCREEN 3D NEIL CAD Patient: ANA CUENCA Exam Date: 07/20/2022 : 1965 Gender:F Ordering : DR ROSITA UMANZOR . Admission #: [id number] Family : Order #: [id number] CLICK HERE TO VIEW EXAM RADIOLOGY REPORT [...] carcinoma cancer at age 51. LOCATION: [facility] BREAST COMPOSITION: Heterogeneously dense,which may [...] Erik Urban M.D. on 07/20/2022 at 13:12 [facility] PAP ACOG PANEL 2: 30 to 65on 09-17-2021 . . Normal [facility] Comment on above: Result Comment: Perf ormed at: WB Performed By: #### [id number] #### [facility] [address] [address] [address] Jose Alejandro Jim Age Gdln ACOG Testing 30-65 [facility] Comment on above: Performed By: #### [id number] #### [facility] [address] [address] [address] Jose Alejandro Jim DIAGNOSIS: Comment Normal [facility] Comment on above: Result Comment: NEGA TIVE FOR INTRAEPITHELIAL LESION OR MALIGNANCY. Performed at: WB Performed By: #### [id number] #### [facility] [address] [address] [address] Jose Alejandro Jim HPV Aptima Negative Normal Negative [facility] Comment on above: Result Comment: This nucleic acid amplification test detects fourteen high-risk HPV types (16,18,31,33,35,39,45,51,52,56,58,59,66,68) without differentiation. Performed at: =G Performed By: #### [id number] #### [facility] [address] [address] [address] Jose Alejandro Jim Methodology: Comment Normal [facility] Comment on above: Result Comment: This liquid based ThinPrep(R) pap test was screened with the use of an image guided system. Performed at: WB Performed By: #### [id number] #### [facility] [address] [place] [address] Dr. Jose Alejandro Jim Note: Comment Normal [facility] Comment on above: Result Comment: The Pap smear is a screening test designed to aid in the detection of premalignant and malignant conditions of the uterine cervix. It is not a diagnostic procedure and should not be used as the sole means of detecting cervical cancer. Both false-positive and false-negative reports do occur. . Performed at: WB Performed By: #### [id number] #### [facility] [address] [place] [address] Dr. Jose Alejandro Jim Performed by: Comment Normal [facility] Comment on above: Result Comment: Wen López, Manager Mac (ASCP) Performed at: WB Performed By: #### [id number] #### [facility] [address] [place] [address] Dr. Jose Alejandro Jim Specimen adequacy: Comment Normal [facility] Comment on above: Result Comment: Sati sfactory for evaluation. Endocervical and/or squamous metaplastic cells (endocervical component) are present. Performed at: WB Performed By: #### [id number] #### [facility] [address] [place] [address] Dr. Jose Alejandro Jim Complete Blood Count with Au to Diffon 07-08-2021 BASOABS 62 cells/uL Normal 0-200 [facility] Improvement Advisor Comment on above: Order Comment: [facility] Testing performed at: [employer] [facility], [address] [place] [address], [address] [place] [address], [phone], Avionics Systems Engineer: Breezy Kumar MD [facility] Date/Time: [facility] Results Received Date/Time: [facility] Reported Date/Time: Performed By: #### L IPD, TSH reflex FT4, VITD, CBCAD, CMP #### [facility] Default [address] [place] [address] Basophils/100 WBC (Bld) 0.7 % Normal [facility] Specialist Comment on above: Order Comment: [facility] Testing performed at: [employer] [facility], [address] [facility], [address] [place] [address], [id number], Avionics Systems Engineer: Breezy Kumar MD [facility] Date/Time: [facility] Results Received Date/Time: [facility] Reported Date/Time: Performed By: #### L IPD, TSH reflex FT4, VITD, CBCAD, CMP #### [facility] [address] [place] [address] EOSABS 211 cells/uL Normal 15-500 [facility] Specialist Comment on above: Order Comment: [facility] performed at: [employer], [employer] [facility], [address] [facility], [address] [place] [address], [address] [place] [address], Avionics Systems Engineer: Breezy Kumar MD [facility] Date/Time: [facility] Results Received Date/Time: [facility] Reported Date/Time: Performed By: #### L IPD, TSH reflex FT4, VITD, CBCAD, CMP #### [facility] Default [address] [place] [address] Eosinophils/100 WBC (Bld) 2.4 % Normal [facility] Specialist Comment on above: Order Comment: [facility] performed at: [employer], Delivery Agent [facility], [address] [facility], [address] [place] [address], [address] [place] [address], Avionics Systems Engineer: Breezy Kumar MD [facility] Date/Time: [facility] Results Received Date/Time: [facility] Reported Date/Time: Performed By: #### L IPD, TSH reflex FT4, VITD, CBCAD, CMP #### [facility] Default [address] [place] [address] Erythrocyte distribution width (RBC) [Ratio] 12.4 % Normal 11.0-15.0 [facility] Specialist Comment on above: Order Comment: [facility] performed at: [employer], [employer] Agent [facility], [address] [place] [address], [address] [place] [address], [address] [place] [address], Avionics Systems Engineer: Breezy Kumra MD [facility] Date/Time: [facility] Results Received Date/Time: [facility] Reported Date/Time: Performed By: #### L IPD, TSH reflex FT4, VITD, CBCAD, CMP #### [facility] Default [address] [place] [address] Hematocrit (Bld) [Volume fraction] 48.8 % High 35.0-45.0 [facility] Improvement Advisor Comment on above: Order Comment: [facility] performed at: [employer], Delivery Agent [facility], [address] [place] [address], [address] [place] [address], [address] [place] [address], Avionics Systems Engineer: Breezy Kumar MD [facility] Date/Time: [facility] Results Received Date/Time: [facility] Reported Date/Time: Performed By: #### L IPD, TSH reflex FT4, VITD, CBCAD, CMP #### [facility] Default [address] [place] [address] Hemoglobin (Bld) [Mass/Vol] 16.8 g/dL High 11.7-15.5 [facility] Improvement Advisor Comment on above: Order Comment: [facility] performed at: [employer], Delivery Agent [facility], [address] [place] [address], [address] [place] [address], [address] [place] [address], Avionics Systems Engineer: Breezy Kumar MD [facility] Date/Time: [facility] Results Received Date/Time: [facility] Reported Date/Time: Performed By: #### L IPD, TSH reflex FT4, VITD, CBCAD, CMP #### [facility] Default [address] [place] [address] Lymphocytes (Bld) [#/Vol] 2.561 10*3/uL Normal 850-3900 [facility] Improvement Advisor Comment on above: Order Comment: [facility] performed at: [employer], Delivery Agent [facility], [address] [place] [address], [address] [place] [address], [address] [place] [address], Avionics Systems Engineer: Breezy Kumar MD [facility] Date/Time: [facility] Results Received Date/Time: [facility] Reported Date/Time: Performed By: #### L IPD, TSH reflex FT4, VITD, CBCAD, CMP #### [facility] Default [address] [place] [address] Lymphocytes/100 WBC (Bld) 29.1 % Normal [facility] Specialist Comment on above: Order Comment: [facility] performed at: [employer], Delivery Agent [facility], [address] [place] [address], [address] [place] [address], [address] [place] [address], Avionics Systems Engineer: Breezy Kumar MD [facility] Date/Time: [facility] Results Received Date/Time: [facility] Reported Date/Time: Performed By: #### L IPD, TSH reflex FT4, VITD, CBCAD, CMP #### [facility] Default [address] [place] [address] MCH (RBC) [Entitic mass] 31.2 pg Normal 27.0-33.0 [facility] Specialist Comment on above: Order Comment: [facility] performed at: [employer], Delivery Agent [facility], [address] [place] [address], [address] [place] [address], [address] [place] [address], Avionics Systems Engineer: Breezy Kumar MD [facility] Date/Time: [facility] Results Received Date/Time: [facility] Reported Date/Time: Performed By: #### L IPD, TSH reflex FT4, VITD, CBCAD, CMP #### [facility] Default [address] [facility] [place] [address] MCHC (RBC) [Mass/Vol] 34.4 g/dL Normal 32.0-36.0 [facility] Comment on above: Order Comment: [facility] performed at: [employer], Delivery Agent [facility], [address] [place] [address], [address] [place] [address], [address] [place] [address], Avionics Systems Engineer: Breezy Kumar MD [facility] Date/Time: [facility] Results Received Date/Time: [facility] Reported Date/Time: Performed By: #### L IPD, TSH reflex FT4, VITD, CBCAD, CMP #### [facility] Default [address] [place] [address] MCV (RBC) [Entitic vol] 90.5 fL Normal 80.0-100.0 [facility] Specialist Comment on above: Order Comment: [facility] performed at: [employer], Delivery Agent [facility], [address] [place] [address], [address] [place] [address], [address] [place] [address], Avionics Systems Engineer: Breezy Kumar MD [facility] Collection Date/Time: [facility] Results Received Date/Time: [facility] Reported Date/Time: Performed By: #### L IPD, TSH reflex FT4, VITD, CBCAD, CMP #### [facility] Default [address] [place] [address] MONOABS 616 cells/uL Normal 200-950 [facility] Comment on above: Order Comment: [facility] performed at: [employer], Delivery Agent [facility], [address] [place] [address], [address] [place] [address], [address] [place] [address], Avionics Systems Engineer: Breezy Kumar MD [facility] Date/Time: [facility] Results Received Date/Time: [facility] Reported Date/Time: Performed By: #### L IPD, TSH reflex FT4, VITD, CBCAD, CMP #### [facility] Default [address] [place] [address] Monocytes/100 WBC (Bld) 7.0 % Normal [facility] Specialist Comment on above: Order Comment: [facility] performed at: [employer] [facility], [address] [place] [address], [address] [place] [address], [address] [place] [address], Avionics Systems Engineer: Breezy Kumar MD [facility] Date/Time: [facility] Results Received Date/Time: [facility] Reported Date/Time: Performed By: #### L IPD, TSH reflex FT4, VITD, CBCAD, CMP #### [facility] [address] [place] [address] Neutrophils (Bld) [#/Vol] 5.35 10*3/uL Normal 4444-0833 [facility] Specialist Comment on above: Order Comment: [facility] performed at: [employer] [facility], [address] [place] [address], [address] [place] [address], [address] [place] [address], Avionics Systems Engineer: Breezy Kumar MD [facility] Date/Time: [facility] Results Received Date/Time: [facility] Reported Date/Time: Performed By: #### L IPD, TSH reflex FT4, VITD, CBCAD, CMP #### [facility] [address] [place] [address] Neutrophils/100 WBC (Bld) 60.8 % Normal [facility] Improvement Advisor Comment on above: Order Comment: [facility] performed at: [employer] [facility], [address] [place] [address], [address] [place] [address], [address] [place] [address], Avionics Systems Engineer: Breezy Kumar MD [facility] Date/Time: [facility] Results Received Date/Time: [facility] Reported Date/Time: Performed By: #### L IPD, TSH reflex FT4, VITD, CBCAD, CMP #### [facility] [address] [place] [address] Platelet mean volume (Bld) [Entitic vol] 10.7 fL Normal 7.5-12.5 [facility] Improvement Advisor Comment on above: Order Comment: [facility] performed at: [employer] [facility], [address] [place] [address], [address] [place] [address], [phone], Avionics Systems Engineer: Breezy Kumar MD [facility] Date/Time: [facility] Results Received Date/Time: [facility] Reported Date/Time: Performed By: #### L IPD, TSH reflex FT4, VITD, CBCAD, CMP #### [facility] [address] [place] [address] Platelets (Bld) [#/Vol] 234 10*3/uL Normal 140-400 [facility] Improvement Advisor Comment on above: Order Comment: [facility] performed at: [employer], Delivery Agent [facility], [address] [facility], [address] [place] [address], [address] [place] [address], Avionics Systems Engineer: Breezy Kumar MD [facility] Date/Time: [facility] Results Received Date/Time: [facility] Reported Date/Time: Performed By: #### L IPD, TSH reflex FT4, VITD, CBCAD, CMP #### [facility] [address] [place] [address] RBC (Bld) [#/Vol] 5.39 10*6/uL High 3.80-5.10 Mandeep herrera [place] Improvement Advisor Comment on above: Order Comment: [facility] performed at: [employer], Delivery Agent [facility], [address] [place] [address], [address] [place] [address], [address] [place] [address], Avionics Systems Engineer: Breezy Kumar MD [facility] Date/Time: [facility] Results Received Date/Time: [facility] Reported Date/Time: Performed By: #### L IPD, TSH reflex FT4, VITD, CBCAD, CMP #### [facility] [address] [place] [address] WBC (Bld) [#/Vol] 8.8 10*3/uL Normal 3.8-10.8 Rodrick lipscomb [place] Improvement Advisor Comment on above: Order Comment: [facility] performed at: [employer], Delivery Agent [facility], [address] [place] [address], [address] [place] [address], [address] [place] [address], Avionics Systems Engineer: Breezy Kumar MD [facility] Date/Time: [facility] Results Received Date/Time: [facility] Reported Date/Time: Performed By: #### L IPD, TSH reflex FT4, VITD, CBCAD, CMP #### [facility] [address] [place] [address] Comprehensive Metabolic Pane tom 07-08-2021 Albumin [Mass/Vol] 4.6 g/dL Normal 3.6-5.1 Rodrick lipscomb [place] Improvement Advisor Comment on above: Order Comment: [facility] performed at: [employer], Delivery Agent [facility], [address] [place] [address], [address] [place] [address], [address] [place] [address], Avionics Systems Engineer: Breezy Kumar MD [facility] Date/Time: [facility] Results Received Date/Time: [facility] Reported Date/Time: Performed By: #### L IPD, TSH reflex FT4, VITD, CBCAD, CMP #### [facility] Default [address] [place] [address] Albumin/Globulin [Mass ratio] 1.6 {ratio} Normal 1.0-2.5 [facility] Improvement Advisor Comment on above: Order Comment: [facility] performed at: [employer], Delivery Agent [facility], [address] [place] [address], [address] [place] [address], [address] [place] [address], Avionics Systems Engineer: Breezy Kumar MD [facility] Date/Time: [facility] Results Received Date/Time: [facility] Reported Date/Time: Performed By: #### L IPD, TSH reflex FT4, VITD, CBCAD, CMP #### [facility] [address] [place] [address] ALP [Catalytic activity/Vol] 92 U/L Normal 37-153 [facility] Improvement Advisor Comment on above: Order Comment: [facility] performed at: [employer], Delivery Agent [facility], [address] [place] [address], [address] [place] [address], [address] [place] [address], Avionics Systems Engineer: Breezy Kumar MD [facility] Date/Time: [facility] Results Received Date/Time: [facility] Reported Date/Time: Performed By: #### L IPD, TSH reflex FT4, VITD, CBCAD, CMP #### [facility] [address] [place] [address] ALT [Catalytic activity/Vol] 12 U/L Normal 6-29 [facility] Improvement Advisor Comment on above: Order Comment: [facility] performed at: [employer], [facility], [address] [place] [address], [address] [place] [address], [address] [place] [address], Avionics Systems Engineer: Breezy Kumar MD [facility] Date/Time: [facility] Results Received Date/Time: [facility] Reported Date/Time: Performed By: #### L IPD, TSH reflex FT4, VITD, CBCAD, CMP #### [facility] Default [address] [place] [address] Anion gap [Moles/Vol] 12 mmol/L Normal 12-20 [facility] Comment on above: Order Comment: [facility] performed at: [facility], Delivery Agent [facility], [address] [place] [address], [address] [place] [address], Avionics Systems Engineer: Breezy Kumar MD [facility] Date/Time: [facility] Results Received Date/Time: [facility] Reported Date/Time: Result Comment: Effe ctive 04/15/2019 reference range changed. Performed By: #### L IPD, TSH reflex FT4, VITD, CBCAD, CMP #### [facility] Default [address] [place] [address] AST [Catalytic activity/Vol] 14 U/L Normal 10-35 [facility] Specialist Comment on above: Order Comment: [facility] performed at: [facility], Delivery Agent [facility], [address] [place] [address], [address] [place] [address], [address] [place] [address], Avionics Systems Engineer: Breezy Kumar MD [facility] Date/Time: [facility] Results Received Date/Time: [facility] Reported Date/Time: Performed By: #### L IPD, TSH reflex FT4, VITD, CBCAD, CMP #### [facility] Default [address] [place] [address] Bilirubin [Mass/Vol] 0.7 mg/dL Normal 0.2-1.2 [facility] Specialist Comment on above: Order Comment: [facility] performed at: [employer], Delivery Agent [facility], [address] [place] [address], [address] [place] [address], [address] [place] [address], Avionics Systems Engineer: Breezy Kumar MD [facility] Date/Time: [facility] Results Received Date/Time: [facility] Reported Date/Time: Performed By: #### L IPD, TSH reflex FT4, VITD, CBCAD, CMP #### [facility] [address] [place] [address] BUN/CREA 14 NOT APPLICABLE Normal 6-22 Mandeep melvi [place] Improvement Advisor Comment on above: Order Comment: [facility] performed at: [employer], Delivery Agent [facility], [address] [place] [address], [address] [place] [address], [address] [place] [address], Avionics Systems Engineer: Breezy Kumar MD [facility] Date/Time: [facility] Results Received Date/Time: [facility] Reported Date/Time: Performed By: #### L IPD, TSH reflex FT4, VITD, CBCAD, CMP #### [facility] Default [address] [place] [address] Calcium [Mass/Vol] 10.1 mg/dL Normal 8.6-10.4 Rodrick lipscomb [place] Improvement Advisor Comment on above: Order Comment: [facility] performed at: [employer] [facility], [address] [place] [address], [address] [place] [address], [address] [place] [address], Avionics Systems Engineer: Breezy Kumar MD [facility] Date/Time: [facility] Results Received Date/Time: [facility] Reported Date/Time: Performed By: #### L IPD, TSH reflex FT4, VITD, CBCAD, CMP #### [facility] Default [address] [place] [address] Chloride [Moles/Vol] 106 mmol/L Normal 98-110 Talat nguyen [place] Improvement Advisor Comment on above: Order Comment: [facility] performed at: [employer], Delivery Agent [facility], [address] [place] [address], [address] [place] [address], [address] [place] [address], Avionics Systems Engineer: Breezy Kumar MD [facility] Date/Time: [facility] Results Received Date/Time: [facility] Reported Date/Time: Performed By: #### L IPD, TSH reflex FT4, VITD, CBCAD, CMP #### [facility] Default [address] [place] [address] CO2 [Moles/Vol] 28 mmol/L Normal 20-32 [facility] Improvement Advisor Comment on above: Order Comment: [facility] performed at: [employer], Delivery Agent [facility], [address] [place] [address], [address] [place] [address], [phone], Avionics Systems Engineer: Breezy Kumar MD [facility] Date/Time: [facility] Results Received Date/Time: [facility] Reported Date/Time: Performed By: #### L IPD, TSH reflex FT4, VITD, CBCAD, CMP #### [facility] Default [address] [place] [address] Creatinine [Mass/Vol] 0.83 mg/dL Normal 0.50-1.05 [facility] Specialist Comment on above: Order Comment: [facility] performed at: [employer] [facility], [address] [place] [address], [address] [place] [address], [phone], Avionics Systems Engineer: Breezy Kumar MD [facility] Date/Time: [facility] Results Received Date/Time: [facility] Reported Date/Time: Result Comment: For patients >49 years of age, the reference limit for Creatinine is approximately 13% higher for people identified as -Senegalese. Performed By: #### L IPD, TSH reflex FT4, VITD, CBCAD, CMP #### [facility] Default [address] [place] [address] eGFRAA ([facility]) 92 mL/min/1.73m2 Normal > OR = 60 [facility] Improvement Advisor Comment on above: Order Comment: [facility] performed at: [employer], Delivery Agent [facility], [address] [place] [address], [address] [place] [address], [address] [place] [address], Avionics Systems Engineer: Breezy Kumar MD [facility] Date/Time: [facility] Results Received Date/Time: [facility] Reported Date/Time: Performed By: #### L IPD, TSH reflex FT4, VITD, CBCAD, CMP #### [facility] Default [address] [place] [address] eGFRNAA ([facility]) 79 mL/min/1.73m2 Normal > OR = 60 [facility] Improvement Advisor Comment on above: Order Comment: [facility] performed at: [employer], Delivery Agent [facility], [address] [place] [address], [address] [place] [address], Avionics Systems Engineer: Breezy Kumar MD [facility] Collection Date/Time: [facility] Results Received Date/Time: [facility] Reported Date/Time: Performed By: #### L IPD, TSH reflex FT4, VITD, CBCAD, CMP #### [facility] Default [address] [place] [address] Globulin (S) [Mass/Vol] 2.9 g/dL Normal 1.9-3.7 [facility] Improvement Advisor Comment on above: Order Comment: [facility] performed at: [employer], Delivery Agent [facility], [address] [place] [address], [address] [place] [address], [address] [place] [address], Avionics Systems Engineer: Breezy Kumar MD [facility] Date/Time: [facility] Results Received Date/Time: [facility] Reported Date/Time: Performed By: #### L IPD, TSH reflex FT4, VITD, CBCAD, CMP #### [facility] Default [address] [place] [address] Glucose [Mass/Vol] 94 mg/dL Normal 65-99 [facility] Improvement Advisor Comment on above: Order Comment: [facility] performed at: [employer], Delivery Agent [facility], [address] [place] [address], [address] [place] [address], [phone], Avionics Systems Engineer: Breezy Kumar MD [facility] Date/Time: [facility] Results Received Date/Time: [facility] Reported Date/Time: Result Comment: Fasting reference interval Performed By: #### L IPD, TSH reflex FT4, VITD, CBCAD, CMP #### [facility] Default [address] [place] [address] Potassium [Moles/Vol] 5.0 mmol/L Normal 3.5-5.3 Lopez mcrae [place] Improvement Advisor Comment on above: Order Comment: [facility] performed at: [employer], Delivery Agent [facility], [address] [place] [address], [address] [place] [address], [phone], Avionics Systems Engineer: Breezy Kumar MD [facility] Date/Time: [facility] Results Received Date/Time: [facility] Reported Date/Time: Performed By: #### L IPD, TSH reflex FT4, VITD, CBCAD, CMP #### [facility] Default [address] [place] [address] Protein [Mass/Vol] 7.5 g/dL Normal 6.1-8.1 Rodrick lipscomb [place] Improvement Advisor Comment on above: Order Comment: [facility] performed at: [employer], Delivery Agent [facility], [address] [place] [address], [address] [place] [address], [address] [place] [address], Avionics Systems Engineer: Breezy Kumar MD [facility] Date/Time: [facility] Results Received Date/Time: [facility] Reported Date/Time: Performed By: #### L IPD, TSH reflex FT4, VITD, CBCAD, CMP #### [facility] Default [address] [place] [address] Sodium [Moles/Vol] 141 mmol/L Normal 135-146 Rodrick lipscomb [place] Improvement Advisor Comment on above: Order Comment: [facility] performed at: [employer], Delivery Agent [facility], [facility], [address] [place] [address], [phone], Avionics Systems Engineer: Breezy Kumar MD [facility] Date/Time: [facility] Results Received Date/Time: [facility] Reported Date/Time: Performed By: #### L IPD, TSH reflex FT4, VITD, CBCAD, CMP #### [facility] Default [address] [place] [address] Urea nitrogen [Mass/Vol] 12 mg/dL Normal 7-25 [facility] Improvement Advisor Comment on above: Order Comment: [facility] performed at: [employer], Delivery Agent [facility], [address] [place] [address], [address] [place] [address], [address] [place] [address], Avionics Systems Engineer: Breezy Kumar MD [facility] Date/Time: [facility] Results Received Date/Time: [facility] Reported Date/Time: Performed By: #### L IPD, TSH reflex FT4, VITD, CBCAD, CMP #### [facility] Default [address] [place] [address] Lipid Panelon 07-08-2021 Cholesterol [Mass/Vol] 208 mg/dL High <200 [facility] Comment on above: Order Comment: [facility] performed at: [employer], Delivery Agent [facility], [address] [place] [address], [address] [place] [address], [address] [place] [address], Avionics Systems Engineer: Breezy Kumar MD [facility] Date/Time: [facility] Results Received Date/Time: [facility] Reported Date/Time: Performed By: #### L IPD, TSH reflex FT4, VITD, CBCAD, CMP #### [facility] Default [address] [place] [address] Cholesterol in HDL [Mass/Vol] 35 mg/dL Low > OR = 50 [facility] Improvement Advisor Comment on above: Order Comment: [facility] performed at: [employer], Delivery Agent [facility], [address] [place] [address], [address] [place] [address], [phone], Avionics Systems Engineer: Breezy Kumar MD [facility] Date/Time: [facility] Results Received Date/Time: [facility] Reported Date/Time: Performed By: #### L IPD, TSH reflex FT4, VITD, CBCAD, CMP #### [facility] Default [address] [place] [address] Cholesterol in LDL [Mass/Vol] 140 mg/dL High [facility] Specialist Comment on above: Order Comment: [facility] performed at: [employer], Delivery Agent [facility], [address] , [address] [place] [address], [phone], Avionics Systems Engineer: Breezy Kumar MD [facility] Date/Time: [facility] Results Received Date/Time: [facility] Reported Date/Time: Result Comment: Refe rence range: <100 Desirable range <100 mg/dL for primary prevention; <70 mg/dL for patients with CHD or diabetic patients with > or = 2 CHD risk factors. LDL-C is now calculated using the Francesco-Wilfredo calculation, which is a validated novel method providing better accuracy than the Friedewald equation in the estimation of LDL-C. Francesco ESPINOZA et al. OVI. 2013;310(19): 8886-4285 (http://education.Guaranteach/faq/MHX833) Performed By: #### L IPD, TSH reflex FT4, VITD, CBCAD, CMP #### [facility] Default [address] [place] [address] NON HDL CHOLESTEROL 173 mg/dL (calc) High <130 [facility] Specialist Comment on above: Order Comment: [facility] performed at: [employer], Delivery Agent [facility], [address] , [address] [place] [address], [phone], Avionics Systems Engineer: Breezy Kumar MD [facility] Date/Time: [facility] Results Received Date/Time: [facility] Reported Date/Time: Result Comment: For patients with diabetes plus 1 major ASCVD risk factor, treating to a non-HDL-C goal of <100 mg/dL (LDL-C of <70 mg/dL) is considered a therapeutic option. Performed By: #### L IPD, TSH reflex FT4, VITD, CBCAD, CMP #### [facility] Default [address] [place] [address] Triglyceride [Mass/Vol] 190 mg/dL High <150 [facility] Comment on above: Order Comment: [facility] performed at: [employer], Delivery Agent [facility], [address] , [address] [place] [address], [phone], Avionics Systems Engineer: Breezy Kumar MD [facility] Date/Time: [facility] Results Received Date/Time: [facility] Reported Date/Time: Performed By: #### L IPD, TSH reflex FT4, VITD, CBCAD, CMP #### [facility] Default [address] [place] [address] TSH w/ Reflex to Free T4on 0 07-08-2021 TSH W/REFLEX TO FT4 0.59 mIU/L Normal [facility] Comment on above: Order Comment: [facility] performed at: [employer], Delivery Agent [facility], [address] , [address] [place] [address], [phone], Avionics Systems Engineer: Breezy Kumar MD [facility] Date/Time: [facility] Results Received Date/Time: [facility] Reported Date/Time: Result Comment: Refe rence Range > or = 20 Years 0.40-4.50 Ranges First trimester 0.26-2.66 Second trimester 0.55-2.73 Third trimester 0.43-2.91 Performed By: #### L IPD, TSH reflex FT4, VITD, CBCAD, CMP #### [facility] Default [address] [place] [address] Vitamin D 25-OHon 07-08-2021 VIT D 25 OH 35 ng/mL Normal 30-100 [facility] Specialist Comment on above: Order Comment: [facility] performed at: [employer], Delivery Agent [facility], [address] , [address] [place] [address], [phone], Avionics Systems Engineer: Breezy Kumar MD [facility] Date/Time: [id number] [facility] Results Received Date/Time: [facility] Reported Date/Time: Result Comment: Ann min D Status 25-OH Vitamin D: Deficiency: <20 ng/mL Insufficiency: 20 - 29 ng/mL Optimal: > or = 30 ng/mL For 25-OH Vitamin D testing on patients on D2-supplementation and patients for whom quantitation of D2 and D3 fractions is required, the QuestAssureD(TM) 25-OH VIT D, (D2,D3), LC/MS/MS is recommended: order code 92756 (patients >2yrs). See Note 1 Note 1 For additional information, please refer to http://education.Guaranteach/faq/KYF381 (This link is being provided for informational/ educational purposes only.) Performed By: #### L IPD, TSH reflex FT4, VITD, CBCAD, CMP #### [facility] Default [address] [place] [address] Consultation Noteon 01-06-20 21 Consultation Note [id number]:[id number] Normal [facility] Vital Signs Date Time Vital Sign Value Performing Clinician Alissa ortega 12-04-2024 08:52-0400 Body height 175.3 cm Sondra Barrios DERRICK WORKER Work Phone: [facility] 12-04-2024 08:52-0400 Body mass index (BMI) [Ratio] 27.17 kg/m2 Sondra Barrios [employer]ERRICK WORKER Work Phone: [facility] 12-04-2024 08:52-0400 Body weight 83.46 kg Sondra Barrios [employer]ERRICK WORKER Work Phone: [facility] 12-04-2024 08:52-0400 Diastolic blood pressure 76 mm[Hg] Sondra Barrios [employer]ERRICK WORKER Work Phone: [facility] 12-04-2024 08:52-0400 Heart rate 88 /min Sondra Barrios [employer]ERRICK WORKER Work Phone: [facility] 12-04-2024 08:52-0400 Respiratory rate 16 /min Sondra Barrios [employer]ERR[employer] WORKER Work Phone: [facility] 12-04-2024 08:52-0400 SaO2% (BldA) [Mass fraction] 97 % Sondra Barrios [employer]ERRICK WORKER Work Phone: [facility] 12-04-2024 08:52-0400 Systolic blood pressure 116 mm[Hg] Sondra Barrios [employer]ERRICK WORKER Work Phone: [facility] 10-01-2024 11:36-0400 Body temperature 97.59 [degF] Jojo Valerio [employer]ERRICK WORKER Work Phone: [facility] 10-01-2024 11:36-0400 Diastolic blood pressure 76 mm[Hg] Jojo Valerio [employer]ERRICK WORKER Work Phone: [facility] 10-01-2024 11:36-0400 Heart rate 87 /min Jojo Valerio [employer]ERRICK WORKER Work Phone: [facility] 10-01-2024 11:36-0400 Respiratory rate 20 /min Jojo Valerio DERRICK WORKER Work Phone: [facility] 10-01-2024 11:36-0400 SaO2% (BldA) [Mass fraction] 98 % Jojo Valerio [employer]ERRICK WORKER Work Phone: [facility] 10-01-2024 11:36-0400 Systolic blood pressure 122 mm[Hg] Jojo Valerio DERRICK WORKER Work Phone: [facility] 06-12-2024 08:34-0500 Body height 175.3 cm Sondra Barrios DERRICK WORKER Work Phone: [facility] 06-12-2024 08:34-0500 Body mass index (BMI) [Ratio] 26.43 kg/m2 Sondra Barrios DERRICK WORKER Work Phone: [facility] 06-12-2024 08:34-0500 Body weight 81.19 kg Sondra Barrios DERRICK WORKER Work Phone: [facility] 06-12-2024 08:34-0500 Diastolic blood pressure 72 mm[Hg] Sondra Barrios DERRICK WORKER Work Phone: [facility] 06-12-2024 08:34-0500 Heart rate 73 /min Sondra Barrios [employer]ERRICK WORKER Work Phone: [facility] 06-12-2024 08:34-0500 Respiratory rate 17 /min Sondra Barrios [employer]ERRICK WORKER Work Phone: [facility] 06-12-2024 08:34-0500 SaO2% (BldA) [Mass fraction] 96 % Sondra Barrios DERRICK WORKER Work Phone: [facility] 06-12-2024 08:34-0500 Systolic blood pressure 118 mm[Hg] Sondra Barrios DERRICK WORKER Work Phone: [facility] 03-28-2024 08:05-0500 Body height 175.3 cm Tami Hemmer PA Work Phone: [facility] 03-28-2024 08:05-0500 Body mass index (BMI) [Ratio] 25.84 kg/m2 Tami Hemmer PA Work Phone: [facility] 03-28-2024 08:05-0500 Body weight 79.38 kg Tami Hemmer PA Work Phone: [facility] 03-28-2024 08:05-0500 Diastolic blood pressure 78 mm[Hg] Tami Hemmer PA Work Phone: [facility] 03-28-2024 08:05-0500 Heart rate 88 /min Tami Hemmer PA Work Phone: [facility] 03-28-2024 08:05-0500 SaO2% (BldA) [Mass fraction] 95 % Tami Hemmer PA Work Phone: [facility] 03-28-2024 08:05-0500 Systolic blood pressure 108 mm[Hg] Tami Hemmer PA Work Phone: [facility] 02-27-2024 08:53-0500 Body height 175.3 cm Scottie Nash MD Work Phone: [facility] 02-27-2024 08:53-0500 Body mass index (BMI) [Ratio] 25.55 kg/m2 Scottie Nash MD Work Phone: [facility] 02-27-2024 08:53-0500 Body weight 78.47 kg Scottie Nash MD Work Phone: [facility] 02-27-2024 08:53-0500 Diastolic blood pressure 78 mm[Hg] Scottie Nash MD Work Phone: [facility] 02-27-2024 08:53-0500 Heart rate 87 /min Scottie Nash MD Work Phone: [facility] 02-27-2024 08:53-0500 SaO2% (BldA) [Mass fraction] 97 % Scottie Nash MD Work Phone: [facility] 02-27-2024 08:53-0500 Systolic blood pressure 114 mm[Hg] Scottie Nash MD Work Phone: [facility] Healthcare Encounters Encounter Date Encounter Type Care Provider Facility Start: 12-04-2024 End: 12-04-2024 Bamboo flowsheet Sondra Barrios DERRICK WORKER Work Phone: [facility] Start: 12-04-2024 End: 12-04-2024 Bamboo flowsheet Sondra Barrios DERRICK WORKER Work Phone: [facility] Start: 12-04-2024 End: 12-04-2024 Office outpatient visit 25 minutes Sondra Barrios DERRICK WORKER Work Phone: [facility] Comment on above: Lumbar radiculopathy , acute (Primary Dx); Chronic neck pain; Pain of right thigh; Right hip pain Start: 12-04-2024 End: 12-04-2024 ambulatory SONDRA BARRIOS Not Available Start: 10-01-2024 End: 10-08-2024 Telephone encounter Jojo Valerio DERRICK WORKER Work Phone: [facility] Start: 10-01-2024 End: 10-01-2024 Office outpatient visit 25 minutes Jojo Valerio DERRICK WORKER Work Phone: [facility] Comment on above: Fall, initial encoun ter (Primary Dx); Rib pain on right side; Contusion of rib on right side, initial encounter Start: 10-01-2024 End: 10-01-2024 ambulatory JOJO VALERIO Not Available Start: 09-11-2024 End: 09-11-2024 Clinisync Result Encounter Scottie Nash MD Work Phone: [facility] Unsolicited Start: 09-11-2024 End: 09-11-2024 Clinisync Result Encounter Scottie Nash MD Work Phone: [facility] Unsolicited Start: 09-05-2024 End: 09-05-2024 Clinisync Result Encounter Sondra Barrios DERRICK WORKER Work Phone: [facility] Unsolicited Start: 09-05-2024 End: 09-05-2024 Clinisync Result Encounter Sondra Barrios DERRICK WORKER Work Phone: [facility] Unsolicited Start: 06-12-2024 End: 06-12-2024 Bamboo flowsheet Sondra Barrios DERRICK WORKER Work Phone: [facility] Start: 06-12-2024 End: 06-12-2024 Bamboo flowsheet Sondra Barrios DERRICK WORKER Work Phone: [facility] Start: 06-12-2024 End: 06-12-2024 Office outpatient visit 25 minutes Sondra Barrios NP Work Phone: [facility] Comment on [...] 03-28-2024 Office outpatient visit 15 minutes Tami MCDONALD Work Phone: [facility] Comment on above: Trouble in sleeping (Primary Dx); Grief reaction (CMS/HCC) Start: 03-28-2024 End: 03-28-2024 ambulatory TAMI Ac WOODROW Not Available Start: 02-27-2024 End: 02-27-2024 Office outpatient visit 25 minutes Scottie Nash MD Work Phone: [facility] Comment on above: Benign essential hyp ertension (CMS/HCC) (Primary Dx); Adjustment disorder with depressed mood (CMS/HCC); Atherosclerosis of aorta (CMS/HCC); Polycythemia vera (CMS/HCC); Cigarette smoker; Anxiety; Obstructive sleep apnea syndrome Start: 02-27-2024 End: 02-27-2024 ambulatory SCOTTIE NASH Not Available Start: 08-28-2023 End: 11-21-2023 Patient encounter status Scottie Nash MD Work Phone: [facility] Healthcare Start: 07-20-2022 End: 07-21-[address] ROSITA UMANZOR . Facility: Start: 09-14-2021 End: 09-14-[address] ROSITA UMANZOR . Facility: Procedures Date Procedure Procedure Detail Performing Clinician Start: 09-11-2024 MM TOMOSYNTHESIS SCREENING BI Scottie Nash MD Work Phone: Start: 09-11-2024 Mammography Scottie Nash MD Work Phone: Start: 09-05-2024 ALL CBC WITH AUTO DIFF Sondra Barrios NP Work Phone: Start: 09-06-2023 Mammography Scottie Nash MD Work Phone: Start: 10-24-2022 Laboratory test result abnormal Abnormal laboratory test Scottie Nash MD Work Phone: Start: 01-29-2016 Colonoscopy Scottie Nash MD Work Phone: Plan of Treatment Date Care Activity Detail Author Start: 01-28-2026 Screening for malignant neoplasm of colon [facility] Healthcare Start: 09-11-2025 Screening for malignant neoplasm of breast Mammogram [facility] Start: 12-09-2024 Influenza vaccination [facility] Start: 12-04-2024 End: 12-04-2025 MR Lumbar spine WO contrast MR lumbar spine wo contrast Imaging Routine Lumbar radiculopathy, acute Pain of right thigh Expected: 12/04/2024, Expires: 12/04/2025 [facility] Work Phone: Comment on above: Expected: 12/04/2024, Expires: Start: 12-04-2024 End: 12-04-2024 Patient encounter procedure 12/04/2024 9:00 AM EDT [facility] [address] [facility] [address] [place] [id number] Sondra Barrios NP [address] [place] [address] [facility] Comment on above: Arrived Start: 09-05-2024 End: 08-12-2025 MG Breast - bilateral Screening Bilateral screening mammogram Imaging Routine Encounter for screening mammogram for malignant neoplasm of breast Expected: 09/05/2024, Expires: 08/12/2025 [facility] Comment on above: Expected: 09/05/2024, Expires: Start: 09-05-2024 Screening for malignant neoplasm of breast Mammogram [facility] Start: 08-29-2024 End: 06-12-2025 25-hydroxyvitamin D3 [Mass/volume] in Serum or Plasma Vitamin D 25 hydroxy Lab Routine Vitamin D deficiency Expected: 08/29/2024 (Approximate), Expires: 06/12/2025 [facility] Work Phone: Comment on above: Expected: 08/29/2024 (Approximate), Expi res: 06/12/2025 Start: 08-29-2024 End: 06-12-2025 CBC panel - Blood by Automated count CBC Lab Routine Hereditary hemochromatosis (CMS/HCC) Polycythemia vera (CMS/HCC) Expected: 08/29/2024 (Approximate), Expires: 06/12/2025 [facility] Comment on above: Expected: 08/29/2024 (Approximate), Expi res: 06/12/2025 Start: 08-29-2024 End: 06-12-2025 Comprehensive metabolic 2000 panel - Serum or Plasma Comprehensive metabolic panel Lab Routine Acquired hypothyroidism (CMS/HCC) Other fatigue Expected: 08/29/2024 (Approximate), Expires: 06/12/2025 [facility] Comment on above: Expected: 08/29/2024 (Approximate), Expi res: 06/12/2025 Start: 08-29-2024 End: 06-12-2025 Lipid 1996 panel - Serum or Plasma Lipid panel Lab Routine Hypertriglyceridemia (CMS/HCC) Expected: 08/29/2024 (Approximate), Expires: 06/12/2025 [facility] Healthcare Comment on above: Expected: 08/29/2024 (Approximate), Expi res: 06/12/2025 Start: 08-29-2024 End: 06-12-2025 TSH W/REFLEX TO FT4 TSH W/REFLEX TO FT4 Lab Routine Acquired hypothyroidism (CMS/HCC) Expected: 08/29/2024 (Approximate), Expires: 06/12/2025 [facility] Healthcare Comment on above: Expected: 08/29/2024 (Approximate), Expi res: 06/12/2025 Start: 06-12-2024 End: 06-12-2024 Patient encounter procedure 06/12/2024 8:30 AM EST Office Visit [facility] [address] [facility] [address] [place] [address] Sondra Barrios DERRICK WORKER [address] [facility] [address] [place] [address] Arrived [facility] Comment on above: Arrived Start: 04-23-2024 Influenza vaccination Influenza Vaccine (#1) [facility] Comment on above: Postponed from 12/10/2023 (Patient Refus ed) Start: 12-10-2023 Influenza vaccination Influenza Vaccine (#1) [facility] Start: 01-18-1996 Screening for malignant neoplasm of cervix [facility] Start: 1987 Screening for malignant neoplasm of cervix Pap Smear [facility] Start: 1966 Screening for malignant neoplasm of colon [facility] Immunizations Immunization Date Immunization Notes Care Provider Fa cility 09-14-2024 tetanus toxoid, redu shawanda diphtheria toxoid, and acellular pertussis vaccine, adsorbed Sondra Barrios NP Work Phone: [facility] Healthcare Payers Date Payer Category Payer Medicaid [facility] [id number] 2022 Medicaid [id number] 1966 Unknown [id number] 1966 Unknown [id number] 1966 Unknown [id number] 1966 Unknown [id number] 1966 Unknown [id number] 1966 Unknown [id number] 1966 Unknown [id number] 1966 Unknown [id number] 1959 Unknown [id number] Social History Date Type Detail Facility Start: 04-18-1995 Tobacco smoking stat [facility] Occasional tobacco smoker [facility] Start: 04-18-1995 History of tobacco use Cigarette Smo ker [facility] Start: 02-20-2024 End: 02-27-2024 Cigarettes smoked current (pack per day) - Reported 0.3 [facility] History of tobacco use Passive smoker [facility] Start: 02-27-2024 Tobacco use and exposure Smokeless t obacco non-user [facility] Start: 02-27-2024 End: 12-04-2024 Alcoholic beverage intake Current drinker of alcohol [...] 09-21-2022 Alcohol Comment Caffeine: coffee, so da [facility] Start: 1965 Sex assigned at Female [facility] Start: 09-15-2022 Gender identity Identifies as female gender (finding) [facility] Start: 09-15-2022 Sexual orientation Heterosexual (fin ding) [facility] Functional Status Date Assessment Result Facility 12-04-2024 Patient Health Quest ionnaire 2 item (PHQ-2) [Reported] [facility] Clinical Notes 08-10-2021 to 12-04-2024 Sondra Barrios, ARPAN - 12/04/2024 9:00 AM EDTTelephone Encounter - Johanna Rhonda, RADHIKA - 10/01/2024 4:56 PM EDTTelephone Encounter - Johanna Ellis, RADHIKA - 10/01/2024 4:56 PM EDT Note Date & Type Note Facility 12-04-2024 History of Present illness Narrative Images from the original note were not included. Subjective Patient ID: ANA Cuenca is a 59 y.o. female who presents for No chief complaint on file.. Ana presents today for pain in her upper right leg. She has a history of lower back pain and she has flexeril to take for that pain. The pain is mostly in the bend of the right hip area. Pt has a family history of cancer and she is concerned. She also has a history of c-spine surgery due to lost disc space. She has a fusion. Previous MRI showed moderate to severe stenosis of C-spine. Nothing is relieving the discomfort. Groin Pain The current episode started in the past 7 days. The problem occurs intermittently. The problem has been waxing and waning. The pain is severe. The problem affects the right side. Associated symptoms include back pain. Exacerbated by: walking. Treatments tried: stretches, back exercises, ibuprofen, heat, ice. The treatment provided no relief. Over the past 2 weeks, how often have you been bothered by any of the following problems? Little interest or pleasure in doing things: Not at all Feeling down, depressed, or hopeless: Not at all Patient Health Questionnaire-2 Score: 0 Current Outpatient Medications on File Prior to Visit Medication Sig Dispense Refill ALPRAZolam (Xanax) 0.5 MG tablet Take 1 tablet (0.5 mg) by mouth every 12 (twelve) hours if needed for anxiety 60 tablet 0 atorvastatin (Lipitor) 20 MG tablet TAKE ONE TABLET BY MOUTH ONCE DAILY IN THE MORNING 100 tablet 3 busPIRone (Buspar) 10 MG tablet TAKE 1 TABLET (10 MG) BY MOUTH 2 (TWO) TIMES A DAY NEEDED (ANXIETY) 60 tablet 0 cholecalciferol (Vitamin D3) 25 MCG (1000 UT) tablet Take 1 tablet (25 mcg) by mouth Daily 100 tablet 0 cyclobenzaprine (Flexeril) 10 MG [...] capsule 7 traZODone (Desyrel) 50 MG tablet TAKE 1/2 TO 1 TABLET BY MOUTH AT BEDTIME 30 tablet 2 No current facility-administered medications on file prior to visit. I have reviewed and reconciled the history and medication list with the patient today. Allergies Allergen Reactions Penicillin G Other Reaction(s): HIVES Social History Tobacco Use Smoking status: Some Days Current packs/day: 0.25 Average packs/day: 0.3 packs/day for 29.6 years (7.4 ttl pk-yrs) Types: Cigarettes Start date: 04/18/1995 Passive exposure: Yes Smokeless tobacco: Never Vaping Use Vaping status: Never Used Substance Use Topics Alcohol use: Yes Alcohol/week: [...] ORIF ANKLE FRACTURE Right 07/20/2016 Dr. Wood [facility] SPINE SURGERY 2021 TUBAL LIGATION Bilateral 1993 Visit Vitals LMP (LMP Unknown) OB Status Postmenopausal Smoking Status Some Days Review of Systems Constitutional: Negative. HENT: Negative. Respiratory: Negative. Cardiovascular: Negative. Gastrointestinal: Negative. Genitourinary: Negative. Musculoskeletal: Positive for arthralgias, back pain and myalgias. Skin: Negative. Neurological: Negative. Psychiatric/Behavioral: Negative. All other systems reviewed and are negative. Objective Physical Exam Vitals reviewed. Constitutional: Appearance: Normal appearance. HENT: Head: Normocephalic. Nose: Nose normal. Mouth/Throat: Mouth: Mucous membranes are moist. Pharynx: Oropharynx is clear. Neck: Comments: Surgical scar Cardiovascular: Rate and Rhythm: Normal rate. Pulmonary: Effort: Pulmonary effort is normal. Musculoskeletal: General: Swelling and tenderness present. Cervical back: Normal. Thoracic back: Normal. Lumbar back: Swelling, spasms and tenderness present. Skin: General: Skin is warm and dry. Neurological: General: No focal deficit present. Mental Status: She is alert and oriented to person, place, and time. Psychiatric: Mood and Affect: Mood normal. Behavior: Behavior normal. Thought Content: Thought content normal. Judgment: Judgment normal. Assessment/Plan Diagnoses and all orders for this visit: Lumbar radiculopathy, acute - MR lumbar spine wo contrast; Future - predniSONE (Deltasone) 10 MG tablet; Take 4 tablets (40 mg) by mouth Daily for 4 days, THEN 3 tablets (30 mg) Daily for 4 days, THEN 2 tablets (20 mg) Daily for 4 days, THEN 1 tablet (10 mg) Daily for 4 days. No Ibuprofen while on steroids. Start the above medications as directed. Advised of potential side effects of the steroid. Patient is to take the steroid with food. Do not take any NSAIDs while on Prednisone, Tylenol ok prn. Can take the Cyclobenzaprine prn before bed, cautioned it may cause drowsiness. Encouraged gentle heat to area. Encouraged gentle stretches. Handout provided. PT referral may also be appropriate. Chronic neck pain - ibuprofen (IBU) 800 MG tablet; Take 1 tablet (800 mg) by mouth every 8 (eight) hours Pt is not to take this medication while on steroids. Pt verbalized understanding. Pain of right thigh - MR lumbar spine wo contrast; Future - predniSONE (Deltasone) 10 MG tablet; Take 4 tablets (40 mg) by mouth Daily for 4 days, THEN 3 tablets (30 mg) Daily for 4 days, THEN 2 tablets (20 mg) Daily for 4 days, THEN 1 tablet (10 mg) Daily for 4 days. Await results of MRI Right hip pain - cyclobenzaprine (Flexeril) 10 MG tablet; Take 1 tablet (10 mg) by mouth every 8 (eight) hours if needed for muscle spasms This is a chronic medical condition that is stable since last assessment. No changes in treatment are suggested at this time. No follow-ups on file. documented in this encounter [facility] 10-01-2024 Telephone encounter Note LMTCB [facility] 10-01-2024 Miscellaneous Notes LMTCB Please call patient and notify that x ray is negative for rib fracture or any acute cardiopulmonary abnormalities. Follow up with PCP if not improving. Thanks. FINDINGS: No appreciable/displaced rib fracture. Normal lung expansion. No diffuse or focal pulmonary abnormality. No significant effusion or pneumothorax. The cardiomediastinal silhouette is normal. No upper abdominal abnormality. IMPRESSION: No appreciable/displaced rib fracture. No acute cardiopulmonary abnormality. documented in this encounter [facility] 10-01-2024 Telephone encounter Note Please call patient and notify that x ray is negative for rib fracture or any acute cardiopulmonary abnormalities. Follow up with PCP if not improving. Thanks. FINDINGS: No appreciable/displaced rib fracture. Normal lung expansion. No diffuse or focal pulmonary abnormality. No significant effusion or pneumothorax. The cardiomediastinal silhouette is normal. No upper abdominal abnormality. IMPRESSION: No appreciable/displaced rib fracture. No acute cardiopulmonary abnormality. [facility] Work Phone: 10-01-2024 History of Present illness Narrative Images from the original note were not included. HPI: Historian of HPI: patient ANA Cuenca is a 59 y.o. female who presents today to the Urgent Care with the following complaints and denials due right rib pain which has been present for 4 day(s). Pt fell on Monday and landed on the rt side. Pt states it does hurt to sit down. C/O Denies Symptom Comments [] [x] swelling [] [x] ecchymosis [] [x] erythema [] [x] tingling [] [x] numbness [] [x] Pain radiation [x] [] Weakness [x] [] Decreased ROM [x] [] Trauma Additional Comments: pt has not taken any OTC medications Pt denies heat application to the affected area Pt denies cold application to the affected area ROS: A complete system ROS was performed and negative aside from the pertinent positives noted in the HPI and PE. Visit Vitals BP 122/76 Pulse 87 Temp 97.6 F Resp 20 LMP (LMP Unknown) SpO2 98% OB Status Postmenopausal Smoking Status Some Days Physical Exam Vitals reviewed. Constitutional: General: She is not in acute distress. Appearance: Normal appearance. HENT: Head: Normocephalic and atraumatic. Nose: Nose normal. Mouth/Throat: Mouth: Mucous membranes are moist. Pharynx: Oropharynx is clear. Eyes: Extraocular Movements: Extraocular movements intact. Conjunctiva/sclera: Conjunctivae normal. Pupils: Pupils are equal, round, and reactive to light. Cardiovascular: Rate and Rhythm: Normal rate and regular rhythm. Pulses: Normal pulses. Heart sounds: Normal heart sounds. Pulmonary: Effort: Pulmonary effort is normal. No respiratory distress. Breath sounds: No wheezing, rhonchi or rales. Chest: Chest wall: Tenderness present. Comments: Right sided rib cage pain after a fall; no open areas or ecchymosis noted Musculoskeletal: General: Normal range of motion. Cervical back: Normal range of motion and neck supple. Skin: General: Skin is warm and dry. Findings: No rash. Neurological: General: No focal deficit present. Mental Status: She is alert and oriented to person, place, and time. Psychiatric: Mood and Affect: Mood normal. 1. Fall, initial encounter (Primary) Pt fell on Monday trying to get her dog out of the pool. The dog weighs 60+ lbs and started squirming and she lost her balance. She fell and landed on the rt side into the grass. Pt states it does hurt to sit down, cough, and take a deep breath. She is agreeable to x ray. - XR ribs 2 views right w chest anteroposterior; Future 2. Rib pain on right side See 1. - XR ribs 2 views right w chest anteroposterior; Future - ketorolac (Toradol) injection 60 mg 3. Contusion of rib on right side, initial encounter Pre-chun negative for acute fracture of ribs. Dx and tx discussed. Cough and deep breath to prevent pneumonia. Signs/symptoms and red flags of when to seek emergent medical attention were discussed. Follow up with PCP if not improving. She expressed an understanding. FINDINGS: No appreciable/displaced rib fracture. Normal lung expansion. No diffuse or focal pulmonary abnormality. No significant effusion or pneumothorax. The cardiomediastinal silhouette is normal. No upper abdominal abnormality. IMPRESSION: No appreciable/displaced rib fracture. No acute cardiopulmonary abnormality. See telephone encounter. documented in this encounter [facility] 06-12-2024 History of Present illness Narrative Images from the original note [...] ORIF ANKLE FRACTURE Right 07/20/2016 Dr. Wood [facility] SPINE SURGERY 2021 TUBAL LIGATION Bilateral [...] follow-ups on file. documented in this encounter [facility] 03-28-2024 History of Present illness Narrative Images from the original note [...] ORIF ANKLE FRACTURE Right 07/20/2016 Dr. Wood [facility] SPINE SURGERY 2021 TUBAL LIGATION Bilateral [...] Medication Follow Up. documented in this encounter [facility] 02-27-2024 History of Present illness Narrative Associated Problem(s): Obstructive sleep apnea [...] smoked daily. Discussed potential health risks of senior care smoking. Patient voiced understanding. Benefits of cessation, [...] needed for anxiety 60 tablet 0 [DISCONTINUED] [place]-3 Fatty Acids (Fish Oil) 1000 MG capsule [...] ORIF ANKLE FRACTURE Right 07/20/2016 Dr. Wood [facility] SPINE SURGERY 2021 TUBAL LIGATION Bilateral [...] This Visit Adjustment disorder with depressed mood ([facility]/HCC) Relevant Medications ALPRAZolam (Xanax) 0.5 MG tablet Polycythemia vera ([facility]) Recommend blood donation Cigarette smoker Discussed smoking cessation with the patient. Encouraged patient to try to cut back gradually and soon quit smoking. Discussed ways to quit smoking including gum, patches, medication, and gradually reducing the number of cigarettes smoked daily. Discussed potential health risks of senior care smoking. Patient voiced understanding. Benefits of cessation, both health and financial, were reviewed. Anxiety Patient's Medicine is effective at controlling symptoms at current dose and frequency. PDMP reviewed with no evidence of overuse and abuse D/W patient to avoid use of benzodiazepines when consuming alcohol Advised against operating heavy machinery and driving long distances while on medicines. Benign essential hypertension ([facility]) - Primary Our specific goals, [...] prescribed. DASH diet handouts Atherosclerosis of aorta ([facility]) Reduce tobacco Obstructive sleep apnea syndrome Patient is compliant with CPAP usage and perceives benefit from treatment. Treatment has been effective in controlling the patient's symptoms of Sleep Apnea. Will continue to monitor with routine follow up appointments. Follow up in about 4 months (around 06/26/2024) for Anxiety Meds F/U. documented in this encounter [facility] 08-10-2021 Note HISTORY: Right sided neck pain, numbness, tingling PROCEDURE: [employer] HDXT 1.5. Sagittal T1, T2, STIR and [...] signed by Galo Palacio on 08/10/2021 [id number] [facility] Improvement Advisor Evaluation note Diagnosis Fatigue, unspecified type- Primary [...] apnea (adult) (pediatric) documented in this encounter [facility] HealthcareEvaluation note* Diagnosis Fatigue, unspecified type- Primary Somnolence, daytime [...] with depressed mood documented [facility] Diagnosis Fatigue, unspecified type- Primary Somnolence, daytime [...] of breast [facility] Diagnosis Fatigue, unspecified type- Primary Somnolence, daytime Right hip pain Pain in joint, pelvic region and thigh Polycythemia vera (HCC) Encounter for well adult exam without abnormal findings- Primary Abnormal glucose tolerance test Impaired glucose tolerance test Benign essential hypertension Essential hypertension, benign Annual physical exam Routine general medical examination at a health care facility Vitamin D deficiency Acquired hypothyroidism Unspecified hypothyroidism Hypertriglyceridemia Pure hyperglyceridemia Lipoprotein deficiency disorder Lipoprotein deficiencies Adjustment disorder with depressed mood Adjustment disorder with depressed mood Right hip pain Pain in joint, pelvic region and thigh Chronic neck pain Cervicalgia Encounter for screening mammogram for malignant neoplasm of breast Cigarette smoker Tobacco use disorder Somnolence, daytime Benign essential hypertension- Primary Essential hypertension, benign Adjustment disorder with depressed mood Adjustment disorder with depressed mood Atherosclerosis of aorta Polycythemia vera (HCC) Cigarette smoker Tobacco use disorder Anxiety Anxiety state, unspecified Obstructive sleep apnea syndrome Obstructive sleep apnea (adult) (pediatric) Fall, initial encounter- Primary Rib pain on right side Contusion of rib on right side, initial encounter Fall, initial encounter Rib pain on right side documented [facility] Diagnosis Fatigue, unspecified type- Primary Somnolence, daytime Right hip pain Pain in joint, pelvic region and thigh Polycythemia vera (HCC) Encounter for well adult exam without abnormal findings- Primary Abnormal glucose tolerance test Impaired glucose tolerance test Benign essential hypertension Essential hypertension, benign Annual physical exam Routine general medical examination at a health care facility Vitamin D deficiency Acquired hypothyroidism Unspecified hypothyroidism Hypertriglyceridemia Pure hyperglyceridemia Lipoprotein deficiency disorder Lipoprotein deficiencies Adjustment disorder with depressed mood Adjustment disorder with depressed mood Right hip pain Pain in joint, pelvic region and thigh Chronic neck pain Cervicalgia Encounter for screening mammogram for malignant neoplasm of breast Cigarette smoker Tobacco use disorder Somnolence, daytime Benign essential hypertension- Primary Essential hypertension, benign Adjustment disorder with depressed mood Adjustment disorder with depressed mood Atherosclerosis of aorta Polycythemia vera (HCC) Cigarette smoker Tobacco use disorder Anxiety Anxiety state, unspecified Obstructive sleep apnea syndrome Obstructive sleep apnea (adult) (pediatric) Lumbar radiculopathy, acute- Primary Chronic neck pain Cervicalgia Pain of right thigh Right hip pain Pain in joint, pelvic region and thigh documented in this encounter [facility] Summary Purpose Family History No Family History Records FoundNo Family History Records FoundNo Family History Records FoundNo Family History Records Found Advance Directives No Advanced Directives Records FoundNo Advanced Directives Records FoundNo Advanced Directives Records FoundNo Advanced Directives Records Found Additional Source Comments INFORMATION SOURCE (unrecogn ized section and content) DATE CREATED AUTHOR 01/10/2021 [facility] DATE CREATED AUTHOR AUTHOR'S ORGANIZ ATION 08/12/2021 [facility] dical Specialist DATE CREATED AUTHOR AUTHOR'S ORGANIZ ATION 07/25/2022 [facility] DATE CREATED AUTHOR AUTHOR'S ORGANIZ ATION 12/06/2024 [facility] dical Specialists EPIC Reason for Visit (unrecogniz ed section and content) Reason Comments Hypertension Reason Comments Depression Care Teams (unrecognized sec tion and content) Surgical Aides Teacher Relationship Specialty Start Date End Date Scottie Nash MD [address] [facility] [address] [place] [address] PCP - General 09/15/22 Scottie Nash MD [address] [facility] [address] [place] [address] PCP - [facility] 07/10/23 Surgical Aides Teacher Relationship Specialty Start Date End Date Scottie Nash MD [address] [facility] [address] [place] [address] PCP - General 09/15/22 Scottie Nash MD [address] [facility] [address] [place] [address] PCP - [facility] 07/10/23 Surgical Aides Teacher Relationship Specialty Start Date End Date Scottie Nash MD [address] [facility] [address] [place] [address] PCP - General 09/15/22 Scottie Nash MD [address] [facility] [address] [place] [address] PCP - [facility] 07/10/23 Surgical Aides Teacher Relationship Specialty Start Date End Date Scottie Nash MD [address] [facility] [address] [place] [address] PCP - General 09/15/22 Scottie Nash MD [address] [facility] [address] [place] [address] PCP - [facility] 07/10/23 Surgical Aides Teacher Relationship Specialty Start Date End Date Scottie Nash MD [address] [facility] [address] [place] [address] PCP - General 09/15/22 Scottie Nash MD [address] [facility] [address] [place] [address] PCP - [facility] 07/10/23 Surgical Aides Teacher Relationship Specialty Start Date End Date Scottie Nash MD [address] [facility] [address] [place] [address] PCP - General 09/15/22 Scottie Nash MD [address] [facility] [address] [place] [address] PCP - [facility] 07/10/23 Surgical Aides Teacher Relationship Specialty Start Date End Date Scottie Nash MD [address] [facility] [address] [place] [address] PCP - General 09/15/22 Scottie Nash MD [address] [facility] [address] [place] [address] PCP - [facility] 07/10/23 FOR RECORDS PERTAINING TO PATIENTS WHO [...] BE BASED ON THE PRIMARY CLINICAL RECORDS. [email or web address]. provides no warranty or guarantee of the accuracy or completeness of information in this document.
== END 2024-12-23 10:28 | disposition home or self-care (01) ==
LOC: RAD 10:28
PROVIDERS: PCP Family Medicine; Visit Provider Nurse Practitioner Family
DX: M79.651 Pain in right thigh (principal); M51.369 Other intervertebral disc degeneration, lumbar region without mention of lumbar back pain or lower extremity pain
CPT/HCPCS: 72100

== ENCOUNTER 2025-01-01 15:18 | Outpatient (RCR) | payer MEDICAID, SELFPAY | END 2025-01-08 08:12 | disposition home or self-care (01) | LOC: PT 15:18 | PROVIDERS: PCP Family Medicine; Visit Provider Nurse Practitioner Family | DX: M47.816 Spondylosis without myelopathy or radiculopathy, lumbar region (principal); M54.50 Low back pain, unspecified; M25.551 Pain in right hip; R26.2 Difficulty in walking, not elsewhere classified | CPT/HCPCS: 97110; 97162 ==

== ENCOUNTER 2025-02-03 08:53 | Outpatient (OUT) | payer MEDICAID, SELFPAY ==
--- OUTSIDE RECORDS SUMMARY | 2025-02-03 08:55 | XMS_ITS | Patient Health Record ---
Author Organization [facility] Address [address] [place] [address] Care Team Providers Care Managing Cognitive Engineer Name Role Phone Dr. Galo Avery Primary Care Provider Reason For Referral No Information Medications Medication SIG (Take, Route, Frequency, Duration) Notes Start Date End Date Status Ibuprofen 800 MG Tablet 1 tablet with fo od or milk as needed Orally Three times a day 01/18/2021ctiveIbuprofen 800 MG Tablet1 tablet with food or milk as needed Orally Three times a day1Active Plan Of Treatment No Information Insurance Providers Payer Name Payer Address Payer Phone Subscriber Number Group Number Insured Name Patient Relationship to Insured Coverage Start Date Coverage End Date z[employer]- termed 05/10/22 [address] [place] [address] [id number] Self - patient is the insured zMEDICAID CFC after [employer]-termed 05/10/22[address] [place] [address] [phone], Martíncas - patient is the insured 01/08/2021zDENTAL DQ [employer]-termed 05/10/22[address] [place] [id number] Fredy - patient is the insured zDental MEDICAID CFC after [employer]termed 05/10/22[address] [place] [id number], KELLISelf - patient is the /3Dental [place] DQ Terminated 04/09/24[address] [place] [id number], KELLISelf - patient is the qqhbmas5305/11/2022ental Wrap CFC [place] BCBS Termed [address] [place] [id number], KELLISelf - patient is the srgickv6805/11/2022
--- OUTSIDE RECORDS SUMMARY | 2025-02-03 08:55 | XMS_ITS | Clinical Summary ---
Author Organization [id number] Address [id number] [address] [place] [address] Care Team Providers Care Commercial Or Institutional Cleaner Name Role Phone Scottie Issa MD Primary Care Provider [phone] Allergies Active AllergyReactionsCriticalityNoted DateCommentsPenicillinsHivesLow 09/12/2016 As a child, history of pt's mom having an allergy to PCN. Medications MedicationSigDispense QuantityRefillsLast FilledStart DateEnd DateStatus ALPRAZolam (XANAX) 0.5 mg tablet 08/16/2016Active atorvastatin (LIPITOR) 20 mg tablet Take 20 mg by mouth in the morning.Active cholecalciferol, vitamin D3, (VITAMIN D3 ORAL) Take 2,000 Units by mouth 2 (two) times a day.Active sennosides-docusate sodium (SENOKOT-S) 8.6-50 mg Indications:Cervical stenosis of spinal canalTake 2 tablets by mouth in the morning and 2 tablets before bedtime.11/05/2021ctive Additional Information Patient not taking.Reported on 11/09/2022 tiZANidine (ZANAFLEX) 4 mg tablet Take 1 tablet (4 mg total) by mouth every 8 (eight) hours as needed for muscle spasms for up to 60 doses. 60 tablet 11/05/2021ctive Additional Information Patient not taking.Reported on 11/09/2022 methylPREDNISolone (MEDROL, SHEILA,) 4 mg tablet follow package directions 21 tablet 11/05/2021ctive Additional Information Patient not taking.Reported on 11/09/2022 multivit-min/ferrous fumarate (MULTI VITAMIN ORAL) Take by mouth.Active omega 0-gly-wlk-fish oil (Fish OiL) 300-1,000 mg capsule Take by mouth.Active methylPREDNISolone (MEDROL, SHEILA,) 4 mg tablet follow package directions 21 tablet 3Active Active Problems ProblemNoted DateDiagnosed DateStenosis, cervical spine11/04/2021Tobacco use 11/04/20214686Siublya87/28/2022hronic neck pain11/04/20216994Kjhjzbgjecdjmh85/28/2022 Cervical stenosis of spinal canal11/04/2021 Family History Medical HistoryRelationNameCommentsCancerFatherCancerPaternal GrandmotherBREAST Anesthesia problemsNeg HxRelationNameStatusCommentsFatherDeceasedMotherAlive Paternal Grandmother Social History Tobacco UseTypesPacks/DayYears UsedDateSmoking Tobacco: Every DayCigarettes0.520 Smokeless Tobacco: Never Tobacco Cessation:Ready to Q uit: No; Counseling Given: Yes Comments:pt last cigarette last night 11/03/21 Alcohol UseStandard Drinks/WeekCommentsYes0 (1 standard drink = 0.6 oz pure alcohol)occasionalChildcareAnswerDate HnmfrkwxKbdklwsacYlzmxrg23/12/2019 EmploymentAnswerDate ZolfelesDbopowkmsdRumtwfs92/12/2019Purpose - LifeAnswerDate RecordedPurpose and direction in nqpdGmzeldu61/11/2021CommentsNoSex and Gender InformationValueDate RecordedSex Assigned at BirthNot on fileLegal Sex Rdmqkm6911/13/2014 12:02 PM EDTGender IdentityNot on fileSexual OrientationNot on file Last Filed Vital Signs Vital SignReadingTime TakenCommentsBlood Txcfpqsx133/7007 5:25 AM EDT Vxdqr26680 5:25 AM YBYEkpheqwqrgj72.8 ??C (98.2 ??F)11/05/2021 5:25 AM EDTRespiratory Lzvd102011/05/2021 5:25 AM EDTOxygen Zwdmbnngbn04%11/05/2021 5:25 AM EDTInhaled Oxygen Concentration--Dycjzr42.9 kg (174 lb)12/09/2021 9:26 AM EDT Wzfmiw823.3 cm (5' 9 )12/09/2021 9:26 AM EDTBody Mass Index25.709 9:26 AM EDT Plan of Treatment Health MaintenanceDue DateLast DoneCommentsDepression Fbwvneavm35/10/1978Tobacco Dxhzzhckj54/10/1978Adult BMI Kfefzymwc08/10/1984DTaP,Tdap and Td Vaccines (1 - Tdap)1985Pap Smear1987Zoster (Shingles) Vaccine (1 of 2)01/18/2016 COVID-19 Vaccine (2 - season)Influenza Vaccine 12/09/2024 Medical Devices ImplantedTypeAreaManufacturerDevice IdentifierShelf Expiration DateModel / Serial / LotGraft Bn 1cc Tito Adv Primagen Rpl [id number] - [id number] - [id number] Implanted:Qty: 1 on 11/04/2021 by Jamel Mccartney MD at [facility]/A: NeckZimmer Spine05/29/2026 [id number] / [id number] / Plate Bn 35mm 2 Lvl Zevo Spne Crv Ant Ti - [id number] - [id number] Implanted:Qty: 1 on 11/04/2021 by Jamel Mccartney MD at [facility]TONOrthopedic ImplantN/A: NeckMEDTRONIC SPINAL AND [id number] / [id number] / Screw Bn 13mm 3.5mm Va Slf Drl Spne Crv Ant Ti Zevo - [id number] - [id number] Implanted:Qty: 4 on 11/04/2021 by Jamel [facility] [place] [facility]A: NeckMedtronics Sofamor [id number] / [id number] / Screw Bn 15mm 3.5mm Va Slf Drl Spne Crv Ant Ti Zevo - [id number] - [id number] Implanted:Qty: 2 on 11/04/2021 by Jamel Mccartney MD at [facility]wN/A: NeckMedtronics Sofamor [id number] / [id number] / Spacer Implanted:Qty: 1 on 11/04/2021 by Jamel Mccartney MD at [facility]N/A: NeckMEDTRONIC SPINAL AND [id number] / [id number] / [id number] Implanted:Qty: 1 on 11/04/2021 by Jamel [facility]/A: NeckMEDTRONIC NEURO [id number] / [id number] / [id number] Insurance * Guarantor: MANJULA CHATMAN EVSDAccount TypeRelation to PatientDate of BirthPhoneBilling AddressCorporateEmployer [address] [place] [phone] Advance Directives * Full Code (Latest Code Status on File) Date ActivatedDate InactivatedComments11/04/2021 4:20 PM11/05/2021 10:51 AM Care Teams Team MemberRelationshipSpecialtyStart DateEnd [place] [address] PCP - GeneralFamily Medicine11/09/22
--- OUTSIDE RECORDS SUMMARY | 2025-02-03 08:55 | XMS_ITS | Encounter Summary ---
Author Organization [facility] Address [address] [place] [address] Care Team Providers Care Ore Crushing Dust Collector Name Role Phone Scottie Issa MD Primary Care Provider [phone] Scottie Issa MD Unavailable Encounter Details DateTypeDepartmentCare Team (Latest Contact Info)Mulojlnagee65/16/2025[facility] [address] [place] [address] [place] [address] Scottie Issa MD [address] [facility] [address] [place], [place] [id number] Social History Tobacco UseTypesPacks/DayYears UsedDateSmoking Tobacco: Some DaysCigarettes0.3 29.8Started: 04/18/1995Passive Smoke Exposure: YesSmokeless Tobacco: Never Alcohol UseStandard Drinks/WeekCommentsYes4 (1 standard drink = 0.6 oz pure alcohol)Caffeine: coffee, [id number] Health LiteracyAnswerDate RecordedHow often do you need to have someone help you when you read instructions, pamphlets, or other written material from your doctor or pharmacy?Never02/20/2024Humiliation, Afraid, Rape, and Kick questionnaireAnswerDate RecordedWithin the last year, have you been afraid of your partner or ex-partner?No11/22/2022Within the last year, have you been humiliated or emotionally abused in other ways by your partner or ex-partner?No11/22/2022Within the last year, have you been kicked, hit, slapped, or otherwise physically hurt by your partner or ex-partner?No 11/22/2022Within the last year, have you been raped or forced to have any kind of sexual activity by your partner or ex-partner?No11/22/2022Social Connection and Isolation PanelAnswerDate RecordedIn a typical week, how many times do you talk on the phone with family, friends, or neighbors?More than three times a week02/20/2024How often do you get together with friends or relatives?Once a week02/20/2024How often do you attend faith or islam services?Never 02/20/2024o you belong to any clubs or organizations such as faith groups, unions, fraternal or athletic groups, or school groups?No02/20/2024How often do you attend meetings of the clubs or organizations you belong to?Patient declined 02/20/2024re you , , , , never , or living with a partner?Living with cnktkts4002/20/2024UDIT-CAnswerDate RecordedQ1: How often do you have a drink containing alcohol?2-4 times a month02/20/2024Q2: How many drinks containing alcohol do you have on a typical day when you are drinking?1 or Q3: How often do you have six or more drinks on one occasion?Never02/20/2024Overall Financial Resource Strain (CARDIA)AnswerDate RecordedHow hard is it for you to pay for the very basics like food, housing, medical care, and heating?Not very hard02/20/2024HQ-2AnswerDate RecordedPatient Health Questionnaire-2 Diiod102[facility] [place] [facility] Occup[facility] - Occupational Stress QuestionnaireAnswerDate RecordedDo you feel stress - tense, restless, nervous, or anxious, or unable to sleep at night because your mind is troubled all the time - these days?To some bthynb7102/20/2024Exercise Vital SignAnswerDate RecordedOn average, how many days per week do you engage in moderate to strenuous exercise (like a brisk walk)?2 days02/20/2024On average, how many minutes do you engage in exercise at this level?30 min02/20/2024Hunger Vital SignAnswerDate RecordedWithin the past 12 months, you worried that your food would run out before you got the money to buymore.Never true02/20/2024 Within the past 12 months, the food you bought just didn't last and you didn't have money to get more.Never true02/20/2024RAPARE - TransportationAnswerDate RecordedIn the past 12 months, has lack of transportation kept you from medical appointments or from getting medications?No02/20/2024In the past 12 months, has lack of transportation kept you from meetings, work, or from getting things needed for daily living?No02/20/2024Housing Stability Vital SignAnswerDate RecordedIn the last 12 months, was there a time when you were not able to pay the mortgage or rent on time?No11/22/2022In the last 12 months, how many places have you lived?In the last 12 months, was there a time when you did not have a steady place to sleep or slept in [facility] (including now)?No 11/22/2022Housing Stability Vital SignAnswerDate RecordedIn the last 12 months, was there a time when you were not able to pay the mortgage or rent on time?No 02/20/2024In the past 12 months, how many times have you moved where you were living?4At any time in the past 12 months, were you homeless or living in a chcf (including now)?No02/20/2024CommentsNoSex and Gender InformationValueDate RecordedSex Assigned at NtmtwWelaca35/08/2023 9:40 AM EDT Legal JfzMkxgff19/15/2023 6:35 PM EDTGender WkuqcgpwRyvtdt80/08/2023 9:40 AM EDT Sexual HeejooqgwjyGzhnpmgr20/08/2023 9:40 AM EDTdocumented as of this encounter Plan of Treatment Not on file documented as of this encounter Visit Diagnoses Not on filedocumented in this encounter Care Teams Team MemberRelationshipSpecialtyStart DateEnd Date Scottie Issa MD [address] [facility] [address] [place] [address] PCP - General09/15/22 Scottie Issa MD [address] [facility] [address] [place] [address] PCP - [facility]07/10/23documented as of this encounter
--- OUTSIDE RECORDS SUMMARY | 2025-02-03 08:55 | XMS_ITS | Clinical Summary ---
Author Organization [facility] Address [address] [place] [address] Care Team Providers Care Solar Sales Energy Advisor Name Role Phone Scottie Nash MD Primary Care Provider Scottie Nash MD Unavailable Allergies Active AllergyReactionsCriticalityNoted DateCommentsPenicillin 10/24/2022 Other Reaction(s): HIVES Medications MedicationSigDispense QuantityRefillsLast FilledStart DateEnd DateStatus atorvastatin (Lipitor) 20 MG tablet Indications:HypertriglyceridemiaTAKE ONE TABLET BY MOUTH ONCE DAILY IN THE MORNING 100 tablet 5Active Multiple Vitamins-Minerals (Multivitamin Women 50+) tablet Indications:Fatigue, unspecified typeTAKE ONE TABLET BY MOUTH ONCE DAILY DIRECTED FOR 30 DAYS 30 tablet 5Active ALPRAZolam (Xanax) 0.5 MG tablet Indications:Adjustment disorder with depressed moodTake 1 tablet (0.5 mg) by mouth every 12 (twelve) hours if needed for anxiety 60 tablet 5Active traZODone (Desyrel) 50 MG tablet Indications:Trouble in sleepingTAKE 1/2 TO 1 TABLET BY MOUTH AT BEDTIME 30 tablet 5Active ibuprofen (IBU) 800 MG tablet Indications:Chronic neck painTake 1 tablet (800 mg) by mouth every 8 (eight) hours 300 tablet 5Active cyclobenzaprine (Flexeril) 10 MG tablet Indications:Right hip painTake 1 tablet (10 mg) by mouth every 8 (eight) hours if needed for muscle spasms 90 tablet 5Active omega-3 (Fish Oil) 1000 MG capsule Indications:Polyp of colon, unspecified part of colon, unspecified typeTAKE TWO CAPSULES BY MOUTH TWICE A DAY ( IN THE MORNING AND BEFORE BEDTIME ) 120 capsule 705Active busPIRone (Buspar) 10 MG tablet Indications:Grief reactionTake 1 tablet (10 mg) by mouth 2 (two) times a day as needed (Anxiety) 180 tablet 5Active cholecalciferol (Vitamin D3) 25 MCG (1000 UT) tablet Indications:Vitamin D deficiencyTake 1 tablet (25 mcg) by mouth Daily 100 tablet 5Active cholecalciferol (Vitamin D3) 25 MCG (1000 UT) tablet Indications:Vitamin D deficiencyTake 1 tablet (25 mcg) by mouth Daily 100 tablet 5001/06/2025Discontinued busPIRone (Buspar) 10 MG tablet Indications:Grief reactionTAKE 1 TABLET (10 MG) BY MOUTH 2 (TWO) TIMES A DAY NEEDED (ANXIETY) 60 tablet Discontinued Active Problems ProblemNoted DateDiagnosed DateAtherosclerosis of aorta02/27/2024 Assessment & Plan (02/27/2024 9:17 AM EST): Reduce tobacco Obstructive sleep apnea grkohsvr24/19/2024 Assessment & Plan (02/27/2024 9:19 AM EST): Patient is compliant with CPAP usage and perceives benefit from treatment. Treatment has been effective in controlling the patient's symptoms of Sleep Apnea. Will continue to monitor with routine follow up appointments. Benign essential ffewtpmicuqk55/20/2024 Assessment & Plan (02/27/2024 9:11 AM EST): Our specific goals, for your hypertension, is to keep your blood pressure less than 140/90, and theimportance of weight control. We made recommendations on [...] your blood pressure less than 140/90, and theimportance of weight control. We made recommendations on [...] taking them as prescribed. DASH diet handouts Tvgilyc2211/29/2022 Assessment & Plan (11/29/2022 11:49 AM EDT): Will needs sleep study Roslyn D/W patient Sleep Apnea and CPAP Somnolence, ynensif1711/29/2022 Assessment & Plan (08/28/2023 9:22 AM EDT): Will continue to monitor with routine follow up appointments. Sleep Apnea test recommended to rule out sleep apnea. If positive consider CPAP Right hip pain11/29/2022 Assessment & Plan (11/29/2022 11:54 AM EDT): Lunge stretches Abnormal laboratory test10/24/2022cquired unaipojnurqbzq95/17/2023djustment disorder with depressed mood10/24/2022 Assessment & Plan (08/28/2023 9:09 AM EDT): Patient's Medicine is effective at controlling symptoms at current dose and frequency. PDMP reviewed with no evidence of overuse and abuse D/W patient to avoid use of benzodiazepines when consuming alcohol Advised against operating heavy machinery and driving long distances while on medicines. Age-related incipient cataract of both eyes10/24/2022olon rjzouk2810/24/2022 Degenerative joint disease of cervical spine10/24/20226637Iyncuqooaeobgia25/17/2023 Ypsqnlhveyomaoup39/17/2023HNP (herniated nucleus pulposus), acphynbt39/17/2023 Qolgbatudenisxblayhk0273Kedowxrasarp82/17/2023Low HDL (under 40)10/24/2022 Polycythemia vera10/24/2022 Assessment & Plan (02/27/2024 9:17 AM EST): Recommend blood donation Waszgli6510/24/2022igarette znepqx7710/24/2022 Assessment & Plan (02/27/2024 9:14 AM EST): Discussed smoking cessation with the patient. Encouraged patient to try to cut back gradually and soon quit smoking. Discussed ways to quit smoking including gum, patches, medication, and gradually reducing the number of cigarettes smoked daily. 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 Patient voiced understanding. Benefits of cessation, both health and financial, were reviewed. Assessment & Plan (08/28/2023 9:16 AM EDT): Discussed smoking cessation with the patient. Encouraged patient to try to cut back gradually and soon quit smoking. Discussed ways to quit smoking including gum, patches, medication, and gradually reducing the number of cigarettes smoked daily. 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 Patient voiced understanding. Benefits of cessation, both health and financial, were reviewed. Vitamin D ymnvtwskci06/17/3242Labtyqr44/28/2022 Assessment & Plan (02/27/2024 9:18 AM EST): Patient's Medicine is effective at controlling symptoms at current dose and frequency. PDMP reviewed with no evidence of overuse and abuse D/W patient to avoid use of benzodiazepines when consuming alcohol Advised against operating heavy machinery and driving long distances while on medicines. Chronic neck pain11/04/2021enign neoplasm of colon02/18/2016Lipoprotein deficiency zgwgotap51/12/2016 Resolved Problems ProblemNoted DateDiagnosed DateResolved DateEncounter for well adult exam without abnormal aaxpsftj10/ Assessment & Plan (08/28/2023 9:09 AM EDT): Modest Alcohol consumption No Tobacco Seat Belt use Exercise Regularly No Text Drive Social Accountability Tobacco use Encounters DateTypeDepartmentCare MmmqWqugckmsjjt53/16/2025bstract [facility] [address] [place] [address] Scottie Nash MD 01/15/2025Telephone [facility] [address] [place] [address] Sondra Rhodes, CERTIFIED BREASTFEEDING EDUCATOR 01/10/2025Telephone [facility] [address] [place] [address] Kaley Earl MA 01/09/2025 9:00 AM EDTAncillary Procedure [facility] [address] [place] [id number] Pain of right thigh; Pain of right hip01/09/2025Results Follow-Up [facility] [address] [place] [address] Kaley Earl MA XR lumbar spine 2 or 3 views01/09/20257087Vddnmn30/29/2025Refill [facility] [address] [place] [address] Sondra Rhodes, CERTIFIED BREASTFEEDING EDUCATOR Vitamin D vmautxvszt17/29/2025Refill [facility] [address] [place] [address] Scottie Nash MD Grief tigtjbin42/25/2025bstract [facility] [address] [place] [address] Scottie Nash MD 01/02/2025Telephone [facility] [address] [place] [address] Sondra Rhodes, ARPAN 12/24/2024Telephone [facility] [address] [place] [address] CruzKym LPN 12/24/2024Results Follow-Up [facility] [address] [place] [address] XR LUMBAR SPINE 2 OR 3V12/23/2024bstract [facility] [address] [place] [address] Scottie Nash MD 12/23/2024linisync Result Encounter [facility] Unsolicited Sondra Rhodes, CERTIFIED BREASTFEEDING EDUCATOR 12/20/2024Orders Only [facility] [address] [place] [address] Sondra Rhodes, CERTIFIED BREASTFEEDING EDUCATOR Pain of right thigh12/20/2024Telephone [facility] [address] [place] [address] Sondra Rhodes, CERTIFIED BREASTFEEDING EDUCATOR 12/20/2024Orders Only [facility] [facility] [address] [place] [address] Sondra Rhodes, CERTIFIED BREASTFEEDING EDUCATOR Chronic neck pain; Pain of right thigh; Right hip pain; Lumbar radiculopathy, acute12/10/2024Refill [facility] [address] [place] [address] Scottie Nash MD Grief kabuzrib93/02/2025Refill [facility] [address] [place] [address] Scottie Nash MD Polyp of colon, unspecified part of colon, unspecified type12/04/2024 9:00 AM EDTOffice Visit [facility] [address] [place] [address] Sondra Rhodes NP Lumbar radiculopathy, acute (Primary Dx); Chronic neck pain; Pain of right thigh; Right hip pain12/04/2024amboo flowsheet [facility] [place] [facility] [address] [facility] [address] [place] [address] Sondra Rhodes NP 12/04/20248310Ardlqx90/25/2025Travelfrom Last 3 Months Immunizations ImmunizationAdministration DatesNext TnhSiak0109/14/2024 Family History Medical HistoryRelationNameCommentsCancerFatherDadCancerMaternal Grandmother MildredCancerMotherCancerPaternal GrandmotherDorothybreastRelationNameStatus CommentsFatherDadDeceasedMaternal GrandmotherMildredMotherDeceasedPaternal GrandmotherDorothy Social History Tobacco UseTypesPacks/DayYears UsedDateSmoking Tobacco: Some DaysCigarettes0.3 29.8Started: 04/18/1995Passive Smoke Exposure: YesSmokeless Tobacco: Never Tobacco Cessation:Ready to Q uit: Not Asked; Counseling Given: Yes Alcohol UseStandard Drinks/WeekCommentsYes4 (1 standard drink = 0.6 oz pure alcohol)Caffeine: coffee, rrgbZ5950 Health LiteracyAnswerDate RecordedHow often do you need [...] relatives?Once a week02/20/2024How often do you attend spiritism or spiritism services?Never 02/20/2024o you belong to any clubs or organizations such as spiritism groups, unions, fraternal or athletic groups, or school groups?No02/20/2024How often do you attend meetings of the clubs or organizations you belong to?Patient declined 02/20/2024re you , , , , never , or living with a partner?Living with ohllfls2602/20/2024UDIT-CAnswerDate RecordedQ1: How often do you have a [...] and heating?Not very hard02/20/2024HQ-2AnswerDate RecordedPatient Health Questionnaire-2 Dgvbx401[facility] [place] of Occupational [facility] - Occupational Stress QuestionnaireAnswerDate RecordedDo you feel stress - tense, restless, nervous, or anxious, or unable to sleep at night because your mind is troubled all the time - these days?To some xqbrkj0902/20/2024Exercise Vital SignAnswerDate RecordedOn average, how many days [...] steady place to sleep or slept in [place] (including now)?No 11/22/2022Housing Stability Vital SignAnswerDate RecordedIn the last 12 months, was there a time when you were not able to pay the mortgage or rent on time?No 02/20/2024In the past 12 months, how many times have you moved where you were living?t any time in the past 12 months, were you homeless or living in a group home (including now)?No02/20/2024CommentsNoSex and Gender InformationValueDate RecordedSex Assigned at EbvtwPhijig97/08/2023 9:40 AM EDT Legal KiaZuhbmb78/15/2023 6:35 PM EDTGender NavtwboqDvliha84/08/2023 9:40 AM EDT Sexual LejindzwubjNlfsrrpp43/08/2023 9:40 AM EDT Last Filed Vital Signs Vital SignReadingTime TakenCommentsBlood Jvorsewe103/7608 8:52 AM EDT Vrgvw637312/04/2024 8:52 AM XZEArwghqrefzx89.4 ??C (97.6 ??F)10/01/2024 11:36 AM EDTRespiratory Ynei929312/04/2024 8:52 AM EDTOxygen Pootdkfaei79%12/04/2024 8:52 AM EDTInhaled Oxygen Concentration--Giwere08.5 kg (184 lb)12/04/2024 8:52 AM EDT Virxxp626.3 cm (5' 9 )12/04/2024 8:52 AM EDTBody Mass Index27.17012/04/2024 8:52 AM EDT Plan of Treatment Health MaintenanceDue DateLast DoneCommentsCT Zopxcrsdyjfp1966FIT-DNA 1965FIT1965FOBT1965 0260Phevrqbwzpsvx1966Pap Smear1987 Cervical Cancer Ilankbzpg64/10/1996HPV/Tfompr8301/18/1996Influenza Vaccine (#1) 12/09/20241582Njdhiivvd51/04/01726009/11/2024, 09/06/2023, 07/20/2022, Additional history nkjwzbVskbnnnrkal89/21/062249Colorectal Cancer Screening 01/28/2026 Procedures Procedure NamePriorityDate/TimeAssociated DiagnosisCommentsXR HIP 2 OR 3 VW DDMQYCnwcyer37/02/2025 9:05 AM EDT Pain of right hip XR LUMBAR SPINE 2-3 OIKZZVdjcdes44/02/2025 9:05 AM EDT Pain of right thigh XR LUMBAR SPINE 2 OR 3V12/23/2024 11:11 AM EDT MM TOMOSYNTHESIS SCREENING BI09/11/2024 1:03 PM EDT UYKUZNUFIJBGythpnv50/21/2016 12:00 PM EDT from Last 3 Months or Most Recently Relevant to Health Maintenance Results * XR hip right 2 or 3 views (01/09/2025 9:05 AM EDT)Anatomical RegionLaterality ModalityLower Extremities, HipRightRadiographic ImagingSpecimen (Source) Anatomical Location / LateralityCollection Method / VolumeCollection Time Received Time01/09/2025 1:55 PM EDT Impressions 01/09/2025 2:01 PM EDT DEGENERATIVE CHANGES ARE SEEN IN THE LUMBAR SPINE AND ARE MOST SEVERE AT L5-S1. LOSS OF VERTEBRAL BODY HEIGHT IS SEEN AT T12, L1 AND TO A LESSER DEGREE AT L2 THIS COULD REFLECT ANTERIOR WEDGING VERSUS COMPRESSION DEFORMITY. Mild degenerative changes are seen in the right hip. Also tiny calcifications seen laterally adjacent to the acetabulum could reflect calcific tendinopathy. ELECTRONICALLY SIGNED BY: Porfirio Mcbride DO Narrative 01/09/2025 2:01 PM EDT XR LUMBAR SPINE 2-3 VIEWS, XR HIP 2 OR 3 VW RIGHT : 01/09/2025 8:59 AM CLINICAL HISTORY: Rt thigh/ hip pain. COMPARISON: None available. TECHNIQUE: ROUTINE FINDINGS: Lumbar spine: Severe intervertebral disc space narrowing is seen at L5-S1. There is also facet arthropathy seen at this level. There is loss of vertebral body heights at T12-L1 and to a lesser degreeat L2. This could be anterior wedging or compression deformity. Very slight retrolisthesis of L2 onL3 and L3 on L4 are seen. Small anterior osteophytes are seen at multiple levels. Right hip: The pelvic ring is intact. The sacroiliac joints are maintained. Mild joint space narrowing is seen in the right hip. No acute fracture is visualized. There are tiny densities seen laterally adjacent to the acetabulum. No acute fractures seen. No acute fracture or dislocation is seen in the left hip. Procedure Note Porfirio Mcbride DO - 01/09/2025 XR LUMBAR SPINE 2-3 VIEWS, XR HIP 2 OR 3 VW RIGHT : 01/09/2025 8:59 AM CLINICAL HISTORY: Rt thigh/ hip pain. COMPARISON: None available. TECHNIQUE: ROUTINE FINDINGS: Lumbar spine: Severe intervertebral disc space narrowing is seen at L5-S1.There is also facet arthropathy seen at this level. There is loss ofvertebral body heights at T12-L1 and to a lesser degree at L2. This couldbe anterior wedging or compression deformity. Very slight retrolisthesisof L2 on L3 and L3 on L4 are seen. Small anterior osteophytes are seen atmultiple levels. Right hip: The pelvic ring is intact. The sacroiliac joints aremaintained. Mild joint space narrowing is seen in the right hip. No acutefracture is visualized. There are tiny densities seen laterally adjacentto the acetabulum. No acute fractures seen. No acute fracture ordislocation is seen in the left hip. IMPRESSION: DEGENERATIVE CHANGES ARE SEEN IN THE LUMBAR SPINE AND ARE MOST SEVERE ATL5-S1. LOSS OF VERTEBRAL BODY HEIGHT IS SEEN AT T12, L1 AND TO A LESSERDEGREE AT L2 THIS COULD REFLECT ANTERIOR WEDGING VERSUS COMPRESSIONDEFORMITY. Mild degenerative changes are seen in the right hip. Also tinycalcifications seen laterally adjacent to the acetabulum could reflectcalcific tendinopathy. ELECTRONICALLY SIGNED BY: Porfirio Mcbride DO Authorizing ProviderResult TypeResult StatusShshakeel Rhodes NPIMG XR PROCEDURES Final Result * XR lumbar spine 2 or 3 views (01/09/2025 9:05 AM EDT)Anatomical Region LateralityModalitySpine, L-spineRadiographic ImagingSpecimen (Source) Anatomical Location / LateralityCollection Method / VolumeCollection Time Received Time01/09/2025 1:55 PM EDT Impressions 01/09/2025 2:01 PM EDT DEGENERATIVE CHANGES ARE SEEN IN THE LUMBAR SPINE AND ARE MOST SEVERE AT L5-S1. LOSS OF VERTEBRAL BODY HEIGHT IS SEEN AT T12, L1 AND TO A LESSER DEGREE AT L2 THIS COULD REFLECT ANTERIOR WEDGING VERSUS COMPRESSION DEFORMITY. Mild degenerative changes are seen in the right hip. Also tiny calcifications seen laterally adjacent to the acetabulum could reflect calcific tendinopathy. ELECTRONICALLY SIGNED BY: Porfirio Mcbride DO Narrative 01/09/2025 2:01 PM EDT XR LUMBAR SPINE 2-3 VIEWS, XR HIP 2 OR 3 VW RIGHT : 01/09/2025 8:59 AM CLINICAL HISTORY: Rt thigh/ hip pain. COMPARISON: None available. TECHNIQUE: ROUTINE FINDINGS: Lumbar spine: Severe intervertebral disc space narrowing is seen at L5-S1. There is also facet arthropathy seen at this level. There is loss of vertebral body heights at T12-L1 and to a lesser degreeat L2. This could be anterior wedging or compression deformity. Very slight retrolisthesis of L2 onL3 and L3 on L4 are seen. Small anterior osteophytes are seen at multiple levels. Right hip: The pelvic ring is intact. The sacroiliac joints are maintained. Mild joint space narrowing is seen in the right hip. No acute fracture is visualized. There are tiny densities seen laterally adjacent to the acetabulum. No acute fractures seen. No acute fracture or dislocation is seen in the left hip. Procedure Note Porfirio Mcbride DO - 01/09/2025 XR LUMBAR SPINE 2-3 VIEWS, XR HIP 2 OR 3 VW RIGHT : 01/09/2025 8:59 AM CLINICAL HISTORY: Rt thigh/ hip pain. COMPARISON: None available. TECHNIQUE: ROUTINE FINDINGS: Lumbar spine: Severe intervertebral disc space narrowing is seen at L5-S1.There is also facet arthropathy seen at this level. There is loss ofvertebral body heights at T12-L1 and to a lesser degree at L2. This couldbe anterior wedging or compression deformity. Very slight retrolisthesisof L2 on L3 and L3 on L4 are seen. Small anterior osteophytes are seen atmultiple levels. Right hip: The pelvic ring is intact. The sacroiliac joints aremaintained. Mild joint space narrowing is seen in the right hip. No acutefracture is visualized. There are tiny densities seen laterally adjacentto the acetabulum. No acute fractures seen. No acute fracture ordislocation is seen in the left hip. IMPRESSION: DEGENERATIVE CHANGES ARE SEEN IN THE LUMBAR SPINE AND ARE MOST SEVERE ATL5-S1. LOSS OF VERTEBRAL BODY HEIGHT IS SEEN AT T12, L1 AND TO A LESSERDEGREE AT L2 THIS COULD REFLECT ANTERIOR WEDGING VERSUS COMPRESSIONDEFORMITY. Mild degenerative changes are seen in the right hip. Also tinycalcifications seen laterally adjacent to the acetabulum could reflectcalcific tendinopathy. ELECTRONICALLY SIGNED BY: Porfirio Mcbride DO Authorizing ProviderResult TypeResult StatusShshakeel Rhodes NPIMG XR PROCEDURES Final Result * XR LUMBAR SPINE 2 OR 3V (12/23/2024 11:11 AM EDT)Anatomical RegionLaterality ModalityRadiographic ImagingSpecimen (Source)Anatomical Location / Laterality Collection Method / VolumeCollection TimeReceived Time12/23/2024 11:11 AM EDT Narrative 12/23/2024 11:14 AM EDT [facility] ?[address] ? [place] [address] ?XRay Report ? Signed ? Patient: ANA VILLEDA ? MR#: [id number] ?? : 1965 ?Acct:[id number] ?? Age/Sex: 59 / F ?ADM Date: 12/23/24 ?? Loc: RAD ? Attending Dr: SONDRA RHODES ? Ordering Physician: SONDRA RHODES ?? Date of Service: 12/23/24 ?? Procedure(s): XR lumbar spine 2-3V ?? Accession Number(s): [id number] ? cc: SCOTTIE NASH ; SONDRA RHODES ? [facility] ? [address] ? [place] [address] ? Patient Name: ?? ANA VILLEDA ? MRN: [facility]:[id number] ? date: 1965 ?Sex: F ?? Assigned Patient Location: RAD ?? Current Patient Location: RAD ?? Accession/Order Number: [id number] ?? Exam Date: 12/23/2024 ??10:38 ?Report Date: 12/23/2024 ??11:11 ? At the request of: ?? SONDRA ??MEAGAN ? Procedure: ??XR lumbar spine 2-3V ? LUMBAR SPINE - 2 views ? COMPARISON: CT 12/31/2020 ? CLINICAL DATA: Right back pain radiating to the thigh over the past month. ??No ?? injury. ? AP and lateral views were obtained. ??Subtle dextroscoliotic curvature is ?? noted. ??There is minimal retrolisthesis of L1 on L2, L2 on L3 and L3 on L4. ? There is minor chronic wedge deformity involving the inferior endplate of L1 ?? and superior endplate of T12. ??No acute fractures are identified. ??There is ?? disc space narrowing at the lumbosacral junction. ??Mild endplate spurring is ?? visualized throughout. ??There are Schmorl's nodes at L1-2. ??Facet hypertrophy ?? is seen. ??The SI joints show show mild sclerosis. ??No paraspinal soft tissue ?? abnormalities are identified. ? XR/XR lumbar spine 2-3V ?? IMPRESSION: ? DEGENERATIVE CHANGES. ? NO ACUTE BONY FINDINGS. ? Impression dictated by: Tami Parra M.D. ??12/23/2024 11:11 AM ? Dictation Location: RADIO-PC-30 ? Electronically authenticated by: [id number] ??Y ?? Date: 12/23/2024 ??11:11 ? Dictated By: ?Tami Parra M.D. ? Signed By: ?12/23/24 1114 ? DD/ 1111 ? TD/TT: ? Building Pressure Washer: Procedure Note Radiology, Radiologist, MD - 12/23/2024 [place] [address] XRay Report Signed Patient: ANA VILLEDA LMR#: [id number] : 1965Acct:[id number] Age/Sex: 59 / FADM Date: 12/23/24 Loc: RAD Attending Dr: SONDRA RHODES Ordering Physician: SONDRA RHODES Date of Service: 12/23/24 Procedure(s): XR lumbar spine 2-3V Accession Number(s): [id number] cc: SCOTTIE NASH ; SONDRA RHODES [facility] [place] [id number] Patient Name: ANA VILLEDA MRN: [id number]:[id number] date: 1965 Sex: F Assigned Patient Location: [facility] Current Patient Location: [facility] Accession/Order Number: [id number] Exam Date: 12/23/2024 10:38 Report Date: 12/23/2024 11:11 At the request of: SONDRA RHODES Procedure: XR lumbar spine 2-3V LUMBAR SPINE - 2 views COMPARISON: CT 12/31/2020 CLINICAL DATA: Right back pain radiating to the thigh over the past month.No injury. AP and lateral views were obtained. Subtle dextroscoliotic curvature is noted. There is minimal retrolisthesis of L1 on L2, L2 on L3 and L3 onL4. There is minor chronic wedge deformity involving the inferior endplate ofL1 and superior endplate of T12. No acute fractures are identified. Thereis disc space narrowing at the lumbosacral junction. Mild endplate spurringis visualized throughout. There are Schmorl's nodes at L1-2. Facethypertrophy is seen. The SI joints show show mild sclerosis. No paraspinal softtissue abnormalities are identified. XR/XR lumbar spine 2-3V IMPRESSION: DEGENERATIVE CHANGES. NO ACUTE BONY FINDINGS. Impression dictated by: Tami Parra M.D. 12/23/2024 11:11 AM Dictation Location: Traveler | VIP Electronically authenticated by: [id number] Y Date: :11 Dictated By: Tami Parra M.D. Signed By:12/23/24 1114 DD/ 1111 TD/TT: Building Pressure Washer: Authorizing ProviderResult TypeResult StatusDeeshakeel Rhodes NPIMG XR PROCEDURES Final Result * MM TOMOSYNTHESIS SCREENING BI (09/11/2024 1:03 PM EDT)Anatomical Region LateralityModalityOtherSpecimen (Source)Anatomical Location / Laterality Collection Method / VolumeCollection TimeReceived Time09/11/2024 1:03 PM EDT Narrative 09/11/2024 1:03 PM EDT [facility] ?[address] ? [place], [place] [address] ? Mammography Report ? Signed ? Patient: ANA VILLEDA L ? MR#: [id number] ?? : 1965 ?Acct:[id number] ?? Age/Sex: 59 / F ?ADM Date: 09/11/ ?? Loc: MAMMO ? Attending Dr: SCOTTIE NASH ? Ordering Physician: SCOTTIE NASH ? Results: ? Date of Service: 09/11/24 ?Follow Up: ? Procedure(s): MM tomosynthesis screening BI ?? Accession Number(s): [id number] ? cc: SCOTTIE NASH ? Patient Name: ? ANA VILLEDA ? MR#: [id number] ? : 1965 ? Exam Date: 09/11/2024 ?? Ordering Doctor: DR SCOTTIE NASH M.D. ? RADIOLOGY REPORT ? PROCEDURE: ? MM TOMOSYNTHESIS SCREENING BI ? COMPARISON: ? MM TOMOSYNTHESIS SCREENING BI, 09/06/2023. ??MG MAMM SCREEN 3D ?? NEIL CAD, 07/20/2022. ??MG MAMM SCREEN 3D NEIL CAD, 07/13/2021. ??MG MAMM NEIL SCRN W ?? CAD DIG, 06/06/2013. ? INDICATIONS: ? Screening ? Calculator Name ? NCI Breast Cancer Risk Assessment Tool ?? 5 Year Breast Cancer Risk ? 1.20% ?? Lifetime Breast Cancer Risk ? 6.90% ?? Personal Breast Cancer ?No ?? Personal Ovarian Cancer ? No ?? Treatments ? None ?? Family Cancers ? Grandmother-paternal with breast cancer at age ??50; ?? Grandmother-paternal with bone cancer at age 80; Father with carcinoma cancer ?? at age 50. ? LOCATION: ? [facility] ? BREAST COMPOSITION: ? The breasts are heterogeneously dense,which may ?? obscure small masses. ? FINDINGS: ? RIGHT BREAST: ??No significant suspicious finding. ??Focal asymmetries are ?? present. ??Benign-appearing lymph nodes are noted along chest wall . ? LEFT BREAST: ??No significant suspicious finding. ??Focal asymmetries are ?? redemonstrated. ??These are unchanged. ? DIAGNOSTIC CATEGORY 2--BENIGN FINDING: ? RECOMMENDATIONS: ? ROUTINE MAMMOGRAM AND CLINICAL EVALUATION IN 12 MONTHS. ? PLEASE NOTE: ??A NORMAL MAMMOGRAM DOES NOT EXCLUDE THE POSSIBILITY OF BREAST ?? CANCER. ??A CLINICALLY SUSPICIOUS PALPABLE LUMP SHOULD BE BIOPSIED. ? Dictated by: Ranulfo Sanchez MD on 09/11/2024 at 12:57 ? Approved by: Ranulfo Sanchez MD on 09/11/2024 at 13:02 ? Dictated By: ?Ranulfo Sanchez M.D. ? Signed By: ?09/11/24 130 ? DD/ 02 ? TD/TT: ? 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 RADIOLOGY REPORT PROCEDURE: MM TOMOSYNTHESIS SCREENING BI COMPARISON: MM TOMOSYNTHESIS SCREENING BI, 09/06/2023. MG MAMM [id number] NEIL CAD, 07/20/2022. MG MAMM SCREEN 3D [...] with carcinomacancer at age 51. LOCATION: [facility] BREAST COMPOSITION: The breasts are heterogeneously dense,which [...] M.D. Signed By:09/11/24 1303 DD/ 1303 TD/TT: Building Pressure Washer: Authorizing ProviderResult TypeResult StatusScottie Nash MDCLINISYNC IMAGING Final Result * Colonoscopy (01/29/2016 12:00 PM EDT)Anatomical RegionLateralityModality EndoscopySpecimen (Source)Anatomical Location / LateralityCollection Method / VolumeCollection TimeReceived Time01/29/2016 12:00 PM EDT Narrative 02/18/2016 12:00 PM EST PERFORMED AT [facility] LOCATION:[id number] diverticulosis, polyps Procedure Note CONVERSION, GENERIC - 08/25/2022 PERFORMED AT [facility] LOCATION:[id number] diverticulosis, polyps Authorizing ProviderResult TypeResult StatusScottie Nash MDENDOSCOPY PROCEDURE ORDERABLESFinal Result from Last 3 Months or Most Recently Relevant to Health Maintenance Insurance Care Teams Team MemberRelationshipSpecialtyStart DateEnd Date Scottie Nash MD [address] [place] [address] PCP - General09/15/22 Scottie Nash MD [address] [place] [address] PCP - [facility]07/10/23"
--- NOTE | 2025-02-03 08:58 | MR_ITS ---
[address] [address] Patient Name: EDINSON VILLEDA MRN: [id number] date: 1965 Sex: F Assigned Patient Location: MRI Current Patient Location: Accession/Order Number: [id number] Exam Date: 02/03/2025 09:33 Report Date: 02/04/2025 09:48 At the request of: SONDRA RHODES Procedure: MR lumbar spine wo con EXAMINATION: MRI LUMBAR SPINE WITHOUT CONTRAST CLINICAL HISTORY: Low back pain with right lower extremity radiculopathy. COMPARISON: Plain films 12/23/2024 TECHNIQUE: Multiecho imaging was performed in the sagittal and axial planes without contrast administration. FINDINGS: There is still minimal retrolisthesis of L2 on L3, L3 on L4 and L5 on S1. There are no acute compression fractures or marrow edema. Multiple Schmorl's nodes are present. There are mild degenerative endplate signal changes at the lumbosacral junction. Mild endplate spurring is noted. The conus medullaris is normal in caliber, position and signal intensity. No paraspinal soft tissue abnormalities are identified. At T12-L1 and L1-2, there is no disc disease or stenosis. At L2-3, there is slight loss of disc height. There is mild annular disc bulging, greater toward the neural foramen and asymmetric on the left. There is slight facet and ligamentous hypertrophy. There is mild thecal sac effacement. Moderate left and mild inferior right foraminal encroachment is seen. At L3-4, annular disc bulging is present. This is greater toward the neural foramen and asymmetric extending laterally on the right. There is mild facet and ligamentous hypertrophy. Mild to moderate thecal sac effacement is present. There is moderate bilateral foraminal encroachment. At L4-5, there is annular disc bulging with a small broad-based central protrusion. There is mild facet and ligament hypertrophy. There is moderate thecal sac effacement. Mild to moderate right and mild left foraminal encroachment is present. At the lumbosacral junction, there is narrowing of the disc space. Mild disco osteophytic bulging is present with a tiny broad-based central protrusion. There is bilateral facet hypertrophy. No thecal sac effacement is identified. There is moderate bilateral foraminal encroachment. MR/MR lumbar spine wo con IMPRESSION: DISCOVERTEBRAL DEGENERATIVE CHANGES WITH ASSOCIATED STENOSIS, OUTLINED ABOVE. Impression dictated by: Tami Parra M.D. 02/04/2025 9:48 AM Dictation Location: [place] [address] Electronically authenticated by: [id number] Y Date: 02/04/2025 09:48
--- OUTSIDE RECORDS SUMMARY | 2025-02-03 09:06 | XMS_ITS | CCD ---
Author Organization [facility] ion Partnership [facility] Care Team Providers Care Grocery Clerk Marking Name Role Phone NOÉ ., DR BECKER Admitting Unavailable NOÉ ., DR BECKER Attending Unavailable CAHRITY, DR BRANCH Primary Care Unavailable NOÉ ., DR BECKER Consulting Unavailable NOÉ ., DR BECKER Admitting Unavailable NOÉ ., DR BECKER Attending Unavailable CHARITY, DR BRANCH Primary Care Unavailable NOÉ ., DR BECKER Consulting Unavailable ZIEBER, DR ERIK Martinez Consulting Unavailable Scottie Nash MD Primary Care Provider [phone] Scottie Nash MD Unavailable SONDRA BARRIOS Attending Unavailable JOJO VALERIO Attending Unavailable SCOTTIE NASH Attending Unavailable JOJO VALERIO Referring Unavailable SONDRA BARRIOS Attending Unavailable SONDRA BARRIOS Referring Unavailable TAMI TROY Attending Unavailable Allergies Allergy ClassificationReported Allergen(s)Allergy TypeDate of OnsetReaction(s) Facility (1 source)PenicillinsDrug allergy (disorder)05-27[facility]1404[facility] (19 sources)Penicillin GDrug Yrynkno79-44-2270[facility] Medications Current Medications MedicationDrug Class(es)DatesSig (Normalized)Sig (Original)ALPRAZolam 0.5 mg oral tablet (20 sources)BenzodiazepineStart: 08-28-2023 End: 68-21-7021lduj 1 tablet by mouth onceALPRAZolam (Xanax) 0.5 MG tablet Indications: Adjustment disorder with depressed mood Take 1 tablet(0.5 mg) by mouth every 12 (twelve) hours if needed for anxiety 60 tablet 06/12/2024 Active atorvastatin 20 mg oral tablet (19 sources)HMG-CoA Reductase InhibitorStart: 62-51-5414trra 1 tablet by mouth once daily in the morningatorvastatin (Lipitor) 20 MG tablet Indications: Hypertriglyceridemia TAKE ONE TABLET BY MOUTH ONCEDAILY IN THE MORNING 100 tablet 3 04/12/2024 ActiveStart: 94-08-2872sevy 1 tablet by mouth in the morning atorvastatin (Lipitor) 20 MG tablet Indications: Hypertriglyceridemia (CMS/HCC) Take 1 tablet (20 mg) by mouth in the morning. 100 tablet 3 02/20/2023 Active busPIRone hydrochloride 10 mg oral tablet (20 sources)Start: 55-32-4008vprm 1 tablet by mouth twice daily as needed for anxietybusPIRone (Buspar) 10 MG tablet Indications: Grief reaction Take 1 tablet (10 mg) by mouth 2 (two) times a day as needed (Anxiety) 180 tablet 3 01/06/2025 ActiveStart: 74-63-1952qxqv 1 tablet by mouth twice daily as needed for anxiety busPIRone (Buspar) 10 MG tablet Indications: Grief reaction Take 1 tablet (10 mg) by mouth 2 (two) times a day as needed (Anxiety) 180 tablet 3 01/06/2025 ActiveStart: 12-10-2024 End: 78-62-2300kqca 1 tablet by mouth twice daily as needed for anxietybusPIRone (Buspar) 10 MG tablet Indications: Grief reaction TAKE 1 TABLET (10 MG) BY MOUTH 2 (TWO) TIMES A DAY NEEDED (ANXIETY) 60 tablet 12/10/2024 01/06/2025 DiscontinuedStart: 66-78-6973fcvv 1 tablet by mouth twice daily as needed for anxietybusPIRone (Buspar) 10 MG tablet Indications: Grief reaction TAKE 1 TABLET (10 MG) BY MOUTH 2 (TWO) TIMES A DAY NEEDED (ANXIETY) 60 tablet 10/30/2024 ActiveStart: 03-28-2024 End: 03-53-5606cywt 1 tablet by mouth twice daily as needed for anxietybusPIRone (Buspar) 10 MG tablet Indications: Grief reaction Take 1 tablet (10 mg) by mouth 2 (two) times a day as needed (Anxiety) 60 tablet 2 06/12/2024 10/02/2024 Discontinuedcholecalciferol 0.025 mg oral tablet (20 sources)Vitamin DStart: 16-37-6389lzho 1 tablet by mouth once daily cholecalciferol (Vitamin D3) 25 MCG (1000 UT) tablet Indications: Vitamin D deficiency Take 1 tablet (25 mcg) by mouth Daily 100 tablet 3 01/06/2025 Active Start: 09-23-2024 End: 15-76-6094uxen 1 tablet by mouth once dailycholecalciferol (Vitamin D3) 25 MCG (1000 UT) tablet Indications: Vitamin D deficiency Take 1 tablet (25 mcg) by mouth Daily 100 tablet 09/23/2024 01/06/2025 DiscontinuedStart: 35-88-9677mdzi 1 tablet by mouth once dailycholecalciferol (Vitamin D3) 25 MCG (1000 UT) tablet Indications: Vitamin D deficiency TAKE ONE TABLET BY MOUTH DAILY 100 tablet 06/13/2024 ActiveStart: 83-07-3270tebeitmlycbtceq (Vitamin D3) 25 MCG (1000 UT) tablet Indications: Vitamin D deficiency Take 1 tablet daily 100 tablet 03/04/2024 ActiveStart: 38-68-2471cxmg 1 tablet by mouth once daily cholecalciferol (Vitamin D3) 25 MCG (1000 UT) tablet Indications: Vitamin D deficiency Take 1 tablet (25 mcg) by mouth 1 (one) time each day at the same time 90 tablet 11/16/2023 Activecyclobenzaprine hydrochloride 10 mg oral tablet (20 sources)Muscle RelaxantStart: 08-28-2023 End: 53-40-3233swcj 1 tablet by mouth every eight hours for muscle spasms cyclobenzaprine (Flexeril) 10 MG tablet Indications: Right hip pain Take 1 tablet (10 mg) by mouth every 8 (eight) hours if needed for muscle spasms 90 tablet 3 12/04/2024 Activedocosahexaenoic acid 120 mg / eicosapentaenoic acid 180 mg oral capsule (19 sources)Start: 35-96-8175jpxx 2 capsules by mouth twice daily at bedtime omega-3 (Fish Oil) 1000 MG capsule Indications: Polyp of colon, unspecified part of colon, unspecified type TAKE TWO CAPSULES BY MOUTH TWICE A DAY ( IN THE MORNING AND BEFORE BEDTIME ) 120 capsule 7 12/10/2024 ActiveStart: 03-18-2024 take 2 capsules by mouth twice daily at bedtimeomega-3 (Fish Oil) 1000 MG capsule Indications: Polyp of colon, unspecified part of colon, unspecified type TAKE TWO CAPSULES BY MOUTH TWICE A DAY ( IN THE MORNING AND BEFORE BEDTIME ) 120 capsule 7 03/18/2024 ActiveStart: 56-34-9499mflm 2 capsules by mouth twice daily at bedtimeomega-3 (Fish Oil) 1000 MG capsule TAKE TWO CAPSULES BY MOUTH TWICE A DAY ( IN THE MORNING AND BEFORE BEDTIME ) 01/16/2024 Activeibuprofen 800 mg oral tablet (20 sources)Nonsteroidal Anti-inflammatory DrugStart: 08-28-2023 End: 12-28-5572wgme 1 tablet by mouth every eight hoursibuprofen (IBU) 800 MG tablet Indications: Chronic neck pain Take 1 tablet (800 mg) by mouth every 8 (eight) hours 300 tablet 12/04/2024 ActiveMultiple Vitamins-Minerals (Multivitamin Women 50+) tablet (19 sources)Start: 58-00-4748ktrn 1 tablet by mouth once dailyMultiple Vitamins- Minerals (Multivitamin Women 50+) tablet Indications: Fatigue, unspecified type TAKE ONE TABLET BY MOUTH ONCE DAILY DIRECTED FOR 30 DAYS 30 tablet 9 06/03/2024 ActiveStart: 04-71-5945ixud 1 tablet by mouth once dailyMultiple Vitamins-Minerals (Multivitamin Women 50+) tablet Indications: Fatigue, unspecified type TAKE ONE TABLET BY MOUTH ONCE DAILY DIRECTED FOR 30 DAYS 30 tablet 10 05/22/2023 ActiveOmega-3 Fatty Acids (Fish Oil) 1000 MG capsule delayed-release (2 sources)Start: 01-18-2023 End: 68-12-2929pnvb 2 capsules by mouth in the morningOmega-3 Fatty Acids (Fish Oil) 1000 MG capsule delayed-release Indications: Hypertriglyceridemia (CMS/HCC) Take 2 capsules by mouth in the morning and 2 capsules before bedtime. 120 capsule 11 01/18/2023 02/27/2024 Discontinued (Other)predniSONE 10 mg oral tablet (2 sources)Start: 12-04-2024 End: 76-75-2577hpoo 4 tablets by mouth once daily, then take 3 tablets by mouth once daily, then take 2 tablets bymouth once daily, then take 1 tablet by mouth once dailypredniSONE (Deltasone) 10 MG tablet Indications: Lumbar radiculopathy, acute , Pain of right thigh Take 4 tablets (40 mg) by mouth Daily for 4 days, THEN 3 tablets (30 mg) Daily for 4 days, THEN 2 tablets (20 mg) Daily for 4 days, THEN 1 tablet (10 mg) Daily for 4 days. 40 tablet 12/04/2024 12/20/2024 ActivetraZODone hydrochloride 50 mg oral tablet (19 sources)Serotonin Reuptake InhibitorStart: 72-56-4076iopj 0.5-1 tablets by mouth at bedtimetraZODone (Desyrel) 50 MG tablet Indications: Trouble in sleeping TAKE 1/2 TO 1 TABLET BY MOUTH AT BEDTIME 30 tablet 2 10/30/2024 Active Start: 03-28-2024 End: 56-91-7205wnla 0.5-1 tablets by mouth at bedtimetraZODone (Desyrel) 50 MG tablet Indications: Trouble in sleeping Take 0.5-1 tablets (25-50 mg) by mouth at bedtime 30 tablet 2 06/12/2024 Active Completed/Discontinued Medications MedicationDrug Class(es)DatesSig (Normalized)Sig (Original)2 ml ketorolac tromethamine 30 mg/ml cartridge (4 sources)Nonsteroidal Anti-inflammatory Drug, Cyclooxygenase InhibitorStart: 10-01-2024 End: 07-64-759216 mg, Intramuscular, Once, On Mon10/01/24 at 1200, For 1 dose, Max daily dose: 120 mg. Max duration: 5 days totalStart: 10-01-2024 End: 80-92-7533lmgndzlkv (Toradol) injection 60 mgStart: 10-01-2024 End: 53-93-947183 mg, Intramuscular, Once, On Mon10/01/24 at 1200, For 1 dose, Max daily dose: 120 mg. Max duration: 5 days totalStart: 10-01-2024 End: 88-06-7467ktfgzarki (Toradol) injection 60 mg Problems Active Problems Problem ClassificationProblemDateDocumented DateEpisodic/ChronicAdjustment disorders (20 sources)Adjustment disorder with depressed mood; Translations: [Adjustment disorder with depressed mood]Onset: 772508-18-2906EffpwcmNnpxmna disorders (20 sources)Anxiety; Translations: [Anxiety disorder, unspecified]Onset: 014386-70-5503EbomyatCunfjpll (19 sources)Incipient senile cataract; Translations: [Other age-related incipient cataract, bilateral]Onset: 126353-89-3122ScrqbjtPojkwpxuxt and other anemia (19 sources)Hemoglobinopathy; Translations: [Other hemoglobinopathies]Onset: 899543-92-5364XsznwqqHssporki of white blood cells (19 sources)Leukocytosis; Translations: [Elevated white blood cell count, unspecified]Onset: 267582-51-3874VrgzizsHctwvebxy of lipid metabolism (20 sources)Hypertriglyceridemia; Translations: [Pure hyperglyceridemia]Onset: 359726-31-6597RxcbwreB Codes: Fall (2 sources)Fall; Translations: [Unspecified fall, initial encounter]10-01-2024 EpisodicEssential hypertension (20 sources)Benign essential hypertension; Translations: [Essential (primary) hypertension]Onset: 012521-26-2870YpuhhfeNaqamuitg of unspecified nature or uncertain behavior (20 sources)Polycythemia vera (clinical); Translations: [Polycythemia vera] Onset: 638805-71-9926LeaixwfMmhxekgsojs deficiencies (20 sources)Vitamin D deficiency; Translations: [Vitamin D deficiency, unspecified]Onset: 363592-61-0869JxyositSfoux connective tissue disease (4 sources)Pain of right thigh; Translations: [Pain in right thigh]12-04-2024 EpisodicOther inflammatory condition of skin (19 sources)Rosacea; Translations: [Rosacea, unspecified]Onset: 10-24-2022 45-89-2700QbfvzufGdtkg lower respiratory disease (2 sources)Rib pain; Translations: [Pleurodynia]39-40-7329SqihmzapArwsz nutritional; endocrine; and metabolic disorders (19 sources)Hemochromatosis; Translations: [Hemochromatosis, unspecified]Onset: 850416-19-0736PiuhdchEkxmf nutritional; endocrine; and metabolic disorders (19 sources)Cholesterol level - finding; Translations: [Lipoprotein deficiency] Onset: 436892-73-4509HkoetcfNfhsz nutritional; endocrine; and metabolic disorders (19 sources)Lipoprotein deficiency disorder; Translations: [Lipoprotein deficiency]Onset: 740074-95-8040BlzkxqfQftst nutritional; endocrine; and metabolic disorders (2 sources)Hereditary hemochromatosis; Translations: [Hereditary hemochromatosis]40-13-9389QrxwhjbOylmi screening for suspected conditions (not mental disorders or infectious disease) (10 sources)Encounter for screening mammogram for malignant neoplasm of breast; Translations: [Encounter for screening for malignant neoplasm of cervix]Onset: 76-91-9905CmtfttyiOcegriwwoc and visceral atherosclerosis (20 sources)Atherosclerosis of aorta; Translations: [Atherosclerosis of aorta] Onset: 549420-06-9816HypxsnvCwzoqfsg codes; unclassified (20 sources)Obstructive sleep apnea syndrome; Translations: [Obstructive sleep apnea (adult) (pediatric)]Onset: 678936-27-8605EformzgHzpxjlwi codes; unclassified (1 source)Family history of malignant neoplasm of breast; Translations: [FAMILY HX MALIG NEOPLASM OF BREAST]Onset: 11-71-2960BntdzmacCadtyarb codes; unclassified (1 source)Family history of malignant neoplasm of other organs or systems; Translations: [FAM HX MALIG NEOPLASM OTH ORGN/SYS]Onset: 58-94-8454Rlrbdjuo Residual codes; unclassified (4 sources)Insomnia; Translations: [Sleep disorder, unspecified]03-28-2024 EpisodicSpondylosis; intervertebral disc disorders; other back problems (20 sources)Cervical spondylosis; Translations: [Spondylosis without myelopathy or radiculopathy, cervical region]Onset: 989214-05-1796YybiihpCwjzumwdn- related disorders (20 sources)Cigarette smoker ; Translations: [Nicotine dependence, cigarettes, uncomplicated]Onset: 057500-24-4482OoowvbbZnfgsfxjfpb injury; contusion (2 sources)Contusion of right front wall of thorax, initial encounter; Translations: [Contusion of chest wall]07-79-4306UsosewpzTniwtta disorders (20 sources)Acquired hypothyroidism; Translations: [Hypothyroidism, unspecified] Onset: hronic Past or Other Problems Problem ClassificationProblemDateDocumented DateEpisodic/ChronicComa; stupor; and brain damage (19 sources)Daytime somnolence; Translations: [Somnolence]Onset: 11-29-2022 81-45-5242YpjeufrwGcttuqwjvgdej and screening for infectious disease (1 source)Encounter for screening for human papillomavirus (HPV); Translations: [ENC SCREENING HUMAN PAPILLOMAVIRUS]Onset: 61-30-8120PkvdlhnzYvbeaml and fatigue (20 sources)Fatigue; Translations: [Other fatigue]Onset: EpisodicOther and unspecified benign neoplasm (19 sources)Polyp of colon; Translations: [Polyp of colon]Onset: 10-24-2022 52-96-2672NvhwxcrtDyibj and unspecified benign neoplasm (19 sources)Benign neoplasm of colon; Translations: [Benign neoplasm of colon, unspecified]Onset: 350647-91-8803KgyetzqmCyzse non-traumatic joint disorders (20 sources)Hip pain; Translations: [Pain in right hip]Onset: 11-29-2022 37-65-6703HzbpyqrcLqbxtxba codes; unclassified (19 sources)Tobacco use and exposure - finding; Translations: [Tobacco use] Onset: 11-04-2021 Resolved: 080615-77-8890YnmlwxobJgizrfveosp; intervertebral disc disorders; other back problems (20 sources)Chronic neck pain; Translations: [Cervicalgia]Onset: 11-04-2021 69-29-0653Dauxrpzd Results Test NameValueInterpretationReference RangeFacilityXR HIP 2 OR 3 VW RIGHTon 02-06-5954JW HIP 2 OR 3 VW RIGHTXR LUMBAR SPINE 2-3 VIEWS, XR HIP 2 [...] dislocation is seen in the left hip. IMPRESSION: [...] could reflect calcific tendinopathy. ELECTRONICALLY SIGNED BY: Sami SuemalNot AvailableXR LUMBAR SPINE 2-3 VIEWSon 37-51-3369ZK LUMBAR SPINE 2-3 VIEWSXR LUMBAR SPINE 2-3 VIEWS, XR HIP 2 [...] dislocation is seen in the left hip. IMPRESSION: [...] could reflect calcific tendinopathy. ELECTRONICALLY SIGNED BY: Sami SuemalNot AvailableXR LUMBAR SPINE 2 OR 3Von 90-17-5578[address] [address] XRay Report Signed Patient: ANA CUENCA MR#: [id number] : 1965 Acct:[id number] Age/Sex: 59 / F ADM Date: 12/23/24 Loc: [facility] Attending Dr: SONDRA BARRIOS Ordering Physician: SONDRA BARRIOS Date of Service: 12/23/24 Procedure(s): XR lumbar spine 2-3V Accession Number(s): [id number] cc: SCOTTIE NASH ; SONDRA BARRIOS [address] [address] Patient Name: ANA CUENCA MRN: [id number] date: 1965 Sex: F Assigned Patient Location: [facility] Current Patient Location: [facility] Accession/Order Number: [id number] Exam Date: 12/23/2024 10:38 Report Date: 12/23/2024 11:11 At the request of: SONDRA BARRIOS Procedure: XR lumbar spine 2-3V LUMBAR SPINE - 2 views COMPARISON: CT 12/31/2020 CLINICAL DATA: Right back pain radiating to the thigh over the past month. No injury. AP and lateral views were obtained. Subtle dextroscoliotic curvature is noted. There is minimal retrolisthesis of L1 on L2, L2 on L3 and L3 on L4. There is minor chronic wedge deformity involving the inferior endplate of L1 and superior endplate of T12. No acute fractures are identified. There is disc space narrowing at the lumbosacral junction. Mild endplate spurring is visualized throughout. There are Schmorl's nodes at L1-2. Facet hypertrophy is seen. The SI joints show show mild sclerosis. No paraspinal soft tissue abnormalities are identified. XR/XR lumbar spine 2-3V IMPRESSION: DEGENERATIVE CHANGES. NO ACUTE BONY FINDINGS. Impression dictated by: Tami Parra M.D. 12/23/2024 11:11 AM Dictation Location: [place] [address] Electronically authenticated by: [id number] Y Date: 12/23/2024 11:11 Dictated By: Tami Parra M.D. Signed By: 12/23/24 1114 DD/ 1111 TD/TT: Transportation Refrigeration Technician:BENIHRadiology, Radiologist, - 12/23/2024 [place] [address] XRay Report Signed Patient: ANA CUENCA MR#: [id number] : 1965 Acct:[id number] Age/Sex: 59 / F ADM Date: 12/23/24 Loc: RAD Attending Dr: SONDRA BARRIOS Ordering Physician: SONDRA BARRIOS Date of Service: 12/23/24 Procedure(s): XR lumbar spine 2-3V Accession Number(s): [id number] cc: SCOTTIE NASH ; SONDRA BARRIOS [place] [address] Patient Name: ANA CUENCA MRN: [id number] date: 1965 Sex: F Assigned Patient Location: [facility] Current Patient Location: [facility] Accession/Order Number: [id number] Exam Date: 12/23/2024 10:38 Report Date: 12/23/2024 11:11 At the request of: SONDRA BARRIOS Procedure: XR lumbar spine 2-3V LUMBAR SPINE - 2 views COMPARISON: CT 12/31/2020 CLINICAL DATA: Right back pain radiating to the thigh over the past month. No injury. AP and lateral views were obtained. Subtle dextroscoliotic curvature is noted. There is minimal retrolisthesis of L1 on L2, L2 on L3 and L3 on L4. There is minor chronic wedge deformity involving the inferior endplate of L1 and superior endplate of T12. No acute fractures are identified. There is disc space narrowing at the lumbosacral junction. Mild endplate spurring is visualized throughout. There are Schmorl's nodes at L1-2. Facet hypertrophy is seen. The SI joints show show mild sclerosis. No paraspinal soft tissue abnormalities are identified. XR/XR lumbar spine 2-3V IMPRESSION: DEGENERATIVE CHANGES. NO ACUTE BONY FINDINGS. Impression dictated by: Tami Parra M.D. 12/23/2024 11:11 AM Dictation Location: [place] [address] Electronically authenticated by: [id number] Y Date: 12/23/2024 11:11 Dictated By: Tami Parra M.D. Signed By: 12/23/24 1114 DD/ 1111 TD/TT: Transportation Refrigeration Technician: [facility] HOSPITALDee HealthcareRadiology Study observation (narrative)[facility] HospitalXR LUMBAR SPINE 2 OR 3VOrdered By: Radiologist Radiology on 47-15-3465MSVVOzarks Community Hospital Work Phone: XR RIBS 2 VIEWS RIGHT WITH CHEST ANTEROPOSTERIORon 79-05-5663GW RIBS 2 VIEWS RIGHT WITH CHEST ANTEROPOSTERIORTITLE OF EXAM: XR RIBS 2 VIEWS RIGHT [...] electronically signed and approved by the interpreting radiologist.NormalNot AvailableXR Ribs Views and Chest PAon 25-32-5629FDRBD OF EXAM: XR RIBS 2 VIEWS RIGHT [...] signed and approved by the interpreting radiologist. Abdon Ricardo MD - 10/01/2024 TITLE OF EXAM: XR [...] signed and approved by the interpreting radiologist. [facility] HealthcareRadiology Study observation (narrative)[facility] HealthcareXR Ribs Views and Chest PAOrdered By: Abdon Duarte on 99-97-0508XJHYOzarks Community Hospital Work Phone: mm TOMOSYNTHESIS SCREENING BIon 14-02-1020[place] [address] Mammography Report Signed Patient: ANA CUENCA MR#: [id number] : 1965 Acct:[id number] Age/Sex: 59 / F ADM Date: 09/11/24 Loc: MAMMO Attending Dr: SCOTTIE NASH Ordering Physician: SCOTTIE NASH Results: Date of Service: 09/11/24 Follow Up: Procedure(s): MM tomosynthesis screening BI Accession Number(s): [id number] cc: SCOTTIE NASH Patient Name: ANA CUENCA MR#: [id number] : 1965 Exam Date: 09/11/2024 Ordering Doctor: [...] carcinoma cancer at age 51. LOCATION: [facility] BREAST COMPOSITION: The breasts are heterogeneously [...] Signed By: 09/11/24 1303 DD/ 1303 TD/TT: Transportation Refrigeration Technician:TBHRadiology, Radiologist, - 09/11/2024 [place] [address] Mammography Report Signed Patient: ANA CUENCA MR#: [id number] : 1965 Acct:[id number] Age/Sex: 59 / F ADM Date: 09/11/24 Loc: MAMMO Attending Dr: SCOTTIE NASH Ordering Physician: SCOTTIE NASH Results: Date of Service: 09/11/24 Follow Up: Procedure(s): MM tomosynthesis screening BI Accession Number(s): [id number] cc: SCOTTIE NASH Patient Name: ANA CUENCA MR#: [id number] : 1965 Exam Date: 09/11/2024 Ordering Doctor: [...] carcinoma cancer at age 51. LOCATION: [facility] BREAST COMPOSITION: The breasts are heterogeneously [...] Signed By: 09/11/24 1303 DD/ 1303 TD/TT: Transportation Refrigeration Technician: [facility] HospitalRadiology Study observation (narrative)[facility] TOMOSYNTHESIS SCREENING BIOrdered By: Radiologist Radiology on 38-98-1883GVLFOzarks Community Hospital Work Phone: aLL CBC WITH AUTO DIFFon 91-65-0550PTUNEQMRN ABSOLUTE MDIY3ZAVF HealthcareBasophils/100 WBC (Bld)0.5 %0.2 - 2.0 %[facility] Eosinophils/100 WBC (Bld)3.4 %0.9 - 7.0 %[facility] Community HospitalErythrocyte distribution width (RBC) [Ratio]13.2 %11.0 - 15.0 %[facility] Community HospitalHematocrit (Bld) [Volume fraction]45.7 %36.0 - 48.0 %[facility] HospitalHemoglobin (Bld) [Mass/Vol]15.3 g/dL 12.0 - 16.0 g/dLOzarks Community HospitalIMMATURE GRANULOCYTES ABS AUTO0.02NOSac-[facility] Immature granulocytes/100 WBC (Bld)0.3 %0.0 - 0.5 %[facility] HospitalLYMPHOCYTES ABSOLUTE AUTO2.1NOMS HealthcareLymphocytes/100 WBC (Bld)27.1 %20.5 - 60.0 %[facility] HospitalH (RBC) [Entitic mass]31.5 pg26.7 - 34.0 pgColumbia Regional HospitalHC (RBC) [Mass/Vol]33.5 g/dL29.9 - 35.2 g/dLColumbia Regional HospitalV (RBC) [Entitic vol]94.2 fL 81.0 - 99.0 fLOzarks Community HospitalMONOCYTES ABSOLUTE AUTO0.5NOSac-[facility] Monocytes/100 WBC (Bld)6.6 %1.7 - 12.0 %[facility] HospitalNEUTROPHILS ABSOLUTE AUTO 4.8NOSac-Osage HospitalNeutrophils/100 WBC (Bld)62.1 %43.0 - 75.0 %[facility] Platelet mean volume (Bld) [Entitic vol]10 fL9.5 - 13.5 fLOzarks Community HospitalTBH EO #0.3NOMS [facility] HospitalTBH [id number] Saint [facility]iatric Center RBC4.85NOMS [facility] HospitalTB WBC7.7 [facility] HospitalCLINISYNCNOMS [facility] MAMM SCREEN 3D NEIL CADon 05-72-3323ZI MAMM SCREEN 3D NEIL CADPatient: ANA CUENCA Exam Date: 07/20/2022 : 1965 Gender:F Ordering : DR ROSITA UMANZOR . Admission #: [id number] Family : Order #: [id number] CLICK HERE TO VIEW EXAM RADIOLOGY REPORT [...] carcinoma cancer at age 51. LOCATION: [facility] BREAST COMPOSITION: Heterogeneously dense,which may obscure [...] by: Erik Urban M.D. on 07/20/2022 at 13:12[facility] EastOG PANEL 2: 30 to 65on 09-17-2021..NormalGrant Hospital Comment on above:Result Comment: Performed at: WBPerformed By: #### [id number] #### [facility] [address] [place] [address] Dr. Jose Alejandro Lance Gdln ACOG [id number] Health Perrysburg HospitalComment on above:Performed By: #### [id number] #### [facility] [address] [place] [address] Dr. Jose Alejandro JimDIAGNOSIS:CommentSt. Mary's Medical Center, Ironton CampusComment on above: Result Comment: NEGATIVE FOR INTRAEPITHELIAL LESION OR MALIGNANCY. Performed at: WBPerformed By: #### [id number] #### [facility] [address] [place] [address] Dr. Jose Alejandro JimHPV AptimaNegativeNormalNegativeGrant HospitalComment on above:Result Comment: This nucleic acid amplification test detects fourteen high-risk HPV types (16,18,31,33,35,39,45,51,52,56,58,59,66,68) without differentiation. Performed at: =GPerformed By: #### [id number] #### [facility] [address] [place] [address] Dr. Jose Alejandro JimMethodology:CommentSt. Mary's Medical Center, Ironton CampusComment on above: Result Comment: This liquid based ThinPrep(R) pap test was screened with the use of an image guided system. Performed at: WBPerformed By: #### [id number] #### [facility] [address] [place] [address] Dr. Jose Alejandro iJmNote:CommentCorey Hospital on above:Result Comment: The Pap smear is a screening test designed to aid in the detection of premalignant and malignant conditions of the uterine cervix. It is not a diagnostic procedure and should not be used as the sole means of detecting cervical cancer. Both false-positive and false-negative reports do occur. . Performed at: WBPerformed By: #### [id number] #### [facility] [address] [place] [address] Dr. Jose Alejandro JimPerformed by:CommentCorey Hospital on above: Result Comment: Gabrielle López, [employer] ([employer]) Performed at: Performed By: #### [id number] #### [facility] [address] [place] [address] Dr. Jose Alejandro JimSpecimen adequacy:CommentCorey Hospital on above:Result Comment: Satisfactory for evaluation. Endocervical and/or squamous metaplastic cells (endocervical component) are present. Performed at: WBPerformed By: #### [id number] #### [facility] [address] [place] [address] Dr. Jose Alejandro JimComplete Blood Count with Auto Diffon [id number] cells/uLNormal0-200[facility]ern Johnson Memorial HospitalComment on above:Order Comment: [facility] performed at: [facility], [address] [place] [address], [address] [place] [address], [phone], Manager Installation: Breezy Kumar MD [facility] Collection Date/Time: [facility] Results Received Date/Time: [facility] Reported Date/Time: [id number] By: #### LIPD, TSH reflex FT4, VITD, CBCAD, CMP #### [facility] [address] [place], [place] [address]Clpyztfyi/100 WBC (Bld)0.7 %NormalNoDunlap Memorial Hospital SpecialistComment on above:Order Comment: [facility] performed at: [facility], [address] [place] [address], [address] [place] [address], [address] [place] [address], Manager Installation: Breezy Kumar MD [facility] Collection Date/Time: [facility] Results Received Date/Time: [facility] Reported Date/Time: [id number] By: #### LIPD, TSH reflex FT4, VITD, CBCAD, CMP #### [facility] Default [address] [place], [place] [address]VHYZTV213 cells/sEHndyfc84-072Jezvmlaj [place] Legal Researcher Comment on above:Order Comment: [facility] performed at: [facility], [facility], [address] [place] [address], [address] [place] [address], Manager Installation: Breezy Kumar MD [facility] Collection Date/Time: [facility] Results Received Date/Time: [facility] Reported Date/Time: [id number] By: #### LIPD, TSH reflex FT4, VITD, CBCAD, CMP #### [facility] Default [address] [place], [place] [address]Nanxpqhwtth/100 WBC (Bld)2.4 %NormalMercy Health Lorain Hospital SpecialistComment on above:Order Comment: [facility] performed at: [facility], [facility], [address] [place] [address], [address] [place] [address], [address] [place] [address], Manager Installation: Breezy Kumar MD [facility] Collection Date/Time: [facility] Results Received Date/Time: [facility] Reported Date/Time: [id number] By: #### LIPD, TSH reflex FT4, VITD, CBCAD, CMP #### [facility] Default [address] [place], [place] [address]Jnetkwwaobl distribution width (RBC) [Ratio]12.4 %Werquf85.0-15.0 [facility] SpecialistComment on above:Order Comment: [facility] performed at: [facility], [facility], [address] [place] [address], [address] [place] [address], [address] [place] [address], Manager Installation: Breezy Kumar MD [facility] Collection Date/Time: [facility] Results Received Date/Time: [facility] Reported Date/Time: [id number] By: #### LIPD, TSH reflex FT4, VITD, CBCAD, CMP #### [facility] Default [address] [place], [place] [address]Gfifcoxsff (Bld) [Volume fraction]48.8 %High35.0-45.0NoJ.W. Ruby Memorial HospitalComment on above:Order Comment: [facility] performed at: [facility], [address] [place] [address], [address] [place] [address], Manager Installation: Breezy Kumar MD [facility] Collection Date/Time: [facility] Results Received Date/Time: [facility] Reported Date/Time: [id number] By: #### LIPD, TSH reflex FT4, VITD, CBCAD, CMP #### [facility] Default [address] [place], [place] [address]Dgtixvilkc (Bld) [Mass/Vol]16.8 g/eEXcfq13.7-15.5[facility] HospitalCombeaumont hospital on above:Order Comment: [facility] performed at: [facility], [facility], [address] [place] [address], [address] [place] [address], [address] [place] [address], Manager Installation: Breezy Kumar MD [facility] Collection Date/Time: [facility] Results Received Date/Time: [facility] Reported Date/Time: [id number] By: #### LIPD, TSH reflex FT4, VITD, CBCAD, CMP #### [facility] Default [address] [place], [place] [address]Khvoikflfnw (Bld) [#/Vol]2.561 10*3/eBBjstvy294-8478YxmcwtniJ.W. Ruby Memorial HospitalComment on above:Order Comment: [facility] performed at: [facility], [facility], [address] [place] [address], [address] [place] [address], [address] [place] [address], Manager Installation: Breezy Kumar MD [facility] Collection Date/Time: [facility] Results Received Date/Time: [facility] Reported Date/Time: [id number] By: #### LIPD, TSH reflex FT4, VITD, CBCAD, CMP #### [facility] Default [address] [place], [place] [address]Avtowtiphav/100 WBC (Bld)29.1 %NormalNoDunlap Memorial Hospital SpecialistComment on above:Order Comment: [facility] performed at: [facility], [facility], [address] [place] [address], [address] [place] [address], [address] [place] [address], Manager Installation: Breezy Kumar MD [facility] Collection Date/Time: [facility] Results Received Date/Time: [facility] Reported Date/Time: [id number] By: #### LIPD, TSH reflex FT4, VITD, CBCAD, CMP #### [facility] Default [address] [place], [place] [address]CLQ (RBC) [Entitic mass]31.2 hyKevphb80.0-33.0[facility] SpecialistComment on above:Order Comment: [facility] performed at: [facility], [address] [place] [address], [address] [place] [address], [address] [place] [address], Manager Installation: Breezy Kumar MD [facility] Collection Date/Time: [facility] Results Received Date/Time: [facility] Reported Date/Time: [id number] By: #### LIPD, TSH reflex FT4, VITD, CBCAD, CMP #### [facility] Default [address] [place], [place] [address]SUEQ (RBC) [Mass/Vol]34.4 g/zZNvkjwb98.0-36.0NoDunlap Memorial Hospital SpecialistComment on above:Order Comment: [facility] performed at: [facility], [facility], [address] [facility], [address] [place] [address], [address] [place] [address], Manager Installation: Breezy Kumar MD [facility] Collection Date/Time: [facility] Results Received Date/Time: [facility] Reported Date/Time: [id number] By: #### LIPD, TSH reflex FT4, VITD, CBCAD, CMP #### [facility] Default [address] [place], [place] [address]LFR (RBC) [Entitic vol]90.5 lQCbgzuz10.0-100.0NoDunlap Memorial Hospital SpecialistComment on above:Order Comment: [facility] performed at: [facility], [facility], [address] [place] [address], [address] [place] [address], [address] [place] [address], Manager Installation: Breezy Kumar MD [facility] Collection Date/Time: [facility] Results Received Date/Time: [facility] Reported Date/Time: [id number] By: #### LIPD, TSH reflex FT4, VITD, CBCAD, CMP #### [facility] Default [address] [place], [place] [address]PZDFYCX099 cells/jXNkblmc109-543Cewewvrv [place] Legal Researcher Comment on above:Order Comment: [facility] performed at: [facility], [facility], [address] [facility], [address] [place] [address], [address] [place] [address], Manager Installation: Breezy Kumar MD [facility] Collection Date/Time: [facility] Results Received Date/Time: [facility] Reported Date/Time: [id number] By: #### LIPD, TSH reflex FT4, VITD, CBCAD, CMP #### [facility] Default [address] [place], [place] [address]Yfvzhsasw/100 WBC (Bld)7.0 %NormalNoAdventist Health [facility] Heart Medical SpecialistComment on above:Order Comment: [facility] performed at: [facility], [facility], [address] [place] [address], [address] [place] [address], [address] [place] [address], Manager Installation: Breezy Kumar MD [facility] Collection Date/Time: [facility] Results Received Date/Time: [facility] Reported Date/Time: [id number] By: #### LIPD, TSH reflex FT4, VITD, CBCAD, CMP #### [facility] Default [address] [place], [place] [address]Ffxhkyifcli (Bld) [#/Vol]5.35 10*3/aANahzdh3504-5417Iwbigqit [place] [facility] SpecialistComment on above:Order Comment: [facility] performed at: [facility], [facility], [address] [place] [address], [address] [place] [address], [address] [place] [address], Manager Installation: Breezy Kumar MD [facility] Collection Date/Time: [facility] Results Received Date/Time: [facility] Reported Date/Time: [id number] By: #### LIPD, TSH reflex FT4, VITD, CBCAD, CMP #### [facility] Default [address] [place], [place] [address]Dzqyckkhrmc/100 WBC (Bld)60.8 %NormalMercy Health Lorain Hospital SpecialistComment on above:Order Comment: [facility] performed at: [employer], [facility], [address] [place] [address], [address] [place] [address], [address] [place] [address], Manager Installation: Breezy Kumar MD [facility] Collection Date/Time: [facility] Results Received Date/Time: [facility] Reported Date/Time: [id number] By: #### LIPD, TSH reflex FT4, VITD, CBCAD, CMP #### [facility] Default [address] [place], [place] [address]Hcnenlem mean volume (Bld) [Entitic vol]10.7 fLNormal7.5-12.5 [facility] SpecialistComment on above:Order Comment: [facility] performed at: [facility], [facility], [address] [place] [address], [address] [place] [address], [address] [place] [address], Manager Installation: Breezy Kumar MD [facility] Collection Date/Time: [facility] Results Received Date/Time: [facility] Reported Date/Time: [id number] By: #### LIPD, TSH reflex FT4, VITD, CBCAD, CMP #### [facility] Default [address] [place], [place] [address]Iyarxuxew (Bld) [#/Vol]234 10*3/iZFqtvgp029-599Vnrgzvgy [place] [facility] SpecialistComment on above:Order Comment: [facility] performed at: [facility], [facility], [address] [facility], [address] [place] [address], [address] [place] [address], Manager Installation: Breezy Kumar MD [facility] Collection Date/Time: [facility] Results Received Date/Time: [facility] Reported Date/Time: [id number] By: #### LIPD, TSH reflex FT4, VITD, CBCAD, CMP #### [facility] Default [address] [place], [place] [address]XHX (Bld) [#/Vol]5.39 10*6/uLHigh3.80-5.10NoDunlap Memorial Hospital SpecialistComment on above:Order Comment: [facility] performed at: [facility], [facility], [address] [facility], [address] [place] [address], [address] [place] [address], Manager Installation: Breezy Kumar MD [facility] Collection Date/Time: [facility] Results Received Date/Time: [facility] Reported Date/Time: [id number] By: #### LIPD, TSH reflex FT4, VITD, CBCAD, CMP #### [facility] Default [address] [place], [place] [address]IDU (Bld) [#/Vol]8.8 10*3/uLNormal3.8-10.8NoDunlap Memorial Hospital SpecialistComment on above:Order Comment: [facility] performed at: [facility], [facility], [address] [place] [address], [address] [place] [address], [address] [place] [address], Manager Installation: Breezy Kumar MD [facility] Collection Date/Time: [facility] Results Received Date/Time: [facility] Reported Date/Time: [id number] By: #### LIPD, TSH reflex FT4, VITD, CBCAD, CMP #### [facility] Default [address] [place], [place] [address]Sxpvywxjnndys Metabolic Panelon 52-23-2060Ctzsxey [Mass/Vol]4.6 g/dLNormal3.6-5.1NorthUniversity Hospitals [facility] SpecialistComment on above:Order Comment: [facility] performed at: [employer], [facility], [address] [place] [address], [address] [place] [address], [address] [place] [address], Manager Installation: Breezy Kumar MD [facility] Collection Date/Time: [facility] Results Received Date/Time: [facility] Reported Date/Time: [id number] By: #### LIPD, TSH reflex FT4, VITD, CBCAD, CMP #### [facility] Default [address] [place], [place] [address]Nxtwezn/Globulin [Mass ratio]1.6 {ratio}Normal1.0-2.5NoDunlap Memorial Hospital SpecialistComment on above:Order Comment: [facility] performed at: [facility], [facility], [address] [place] [address], [address] [place] [address], [address] [place] [address], Manager Installation: Breezy Kumar MD [facility] Collection Date/Time: [facility] Results Received Date/Time: [facility] Reported Date/Time: [id number] By: #### LIPD, TSH reflex FT4, VITD, CBCAD, CMP #### [facility] Default [address] [place], [place] [address]TMA [Catalytic activity/Vol]92 U/XEaseny91-081Znspoerk [place] [facility] SpecialistComment on above:Order Comment: [facility] performed at: [facility], [facility], [address] [place] [address], [address] [place] [address], [address] [place] [address], Manager Installation: Breezy Kumar MD [facility] Collection Date/Time: [facility] Results Received Date/Time: [facility] Reported Date/Time: [id number] By: #### LIPD, TSH reflex FT4, VITD, CBCAD, CMP #### [facility] Default [address] [place], [place] [address]LZH [Catalytic activity/Vol]12 U/LNormal6-29[facility] SpecialistComment on above:Order Comment: [facility] performed at: [facility], [facility], [address] [place] [address], [address] [place] [address], [address] [place] [address], Manager Installation: Breezy Kumar MD [facility] Collection Date/Time: [facility] Results Received Date/Time: [facility] Reported Date/Time: [id number] By: #### LIPD, TSH reflex FT4, VITD, CBCAD, CMP #### [facility] Default [address] [place], [place] [address]Tvnfq gap [Moles/Vol]12 mmol/OClcxiy10-38Wfuecmsp [place] [facility] SpecialistComment on above:Order Comment: [facility] performed at: [employer], [facility], [address] [place] [address], [address] [place] [address], [address] [place] [address], Manager Installation: Breezy Kumar MD [facility] Collection Date/Time: [facility] Results Received Date/Time: [facility] Reported Date/Time: [id number] Comment: Effective 04/15/2019 reference range changed.Performed By: #### LIPD, TSH reflex FT4, VITD, CBCAD, CMP #### [facility] Default [address] [place], [place] [address]BJZ [Catalytic activity/Vol]14 U/WFsjqly60-97Dlcfgrnf [place] [facility] SpecialistComment on above:Order Comment: [facility] performed at: [facility], [facility], [address] [place] [address], [address] [place] [address], [address] [place] [address], Manager Installation: Breezy Kumar MD [facility] Collection Date/Time: [facility] Results Received Date/Time: [facility] Reported Date/Time: [id number] By: #### LIPD, TSH reflex FT4, VITD, CBCAD, CMP #### [facility] Default [address] [place] [address]Qfivqmmwf [Mass/Vol]0.7 mg/dLNormal0.2-1.2NorthUniversity [facility]als [facility] SpecialistComment on above:Order Comment: [facility] performed at: [facility], [facility], [address] [place] [address], [address] [place] [address], [address] [place] [address], Manager Installation: Breezy Kumar MD [facility] Collection Date/Time: [facility] Results Received Date/Time: [facility] Reported Date/Time: [id number] By: #### LIPD, TSH reflex FT4, VITD, CBCAD, CMP #### [facility] Default [address] [place], [place] [address]YAA/CREA14 NOT APPLICABLENormal6-22NoDunlap Memorial Hospital SpecialistComment on above:Order Comment: [facility] performed at: [facility], [facility], [address] [place] [address], [address] [place] [address], [address] [place] [address], Manager Installation: Breezy Kumar MD [facility] Collection Date/Time: [facility] Results Received Date/Time: [facility] Reported Date/Time: [id number] By: #### LIPD, TSH reflex FT4, VITD, CBCAD, CMP #### [facility] Default [address] [place], [place] [address]Tpxbaoo [Mass/Vol]10.1 mg/dLNormal8.6-10.4NoDunlap Memorial Hospital SpecialistComment on above:Order Comment: [facility] performed at: [facility], [facility], [address] [place] [address], [address] [place] [address], [address] [place] [address], Manager Installation: Breezy Kumar MD [facility] Collection Date/Time: [facility] Results Received Date/Time: [facility] Reported Date/Time: [id number] By: #### LIPD, TSH reflex FT4, VITD, CBCAD, CMP #### [facility] Default [address] [place], [place] [address]Uvvqdkui [Moles/Vol]106 mmol/WTrxjbp81-367Lxbzijpe [place] [facility] SpecialistComment on above:Order Comment: [facility] performed at: [employer], [facility], [address] [place] [address], [address] [place] [address], [address] [place] [address], Manager Installation: Breezy Kumar MD [facility] Collection Date/Time: [facility] Results Received Date/Time: [facility] Reported Date/Time: [id number] By: #### LIPD, TSH reflex FT4, VITD, CBCAD, CMP #### [facility] Default [address] [place], [place] [address]WA4 [Moles/Vol]28 mmol/BFhaszc59-60Vzfipatu [place] [facility] SpecialistComment on above:Order Comment: [facility] performed at: [employer], [employer] [facility], [address] [place] [address], [address] [place] [address], [address] [place] [address], Manager Installation: Breezy Kumar MD [facility] Collection Date/Time: [facility] Results Received Date/Time: [facility] Reported Date/Time: [id number] By: #### LIPD, TSH reflex FT4, VITD, CBCAD, CMP #### [facility] Default [address] [place], [place] [address]Otuggkmlmt [Mass/Vol]0.83 mg/dLNormal0.50-1.05[facility] [place] [facility] SpecialistComment on above:Order Comment: [facility] performed at: [employer], [facility], [address] [place] [address], [address] [place] [address], [phone], Manager Installation: Breezy Kumar MD [facility] Collection Date/Time: [facility] Results Received Date/Time: [facility] Reported Date/Time: [id number] Comment: For patients >49 years of age, the reference limit for Creatinine is approximately 13% higher for people identified as -Cypriot.Performed By: #### LIPD, TSH reflex FT4, VITD, CBCAD, CMP #### [facility] Default [address] [place], [place] [address]rYIGRO ([facility])92 mL/min/1.64y1Paycaf> OR = 60NortAdena Health System SpecialistComment on above:Order Comment: [facility] performed at: [employer], [employer] [facility], [address] [facility], [address] [place] [address], [phone], Manager Installation: Breezy Kumar MD [facility] Collection Date/Time: [facility] Results Received Date/Time: [facility] Reported Date/Time: [id number] By: #### LIPD, TSH reflex FT4, VITD, CBCAD, CMP #### [facility] Default [address] [place], [place] [address]cOZVFJI (Quest)79 mL/min/1.74l7Ychfsf> OR = 60[facility]Aden[facility] SpecialistComment on above:Order Comment: [facility] performed at: [employer], [facility], [address] [place] [address], [address] [place] [address], [phone], Manager Installation: Breezy Kumar MD [facility] Collection Date/Time: [facility] Results Received Date/Time: [facility] Reported Date/Time: [id number] By: #### LIPD, TSH reflex FT4, VITD, CBCAD, CMP #### [facility] Default [address] [place], [place] [address]Arpwxqzj (S) [Mass/Vol]2.9 g/dLNormal1.9-3.7NoDunlap Memorial Hospital SpecialistComment on above:Order Comment: [facility] performed at: [employer], [facility], [address] [place] [address], [address] [place] [address], [address] [place] [address], Manager Installation: Breezy Kumar MD [facility] Collection Date/Time: [facility] Results Received Date/Time: [facility] Reported Date/Time: [id number] By: #### LIPD, TSH reflex FT4, VITD, CBCAD, CMP #### [facility] Default [address] [place], [place] [address]Fssufcn [Mass/Vol]94 mg/tEWoqmsy57-26Qgouowbe [place] [facility] SpecialistComment on above:Order Comment: [facility] performed at: [facility], [facility], [address] [place] [address], [address] [place] [address], [address] [place] [address], Manager Installation: Breezy Kumar MD [facility] Collection Date/Time: [facility] Results Received Date/Time: [facility] Reported Date/Time: [id number] Comment: Fasting reference intervalPerformed By: #### LIPD, TSH reflex FT4, VITD, CBCAD, CMP #### [facility] Default [address] [place], [place] [address]Jwfjeyoyf [Moles/Vol]5.0 mmol/LNormal3.5-5.3NortAdena [facility] SpecialistComment on above:Order Comment: [facility] performed at: [employer], [employer] [facility], [address] [place] [address], [address] [place] [address], [address] [place] [address], Manager Installation: Breezy Kumar MD [facility] Collection Date/Time: [facility] Results Received Date/Time: [facility] Reported Date/Time: [id number] By: #### LIPD, TSH reflex FT4, VITD, CBCAD, CMP #### [facility] Default [address] [place], [place] [address]Lthacgv [Mass/Vol]7.5 g/dLNormal6.1-8.1NorthUniversity [facility]als [facility] SpecialistComment on above:Order Comment: [facility] performed at: [facility], [facility], [address] [place] [address], [address] [place] [address], [address] [place] [address], Manager Installation: Breezy Kumar MD [facility] Collection Date/Time: [facility] Results Received Date/Time: [facility] Reported Date/Time: [id number] By: #### LIPD, TSH reflex FT4, VITD, CBCAD, CMP #### [facility] Default [address] [place], [place] [address]Qajrgo [Moles/Vol]141 mmol/OEpbumi349-597Gzmcfaib [place] [facility] SpecialistComment on above:Order Comment: [facility] performed at: [employer], [employer] [facility], [address] [place] [address], [address] [place] [address], [address] [place] [address], Manager Installation: Breezy Kumar MD [facility] Collection Date/Time: [facility] Results Received Date/Time: [facility] Reported Date/Time: [id number] By: #### LIPD, TSH reflex FT4, VITD, CBCAD, CMP #### [facility] Default [address] [place], [place] [address]Jkuc nitrogen [Mass/Vol]12 mg/dLNormal7-25NoDunlap Memorial Hospital SpecialistComment on above:Order Comment: [facility] Testing performed at: [employer] [facility], [address] [place] [address], [address] [place] [address], [address] [place] [address], Manager Installation: Breezy Kumar MD [facility] Collection Date/Time: [facility] Results Received Date/Time: [facility] Reported Date/Time: [id number] By: #### LIPD, TSH reflex FT4, VITD, CBCAD, CMP #### [facility] Default [address] [place], [place] [address]Eyiue Panelon 11-39-8700Uierbuhxvpt [Mass/Vol]208 mg/dLHigh<200 [facility] SpecialistComment on above:Order Comment: [facility] Testing performed at: [employer] [facility], [address] [place] [address], [address] [place] [address], [address] [place] [address], Manager Installation: Breezy Kumar MD [facility] Collection Date/Time: [facility] Results Received Date/Time: [facility] Reported Date/Time: [id number] By: #### LIPD, TSH reflex FT4, VITD, CBCAD, CMP #### [facility] Default [address] [place], [place] [address]Ijohswsmabb in HDL [Mass/Vol]35 mg/dLLow> OR = 50NoDunlap Memorial Hospital SpecialistComment on above:Order Comment: [facility] Testing performed at: [employer] [facility], [address] [place] [address], [address] [place] [address], [address] [place] [address], Manager Installation: Breezy Kumar MD [facility] Collection Date/Time: [facility] Results Received Date/Time: [facility] Reported Date/Time: [id number] By: #### LIPD, TSH reflex FT4, VITD, CBCAD, CMP #### [facility] Default [address] [place], [place] [address]Fehhkicoems in LDL [Mass/Vol]140 mg/dLHighNoDunlap Memorial Hospital SpecialistComment on above:Order Comment: [facility] Testing performed at: [employer] [facility], [address] [place] [address], [address] [place] [address], [address] [place] [address], Manager Installation: Breezy Kumar MD [facility] Collection Date/Time: [facility] Results Received Date/Time: [facility] Reported Date/Time: [id number] Comment: Reference range: <100 Desirable range <100 mg/dL for primary prevention; <70 mg/dL for patients with CHD or diabetic patients with > or = 2 CHD risk factors. LDL-C is now calculated using the Ke calculation, which is a validated novel method providing better accuracy than the Friedewald equation in the estimation of LDL-C. Francesco ESPINOZA et al. OVI. 2013;310(19): 3270-8597 (http://education.Accelereach.SnoopWall/faq/RNN796)Performed By: #### LIPD, TSH reflex FT4, VITD, CBCAD, CMP #### [facility] Default [address] [place], [place] [address]ODE HDL JTXZSQRYMMO418 mg/dL (calc)High<130[facility] [place] SpecialistComment on above:Order Comment: [facility] Testing performed at: [employer] [facility], [address] [place] [address], [address] [place] [address], [phone], Manager Installation: Breezy Kumar MD [facility] Collection Date/Time: [facility] Results Received Date/Time: [facility] Reported Date/Time: [id number] Comment: For patients with diabetes plus 1 major ASCVD risk factor, treating to a non-HDL-C goal of <100 mg/dL (LDL-C of <70 mg/dL) is considered a therapeutic option.Performed By: #### LIPD, TSH reflex FT4, VITD, CBCAD, CMP #### [facility] Default [address] [place], [place] [address]Mszajxrfenkt [Mass/Vol]190 mg/dLHigh<150[facility] [place] SpecialistComment on above:Order Comment: [facility] Testing performed at: [employer] [facility], [address] [place] [address], [address] [place] [address], [phone], Manager Installation: Breezy Kumar MD [facility] Collection Date/Time: [facility] Results Received Date/Time: [facility] Reported Date/Time: [id number] By: #### LIPD, TSH reflex FT4, VITD, CBCAD, CMP #### [facility] Default [address] [place] [address]BDL w/ Reflex to Free T4on 68-80-5711SSZ W/REFLEX TO FT40.59 mIU/LNormalNortAdena Health System SpecialistComment on above:Order Comment: [facility] Testing performed at: [employer] [facility], [address] [facility], [address] [place] [address], [phone], Manager Installation: Breezy Kumar MD [facility] Collection Date/Time: [facility] Results Received Date/Time: [facility] Reported Date/Time: [id number] Comment: Reference Range > or = 20 Years 0.40-4.50 Ranges First trimester 0.26-2.66 Second trimester 0.55-2.73 Third trimester 0.43-2.91Performed By: #### LIPD, TSH reflex FT4, VITD, CBCAD, CMP #### [facility] Default [address] [place], [place] [address]Leulqvr D 25-OHon 43-86-2547YXS D 25 OH35 ng/iWEjkxbm99-020 [facility] SpecialistComment on above:Order Comment: [facility] Testing performed at: [employer] [facility], [address] [facility], [address] [place] [address], [phone], Manager Installation: Breezy Kumar MD [facility] Collection Date/Time: [facility] Results Received Date/Time: [facility] Reported Date/Time: [id number] Comment: Vitamin D Status 25-OH Vitamin D: Deficiency: <20 ng/mL Insufficiency: 20 - 29 ng/mL Optimal: > or = 30 ng/mL For 25-OH Vitamin D testing on patients on D2-supplementation and patients for whom quantitation of D2 and D3 fractions is required, the QuestAssureD(TM) 25-OH VIT D, (D2,D3), LC/MS/MS is recommended: order code 59145 (patients >2yrs). See Note 1 Note 1 For additional information, please refer to http://education.Accelereach.SnoopWall/faq/EXS175 (This link is being provided for informational/ educational purposes only.)Performed By: #### LIPD, TSH reflex FT4, VITD, CBCAD, CMP #### [facility] Default [address] [place] [address]Lvegvyemvgca Noteon 07-34-9793Klcgizojgrka Note [id number]#1.00CD:[facility] Vital Signs Date TimeVital SignValuePerforming MbmcuuijbPcsfpwet77-30-0286 08:52-0400Body dyoqwk056.3 cmSnicci Barrios [employer]ER Work Phone: [phone] [place], [place] [address]Oxmacmdndk39-09-4117 08:52-0400Body mass index (BMI) [Ratio]27.17 kg/w6BhfizwSondra Barrios [employer]ER Work Phone: [phone] [place], [place] [address]Buotsvvgoa38-14-6972 08:52-0400Body .46 kgSondra Barrios [employer]ER Work Phone: [facility] HospitalWzzekqytel99-17-5526 08:52-0400Diastolic blood xmycnpie51 mm[Hg]Sondra Barrios [employer] Work Phone: [phone] HospitalSbjzbzfhuv91-13-4336 08:52-0400Heart rate88 /min Sondra Barrios [employer] Work Phone: [phone] HospitalKukxcynezn08-10-0408 08:52-0400Respiratory rate16 /minSnicci Barrios [employer] Work Phone: [phone] [place], [place] [address]Ydxifspujl90-48-4665 08:52-6856TdG2% (BldA) [Mass fraction]97 %Sondra Barrios [employer] Work Phone: [facility] HospitalDklyejrvrm41-39-4826 08:52-0400Systolic blood uftxwggr258 mm[Hg]Sondra Barrios [employer]ER Work Phone: [facility] HospitalMoojooifzp52-94-5396 11:36-0400Body temperature 97.59 [degF]Jojo Valerio [employer] DEALER Work Phone: [facility] HospitalXweojvfath18-13-1389 11:36-0400Diastolic blood rgwnynnj22 mm[Hg]Jojo Valeroi [employer] Work Phone: [facility] HospitalKueoasbijc79-51-6649 11:36-0400Heart rate87 /min Jojo Valerio [employer] Work Phone: [facility] HospitalYshobogdcy63-30-2049 11:36-0400Respiratory rate20 /minJojo Valerio [employer] DEALER Work Phone: [facility] HospitalPqxometkwt54-06-9101 11:36-4034ZrJ9% (BldA) [Mass fraction]98 %Jojo Valerio [employer]ER Work Phone: [facility] HospitalZivfocbtfp88-21-0620 11:36-0400Systolic blood ujapseci513 mm[Hg]Jojo Valerio [employer] Work Phone: [facility] HospitalLhlwzodjof03-65-4691 08:34-0500Body llgdob601.3 cmSnicci Barrios [employer]ER Work Phone: [facility] HospitalLayrdoyraw67-52-2020 08:34-0500Body mass index (BMI) [Ratio]26.43 kg/h6UlmqbuSondra Barrios [employer]ER Work Phone: [facility] HospitalTrbbywsfrs39-87-5232 08:34-0500Body qhrbal86.19 kgSondra Barrios [employer]LE[employer]E DEALER Work Phone: [facility] HospitalYbldgvryjr79-45-8798 08:34-0500Diastolic blood fdhfejer65 mm[Hg]Sondra Barrios [employer]ER Work Phone: [facility] HospitalNbpodckald65-08-4019 08:34-0500Heart rate73 /min Sondra Barrios [employer]ER Work Phone: [facility] HospitalGzyrahigkl26-13-9620 08:34-0500Respiratory rate17 /minSnicci Barrios [employer]ER Work Phone: [facility] HospitalAyavrkddrk22-61-4351 08:34-5865KxR8% (BldA) [Mass fraction]96 %Sondra Barrios [employer] Work Phone: [facility] HospitalFwbrwevfwk91-51-0333 08:34-0500Systolic blood kgohdmik743 mm[Hg]Sondra Barrios [employer] DEALER Work Phone: [facility] HospitalXcrjlrurqj91-67-0090 08:05-0500Body .3 cmTami Swansonmer PA Work Phone: [facility] HospitalEswwdyjgia70-00-6209 08:05-0500Body mass index (BMI) [Ratio]25.84 kg/n6EnnsiTami Swansonmer PA Work Phone: [facility] HospitalOyezqveimq35-46-4217 08:05-0500Body xrwakt94.38 kgTami Hemmer PA Work Phone: [facility] HospitalGaurnpqvfp82-61-8447 08:05-0500Diastolic blood ukdcvwao92 mm[Hg]Tami Swansonmer PA Work Phone: [facility] HospitalJfrxljojpe06-82-3656 08:05-0500Heart rate88 /min Tami Skymer PA Work Phone: [facility] HospitalTczvbnuxyh00-52-8040 08:05-9638GzW5% (BldA) [Mass fraction]95 %Tami Hemmer PA Work Phone: [facility] HospitalFtvgpkrflq32-76-8114 08:05-0500Systolic blood nbkmogfw609 mm[Hg]Tami Swansonmer PA Work Phone: [facility] HospitalIugqjfdxel07-44-9936 08:53-0500Body yeqzmu365.3 cmRangela Nash MD Work Phone: [facility] HospitalGcmxxvyejx98-43-4306 08:53-0500Body mass index (BMI) [Ratio]25.55 kg/z8GxnpfScottie Nash MD Work Phone: [place] [address]Rulbnfrhnz23-39-7385 08:53-0500Body ifkwir95.47 kgScottie Nash MD Work Phone: [place] [address]Wbkjgulmxi37-81-6062 08:53-0500Diastolic blood raxaquyj56 mm[Hg]Scottie Nash MD Work Phone: [place] [address]Ekdpfiuvof86-40-5010 08:53-0500Heart rate87 /min Scottie Nash MD Work Phone: [place] [address]Ofngfiopbf28-60-2545 08:53-1047ByY0% (BldA) [Mass fraction]97 %Scottie Nash MD Work Phone: [facility] Rlmlggoqmd01-23-8144 08:53-0500Systolic blood nmunywrd550 mm[Hg]Scottie Nash MD Work Phone: [facility] Encounters Encounter DateEncounter TypeCare ProviderFacilityStart: 01-09-2025 End: 81-55-3449jsmkfcqoltNSHLBB M SHIVELYNot AvailableStart: 01-06-2025 End: 00-94-5020ZezybsSdtsm M Alda MD Work Phone: [facility] [place] [facility] MedinceComment on above:Grief reactionVitamin D deficiencyStart: 01-02-2025 End: 19-16-0621Mrgsgwiqq encounterSnicci Barrios [employer]ER Work Phone: [facility] [place] [facility] MedinceStart: 12-23-2024 End: 49-37-2256Fvfthnjam Result EncounterSnicci Barrios [employer]LE[employer] DEALER Work Phone: [facility] External Department UnsolicitedStart: 12-23-2024 End: 90-59-0457Nprdhlkzw Result EncounterSnicci Barrios [employer]LE[employer]E DEALER Work Phone: [facility] External Department UnsolicitedStart: 12-04-2024 End: 64-67-5662Bmhrtq flowsMounika Barrios [employer]LE[employer] DEALER Work Phone: [facility] [place] [facility] MedinceStart: 12-04-2024 End: 63-68-7100Pktfsh flowsMounika Barrios [employer] DEALER Work Phone: [facility] [place] [facility] MedinceStart: 12-04-2024 End: 05-35-8828Tjftwa outpatient visit 25 minutesShshakeel Barrios [employer]LE[employer] DEALER Work Phone: [facility] [place] [facility] MedinceComment on above:Lumbar radiculopathy, acute (Primary Dx); Chronic neck pain; Pain of right thigh; Right hip painStart: 12-04-2024 End: 53-63-2550nvauguxjkkWTHZPT M SHIVELYNot AvailableStart: 10-01-2024 End: 39-55-4313Rauztlzqb encounterLinelmer Melvi Valerio [employer] DEALER Work Phone: [facility] HSM FMStart: 10-01-2024 End: 76-49-9180Vpaycd outpatient visit 25 minutesJojo Valerio [employer]LE[employer]E DEALER Work Phone: [facility] SWS UCComment on above:Fall, initial encounter (Primary Dx); Rib pain on right side; Contusion of rib on right side, initial encounterStart: 10-01-2024 End: 80-72-4162lxbqtoesriNVXIAAS N AUSTINNot AvailableStart: 09-11-2024 End: 29-82-4850Ornkardad Result EncounterScottie Nash MD Work Phone: [facility] External Department UnsolicitedStart: 09-11-2024 End: 73-40-6414Azxozojoi Result EncounterScottie Nash MD Work Phone: [facility] External Department UnsolicitedStart: 09-05-2024 End: 27-34-5349Qlhhyzlji Result EncounterSnicci Barrios [employer]LE[employer]E DEALER Work Phone: [facility] External Department UnsolicitedStart: 09-05-2024 End: 17-52-8372Tmpvntplw Result EncounterSnicci Barrios [employer]LE[employer]E DEALER Work Phone: [facility] External Department UnsolicitedStart: 06-12-2024 End: 39-06-3133Qnqpku flowsMounika Barrios [employer] DEALER Work Phone: [phone] CI FMStart: 06-12-2024 End: 16-83-5586Juiscr Yobany Barrios [employer]ER Work Phone: [facility] FMStart: 06-12-2024 End: 03-83-6091Xhfbxc outpatient visit 25 minutesSondra Barrios [employer]LE[employer]E DEALER Work Phone: [phone] CI FMComment on above:Acquired hypothyroidism (CMS/HCC) (Primary Dx); Trouble in sleeping; Grief reaction (CMS/HCC); Hereditary hemochromatosis (CMS/HCC); Polycythemia vera (CMS/HCC); Other fatigue; Hypertriglyceridemia (CMS/HCC); Vitamin D deficiency; Adjustment disorder with depressed mood (CMS/HCC); Encounter for screening mammogram for malignant neoplasm of breastStart: 06-12-2024 End: 02-22-0520miyenimpniKAVULJ M SHIVELYNot AvailableStart: 03-28-2024 End: 82-92-1279Eqqljw outpatient visit 15 minutesTami MCDONALD Work Phone: [facility] FMComment on above:Trouble in sleeping (Primary Dx); Grief reaction (CMS/HCC)Start: 03-28-2024 End: 77-06-5270yhziuyaogbSZAWE M HEMMERNot AvailableStart: 02-27-2024 End: 57-87-8463Euawlz outpatient visit 25 minutesScottie Nash MD Work Phone: [facility] FMComment on above:Benign essential hypertension (CMS/HCC) (Primary Dx); Adjustment disorder with depressed mood (CMS/HCC); Atherosclerosis of aorta (CMS/HCC); Polycythemia vera (CMS/HCC); Cigarette smoker; Anxiety; Obstructive sleep apnea syndromeStart: 02-27-2024 End: 37-22-3899ojqfkdjyecOBUTX M ALDANot AvailableStart: 08-28-2023 End: 51-56-1418Nqmjeto encounter statusScottie Nash MD Work Phone: noms HealthcareStart: 07-20-2022 End: 34-08-6813lrmcyxkxzdEY ROSITA NOÉ .Facility:Z1Moghd: 09-14-2021 End: 20-81-4161sjwfjwtdjiSC ROSITA NOÉ .Facility: Procedures DateProcedureProcedure DetailPerforming ClinicianStart: 81-02-3867IX LUMBAR SPINE 2 OR 3VSnicci Barrios NP Work Phone: Start: 79-19-5273RS TOMOSYNTHESIS SCREENING Brissa Nash MD Work Phone: Start: 43-46-7409OzipvinpldnBmdzm Alda MD Work Phone: Start: 70-25-8439ADO CBC WITH AUTO DIFFSherri Osorio Barrios [employer]ER Work Phone: Start: 67-74-2959KbojrzjurmpKfbat Alda MD Work Phone: Start: 36-54-1439Rzkkpcdwvo test result abnormal Abnormal laboratory testScottie Nash MD Work Phone: Start: 36-46-5256NdhiohmpfsaPceka Alda MD Work Phone: Plan of Treatment DateCare ActivityDetailAuthorStart: 22-70-0093Kwulhecee for malignant neoplasm of colonNOMS HealthcareStart: 98-91-2811Iimqjcqom for malignant neoplasm of breastMammogramNOMS HealthcareStart: 01-02-2025 End: 22-46-8523BU Hip - right 3 ViewsXR hip right 2 or 3 views Imaging Routine Pain of right hip Expected: 01/02/2025, Expires: 01/02/2026[facility] Work Phone: Comment on above:Expected: 01/02/2025, Expires: 01/02/2026Start: 94-15-8869Ujmmkqfpc vaccinationOGDEN REG[facility] HealthcareStart: 12-04-2024 End: 38-57-7523ND Lumbar spine WO contrastMR lumbar spine wo contrast Imaging Routine Lumbar radiculopathy, acute Pain of right thigh Expected: 12/04/2024, Expires: 12/04/2025[facility] Work Phone: Comment on above:Expected: 12/04/2024, Expires: 12/04/2025Start: 12-04-2024 End: 56-08-6808Ultceph encounter pdglztosg51/27/2025 9:00 AM EDT Office Visit [facility] [place] [facility] [address] [place] [id number] Sondra Barrios NP [address] [place] [address] [facility] [place] [facility] MedinceComment on above:ArrivedStart: 09-05-2024 End: 24-04-3042GL Breast - bilateral ScreeningBilateral screening mammogram Imaging Routine Encounter for screening mammogram for malignant neoplasm of breast Expected: 09/05/2024, Expires: 08/12/2025[facility] HealthcareComment on above: Expected: 09/05/2024, Expires: 08/12/2025Start: 95-09-8330Rdwtqgdvh for malignant neoplasm of breastMammogramNOMS HealthcareStart: 08-29-2024 End: 195870-gyazneifyrghtp D3 [Mass/volume] in Serum or PlasmaVitamin D 25 hydroxy Lab Routine Vitamin D deficiency Expected: 08/29/2024 (Approximate), Expires: 06/12/2025[facility] Work Phone: Comment on above:Expected: 08/29/2024 (Approximate), Expires: 06/12/2025Start: 08-29-2024 End: 52-44-6883HMH panel - Blood by Automated countCBC Lab Routine Hereditary hemochromatosis (CMS/HCC) Polycythemia vera (CMS/HCC) Expected: 08/29/2024 (Approximate), Expires: 06/12/2025[facility] HealthcareComment on above:Expected: 08/29/2024 (Approximate), Expires: 06/12/2025Start: 08-29-2024 End: 26-35-1612Vxnssxrvdsete metabolic 2000 panel - Serum or PlasmaComprehensive metabolic panel Lab Routine Acquired hypothyroidism (CMS/HCC) Other fatigue Expected:08/29/2024 (Approximate), Expires: 06/12/2025[facility] HealthcareComment on above:Expected: 08/29/2024 (Approximate), Expires: 06/12/2025Start: 08-29-2024 End: 80-28-1785Jwcqn 1996 panel - Serum or PlasmaLipid panel Lab Routine Hypertriglyceridemia (CMS/HCC) Expected: 08/29/2024 (Approximate), Expires: 06/12/2025[facility] HealthcareComment on above:Expected: 08/29/2024 (Approximate), Expires: 06/12/2025Start: 08-29-2024 End: 47-35-9547BXV W/REFLEX TO FT4TSH W/REFLEX TO FT4 Lab Routine Acquired hypothyroidism (CMS/HCC) Expected: 08/29/2024 (Approximate), Expires: 06/12/2025 [facility] HealthcareComment on above:Expected: 08/29/2024 (Approximate), Expires: 06/12/2025Start: 06-12-2024 End: 52-86-7465Nssktxh encounter /05/2025 8:30 AM EST Office Visit [facility] [address] [facility] [address] [place] [address] Sondra Barrios NP [address] [facility] [address] [place], [place] [address] ArrivedNOMS CI FMComment on above:ArrivedStart: 90-67-3334Oxczzygtg vaccinationInfluenza Vaccine (#1)[facility] HealthcareComment on above:Postponed from 12/10/2023 (Patient Refused)Start: 01-96-4645Fmiropdlg vaccinationInfluenza Vaccine (#1)[facility] HealthcareStart: 33-75-9736Isfhfgocc for malignant neoplasm of cervixNOMS HealthcareStart: 65-37-4158Thhhqnhhr for malignant neoplasm of cervixPap SmearNOMS HealthcareStart: 50-86-1636Mxtffoiaj for malignant neoplasm of colonN[facility] Healthcare Immunizations Immunization DateImmunizationNotesCare JdozzpcbIenktcsw49-16-6718osklbpy toxoid, reduced diphtheria toxoid, and acellular pertussis vaccine, Angela Barrios NP Work Phone: [facility] Payers DatePayer CategoryPayerPolicy ID2023MedicaidANTHEM BCBS MEDICAID [place] [id number] [id number] 2.16.840.1.707271.3.57[id number] 2.16.840.1.933785.3.57[id number] 2.16.840.1.167760.3.57[id number] 2.16.840.1.612039.3.57[id number] 2.16.840.1.368412.3.57[id number] 2.16.840.1.590357.3.579.[id number] 2.16.840.1.253096.3.57[id number] 2.16.840.1.551662.3.57[id number] Social History DateTypeDetailFacilityStart: 72-88-2034Qxulbzq smoking status NHISOccasional tobacco smokerNOMS HealthcareStart: 09-26-1514Fpabsna of tobacco useCigarette SmokerNOMS HealthcareStart: 02-20-2024 End: 23-20-5997Wnuptodxuu smoked current (pack per day) - Reported0.3NOMS HealthcareHistory of tobacco usePassive smokerNOMS HealthcareStart: 02-27-2024 Tobacco use and exposureSmokeless tobacco non-userNOMS HealthcareStart: 02-27-2024 End: 08-50-2265Fnspbcroo beverage intakeCurrent drinker of alcohol (finding)[facility] HealthcareStart: 11-22-2022 End: 38-96-8792P2764 Health LiteracyNOMS HealthcareHow often do you need to have someone help you when you read instructions, pamphlets, or other written material from your doctor or pharmacy [SILS]NeverNOMS HealthcareWithin the last year, have you been afraid of your partner or ex-partner?NoNOMS HealthcareAre you now , , , , never or living with a partner?Living with partnerNOMS HealthcareHow often to you have a drink containing alcohol?2-4 times a monthNOMS HealthcareHow many standard drinks containing alcohol do you have on a typical day?1 or 2N[facility]S HealthcareHow often do you have 6 or more drinks on 1 occasion?NeverNOMS HealthcareHow hard is it for you to pay for the very basics like food, housing, medical care, and heating Not very hardNOMS HealthcareDo you feel stress - tense, restless, nervous, or anxious, or unable to sleep at night because yourmind is troubled all the time - these days [OSQ]To some extentNOMS Healthcare(I/We) worried whether (my/our) food would run out before (I/we) got money to buy more.Never trueN[facility]S Healthcare Start: 07-02-0063Ilodina CommentCaffeine: coffee, sodaNOMS HealthcareStart: 29-14-3795Uxh assigned at [facility] HealthcareStart: 70-45-0549Tubnah identityIdentifies as female gender (finding)[facility] HealthcareStart: 09-15-2022 Sexual orientationHeterosexual (finding)[facility] Functional Status AkebRdgvxzridiFzriyzAudtytig82-49-3832Htkuwtf Health Questionnaire 2 item (PHQ- 2) [Reported][facility] Healthcare Clinical Notes 08-10-2021 to 01-06-2025 Note Date & CelhKuxqZapurbcm84-20-7913 Telephone encounter Note* Telephone Encounter - HARRY Ruiz - 01/06/2025 1:08 PM EDT Vitamin D sent. [facility] HospitalLehjedaafy13-67-6788 Miscellaneous Notes* Telephone Encounter - HARRY Ruiz - 01/06/2025 1:08 PM EDT Vitamin D sent. documented in this encounterOzarks Community HospitalCshujffkui64-07-3218 Telephone encounter Note* Telephone Encounter - HARRY Ruiz - 01/06/2025 10:47 AM EDT Buspar sent. [facility] HospitalOcfznpakbw73-07-6635 Miscellaneous Notes* Telephone Encounter - HARRY Ruiz - 01/06/2025 10:47 AM EDT Buspar sent. documented in this encounterOzarks Community HospitalBrcwmuvzne04-99-3286 Telephone encounter Note* Telephone Encounter - Kaley Earl MA - 01/02/2025 8:12 AM EDT Katie, this is [facility]. Physical therapy, I am calling regard to patient Camryn Cuenca. 1964 is her date. She is being seen by nurse practitioner papo Andrea we saw her for it said for back pain, but her main pain is in her hip and she had Many positivehip scour tests on the right side. I am recommending a right hip X ray for arthritis. I think her source of pain is more in her hip than her back. She is more limited in weight bearing when she has her pain. And I would definitely look into that a little bit further. You can call me at [phone], extension [phone], if you have any questions. Thank you, jerrell allan. [facility] HospitalFocixzqdym90-04-2247 Miscellaneous Notes* Telephone Encounter - Kaley Earl MA - 01/02/2025 8:12 AM EDT Katie, this is [facility]. Physical therapy, I am calling regard to patient Camryn Cuenca. 1964 is her date. She is being seen by nurse practitioner papo Andrea we saw her for it said for back pain, but her main pain is in her hip and she had Many positivehip scour tests on the right side. I am recommending a right hip X ray for arthritis. I think her source of pain is more in her hip than her back. She is more limited in weight bearing when she has her pain. And I would definitely look into that a little bit further. You can call me at [phone], extension [phone], if you have any questions. Thank you, jerrell allan. documented in this encounterOzarks Community HospitalJavznsipfz51-66-7094 History of Present illness Narrative* Sondra Barrios NP - 12/04/2024 9:00 AM EDT Images from the original note were not [...] moderate to severe stenosis of C-spine. Nothing isrelieving the discomfort. Groin Pain The current episode [...] ORIF ANKLE FRACTURE Right 07/20/2016 Dr. Wood [facility] SPINE SURGERY 2021 TUBAL LIGATION Bilateral 1993 [...] Encouraged gentle stretches. Handout provided. PT referral mayalso be appropriate. Chronic neck pain - ibuprofen [...] No follow-ups on file. documented in this encounterOzarks Community [id number] Telephone encounter Note* Telephone Encounter - Johanna Ellis MA - 10/01/2024 4:56 PM EDT LMTCB [facility] [id number] Miscellaneous Notes* Telephone Encounter - Johanna Ellis MA - 10/01/2024 4:56 PM EDT LMTCB * Telephone Encounter - Jojo Valerio NP - 10/01/2024 1:27 PM EDT Please call patient and notify that x ray is negative for rib fracture or any acute cardiopulmonaryabnormalities. Follow up with PCP if not improving. Thanks. FINDINGS: No appreciable/displaced rib fracture. Normal lung expansion. No diffuse or focal pulmonary abnormality. No significant effusion or pneumothorax. The cardiomediastinal silhouette is normal. No upper abdominal abnormality. IMPRESSION: No appreciable/displaced rib fracture. No acute cardiopulmonary abnormality. documented in this encounterOzarks Community [id number] Telephone encounter Note* Telephone Encounter - Jojo Valerio NP - 10/01/2024 1:27 PM EDT Please call patient and notify that x ray is negative for rib fracture or any acute cardiopulmonaryabnormalities. Follow up with PCP if not improving. Thanks. FINDINGS: No appreciable/displaced rib fracture. Normal lung expansion. No diffuse or focal pulmonary abnormality. No significant effusion or pneumothorax. The cardiomediastinal silhouette is normal. No upper abdominal abnormality. IMPRESSION: No appreciable/displaced rib fracture. No acute cardiopulmonary abnormality. [facility] Work Phone: [phone] 607-400206-24-2025 History of Present illness Narrative* Jojo Valerio NP - 10/01/2024 11:35 AM EDT Images from the original note were not [...] abnormality. See telephone encounter. documented in this encounterOzarks Community [id number] History of Present illness Narrative* Sondra Barrios NP - 06/12/2024 8:30 AM EST Images from the original note were not [...] The problem has been gradually improving. Associated symptomsinclude myalgias. The symptoms are aggravated by stress [...] ORIF ANKLE FRACTURE Right 07/20/2016 Dr. Wood [facility] SPINE SURGERY 2021 TUBAL LIGATION Bilateral 1993 [...] her anxiety. Continue current dose. Hereditary hemochromatosis ([facility]/HCC) - CBC; Future Await lab Polycythemia vera ([facility]/HCC) - CBC; Future Await lab Other fatigue - Comprehensive metabolic panel; Future Await lab Hypertriglyceridemia ([facility]) - Lipid panel; Future Await lab Vitamin D deficiency - Vitamin D 25 hydroxy; Future Await lab Adjustment disorder with depressed mood ([facility]/HCC) - ALPRAZolam (Xanax) 0.5 MG tablet; [...] the medications described and to seek medical careif they arise. Discussed stress mgmt strategies, social support and importance of healthy diet, exercise and regular sleep habits. Advised on relaxation methods to decrease anxiety and depression. Encounter for screening mammogram for malignant neoplasm of breast - Bilateral screening mammogram; Future Await results of mammogram No follow-ups on file. documented in this encounterOzarks Community [id number] History of Present illness Narrative* Tami Troy, HARRY - 03/28/2024 8:00 AM EST Images from the original note were not [...] Cancer Maternal Grandmother Sheyla Cancer Paternal Grandmother Camleia breast Past Medical History: Diagnosis Date Anxiety [...] ORIF ANKLE FRACTURE Right 07/20/2016 Dr. Wood [facility] SPINE SURGERY 2021 TUBAL LIGATION Bilateral 1993 [...] of symptoms the patient is to stop themedication immediately and contact our office. ER if [...] Wellness, Medication Follow Up. documented in this encounterOzarks Community [id number] History of Present illness Narrative* Scottie Nash MD - 02/27/2024 9:19 AM ESTAssociated Problem(s): Obstructive sleep apnea syndrome Patient is compliant with CPAP usage and perceives benefit from treatment. Treatment has been effective in controlling the patient's symptoms of Sleep Apnea. Will continue to monitor with routine follow up appointments. * Scottie Nash MD - 02/27/2024 9:18 AM ESTAssociated Problem(s): Anxiety Patient's Medicine is effective at controlling symptoms at current dose and frequency. PDMP reviewed with no evidence of overuse and abuse D/W patient to avoid use of benzodiazepines when consuming alcohol Advised against operating heavy machinery and driving long distances while on medicines. * Scottie Nash MD - 02/27/2024 9:17 AM ESTAssociated Problem(s): Polycythemia vera (CMS/HCC) Recommend blood donation * Scottie Nash MD - 02/27/2024 9:17 AM ESTAssociated Problem(s): Atherosclerosis of aorta (CMS/HCC) Reduce tobacco * Scottie Nash MD - 02/27/2024 9:14 AM ESTAssociated Problem(s): Cigarette smoker Discussed smoking cessation with the patient. Encouraged patient to try to cut back gradually and soon quit smoking. Discussed ways to quit smoking including gum, patches, medication, and gradually reducing the number of cigarettes smoked daily. Discussed potential health risks of intermission coordinator smoking. Patient voiced understanding. Benefits of cessation, both health and financial, were reviewed. * Scottie Nash MD - 02/27/2024 9:11 AM ESTAssociated Problem(s): Benign essential hypertension (CMS/HCC) Our specific [...] taking them as prescribed. DASH diet handouts * Scottie Nash MD - 02/27/2024 9:00 AM EST Images from the original note were not [...] is controlled. Pertinent negatives include no chest painor neck pain. There are no associated agents [...] needed for anxiety 60 tablet 0 [DISCONTINUED] Henderson-3 Fatty Acids (Fish Oil) 1000 MG capsule [...] ORIF ANKLE FRACTURE Right 07/20/2016 Dr. Wood [facility] SPINE SURGERY 2021 TUBAL LIGATION Bilateral 1993 [...] This Visit Adjustment disorder with depressed mood ([facility]/HCC) Relevant Medications ALPRAZolam (Xanax) 0.5 MG tablet Polycythemia vera ([facility]) Recommend blood donation Cigarette smoker Discussed smoking cessation with the patient. Encouraged patient to try to cut back gradually and soon quit smoking. Discussed ways to quit smoking including gum, patches, medication, and gradually reducing the number of cigarettes smoked daily. Discussed potential health risks of custodial smoking. Patient voiced understanding. Benefits of cessation, both health and financial, were reviewed. Anxiety Patient's Medicine is effective at controlling symptoms at current dose and frequency. PDMP reviewed with no evidence of overuse and abuse D/W patient to avoid use of benzodiazepines when consuming alcohol Advised against operating heavy machinery and driving long distances while on medicines. Benign essential hypertension ([facility]/HCC) - Primary Our specific goals, for your [...] prescribed. DASH diet handouts Atherosclerosis of aorta ([facility]) Reduce tobacco Obstructive sleep apnea syndrome Patient is compliant with CPAP usage and perceives benefit from treatment. Treatment has been effective in controlling the patient's symptoms of Sleep Apnea. Will continue to monitor with routine follow up appointments. Follow up in about 4 months (around 06/26/2024) for Anxiety Meds F/U. documented in this encounterOzarks Community [id number] NoteHISTORY: Right sided neck pain, numbness, tingling PROCEDURE: GE Signa HDXT 1.5. Sagittal T1, T2, STIR [...] and signed by Galo Palacio on 08/10/2021 1152[facility] [place] [facility] SpecialistEvaluation note* Diagnosis Fatigue, unspecified type- Primary Somnolence, [...] (adult) (pediatric) documented in this encounter [facility]* Diagnosis Fatigue, unspecified type- Primary Somnolence, daytime Right hip pain Pain in joint, pelvic region and thigh Polycythemia vera (CMS/HCC) Encounter for well adult exam without abnormal findings- Primary Abnormal glucose tolerance test Impaired glucose tolerance test Benign essential hypertension (CMS/HCC) Essential hypertension, benign Annual physical exam Routine general medical examination at [facility] Vitamin D deficiency Acquired hypothyroidism (CMS/HCC) Unspecified [...] and thigh documented in this encounter [facility]* [...] Lipoprotein deficiencies Adjustment disorder with depressed mood Right hip pain Pain in joint, pelvic region and thigh Chronic neck pain Cervicalgia Encounter for screening mammogram for malignant neoplasm of breast Cigarette smoker Tobacco use disorder Somnolence, daytime Benign essential hypertension- Primary Essential hypertension, benign Adjustment disorder with depressed mood Atherosclerosis of aorta Polycythemia vera (HCC) Cigarette smoker Tobacco use disorder Anxiety Anxiety state, unspecified Obstructive sleep apnea syndrome Obstructive sleep apnea (adult) (pediatric) Pain of right hip- Primary documented in this encounter [facility]* [...] Lipoprotein deficiencies Adjustment disorder with depressed mood Right hip pain Pain in joint, pelvic region and thigh Chronic neck pain Cervicalgia Encounter for screening mammogram for malignant neoplasm of breast Cigarette smoker Tobacco use disorder Somnolence, daytime Benign essential hypertension- Primary Essential hypertension, benign Adjustment disorder with depressed mood Atherosclerosis of aorta Polycythemia vera (HCC) Cigarette smoker Tobacco use disorder Anxiety Anxiety state, unspecified Obstructive sleep apnea syndrome Obstructive sleep apnea (adult) (pediatric) Grief reaction Adjustment disorder with depressed mood [...] Lipoprotein deficiencies Adjustment disorder with depressed mood Right hip pain Pain in joint, pelvic region and thigh Chronic neck pain Cervicalgia Encounter for screening mammogram for malignant neoplasm of breast Cigarette smoker Tobacco use disorder Somnolence, daytime Benign essential hypertension- Primary Essential hypertension, benign Adjustment disorder with depressed mood Atherosclerosis of aorta Polycythemia vera (HCC) Cigarette smoker Tobacco use disorder Anxiety Anxiety state, unspecified Obstructive sleep apnea syndrome Obstructive sleep apnea (adult) (pediatric) Vitamin D deficiency documented in this encounter [facility] Healthcare Summary Purpose Family History No Family History Records FoundNo Family History Records FoundNo Family History Records FoundNo Family History Records Found Advance Directives No Advanced Directives Records FoundNo Advanced Directives Records FoundNo Advanced Directives Records FoundNo Advanced Directives Records Found Additional Source Comments INFORMATION SOURCE (unrecogn ized section and content) DATE CREATED AUTHOR 01/10/2021 [facility] DATE CREATED AUTHOR AUTHOR'S ORGANIZ ATION 08/12/2021 [facility] Legal Researcher DATE CREATED AUTHOR AUTHOR'S ORGANIZ ATION 07/25/2022 [facility] DATE CREATED AUTHOR AUTHOR'S ORGANIZ ATION 01/13/2025 [facility] EPIC Reason for Visit (unrecogniz ed section and content) ReasonCommentsHypertensionReasonCommentsDepressionReasonCommentsMed Refill Care Teams (unrecognized sec tion and content) Team MemberRelationshipSpecialtyStart DateEnd Date Scottie Nash MD [address] [place] [address] PCP - General09/15/22 Scottie Nash MD [address] [facility] [address] [place] [address] PCP - [facility]07/10/23Team MemberRelationshipSpecialtyStart DateEnd Date Scottie Nash MD [address] [facility] [address] [place] [address] PCP - General09/15/22 Scottie Nash MD [address] [facility] [address] [place] [address] PCP - [facility]07/10/23Team MemberRelationshipSpecialtyStart DateEnd Date Scottie Nash MD [address] [facility] [address] [place] [address] PCP - General09/15/22 Scottie Nash MD [address] [facility] [address] [place] [address] PCP - [facility]07/10/23Team MemberRelationshipSpecialtyStart DateEnd Date Scottie Nash MD [address] [facility] [address] [place] [address] PCP - General09/15/22 Scottie Nash MD [address] [facility] [address] [place] [address] PCP - [facility]07/10/23Team MemberRelationshipSpecialtyStart DateEnd Date Scottie Nash MD [address] [place] [address] PCP - General09/15/22 Scottie Nash MD [address] [place] [address] PCP - [facility]07/10/23Team MemberRelationshipSpecialtyStart DateEnd Date Scottie Nash MD [address] [place] [address] PCP - General09/15/22 Scottie Nash MD [address] [facility] [address] [place] [address] PCP - [facility]07/10/23Team MemberRelationshipSpecialtyStart DateEnd Date Scottie Nash MD [address] [facility] [address] [place] [address] PCP - General09/15/22 Scottie Nash MD [address] [place] [address] PCP - [facility]07/10/23Team MemberRelationshipSpecialtyStart DateEnd Date Scottie Nash MD [address] [place] [address] PCP - General09/15/22 Scottie Nash MD [address] [place] [address] PCP - [facility]07/10/23 FOR RECORDS PERTAINING TO PATIENTS WHO ARE [...] BE BASED ON THE PRIMARY CLINICAL RECORDS. [facility] [employer] [facility]. provides no warranty or guarantee of the accuracy or completeness of information in this document.
== END 2025-02-03 08:54 | disposition home or self-care (01) ==
LOC: MRI 08:53
PROVIDERS: PCP Family Medicine; Visit Provider Nurse Practitioner Family
DX: M54.16 Radiculopathy, lumbar region (principal); M47.816 Spondylosis without myelopathy or radiculopathy, lumbar region; M51.369 Other intervertebral disc degeneration, lumbar region without mention of lumbar back pain or lower extremity pain; M48.062 Spinal stenosis, lumbar region with neurogenic claudication
CPT/HCPCS: 72148

== ENCOUNTER 2025-03-12 15:37 | Outpatient (RCR) | payer MEDICAID, SELFPAY | END 2025-03-25 15:15 | disposition home or self-care (01) | LOC: PT 15:37 | PROVIDERS: PCP Family Medicine; Visit Provider Orthopaedic Surgery | DX: M51.360 Other intervertebral disc degeneration, lumbar region with discogenic back pain only (principal); M25.551 Pain in right hip | CPT/HCPCS: 97110; 97162 ==